=== PATIENT | female | born 2000 | race Caucasian/White ===

== ENCOUNTER 2023-02-16 11:11 | Emergency (ER) | payer MEDICAID, SELFPAY ==
[2023-02-16 11:16] VITALS: BP 134/69; PULSE 98; RESP 16; O2SAT 98
--- OUTSIDE RECORDS SUMMARY | 2023-02-16 11:44 | XMS_ITS | Continuity of Care Document ---
Author Name [facility] Address [address] [place] [address] Organization [facility] Address [address] [place] [address] Care Team Providers Care Senior Attorney Name Role Phone Jyothi Arteaga Primary Care Physician Allergies, Adverse Reactions, Alerts No known allergies. Medications Active Medications Medication Dose Units Route Sig Qty Start Date Status In structions Famotidine 0 Route .COMPLEX 270 October 30, 2020 Active TAKE 1 TABLET BY MOUTH THREE TIMES DAILY NEEDED FOR ACID REFLUX Fluoxetine 20 MG ORAL DAILY November 20, 2020 Active Levonorgestrel- Ethinyl Estrad 1 TAB ORAL DAILY 84 November 20, 2020 Active Magnesium 200 - 600 MG ORAL DAILY 90 December 20, 2020 Active Riboflavin (Vitamin B2) 400 MG ORAL DAILY 90 December 20, 2020 Active Discontinued Medications Medication Dose Units Route Sig Qty Start Date Discontinued Date Status Instructions Levonorgestre l-Ethinyl Estrad 1 TAB ORAL DAILY 84 August 17, 2018 November 08, 2019 Disconti nued Levonorgestre l-Ethinyl Estrad 1 TAB ORAL DAILY 84 2019November 20, 2020 Disconti nued Fluoxetine 10 MG ORAL DAILY June 17, 2020 July 12, 2020 Disconti nued Magnesium 200 - 600 MG ORAL DAILY 90 November 04, 2020 December 20, 2020 Disconti nued Riboflavin (Vitamin B2) 400 MG ORAL DAILY 90 November 04, 2020 December 20, 2020 Disconti nued flu vac [id number] 36mos up(PF) 60 MCG INTRAMUS CULAR ONCE 0.5 July 27, 2018 July 27, 2018 Disconti nued Ondansetron Hcl [Zofran] 4 MG ORAL Q8H PRN For nausea and vomiti ng 7 September 12, 2020 October 16, 2020 Disconti nued tuberculin PPD 0.1 ML INTRADER MAL ONCE 0.1 Septembe 2020November 19, 2020 Disconti nued tuberculin PPD 0.1 ML INTRADER MAL ONCE 0.1 July 06, 2018 July 06, 2018 Disconti nued Menactra (PF) (mening vac A,C,Y,W135 dip (PF)) 4 mcg/0.5 mL intramuscular solution 0.5 ML INTRAMUS CULAR ONCE 0.5 August 30, 2020 August 30, 2020 Disconti nued Famotidine 20 MG ORAL THREE TIMES A DAY PRN For acid reflux 90 August 30, 2020 October 30, 2020 Disconti nued Fluoxetine 20 MG ORAL DAILY 30 August 30, 2020 November 20, 2020 Disconti nued Fluoxetine 20 MG ORAL DAILY 30 July 12, 2020 August 19, 2020 Disconti nued Fluoxetine 20 MG ORAL DAILY 30 August 19, 2020 August 30, 2020 Disconti nued Silver Sulfadiazine [Silvadene] 1 APPLIC TOPICALL Y TWICE A DAY 50 October 16, 2020 November 04, 2020 Disconti nued apply a 1.5 mm thickness Levonorgestre l-Ethinyl Estrad [Vienva] September 26, 2017 August 17, 2018 Disconti nued Amoxicillin-P ot Clavulanate [Augmentin] 1 TAB ORAL TWICE A DAY 14 September 26, 2017 July 27, 2018 Disconti nued Ondansetron 4 MG ORAL Q8H PRN For nausea and vomiti ng 14 September 30, 2020 November 04, 2020 Disconti nued flu vacc [id number] 6mos up(PF) 0.5 ML INTRAMUS CULAR ONCE 0.5 May 01, 2020 May 01, 2020 Disconti nued Problem List Active Problems Medical Problem Onset Date Status Effusion of knee December 06, 2017 Benign mole Active Vomiting and diarrhea Active Abrasion, right foot, initial encounter Active Otalgia June 11, 2016 Anxiety Trauma and stressor-related disorder Headache Active Anxiety and depression Encounter for well child check without abnormal findings Active Hepatic hemangioma Active Acute pharyngitis Active Knee pain November 09, 2017 Abdominal pain Active Chest pain Active Foreign body of left eyelid Acti ve Inactive/Resolved Problems Medical Problem Onset Date Status Abdominal pain, RUQ Inactive Chronic chest wall pain Inactive Acute foot pain Inactive Acute pain of right foot Inactiv e Acute right ankle pain Inactive Acute viral pharyngitis Inactive Abdominal pain Inactive Vomiting Inactive Contusion of hand, right Inactiv e Laceration of foot, left Inactiv e Sprain of hand, right Inactive Procedures Procedure Date Status Chest 1 vw December 21, 2020 completed Ankle 3 vw Min RT October 11, 2020 completed Foot 3 vw Min RT October 11, 2020 completed EKG October 08, 2020 completed US Abdomen (Limited) 2020 completed ED US Abdominal Limited September 30, 2020 complete d Urine Culture September 12, 2020 completed Hand 3 vw Min RT July 27, 2020 completed Foot 3 vw Min LT July 04, 2020 completed Group A Streptococcus Screen (YVES) May 20 completed Reason for Referral Reason for Referral Date Referral was Provided Provider Office Contact Location October 07, 2020 Jyothi Arteaga [phone] [facility] [place] [address] Relevant Diagnostic Tests and/or Laboratory Data Laboratory Results Test Date/Time Result Interp. Ref. Range Result Comment POC Urinalysis Method November 19, 2020 11:18am Chemstrip Manual Urine Color (Manual) November 19, 2020 11:18am Yellow Urine Clarity (Manual) November 19, 2020 11:18am Clear POC Urine Glucose November 19, 2020 11:18am Negative POC Urine Bilirubin Confirmation November 19, 2020 11:18am Negative Urine Ketones (Manual) November 19, 2020 11:18am Negative Urine Specific [place] (Manual) November 19, 2020 11:18am 1.020 POC Urine RBC November 19, 2020 11:18am Negative Urine pH (Manual) November 19, 2020 11:18am 7.0 POC Urine Protein Confirmation November 19, 2020 11:18am Negative Urine Urobilinogen (Manual) November 19, 2020 11:18am Negative Urine Nitrite (Manual) November 19, 2020 11:18am Negative Urine Leukocyte Esterase (Manual) November 19, 2020 11:18am Negative White Blood Count December 21, 2020 10:15am 7.96 1000/mm3 4.8-10.8 Red Blood Count December 21, 2020 10:15am 5.35 M/mm3 4.20-5.40 Hemoglobin December 21, 2020 10:15am 15.5 g/dL 12.0-16.0 Hematocrit December 21, 2020 10:15am 45.5 % 37-47 Mean Corpuscular Volume December 21, 2020 10:15am 85.0 fL 81.0-99.0 Mean Corpuscular Hemoglobin December 21, 2020 10:15am 29.0 pg 27-31 Mean Corpuscular Hemoglobin Concent December 21, 2020 10:15am 34.1 g/dL 33-37 Red Cell Distribution Width December 21, 2020 10:15am 11.9 % 11.5-14.5 Platelet Count December 21, 2020 10:15am 244 1000/mm3 140-440 Mean Platelet Volume December 21, 2020 10:15am 9.4 fL 7.4-10.4 Neutrophils (%) (Auto) December 21, 2020 10:15am 63.9 % 40.0-72.0 Lymphocytes (%) (Auto) December 21, 2020 10:15am 27.0 % 17-45 Monocytes (%) (Auto) December 21, 2020 10:15am 5.3 % 3-11 Eosinophils (%) (Auto) December 21, 2020 10:15am 2.5 % 0-3 Basophils (%) (Auto) December 21, 2020 10:15am 1.0 % 0-1 Immature Granulocyte % (Auto) December 21, 2020 10:15am 0.3 % 0-1 Neutrophils # (Auto) December 21, 2020 10:15am 5.09 1000/mm3 1.4-6.5 Lymphocytes # (Auto) December 21, 2020 10:15am 2.15 1000/mm3 1.2-3.4 Monocytes # (Auto) December 21, 2020 10:15am 0.42 1000/mm3 0.0-0.8 Eosinophils # (Auto) December 21, 2020 10:15am 0.20 1000/mm3 0.0-0.7 Basophils # (Auto) December 21, 2020 10:15am 0.08 1000/mm3 0.0-0.1 Absolute Immature Granulocyte (auto December 21, 2020 10:15am 0.0 0-1 Differential Method December 21, 2020 10:15am Automated Urine Color September 12, 2020 4:01pm Yellow Urine Clarity September 12, 2020 4:01pm Clear Urine pH September 12, 2020 4:01pm 6.5 Urine Specific [place] September 12, 2020 4:01pm 1.015 Urine Protein September 12, 2020 4:01pm 30 (1+) mg/dL High Urine Glucose (UA) September 12, 2020 4:01pm Normal mg/dL Urine Ketones September 12, 2020 4:01pm Moderate (2+) High Urine Nitrite September 12, 2020 4:01pm Negative Urine Bilirubin September 12, 2020 4:01pm Negative mg/dL Urine Urobilinogen September 12, 2020 4:01pm 4 mg/dL High Urine Leukocyte Esterase September 12, 2020 4:01pm Negative WBC/uL Urine Blood September 12, 2020 4:01pm Negative ROSALBA/uL Urine RBC September 12, 2020 4:01pm None seen /hpf Urine WBC September 12, 2020 4:01pm None seen /hpf Urine Squamous Epithelial Cells September 12, 2020 4:01pm 2+ /hpf Urine Bacteria September 12, 2020 4:01pm 2+ /hpf High Sodium Level December 21, 2020 10:15am 139 mmol/L 137-145 Potassium Level December 21, 2020 10:15am 4.2 mmol/L 3.6-5.0 Chloride Level December 21, 2020 10:15am 102 mmol/L 98-107 Carbon Dioxide Level December 21, 2020 10:15am 27 mmol/L 22-30 Anion Gap December 21, 2020 10:15am 10 7-16 Blood Urea Nitrogen December 21, 2020 10:15am 11 mg/dL 7-17 Creatinine December 21, 2020 10:15am 0.58 mg/dL 0.52-1.04 Glomerular Filtration Rate Calc December 21, 2020 10:15am > 60 mL/min 60.0- Glucose Level December 21, 2020 10:15am 89 mg/dL 70-100 Calcium Level December 21, 2020 10:15am 9.5 mg/dL 8.4-10.2 Calcium Adjusted for Albumin December 21, 2020 10:15am 9.4 mg/dL 8.4-10.2 Total Bilirubin December 21, 2020 10:15am 0.6 mg/dL 0.2-1.3 Aspartate Amino Transf (AST/SGOT) December 21, 2020 10:15am 39 U/L High 14-36 Alanine Aminotransferase (ALT/SGPT) December 21, 2020 10:15am 24 U/L As of 07/07/19, th e Reference Range for ALT/SGPT for adult patients has been updated. The Reference Range for ALT/SGPT has not been established for patients <18 years of age. Total Protein December 21, 2020 10:15am 7.4 g/dL 6.3-8.2 Albumin December 21, 2020 10:15am 4.4 g/dL 3.5-5.0 Cholesterol Level August 30, 2020 3:29pm 109 mg/dL 59-199 HDL Cholesterol August 30, 2020 3:29pm 50 mg/dL 40-60 The National Cholesterol Education Program (NCEP) has set the following guidelines (reference values) for cholesterol, HDL: Low HDL: <40 mg/dL Normal: 40-60 mg/dL Desirable: >60 mg/dL LDL Cholesterol August 30, 2020 3:29pm 38.2 mg/dL 0-129 VLDL Cholesterol August 30, 2020 3:29pm 20.8 mg/dL 0-32 Cholesterol/HDL Ratio August 30, 2020 3:29pm 2.18 0-3.9 Triglycerides Level August 30, 2020 3:29pm 104 mg/dL 0-149 Alkaline Phosphatase December 21, 2020 10:15am 81 U/L 38-126 Lipase September 30, 2020 7:13pm 53 U/L 23-300 Free Thyroxine August 30, 2020 3:29pm 1.00 ng/dL 0.78-2.19 Thyroid Stimulating Hormone (TSH) August 30, 2020 3:29pm 0.734 mlU/L 0.47-4.68 The results of t his assay can be falsely decreased in patients who consume Biotin. Hemoglobin A1c Percent August 30, 2020 3:29pm 4.81 % <5.7%: Normal 5.7%-6.4%: Prediabetes >=6.5%: Diagnostic for diabetes Goals for Glycemic Control in Diabetes (ADA 2018) <7.0%: A1c target for non adults with diabetes. More or less stringent glycemic goals may be appropriate for individual patients. <7.5%: A1c target for children and adolescents with type I diabetes. A lower goal is reasonable if it can be achieved without excessive hypoglycemia. Estimated Average Glucose mg/dL August 30, 2020 3:29pm 91 mg/dL SARS-CoV-2 RNA (RT-PCR) June 27, 2020 3:00pm Negative This test is onl y for use under the Food and Drug Administration's (FDA) Emergency Use Authorization (EUA). This test has not been FDA cleared or approved. Not for screening. Nasal swabs are considered an acceptable sample type, however performance with this type has not been established. Negative results do not preclude infection and should not be used as the sole basis of treatment or other patient management decisions. Negative results must be combined with clinical observations, patient history, and/or epidemiological information. Fact sheets for providers can be found at: [place].gov/media/40894 5/download Fact sheets for patients can be found at: [place].gov/[employer]/01056 7/download TB Test (QFT) Antigen Minus Nil 1 May 01, 2020 10:30am 0.01 IU/mL TB Test (QFT) Gold Plus May 01, 2020 10:30am Negative No interferon-ga mma response to M. tuberculosis antigens was detected. Infection with M. tuberculosis is unlikely. A single negative result does not exclude infection with M. tuberculosis. In patients at high risk for M.tuberculosis infection, a second test should be considered in accordance with the 2017 ATS/IDSA/CDC Clinical Practice Guidelines for Diagnosis of Tuberculosis in Adults and Children [Renzoinsedyn JOYCE et. al. Clin. Infect. Dis. 2017;64(2):111-115] . The reference range for the 'TB1 Ag minus Nil Result' and 'TB2 Ag minus Nil Result' is an Interferon-gamma level <0.35 IU/mL. TB Test (QFT) Antigen Minus Nil 2 May 01, 2020 10:30am 0.00 IU/mL TB Test (QFT) Mitogen Minus Nil May 01, 2020 10:30am 7.75 IU/mL TB Test (QFT) Nil May 01, 2020 10:30am 0.01 IU/mL Test Performed b y: [facility] [address] [place] [address] Sleeping Car Porter: Boone Escudero M.D. Ph.D.; [facility]# [id number] Microbiology Results Procedure Source Result Collection Date/Time Result Date/Time Group A Streptococcus Screen (YVES) Throat No results entered May 20, 2020 1:55pm Urine Culture Ur,Clean Catch No results entered September 12, 2020 4:01pm Chief Complaint and Reason for Visit Encounter Admit Date Chief Complaint Reason for V isit Departed Emergency December 21, 2020 8:46am FLANK PAIN Hospital Discharge Instructions Additional Discharge Instructions Your b est solution for the pain on the right mid back is going to be constant thorough and regular stretching. You have clear muscle spasm in that area causing it to be tender to touch and sore to move and breathe. Instruction/Education Provided Karen blair ([facility]UNIER) Hospital Discharge Medications Medication Dose Units Route Sig Qty Days Order Date Status Instructions Levonorgestrel -Ethinyl Estrad 1 TAB ORAL DAILY 84 August 17, 2018 Discontinu ed Levonorgestrel -Ethinyl Estrad 1 TAB ORAL DAILY November 08, 2019 Discontinu ed Fluoxetine 10 MG ORAL DAILY June 17, 2020 Discontinu ed Famotidine 0 Route .COMPLEX [address] 2020 Active TAKE 1 TABLET BY MOUTH THREE TIMES DAILY NEEDED FOR ACID REFLUX Fluoxetine 20 MG ORAL DAILY 2020 Active Levonorgestrel -Ethinyl Estrad 1 TAB ORAL DAILY November 20, 2020 Active Magnesium 200 - 600 MG ORAL DAILY 90 November 04, 2020 Discontinu ed Riboflavin (Vitamin B2) 400 MG ORAL DAILY November 04, 2020 Discontinu ed flu vac [id number] 36mos up(PF) 60 MCG INTRAMUSCU LAR ONCE 0.5 July 27, 2018 Discontinu ed Ondansetron Hcl 4 MG ORAL Q8H PRN For nausea and vomiting 7 September 12, 2020 Discontinu ed tuberculin PPD 0.1 ML INTRADERMA L ONCE 0.1 November 19, 2020 Discontinu ed Magnesium 200 - 600 MG ORAL DAILY December 20, 2020 Active Riboflavin (Vitamin B2) 400 MG ORAL DAILY 90 December 20, 2020 Active tuberculin PPD 0.1 ML INTRADERMA L ONCE 0.1 July 06, 2018 Discontinu ed Menactra (PF) (mening vac A,C,Y,W135 dip (PF)) 4 mcg/0.5 mL intramuscular 0.5 ML INTRAMUSCU LAR ONCE 0.5 August 30, 2020 Discontinu ed Famotidine 20 MG ORAL THREE TIMES A DAY PRN For acid reflux 90 August 30, 2020 Discontinu ed Fluoxetine 20 MG ORAL DAILY 30 August 30, 2020 Discontinu ed Fluoxetine 20 MG ORAL DAILY July Discontinu ed Fluoxetine 20 MG ORAL DAILY August 19, 2020 Discontinu ed Silver Sulfadiazine 1 APPLIC TOPICALLY TWICE A DAY 50 October 16, 2020 Discontinu ed apply a 1.5 mm thickness Levonorgestrel -Ethinyl Estrad September 26, 2017 Discontinu ed Amoxicillin-Po t Clavulanate 1 TAB ORAL TWICE A DAY 14 September 26, 2017 Discontinu ed Ondansetron 4 MG ORAL Q8H PRN For nausea and vomiting September 30, 2020 Discontinu ed flu vacc [id number] 6mos up(PF) 0.5 ML INTRAMUSCU LAR ONCE 0.5 May 01, 2020 Discontinu ed Encounters Encounter Facility Location Admit/Visit Date Discharge/Departure Date Attending Provider Departed Emergency [facility] Emergency Department December 21, 2020 8:46am December 21, 2020 12:00pm Departed Physician/Pr ovider Office Visit [facility] December 20, 2020 4:18pm December 20, 2020 4:47pm Maite Garcia Departed Physician/Pr ovider Office Visit [facility] November 19, 2020 10:32am November 19, 2020 11:29am Felicia Rodrigez Departed Physician/Pr ovider Office Visit [facility] November 15, 2020 2:11pm November 15, 2020 2:55pm Antwon Jackson Departed Physician/Pr ovider Office Visit [facility] November 04, 2020 10:01am November 04, 2020 10:26am Jyothi Arteaga Departed Physician/Pr ovider Office Visit [facility] October 16, 2020 1:25pm October 16, 2020 1:55pm Antwon Jackson Departed Emergency [facility] Urgent [facility] October 11, 2020 7:11pm October 11, 2020 9:23pm Departed Clinical [facility] Cardiology October 08, 2020 1:55pm October 08, 2020 1:56pm Jyothi Arteaga Departed Physician/Pr ovider Office Visit [facility] Cardiology October 08, 2020 1:50pm October 08, 2020 11:59pm Diann Oakes Departed Physician/Pr ovider Office Visit [facility] October 07, 2020 12:53pm October 07, 2020 2:16pm Jyothi Arteaga Departed Emergency [facility] Emergency Department 2020 8:52am 2020 10:22am Departed Emergency [facility] Emergency Department September 30, 2020 4:35pm September 30, 2020 8:56pm Departed Emergency [facility] Urgent [facility] September 30, 2020 2:40pm September 30, 2020 4:44pm Departed Referred [facility] Lab [facility] [place] September 12, 2020 4:01pm September 12, 2020 4:02pm Ian Garcia Departed Physician/Pr ovider Office Visit [facility] September 12, 2020 3:24pm September 12, 2020 4:17pm Ian Garcia Departed Clinical [facility] Laboratory August 30, 2020 2:39pm August 30, 2020 2:40pm Jyothi Arteaga Departed Physician/Pr ovider Office Visit [facility] August 30, 2020 1:59pm August 30, 2020 4:00pm Jyothi Arteaga Departed Physician/Pr ovider Office Visit [facility] August 19, 2020 8:59am August 19, 2020 11:18am Jyothi Arteaga Departed Physician/Pr ovider Office Visit [facility] August 06, 2020 8:07am August 06, 2020 3:16pm Joi Herman Departed Emergency [facility] Emergency Department July 27, 2020 3:43pm July 27, 2020 5:11pm Departed Physician/Pr ovider Office Visit [facility] July 24, 2020 7:51am July 24, 2020 1:52pm Joi Herman Departed Physician/Pr ovider Office Visit [facility] Occupational Health [facility] July 18, 2020 2:47pm July 18, 2020 2:47pm Windy Contreras Departed Physician/Pr ovider Office Visit [facility] July 12, 2020 7:56am July 12, 2020 11:59pm Jyothi Arteaga Departed Physician/Pr ovider Office Visit [facility] July 09, 2020 10:31am July 09, 2020 9:21pm Joi Herman Departed Emergency [facility] Emergency Department July 04, 2020 10:57am July 04, 2020 11:59am Departed Clinical [facility] June 27, 2020 8:16am June 27, 2020 8:17am Windy Contreras Departed Physician/Pr ovider Office Visit [facility] June 21, 2020 7:52am June 21, 2020 3:38pm Joi Herman Departed Physician/Pr ovider Office Visit [facility] June 21, 2020 7:50am June 21, 2020 11:59pm Jyothi Arteaga Departed Physician/Pr ovider Office Visit [facility] June 14, 2020 3:05pm June 14, 2020 11:59pm Jyothi Arteaga Departed [facility] May 20, 2020 1:55pm May 20, 2020 1:56pm Nadege Parker Departed Physician/Pr ovider Office Visit [facility] May 20, 2020 1:16pm May 20, 2020 2:13pm Nadege Parker Departed Clinical [facility] May 20, 2020 8:31am May 20, 2020 8:32am Twyla Navarrete Departed Physician/Pr ovider Office Visit [facility] May 19, 2020 10:40am May 19, 2020 11:59pm Twyla Navarrete Departed Clinical [facility] May 01, 2020 11:04am May 01, 2020 11:05am Windy Contreras Departed Physician/Pr ovider Office Visit [facility] May 01, 2020 10:09am May 01, 2020 12:58pm Referral, Self Departed Physician/Pr ovider Office Visit [facility] February 14, 2020 7:43am February 14, 2020 11:49am Joi Herman Departed Physician/Pr ovider Office Visit [facility] January 12, 2020 2:30pm January 12, 2020 3:38pm Jyothi Arteaga Functional Status Query Response Date Recorded Comment Comprehension Ability Understands Concepts July 27 4:22pm Mood/Behavior Appropriate July 27, 2020 4:22pm Speech Appropriate Clear July 27, 2020 4:22pm Query Response Date Recorded Comment Living Situation Home December 21, 2020 12:00pm Immunizations Immunization Name Date Given Type DTP vaccine (H) 2002 Historical DTP vaccine (H) March 13, 2003 Historical DTP vaccine (H) July 13, 2003 Historical DTP vaccine (H) February 05, 2004 Historical DTP vaccine (H) October 03, 2007 Historical Hepatitis A Pediatric/Adolescent April 26 Historical Hepatitis A Pediatric/Adolescent May 22, 2015 Historical Hepatitis B UNSP (H) 2002 Historical Hepatitis B UNSP (H) March 13, 2003 Historical Hepatitis B UNSP (H) July 13, 2003 Historical HIB, Unspecified (H) 2002 Historical HIB, Unspecified (H) March 13, 2003 Historical HIB, Unspecified (H) July 13, 2003 Historical HIB, Unspecified (H) June 02, 2004 Historical HPV 4 (H) April 26, 2014 Historical HPV 4 (H) May 22, 2015 Historical Influenza IIV4 PF July 27, 2018 Administered Influenza IIV4 PF May 01, 2020 Administered Influenza IIV3 April 10, 2011 Historical Influenza Virus Vaccine (H) February 04, 2006 Hi storical Influenza Virus Vaccine (H) February 10, 2006 His torical Influenza Virus Vaccine (H) December 29, 2006 His torical Influenza Virus Vaccine (H) January 27, 2008 Hi storical Influenza Virus Vaccine (H) April 26, 2009 Hi storical Meningococcal Conjugate MCV4 (Menactra) April 26, 2014 Historical Meningococcal Conjugate MCV4 (Menactra) August 30, 2020 Administered Measles,Mumps,Rubella Vaccine June 02, 2004 Hi storical Measles,Mumps,Rubella Vaccine October 03, 2007 Hi storical Pneumococcal Unspecified (H) 2002 His torical Pneumococcal Unspecified (H) March 13, 2003 His torical Pneumococcal Unspecified (H) November 23, 2003 Historical Pneumococcal Unspecified (H) February 05, 2004 H istorical Polio unspecified (H) 2002 Historical Polio unspecified (H) March 13, 2003 Historical Polio unspecified (H) July 13, 2003 Historical Polio unspecified (H) November 09, 2006 Historic al Tdap April 26, 2014 Historical Varicella Virus Vaccine (Varivax) November 23, 2003 Historical Varicella Virus Vaccine (Varivax) October 03, 2007 Historical Plan of Care Instructions Costochondritis (DC) Social History Query Response Date Recorded Comment Alcohol Use No December 21, 2020 9:21am Smoking Status Current every day smoker December 21, 2020 9:21am Substance/Street Drug Use Yes December 21, 2020 9:21am QHS marijuana as of 09/30/20 alcohol intake frequency holidays/special occasions only December 21, 2020 9:21am substance use type marijuana December 21 9:21am Query Response Start Date Stop Date Smoking Status Current every day smoker Vital Signs Vital Reading Result Reference Range Collection Date/Time Height 5 ft 5 in November 15 2:21pm Weight 102.512 kg December 21 8:57am Temperature 97.5 F 97.6 F-99.6 F December 21 8:57am Pulse 58 BPM 56-106 December 21 8:57am Respiration 18 RPM 16-24 December 21 8:57am Pulse Oximetry 96 % 95-100 December 21 8:57am Blood Pressure Systolic 116 102-133 Octo [facility] 2020 8:57am Blood Pressure Diastolic 65 61-85 Oct mono 2020 8:57am Body Mass Index 37.0 November 2:21pm
--- OUTSIDE RECORDS SUMMARY | 2023-02-16 11:44 | XMS_ITS | Continuity of Care Document ---
Author Name [facility] Address [address] [place] [address] [facility] Address [address] [place] [address] Care Team Providers Care Mobile Service Rv Technician Name Role Phone Jyothi Arteaga Primary Care Physician [phone] Allergies, Adverse Reactions, Alerts No known allergies. [...] December 20, 2020 Disconti nued flu vac [id number] 36mos up(PF) 60 MCG INTRAMUS CULAR ONCE [...] November 04, 2020 Disconti nued flu vacc [id number] 6mos up(PF) 0.5 ML INTRAMUS CULAR ONCE 0.5 May 01, 2020 May 01, 2020 Disconti nued Problem List Active Problems Medical Problem Onset Date Status Abdominal pain, right lower quadrant Active Effusion of knee December 06, 2017 Benign mole Active Viral URI with cough Active Vomiting and diarrhea Active Abrasion, right [...] hand, right Inactive Procedures Procedure Date Status CT Abd Pel w/ Contrast February 22, 2021 active Chest 1 vw February 22, 2021 active EKG February 22, 2021 active Chest 1 vw December 21, 2020 completed [...] Contact Location October 07, 2020 Jyothi Arteaga [phone] [facility] [place] [address] Relevant Diagnostic Tests and/or Laboratory Data Laboratory [...] November 19, 2020 11:18am Negative Urine Specific [place] (Manual) November 19, 2020 11:18am 1.020 POC Urine RBC November 19, 2020 11:18am Negative Urine pH (Manual) November 19, 2020 11:18am 7.0 POC Urine Protein Confirmation November 19, 2020 11:18am Negative Urine Urobilinogen (Manual) November 19, 2020 11:18am Negative Urine Nitrite (Manual) November 19, 2020 11:18am Negative Urine Leukocyte Esterase (Manual) November 19, 2020 11:18am Negative White Blood Count February 22, 2021 2:25pm 10.28 1000/mm3 4.8-10.8 Red Blood Count February 22, 2021 2:25pm 5.28 M/mm3 4.20-5.40 Hemoglobin February 22, 2021 2:25pm 15.3 g/dL 12.0-16.0 Hematocrit February 22, 2021 2:25pm 45.3 % 37-47 Mean Corpuscular Volume February 22, 2021 2:25pm 85.8 fL 81.0-99.0 Mean Corpuscular Hemoglobin February 22, 2021 2:25pm 29.0 pg 27-31 Mean Corpuscular Hemoglobin Concent February 22, 2021 2:25pm 33.8 g/dL 33-37 Red Cell Distribution Width February 22, 2021 2:25pm 11.8 % 11.5-14.5 Platelet Count February 22, 2021 2:25pm 222 1000/mm3 140-440 Mean Platelet Volume February 22, 2021 2:25pm 9.9 fL 7.4-10.4 Neutrophils (%) (Auto) February 22, 2021 2:25pm 72.5 % High 40.0-72.0 Lymphocytes (%) (Auto) February 22, 2021 2:25pm 16.9 % Low 17-45 Monocytes (%) (Auto) February 22, 2021 2:25pm 7.6 % 3-11 Eosinophils (%) (Auto) February 22, 2021 2:25pm 1.8 % 0-3 Basophils (%) (Auto) February 22, 2021 2:25pm 0.9 % 0-1 Immature Granulocyte % (Auto) February 22, 2021 2:25pm 0.3 % 0-1 Neutrophils # (Auto) February 22, 2021 2:25pm 7.45 1000/mm3 High 1.4-6.5 Lymphocytes # (Auto) February 22, 2021 2:25pm 1.74 1000/mm3 1.2-3.4 Monocytes # (Auto) February 22, 2021 2:25pm 0.78 1000/mm3 0.0-0.8 Eosinophils # (Auto) February 22, 2021 2:25pm 0.19 1000/mm3 0.0-0.7 Basophils # (Auto) February 22, 2021 2:25pm 0.09 1000/mm3 0.0-0.1 Absolute Immature Granulocyte (auto February 22, 2021 2:25pm 0.0 0-1 Differential Method February 22, 2021 2:25pm Automated Urine Color September 12, 2020 4:01pm Yellow Urine Clarity September 12, 2020 4:01pm Clear Urine pH September 12, 2020 4:01pm 6.5 Urine Specific [place] September 12, 2020 4:01pm 1.015 Urine Protein [...] 2020 4:01pm 2+ /hpf High Sodium Level February 22, 2021 2:25pm 139 mmol/L 137-145 Potassium Level February 22, 2021 2:25pm 3.9 mmol/L 3.6-5.0 Chloride Level February 22, 2021 2:25pm 104 mmol/L 98-107 Carbon Dioxide Level February 22, 2021 2:25pm 25 mmol/L 22-30 Anion Gap February 22, 2021 2:25pm 10 7-16 Blood Urea Nitrogen February 22, 2021 2:25pm 10 mg/dL 7-17 Creatinine February 22, 2021 2:25pm 0.55 mg/dL 0.52-1.04 Glomerular Filtration Rate Calc February 22, 2021 2:25pm > 60 mL/min 60.0- Glucose Level February 22, 2021 2:25pm 84 mg/dL 70-100 Calcium Level February 22, 2021 2:25pm 9.6 mg/dL 8.4-10.2 Calcium Adjusted for Albumin February 22, 2021 2:25pm 9.4 mg/dL 8.4-10.2 Total Bilirubin February 22, 2021 2:25pm 0.6 mg/dL 0.2-1.3 Aspartate Amino Transf (AST/SGOT) February 22, 2021 2:25pm 33 U/L 14-36 Alanine Aminotransferase (ALT/SGPT) February 22, 2021 2:25pm 23 U/L As of 07/07/19, th e Reference Range for ALT/SGPT for adult patients has been updated. The Reference Range for ALT/SGPT has not been established for patients <18 years of age. Total Protein February 22, 2021 2:25pm 7.4 g/dL 6.3-8.2 Albumin February 22, 2021 2:25pm 4.5 g/dL 3.5-5.0 Cholesterol Level August 30, 2020 [...] 2020 3:29pm 104 mg/dL 0-149 Alkaline Phosphatase February 22, 2021 2:25pm 74 U/L 38-126 Lipase February 22, 2021 2:25pm 52 U/L 23-300 Free Thyroxine August 30, 2020 [...] sheets for providers can be found at: [employer] PTY.gov/media/89126 5/download Fact sheets for patients can be found at: [employer] PTY.gov/MePlease/99697 7/download TB Test (QFT) Antigen Minus Nil [...] 10:30am 0.01 IU/mL Test Performed b y: [facility] [address] [place] [address] Coverer: Boone Escudero M.D. Ph.D.; IA# [id number] Microbiology Results Procedure Source Result Collection Date/Time Result Date/Time Group A Streptococcus Screen (YVES) Throat No results entered May 20, 2020 1:55pm Urine Culture Ur,Clean Catch No results entered September 12, 2020 4:01pm Chief Complaint and Reason for Visit Encounter Admit Date Chief Complaint Reason for V isit Registered Emergency February 22, 2021 1:48pm SOB,CP & ABD PAIN Hospital Discharge Instructions No known hospital discharge instructions. Hospital Discharge Medications Medication Dose Units Route [...] Magnesium 200 - 600 MG ORAL DAILY November 04, 2020 Discontinu ed Riboflavin (Vitamin B2) 400 MG ORAL DAILY November 04, 2020 Discontinu ed flu vac [id number] 36mos up(PF) 60 MCG INTRAMUSCU LAR ONCE 0.5 July 27, 2018 Discontinu ed Ondansetron Hcl 4 MG ORAL Q8H PRN For nausea and vomiting September 12, 2020 Discontinu ed tuberculin PPD 0.1 ML INTRADERMA L ONCE 0.1 November 19, 2020 Discontinu ed Magnesium 200 - 600 MG ORAL DAILY December 20, 2020 Active Riboflavin (Vitamin B2) 400 MG ORAL DAILY December 20, 2020 Active tuberculin PPD 0.1 [...] MG ORAL DAILY 30 August 19, 2020 Discontinu ed Silver Sulfadiazine [...] September 30, 2020 Discontinu ed flu vacc [id number] 6mos up(PF) 0.5 ML INTRAMUSCU LAR ONCE 0.5 May 01, 2020 Discontinu ed Encounters Encounter Facility Location Admit/Visit Date Discharge/Departure Date Attending Provider Registered Emergency [facility] Emergency Department February 22, 2021 1:48pm Departed Emergency [facility] Urgent [facility] February 22, 2021 12:49pm February 22, 2021 1:47pm Departed Emergency [facility] Emergency Department December 21, 2020 8:46am December 21, 2020 12:00pm Departed Physician/Pr ovider Office Visit [facility] December 20, 2020 4:18pm December 20, 2020 4:47pm Maite Garcia Departed Physician/Pr ovider Office Visit [facility] Pediatric[facility] November 19, 2020 10:32am November 19, 2020 11:29am Felicia Rodrigez Departed Physician/Pr ovider Office Visit [facility] Orthopedic&Cesar [facility] November 15, 2020 2:11pm November 15, 2020 2:55pm Antwon Jackson Departed Physician/Pr ovider Office Visit [facility] November 04, 2020 10:01am November 04, 2020 10:26am Jyothi Arteaga Departed Physician/Pr ovider Office Visit [facility] October 16, 2020 1:25pm October 16, 2020 1:55pm Antwon Jackson Departed Emergency [facility] Urgent [facility] October 11, 2020 7:11pm October 11, 2020 9:23pm Departed Clinical [facility] Cardiology October 08, 2020 1:55pm October 08, 2020 1:56pm Jyothi Arteaga Departed Physician/Pr ovider Office Visit [facility] Cardiology October 08, 2020 1:50pm October 08, 2020 11:59pm Diann Oakes Departed Physician/Pr ovider Office Visit [facility] Pediatric[facility] October 07, 2020 12:53pm October 07, 2020 2:16pm Jyothi Arteaga Departed Emergency [facility] Emergency Department 2020 8:52am 2020 10:22am Departed Emergency [facility] Emergency Department September 30, 2020 4:35pm September 30, 2020 8:56pm Departed Emergency [facility] September 30, 2020 2:40pm September 30, 2020 4:44pm Departed Referred [facility] [place] September 12, 2020 4:01pm September 12, 2020 4:02pm Ian Garcia Departed Physician/Pr ovider Office Visit [facility] September 12, 2020 3:24pm September 12, 2020 4:17pm Ian Garcia Departed Clinical [facility] Laboratory August 30, 2020 2:39pm August 30, 2020 2:40pm Jyothi Arteaga Departed Physician/Pr ovider Office Visit [facility] August 30, 2020 1:59pm August 30, 2020 4:00pm Jyothi Arteaga Departed Physician/Pr ovider Office Visit [facility] August 19, 2020 8:59am August 19, 2020 11:18am Jyothi Arteaga Departed Physician/Pr ovider Office Visit [facility] August 06, 2020 8:07am August 06, 2020 3:16pm Joi Herman Departed Emergency [facility] Emergency Department July 27, 2020 3:43pm July 27, 2020 5:11pm Departed Physician/Pr ovider Office Visit [facility] July 24, 2020 7:51am July 24, 2020 1:52pm Joi Herman Departed Physician/Pr ovider Office Visit [facility] July 18, 2020 2:47pm July 18, 2020 2:47pm Windy Contreras Departed Physician/Pr ovider Office Visit [facility] July 12, 2020 7:56am July 12, 2020 11:59pm Jyothi Arteaga Departed Physician/Pr ovider Office Visit [facility] July 09, 2020 10:31am July 09, 2020 9:21pm Joi Herman Departed Emergency [facility] Emergency Department July 04, 2020 10:57am July 04, 2020 11:59am Departed Clinical [facility] June 27, 2020 8:16am June 27, 2020 8:17am Windy Contreras Departed Physician/Pr ovider Office Visit [facility] June 21, 2020 7:52am June 21, 2020 3:38pm Joi Herman Departed Physician/Pr ovider Office Visit [facility] June 21, 2020 7:50am June 21, 2020 11:59pm Jyothi Arteaga Departed Physician/Pr ovider Office Visit [facility] June 14, 2020 3:05pm June 14, 2020 11:59pm Jyothi Arteaga Departed Referred [facility] LAB [facility] May 20, 2020 1:55pm May 20, 2020 1:56pm Nadege Parker Departed Physician/Pr ovider Office Visit [facility] May 20, 2020 1:16pm May 20, 2020 2:13pm Nadege Parker Departed Clinical [facility] May 20, 2020 8:31am May 20, 2020 8:32am Twyla Navarrete Departed Physician/Pr ovider Office Visit [facility] May 19, 2020 10:40am May 19, 2020 11:59pm Twyla Navarrete Departed Clinical [facility] May 01, 2020 11:04am May 01, 2020 11:05am Windy Contreras Departed Physician/Pr ovider Office Visit [facility] May 01, 2020 10:09am May 01, 2020 12:58pm Referral, Self Functional Status Query Response Date Recorded Comment Comprehension Ability Understands Concepts July 27 4:22pm Mood/Behavior Appropriate July 27, 2020 4:22pm Speech Appropriate Clear July 27, 2020 4:22pm Query Response Date Recorded Comment Living Situation Home With Significant Other February 22, 2021 3:58pm Immunizations Immunization Name Date Given Type DTP [...] October 03, 2007 Historical Plan of Care No Known Plan of Care Information Social History Query Response Date Recorded Comment Alcohol Use No February 22 3:58pm Smoking Status Current every day smoker February 22, 2021 3:58pm Substance/Street Drug Use Yes February 22, 2021 3:58pm QHS marijuana as of 09/30/20 alcohol intake frequency February 22, 2021 1:02pm substance use type marijuana February 22, 2021 3:58pm Query Response Start Date Stop Date Smoking Status Current every day smoker Vital Signs Vital Reading Result Reference Range Collection Date/Time Height 5 ft 6 in February 22 1:02pm Weight 106.095 kg February 22 2:31pm Temperature 99.7 F 97.6 F-99.6 F February 22 021 2:31pm Pulse 65 BPM 56-106 February 22 2:31pm Respiration 17 RPM 16-24 February 22 2:31pm Pulse Oximetry 98 % 95-100 February 22, 2021 2:31pm Blood Pressure Systolic 100 102-133 Dece mb2020 2:31pm Blood Pressure Diastolic 52 61-85 Dec emb2020 2:31pm Body Mass Index 37.0 November 2:21pm
--- OUTSIDE RECORDS SUMMARY | 2023-02-16 11:44 | XMS_ITS | Continuity of Care Document ---
Author Name [facility] Address [address] [place] [id number] Organization [facility] Address [address] [place] [id number] Support Name Relationship Address Phone Jyothi Arteaga Primary Care Provider [facility] Leandro torres [facility] [address] [place] [address] Soni Santa Attending Provider Unknown Unavailab le Allergies, Adverse Reactions, Alerts No known allergies. [...] Disconti nued Fluoxetine 10 MG ORAL DAILY 30 June 17, 2020 July 12, 2020 Disconti nued Magnesium 200 - 600 MG ORAL DAILY 90 November 04, 2020 December 20, 2020 Disconti nued Riboflavin (Vitamin B2) 400 MG ORAL DAILY 90 November 04, 2020 December 20, 2020 Disconti nued flu vac [id number] 36mos up(PF) 60 MCG INTRAMUS CULAR ONCE [...] Disconti nued Fluoxetine 20 MG ORAL DAILY July 12, 2020 August 19, 2020 Disconti [...] November 04, 2020 Disconti nued flu vacc [id number] 6mos up(PF) 0.5 ML INTRAMUS CULAR ONCE [...] Date Status Abdominal pain, right lower quadrant Inactive Abdominal pain, RUQ Inactive Chronic chest wall pain Inactive Acute foot pain Inactive Viral URI with cough Inactive URI (upper respiratory infection) Inactive Acute pain of right foot Inactiv e Acute right ankle pain Inactive Acute viral pharyngitis Inactive Abdominal pain Inactive Abdominal pain Inactive Vomiting Inactive Contusion of hand, right Inactiv e Laceration of foot, left Inactiv e Sprain of hand, right Inactive Procedures Procedure Date Status CT Abd Pel w/ Contrast February 22, 2021 complet ed Chest 1 vw February 22, 2021 completed EKG February 22, 2021 completed Chest 1 vw December 21, 2020 completed [...] Contact Location October 07, 2020 Jyothi Arteaga [phone] [facility] [place] [address] Relevant Diagnostic Tests and/or Laboratory Data Laboratory Results Test Date/Time Result Interp. Ref. Range Result Co mment POC Urinalysis Method November 19, 2020 11:18am Chemstrip Manual Urine Color (Manual) November 19, 2020 11:18am Yellow Urine Clarity (Manual) November 19, 2020 11:18am Clear POC Urine Glucose November 19, 2020 11:18am Negative POC Urine Bilirubin Confirmation November 19, 2020 11:18am Negative Urine Ketones (Manual) November 19, 2020 11:18am Negative Urine Specific [place] (Manual) November 19, 2020 11:18am 1.020 POC [...] September 12, 2020 4:01pm 6.5 Urine Specific [place] September 12, 2020 4:01pm 1.015 Urine Protein [...] 3:29pm 0.734 mlU/L 0.47-4.68 The results of this assay can be falsely decreased in patients [...] 2020 3:29pm 91 mg/dL SARS-CoV-2 RNA (RT-PCR) February 22, 2021 1:16pm Negative Note: This RT-PC R assay is intended for the in vitro qualitative detection of nucleic acid from SARS-CoV-2. This test has not been FDA cleared or approved. This test has been authorized by the FDA under an Emergency Use Authorization (EUA) for use by authorized laboratories. Fact sheets for providers can be found at: [employer]/1362 85/download Fact sheets for patients can be found at: [employer]/1362 87/download TB Test (QFT) Antigen Minus Nil 1 May 01, 2020 10:30am 0.01 IU/mL TB Test (QFT) Gold Plus May 01, 2020 10:30am Negative No interferon-gamma response to M. tuberculosis antigens was detected. Infection with M. tuberculosis is unlikely. A single negative result does not exclude infection with M. tuberculosis. In patients at high risk for M.tuberculosis infection, a second test should be considered in accordance with the 2017 ATS/IDSA/CDC Clinical Practice Guidelines for Diagnosis of Tuberculosis in Adults and Children [Ashleyn JOYCE et. al. Clin. Infect. Dis. 2017;64(2):111-115 ]. The reference range for the 'TB1 Ag minus Nil Result' and 'TB2 Ag minus Nil Result' is an Interferon-gamma level <0.35 IU/mL. TB Test (QFT) Antigen Minus Nil 2 May 01, 2020 10:30am 0.00 IU/mL TB Test (QFT) Mitogen Minus Nil May 01, 2020 10:30am 7.75 IU/mL TB Test (QFT) Nil May 01, 2020 10:30am 0.01 IU/mL Test Performed b y: [facility] [address] [place] [address] Accounts Receivable Specialist: Boone Escudero M.D. Ph.D.; CLIA# [id number] Microbiology Results Procedure Source Result Collection Date/Time Result Date/Time Group A Streptococcus Screen (YVES) Throat No results entered May 20, 2020 1:55pm Urine Culture Ur,Clean Catch No results entered September 12, 2020 4:01pm Chief Complaint and Reason for Visit Encounter Admit Date Chief Complaint Reason for V isit Registered Inpatient March 06, 2021 3:15pm Amb Docu mentation Hospital Discharge Instructions No known hospital discharge instructions. Hospital Discharge Medications Medication Dose Units Route Sig Qty Days Order Date Status Instructions Levonorgestrel -Ethinyl Estrad 1 TAB ORAL DAILY 84 August 17, 2018 Discontinu ed Levonorgestrel -Ethinyl Estrad 1 TAB ORAL DAILY November 08, 2019 Discontinu ed Fluoxetine 10 MG ORAL DAILY 30 June 17, 2020 Discontinu ed Famotidine 0 [...] November 04, 2020 Discontinu ed flu vac [id number] 36mos up(PF) 60 MCG INTRAMUSCU LAR ONCE [...] TIMES A DAY PRN For acid reflux August 30, 2020 Discontinu ed Fluoxetine 20 [...] September 30, 2020 Discontinu ed flu vacc [id number] 6mos up(PF) 0.5 ML INTRAMUSCU LAR ONCE 0.5 May 01, 2020 Discontinu ed Encounters Encounter Facility Location Admit/Visit Date Discharge/Departure Date Attending Provider Registered Inpatient [facility] March 06, 2021 3:15pm Soni Santa Departed Emergency [facility] Emergency Department February 22, 2021 1:48pm February 22, 2021 5:28pm Departed Emergency [facility] February 22, 2021 12:49pm February 22, 2021 1:47pm Departed Emergency [facility] Emergency Department December 21, 2020 8:46am December 21, 2020 12:00pm Departed Physician/Pr ovider Office Visit [facility] Pediatrics [facility] December 20, 2020 4:18pm December 20, 2020 4:47pm Maite Garcia Departed Physician/Pr ovider Office Visit [facility] November 19, 2020 10:32am November 19, 2020 11:29am Felicia Rodrigez Departed Physician/Pr ovider Office Visit [facility] November 15, 2020 2:11pm November 15, 2020 2:55pm Antwon Jackson Departed Physician/Pr ovider Office Visit [facility] November 04, 2020 10:01am November 04, 2020 10:26am Jyothi Arteaga Departed Physician/Pr ovider Office Visit [facility] October 16, 2020 1:25pm October 16, 2020 1:55pm An[facility] Jackson [facility] October 11, 2020 7:11pm October 11, 2020 9:23pm Departed Clinical [facility] Cardiology October 08, 2020 1:55pm October 08, 2020 1:56pm Jyothi Arteaga Departed Physician/Pr ovider Office Visit [facility] Cardiology October 08, 2020 1:50pm October 08, 2020 11:59pm Diann Oakes Departed Physician/Pr ovider Office Visit [facility] October 07, 2020 12:53pm October 07, 2020 2:16pm Jyothi Arteaga Departed Emergency [facility] Emergency Department 2020 8:52am 2020 10:22am Departed Emergency [facility] Emergency Department September 30, 2020 4:35pm September 30, 2020 8:56pm Departed Emergency [facility] September 30, 2020 2:40pm September 30, 2020 4:44pm Departed Referred [facility] Lab [facility] Peds [facility] September 12, 2020 4:01pm September 12, 2020 4:02pm Ian Garcia Departed Physician/Pr ovider Office Visit [facility] September 12, 2020 3:24pm September 12, 2020 4:17pm Ian Garcia Departed Clinical [facility] Laboratory August 30, 2020 2:39pm August 30, 2020 2:40pm Jyothi Arteaga Departed Physician/Pr ovider Office Visit [facility] August 30, 2020 1:59pm August 30, 2020 4:00pm Jyothi Arteaga Departed Physician/Pr ovider Office Visit [facility] August 19, 2020 8:59am August 19, 2020 11:18am Jyothi Arteaga Departed Physician/Pr ovider Office Visit [facility] August 06, 2020 8:07am August 06, 2020 3:16pm Joi Herman Departed Emergency [facility] Emergency Department July 27, 2020 3:43pm July 27, 2020 5:11pm Departed Physician/Pr ovider Office Visit [facility] July 24, 2020 7:51am July 24, 2020 1:52pm Joi Herman Departed Physician/Pr ovider Office Visit [facility] Occupational Health [facility] July 18, 2020 2:47pm July 18, 2020 2:47pm Windy Contreras Departed Physician/Pr ovider Office Visit [facility] July 12, 2020 7:56am July 12, 2020 11:59pm Jyothi Arteaga Departed Physician/Pr ovider Office Visit [facility] July 09, 2020 10:31am July 09, 2020 9:21pm Joi Herman Departed Emergency [facility] Emergency Department July 04, 2020 10:57am July 04, 2020 11:59am Departed Clinical [facility] June 27, 2020 8:16am June 27, 2020 8:17am Windy Contreras Departed Physician/Pr ovider Office Visit [facility] June 21, 2020 7:52am June 21, 2020 3:38pm Joi Herman Departed Physician/Pr ovider Office Visit [facility] June 21, 2020 7:50am June 21, 2020 11:59pm Jyothi Arteaga Departed Physician/Pr ovider Office Visit [facility] June 14, 2020 3:05pm June 14, 2020 11:59pm Jyothi Arteaga Departed Referred [facility] LAB [facility] May 20, 2020 1:55pm May 20, 2020 1:56pm Nadege Parker Departed Physician/Pr ovider Office Visit [facility] May 20, 2020 1:16pm May 20, 2020 2:13pm Nadege Parker Departed Clinical [facility] May 20, 2020 8:31am May 20, 2020 8:32am Twyla Navarrete Departed Physician/Pr ovider Office Visit [facility] May 19, 2020 10:40am May 19, 2020 11:59pm Twyla Navarrete Departed Clinical [facility] May 01, 2020 11:04am May 01, 2020 11:05am Windy Contreras Departed Physician/Pr ovider Office Visit [facility] Occupational Health [facility] May 01, 2020 10:09am May 01, 2020 12:58pm Referral, Self Functional Status Query Response Date Recorded Comment Comprehension Ability Understands Concepts July 27 4:22pm Mood/Behavior Appropriate July 27, 2020 4:22pm Speech Appropriate Clear July 27, 2020 4:22pm Query Response Date Recorded Comment Living Situation Home February 22, 2021 5:28pm Immunizations Immunization Name Date Given Type DTP [...] F-99.6 F February 22 021 2:31pm Pulse 89 BPM 56-106 February 22 5:25pm Respiration 17 RPM 16-24 February 22 5:25pm Pulse Oximetry 98 % 95-100 February 22, 2021 5:25pm Blood Pressure Systolic 102 102-133 Dece 2020 5:25pm Blood Pressure Diastolic 69 61-85 Dec ember 2020 5:25pm Body Mass Index 37.0 November 2:21pm
--- OUTSIDE RECORDS SUMMARY | 2023-02-16 11:44 | XMS_ITS | Continuity of Care Document ---
Author Name [facility] Address [address] [place] [id number] Organization [facility] Address [address] [place] [address] Care Team Providers Care Vegetable Loader Name Role Phone Juan Carlos Santana JR Primary Care Physician [phone] Juan Carlos Santana JR Attending Physician Allergies, Adverse Reactions, Alerts No known [...] 600 MG ORAL DAILY November 04, 2020 December 20, 2020 Disconti nued Riboflavin (Vitamin B2) 400 MG ORAL DAILY 90 November 04, 2020 December 20, 2020 Disconti nued flu vac [id number] 36mos up(PF) 60 MCG INTRAMUS CULAR ONCE [...] November 04, 2020 Disconti nued flu vacc [id number] 6mos up(PF) 0.5 ML INTRAMUS CULAR ONCE [...] hand, right Inactive Procedures Procedure Date Status US Abdomen (Limited) April 01, [address] Abd Pel w/ Contrast February 22, [...] A Streptococcus Screen (YVES) May 20 completed Relevant Diagnostic Tests and/or Laboratory Data Laboratory [...] November 19, 2020 11:18am Negative Urine Specific Hershey (Manual) November 19, 2020 11:18am 1.020 POC Urine RBC November 19, 2020 11:18am Negative Urine pH (Manual) November 19, 2020 11:18am 7.0 POC Urine Protein Confirmation November 19, 2020 11:18am Negative Urine Urobilinogen (Manual) November 19, 2020 11:18am Negative Urine Nitrite (Manual) November 19, 2020 11:18am Negative Urine Leukocyte Esterase (Manual) November 19, 2020 11:18am Negative White Blood Count March 27, 2021 3:04pm 9.94 1000/mm3 4.8-10.8 Red Blood Count March 27, 2021 3:04pm 5.20 M/mm3 4.20-5.40 Hemoglobin March 27, 2021 3:04pm 14.7 g/dL 12.0-16.0 Hematocrit March 27, 2021 3:04pm 43.5 % 37-47 Mean Corpuscular Volume March 27, 2021 3:04pm 83.7 fL 81.0-99.0 Mean Corpuscular Hemoglobin March 27, 2021 3:04pm 28.3 pg 27-31 Mean Corpuscular Hemoglobin Concent March 27, 2021 3:04pm 33.8 g/dL 33-37 Red Cell Distribution Width March 27, 2021 3:04pm 11.9 % 11.5-14.5 Platelet Count March 27, 2021 3:04pm 229 1000/mm3 140-440 Mean Platelet Volume March 27, 2021 3:04pm 9.9 fL 7.4-10.4 Neutrophils (%) (Auto) March 27, 2021 3:04pm 56.4 % 40.0-72.0 Lymphocytes (%) (Auto) March 27, 2021 3:04pm 31.7 % 17-45 Monocytes (%) (Auto) March 27, 2021 3:04pm 6.7 % 3-11 Eosinophils (%) (Auto) March 27, 2021 3:04pm 3.8 % High 0-3 Basophils (%) (Auto) March 27, 2021 3:04pm 1.1 % High 0-1 Immature Granulocyte % (Auto) March 27, 2021 3:04pm 0.3 % 0-1 Neutrophils # (Auto) March 27, 2021 3:04pm 5.60 1000/mm3 1.4-6.5 Lymphocytes # (Auto) March 27, 2021 3:04pm 3.15 1000/mm3 1.2-3.4 Monocytes # (Auto) March 27, 2021 3:04pm 0.67 1000/mm3 0.0-0.8 Eosinophils # (Auto) March 27, 2021 3:04pm 0.38 1000/mm3 0.0-0.7 Basophils # (Auto) March 27, 2021 3:04pm 0.11 1000/mm3 High 0.0-0.1 Absolute Immature Granulocyte (auto March 27, 2021 3:04pm 0.0 0-1 Differential Method March 27, 2021 3:04pm Automated Urine Color September 12, 2020 4:01pm Yellow Urine Clarity September 12, 2020 4:01pm Clear Urine pH September 12, 2020 4:01pm 6.5 Urine Specific [place] September 12, 2020 4:01pm 1.015 Urine Protein [...] 2020 4:01pm 2+ /hpf High Sodium Level March 27, 2021 3:04pm 140 mmol/L 137-145 Potassium Level March 27, 2021 3:04pm 4.0 mmol/L 3.6-5.0 Chloride Level March 27, 2021 3:04pm 105 mmol/L 98-107 Carbon Dioxide Level March 27, 2021 3:04pm 27 mmol/L 22-30 Anion Gap March 27, 2021 3:04pm 8 7-16 Blood Urea Nitrogen March 27, 2021 3:04pm 11 mg/dL 7-17 Creatinine March 27, 2021 3:04pm 0.57 mg/dL 0.52-1.04 Glomerular Filtration Rate Calc March 27, 2021 3:04pm > 60 mL/min 60.0- Glucose Level March 27, 2021 3:04pm 99 mg/dL 70-100 Calcium Level March 27, 2021 3:04pm 9.6 mg/dL 8.4-10.2 Calcium Adjusted for Albumin March 27, 2021 3:04pm 9.5 mg/dL 8.4-10.2 Magnesium Level March 27, 2021 3:04pm 2.0 mg/dL 1.6-2.3 Total Bilirubin March 27, 2021 3:04pm 0.3 mg/dL 0.2-1.3 Aspartate Amino Transf (AST/SGOT) March 27, 2021 3:04pm 25 U/L 14-36 Alanine Aminotransferase (ALT/SGPT) March 27, 2021 3:04pm 18 U/L As of 07/07/19, th e Reference Range for ALT/SGPT for adult patients has been updated. The Reference Range for ALT/SGPT has not been established for patients <18 years of age. Total Protein March 27, 2021 3:04pm 6.8 g/dL 6.3-8.2 Albumin March 27, 2021 3:04pm 4.4 g/dL 3.5-5.0 Cholesterol Level March 27, 2021 3:04pm 123 mg/dL 59-199 HDL Cholesterol March 27, 2021 3:04pm 66 mg/dL High 40-60 The National Cholesterol Education Program (NCEP) has set the following guidelines (reference values) for cholesterol, HDL: Low HDL: <40 mg/dL Normal: 40-60 mg/dL Desirable: >60 mg/dL LDL Cholesterol March 27, 2021 3:04pm 50.6 mg/dL 0-129 VLDL Cholesterol March 27, 2021 3:04pm 6.4 mg/dL 0-32 Cholesterol/HDL Ratio March 27, 2021 3:04pm 1.86 0-3.9 Triglycerides Level March 27, 2021 3:04pm 32 mg/dL 0-149 Alkaline Phosphatase March 27, 2021 3:04pm 55 U/L 38-126 Lipase February 22, 2021 2:25pm 52 U/L 23-300 Free Thyroxine August 30, 2020 3:29pm 1.00 ng/dL 0.78-2.19 Thyroid Stimulating Hormone (TSH) March 27, 2021 3:04pm 1.50 mlU/L 0.47-4.68 The results of this assay [...] mg/dL August 30, 2020 3:29pm 91 mg/dL Vitamin B12 Level March 27, 2021 3:04pm 355 pg/mL 239-931 The results of this assay can be falsely increased in patients who consume Biotin. SARS-CoV-2 RNA (RT-PCR) February 22, 2021 1:16pm Negative Note: This RT-PC R assay is intended for the in vitro qualitative detection of nucleic acid from SARS-CoV-2. This test has not been FDA cleared or approved. This test has been authorized by the FDA under an Emergency Use Authorization (EUA) for use by authorized laboratories. Fact sheets for providers can be found at: [employer]gov/media/1362 85/download Fact sheets for patients can be found at: [employer]gov/Versa/1362 87/download TB Test (QFT) Antigen Minus Nil [...] Diagnosis of Tuberculosis in Adults and Children [Rosanna COOK et. al. Clin. Infect. Dis. 2017;64(2):111-115 ]. [...] 10:30am 0.01 IU/mL Test Performed b y: [facility] [address] [place] [address] Auto Painter: Boone Escudero M.D. Ph.D.; IA# [id number] Microbiology Results Procedure Source Result Collection Date/Time Result Date/Time Group A Streptococcus Screen (YVES) Throat No results entered May 20, 2020 1:55pm Urine Culture Ur,Clean Catch No results entered September 12, 2020 4:01pm Chief Complaint and Reason for Visit Encounter Admit Date Chief Complaint Reason for V isit Registered Clinical April 01, 2021 9:05am Epigastric Pain Hospital Discharge Instructions No known hospital discharge instructions. Hospital Discharge Medications Medication Dose Units Route Sig Qty Days Order Date Status Instructions Levonorgestrel -Ethinyl Estrad 1 TAB ORAL DAILY 84 August 17, 2018 Discontinu ed Levonorgestrel -Ethinyl Estrad 1 TAB ORAL DAILY 84 November 08, 2019 Discontinu ed Fluoxetine 10 MG ORAL DAILY 30 June 17, 2020 Discontinu ed Famotidine 0 Route .COMPLEX [address] 2020 Active TAKE 1 TABLET BY MOUTH THREE TIMES DAILY NEEDED FOR ACID REFLUX Fluoxetine 20 MG ORAL DAILY 30 2020 Active Levonorgestrel -Ethinyl Estrad 1 TAB ORAL DAILY November 20, 2020 Active Magnesium 200 - 600 MG ORAL DAILY November 04, 2020 Discontinu ed Riboflavin (Vitamin B2) 400 MG ORAL DAILY November 04, 2020 Discontinu ed flu vac [id number] 36mos up(PF) 60 MCG INTRAMUSCU LAR ONCE [...] ORAL Q8H PRN For nausea and vomiting 14 September 30, 2020 Discontinu ed flu vacc [id number] 6mos up(PF) 0.5 ML INTRAMUSCU LAR ONCE 0.5 May 01, 2020 Discontinu ed Encounters Encounter Facility Location Admit/Visit Date Discharge/Departure Date Attending Provider Registered Clinical [facility] DI [facility] April 01, 2021 9:05am Juan Carlos Santana JR Departed Referred [facility] March 27, 2021 6:39pm March 27, 2021 6:40pm Juan Carlos Santana JR Registered Inpatient [facility] Pediatrics [facility] March 06, 2021 3:15pm Soni Santa Departed Emergency [facility] Emergency Department February 22, 2021 1:48pm February 22, 2021 5:28pm Departed Emergency [facility] February 22, 2021 12:49pm February 22, 2021 1:47pm Departed Emergency [facility] Emergency Department December 21, 2020 8:46am December 21, 2020 12:00pm Departed Physician/Pr ovider Office Visit [facility] Pediatric[facility] December 20, 2020 4:18pm December 20, 2020 4:47pm Maite Garcia Departed Physician/Pr ovider Office Visit [facility] Pediatric[facility] November 19, 2020 10:32am November 19, 2020 11:29am Felicia Rodrigez Departed Physician/Pr ovider Office Visit [facility] Orthopedic&Cesar ab November 15, 2020 2:11pm November 15, 2020 2:55pm Antwon Jackson Departed Physician/Pr ovider Office Visit [facility] November 04, 2020 10:01am November 04, 2020 10:26am Jyothi Arteaga Departed Physician/Pr ovider Office Visit [facility] Orthopedic&Cesar ab October 16, 2020 1:25pm October 16, 2020 1:55pm Antwon Jackson Departed Emergency [facility] Urgent [facility] October 11, 2020 7:11pm October 11, 2020 9:23pm Departed Clinical [facility] Cardiology October 08, 2020 1:55pm October 08, 2020 1:56pm Jyothi Arteaga Departed Physician/Pr ovider Office Visit [facility] Cardiology October 08, 2020 1:50pm October 08, 2020 11:59pm Diann Oakes Departed Physician/Pr ovider Office Visit [facility] October 07, 2020 12:53pm October 07, 2020 2:16pm Jyothi Arteaga Departed Emergency [facility] Emergency Department 2020 8:52am 2020 10:22am Departed Emergency [facility] Emergency Department September 30, 2020 4:35pm September 30, 2020 8:56pm Departed Emergency [facility] Urgent [facility] September 30, 2020 2:40pm September 30, 2020 4:44pm Departed Referred [facility] Lab [facility] [place] September 12, 2020 4:01pm September 12, 2020 4:02pm Ian Garcia Departed Physician/Pr ovider Office Visit [facility] September 12, 2020 3:24pm September 12, 2020 4:17pm Ian Garcia Departed Clinical [facility] Laboratory August 30, 2020 2:39pm August 30, 2020 2:40pm Jyothi Arteaga Departed Physician/Pr ovider Office Visit [facility] August 30, 2020 1:59pm August 30, 2020 4:00pm Jyothi Arteaga Departed Physician/Pr ovider Office Visit [facility] August 19, 2020 8:59am August 19, 2020 11:18am Jyothi Arteaga Departed Physician/Pr ovider Office Visit [facility] August 06, 2020 8:07am August 06, 2020 3:16pm Joi Herman Departed Emergency [facility] Emergency Department July 27, 2020 3:43pm July 27, 2020 5:11pm Departed Physician/Pr ovider Office Visit [facility] July 24, 2020 7:51am July 24, 2020 1:52pm Joi Herman Departed Physician/Pr ovider Office Visit [facility] Occupational Health [facility] July 18, 2020 2:47pm July 18, 2020 2:47pm Windy Contreras Departed Physician/Pr ovider Office Visit [facility] July 12, 2020 7:56am July 12, 2020 11:59pm Jyothi Arteaga Departed Physician/Pr ovider Office Visit [facility] July 09, 2020 10:31am July 09, 2020 9:21pm Joi Hemran Departed Emergency [facility] Emergency Department July 04, 2020 10:57am July 04, 2020 11:59am Departed Clinical [facility] June 27, 2020 8:16am June 27, 2020 8:17am Windy Contreras Departed Physician/Pr ovider Office Visit [facility] June 21, 2020 7:52am June 21, 2020 3:38pm Joi Herman Departed Physician/Pr ovider Office Visit [facility] June 21, 2020 7:50am June 21, 2020 11:59pm Jyothi Arteaga Departed Physician/Pr ovider Office Visit [facility] June 14, 2020 3:05pm June 14, 2020 11:59pm Jyothi Arteaga Departed Referred [facility] LAB [facility] Peds [place] May 20, 2020 1:55pm May 20, 2020 1:56pm Nadege Parker Departed Physician/Pr ovider Office Visit [facility] Pediatrics May 20, 2020 1:16pm May 20, 2020 2:13pm Nadege Parker Departed Clinical [facility] May 20, 2020 8:31am May 20, 2020 8:32am Twyla Navarrete Departed Physician/Pr ovider Office Visit [facility] Occupational Health [facility] May 19, 2020 10:40am May 19, 2020 11:59pm Twyla Navarrete Departed Clinical [facility] Lab [facility] May 01, 2020 11:04am May 01, 2020 11:05am Windy Contreras Departed Physician/Pr ovider Office Visit [facility] May 01, 2020 10:09am May 01, 2020 [...] 5:25pm Blood Pressure Diastolic 69 61-85 Dec emb2020 5:25pm Body Mass Index 37.0 November 2:21pm
--- OUTSIDE RECORDS SUMMARY | 2023-02-16 11:45 | XMS_ITS | Continuity of Care Document ---
Author Name [facility] Address [address] [place] [address] Organization [facility] Address [address] [place] [address] Care Team Providers Care Bankruptcy Manager Name Role Phone Juan Carlos Santana JR Primary Care Physician Allergies, Adverse Reactions, Alerts No known allergies. Medications Active Medications Medication Dose Units Route Sig Qty Start Date Status In structions Famotidine 0 Route .COMPLEX 270 October 30, 2020 Active TAKE 1 TABLET BY MOUTH THREE TIMES DAILY NEEDED FOR ACID REFLUX Fluoxetine 20 MG ORAL DAILY 30 November 20, 2020 Active Levonorgestrel-Eth inyl Estrad 1 TAB ORAL DAILY 84 November 20, 2020 Active Amitriptyline MG May 12, 2021 Act leander Discontinued Medications Medication Dose Units Route Sig [...] December 20, 2020 Disconti nued flu vac [id number] 36mos up(PF) 60 MCG INTRAMUS CULAR ONCE 0.5 July 27, 2018 July 27, 2018 Disconti nued Ondansetron Hcl [Zofran] 4 MG ORAL Q8H PRN For nausea and vomiti ng 7 September 12, 2020 October 16, 2020 Disconti nued tuberculin PPD 0.1 ML INTRADER MAL ONCE 0.1 Septembe 2020November 19, 2020 Disconti nued Magnesium 200 - 600 MG ORAL DAILY 90 December 20, 2020 May 12, 2021 Disconti nued Riboflavin (Vitamin B2) 400 MG ORAL DAILY 90 December 20, 2020 May 12, 2021 Disconti nued tuberculin PPD 0.1 ML INTRADER [...] November 04, 2020 Disconti nued flu vacc [id number] 6mos up(PF) 0.5 ML INTRAMUS CULAR ONCE [...] pain Inactive Viral URI with cough Inactive Acute viral syndrome Inactive URI (upper respiratory infection) Inactive Acute pain of right foot Inactiv e Acute right ankle pain Inactive Viral URI Inactive Acute viral pharyngitis Inactive Abdominal pain Inactive Abdominal pain Inactive Vomiting Inactive Contusion of hand, right Inactiv e Laceration of foot, left Inactiv e Sprain of hand, right Inactive Procedures Procedure Date Status NM HIDA w Pharm April 24, 2021 completed US Abdomen (Limited) April 01, 2021 completed [...] vw Min LT July 04, 2020 completed Relevant Diagnostic Tests and/or Laboratory Data Laboratory Results Test Date/Time Result Interp. Ref. Range Result Co mment Urine Test (Clinic) May 01, 2021 2:49pm Negative Urine Color (Manual) November 19, 2020 11:18am Yellow Urine Clarity (Manual) November 19, 2020 11:18am Clear POC Urine Glucose November 19, 2020 11:18am Negative POC Urine Bilirubin Confirmation November 19, 2020 11:18am Negative Urine Ketones (Manual) November 19, 2020 11:18am Negative Urine Specific [place] (Manual) November 19, 2020 11:18am 1.020 POC [...] September 12, 2020 4:01pm 6.5 Urine Specific [place] September 12, 2020 4:01pm 1.015 Urine Protein [...] falsely increased in patients who consume Biotin. Influenza Type A (RT-PCR) June 28, 2021 9:09pm Positive Influenza Type B (RT-PCR) June 28, 2021 9:09pm Negative Respiratory Syncytial Virus (RT-PCR June 28, 2021 9:09pm Negative SARS-CoV-2 RNA (RT-PCR) June 28, 2021 9:09pm Negative Note: This RT-PC R assay is intended for the in vitro qualitative detection of nucleic acid from SARS-CoV-2. This test has not been FDA cleared or approved. This test has been authorized by the FDA under an Emergency Use Authorization (EUA) for use by authorized laboratories. Fact sheets for providers can be found at: fda.gov/media/1363 13/download Fact sheets for patients can be found at: fda.gov/media/1363 12/download New reagent in use as of 01/23/2021. Microbiology Results Procedure Source Result Collection Date/Time Resu lt Date/Time Urine Culture Ur,Clean Catch No results entered September 12 4:01pm Chief Complaint and Reason for Visit Encounter Admit Date Chief Complaint Reason for V isit Departed Emergency June 28, 2021 8:12pm FEVER, COUGH Hospital Discharge Instructions No known hospital discharge [...] November 04, 2020 Discontinu ed flu vac [id number] 36mos up(PF) 60 MCG INTRAMUSCU LAR ONCE 0.5 July 27, 2018 Discontinu ed Ondansetron Hcl 4 MG ORAL Q8H PRN For nausea and vomiting September 12, 2020 Discontinu ed tuberculin PPD 0.1 ML INTRADERMA L ONCE 0.1 November 19, 2020 Discontinu ed Magnesium 200 - 600 MG ORAL DAILY December 20, 2020 Discontinu ed Riboflavin (Vitamin B2) 400 MG ORAL DAILY December 20, 2020 Discontinu ed tuberculin PPD 0.1 ML INTRADERMA L ONCE 0.1 July 06, 2018 Discontinu ed Menactra (PF) (mening vac A,C,Y,[id number] dip (PF)) 4 mcg/0.5 mL intramuscular 0.5 ML INTRAMUSCU LAR ONCE 0.5 August 30, 2020 Discontinu ed Famotidine 20 MG ORAL THREE TIMES A DAY PRN For acid reflux August 30, 2020 Discontinu ed Fluoxetine 20 MG ORAL DAILY August 30, 2020 Discontinu ed Fluoxetine 20 MG ORAL DAILY July Discontinu ed Fluoxetine 20 MG ORAL DAILY August 19, 2020 Discontinu ed Silver Sulfadiazine 1 APPLIC TOPICALLY TWICE A DAY 50 October 16, 2020 Discontinu ed apply a 1.5 mm thickness Levonorgestrel -Ethinyl Estrad September 26, 2017 Discontinu ed Amoxicillin-Po t Clavulanate 1 TAB ORAL TWICE A DAY September 26, 2017 Discontinu ed Ondansetron 4 MG ORAL Q8H PRN For nausea and vomiting September 30, 2020 Discontinu ed Amitriptyline MG [facility] 2021 Active flu vacc [id number] 6mos up(PF) 0.5 ML INTRAMUSCU LAR ONCE 0.5 May 01, 2020 Discontinu ed Encounters Encounter Facility Location Admit/Visit Date Discharge/Departure Date Attending Provider Departed Emergency [facility] Emergency Department June 28, 2021 8:12pm June 28, 2021 9:35pm Departed Emergency [facility] May 12, 2021 11:36am May 12, 2021 12:40pm Departed Physician/Pr ovider Office Visit [facility] DIRECTOR BROADCAST May 01, 2021 2:45pm May 01, 2021 3:00pm Fortunato Quezada Departed Clinical [facility] April 24, 2021 9:03am April 24, 2021 9:04am Juan Carlos Santana JR Departed Clinical [facility] April 01, 2021 9:05am April 01, 2021 9:06am Juan Carlos Santana JR Departed Referred [facility] March 27, 2021 6:39pm March 27, 2021 6:40pm Juan Carlos Santana JR Registered Inpatient [facility] March 06, 2021 3:15pm Soni Santa Departed Emergency [facility] Emergency Department February 22, 2021 1:48pm February 22, 2021 5:28pm Departed Emergency [facility] February 22, 2021 12:49pm February 22, 2021 1:47pm Departed Emergency [facility] Emergency Department December 21, 2020 8:46am December 21, 2020 12:00pm Departed Physician/Pr ovider Office Visit [facility] Pediatric[facility] December 20, 2020 4:18pm December 20, 2020 4:47pm Maite Garcia Departed Physician/Pr ovider Office Visit [facility] November 19, 2020 10:32am November 19, 2020 11:29am Felicia Rodrigez Departed Physician/Pr ovider Office Visit [facility] Orthopedic&Cesar ab November 15, 2020 2:11pm November 15, 2020 2:55pm Antwon Jackson Departed Physician/Pr ovider Office Visit [facility] November 04, 2020 10:01am November 04, 2020 10:26am Jyothi Arteaga Departed Physician/Pr ovider Office Visit [facility] Orthopedic[facility]Cesar ab October 16, 2020 1:25pm October 16, 2020 1:55pm Antwon Jackson Departed Emergency [facility] October 11, 2020 7:11pm October 11, 2020 9:23pm Departed Clinical [facility] Cardiology October 08, 2020 1:55pm October 08, 2020 1:56pm Jyothi Arteaga Departed Physician/Pr ovider Office Visit [facility] Cardiology October 08, 2020 1:50pm October 08, 2020 11:59pm Diann Oakes Departed Physician/Pr ovider Office Visit [facility] October 07, 2020 12:53pm October 07, 2020 2:16pm Jyothi Arteaga Departed Emergency [facility] Emergency Department 2020 8:52am 2020 10:22am Departed Emergency [facility] Emergency Department September 30, 2020 4:35pm September 30, 2020 8:56pm Departed Emergency [facility] September 30, 2020 2:40pm September 30, 2020 4:44pm Departed Referred [facility] Lab [facility] P[facility] September 12, 2020 4:01pm September 12, 2020 4:02pm Ian Garcia Departed Physician/Pr ovider Office Visit [facility] September 12, 2020 3:24pm September 12, 2020 4:17pm Ian Garcia Departed Clinical [facility] Laboratory August 30, 2020 2:39pm August 30, 2020 2:40pm Jyothi Arteaga Departed Physician/Pr ovider Office Visit [facility] August 30, 2020 1:59pm August 30, 2020 4:00pm Jyothi Arteaga Departed Physician/Pr ovider Office Visit [facility] August 19, 2020 8:59am August 19, 2020 11:18am Jyothi Arteaga Departed Physician/Pr ovider Office Visit [facility] August 06, 2020 8:07am August 06, 2020 3:16pm Joi Herman Departed Emergency [facility] Emergency Department July 27, 2020 3:43pm July 27, 2020 5:11pm Departed Physician/Pr ovider Office Visit [facility] July 24, 2020 7:51am July 24, 2020 1:52pm Joi Herman Departed Physician/Pr ovider Office Visit [facility] Occupational Health [facility] July 18, 2020 2:47pm July 18, 2020 2:47pm Windy Contreras Departed Physician/Pr ovider Office Visit [facility] July 12, 2020 7:56am July 12, 2020 11:59pm ChandlerJyothi Departed Physician/Pr ovider Office Visit [facility] July 09, 2020 10:31am July 09, 2020 9:21pm Joi Herman Departed Emergency [facility] Emergency Department July 04, 2020 10:57am July 04, 2020 11:59am Functional Status Query Response Date Recorded Comment Comprehension Ability Understands Concepts July 27 4:22pm Mood/Behavior Appropriate July 27, 2020 4:22pm Speech Appropriate Clear July 27, 2020 4:22pm Query Response Date Recorded Comment Living Situation Home With Significant Other June 28, 2021 8:51pm Immunizations Immunization Name Date Given Type DTP vaccine (H) 2002 Historical DTP vaccine (H) March 13, 2003 Historical DTP vaccine (H) July 13, 2003 Historical DTP vaccine (H) February 05, 2004 Historical DTP vaccine (H) October 03, 2007 Historical Hepatitis A Pediatric/Adolescent April 26 15 Historical Hepatitis A Pediatric/Adolescent May 22, 2015 [...] Response Date Recorded Comment Alcohol Use No June 28, 2021 9:08pm Smoking Status Current every day smoker June 28, 2021 9:08pm Substance/Street Drug Use Yes June 28, 2021 9:08pm [facility] marijuana as of 09/30/20 alcohol intake frequency February 22, 2021 1:02pm substance use type marijuana June 28 9:08pm Query Response Start Date Stop Date Smoking Status Current every day smoker Vital Signs Vital Reading Result Reference Range Collection Date/Time Height 5 ft 5 in May 12, 2021 1 1:45am Weight 112.945 kg June 28, 2021 8:40pm Temperature 100.4 F 97.6 F-99.6 F June 28, 2021 8:40pm Pulse 113 BPM 56-106 June 28, 2021 8:40pm Respiration 20 RPM 16-June 28, 2021 8:40pm Pulse Oximetry 99 % 95-100 June 28 8:40pm Blood Pressure Systolic 131 102-133 Apri l 2021 8:40pm Blood Pressure Diastolic 76 61-85 Apr il 2021 8:40pm Body Mass Index 37.0 November 2:21pm
--- OUTSIDE RECORDS SUMMARY | 2023-02-16 11:45 | XMS_ITS | Continuity of Care Document ---
Author Name [facility] Address [address] [place] [id number] Organization [facility] Address [address] [place] [address] Care Team Providers Care Weatherization And Housing Inspector Name Role Phone Jyothi Arteaga Primary Care Physician [phone] Allergies, Adverse Reactions, Alerts No known allergies. Medications Active Medications Medication Dose Units Route Sig Qty Start Date St [facility] Levonorgestrel-Ethinyl Estrad 1 TAB ORAL DAILY 84 November 08, 2019 Active Fluoxetine 10 MG ORAL DAILY 30 June 17 Active Discontinued Medications Medication Dose Units Route Sig Qty Start Date Di scontinued Date Status Levonorgestre l-Ethinyl Estrad 1 TAB ORAL DAILY 84 August 17, 2018 November 08, 2019 Discontinued flu vac [id number] 36mos up(PF) 60 MCG INTRAMUSCULAR ONCE 0.5 July 27, 2018 July 27, 2018 Discontinued tuberculin PPD 0.1 ML INTRADERMAL ONCE 0.1 July 06, 2018 July 06, 2018 Discontinued Levonorgestre l-Ethinyl Estrad [Vienva] September 26, 2017 August 17, 2018 Discontinued Amoxicillin-P ot Clavulanate [Augmentin] 1 TAB ORAL TWICE A DAY 14 September 26, 2017 July 27, 2018 Discontinued flu vacc [id number] 6mos up(PF) 0.5 ML INTRAMUSCULAR ONCE 0.5 May 01, 2020 May 01, 2020 Discontinued Problem List Active Problems Medical Problem Onset Date Status Effusion of knee December 06, 2017 Benign mole Active Acute foot pain Active Otalgia June 11, 2016 Anxiety Trauma and stressor-related disorder Anxiety and depression Acute pharyngitis Active Knee pain November 09, 2017 Inactive/Resolved Problems Medical Problem Onset Date Status Acute viral pharyngitis Inactive Contusion of hand, right Inactiv e Laceration of foot, left Inactiv e Procedures Procedure Date Status Foot 3 vw Min LT July 04, 2020 completed Group A Streptococcus Screen (YVES) May 20 1 completed Group A Streptococcus Screen (YVES) November 26, 2019 completed Hand 3 vw Min RT 2019 completed Relevant Diagnostic Tests and/or Laboratory Data Laboratory Results Test Date/Time Result Interp. Ref. Range Result Co mment POC Group A Strep Rapid Screen May 20, 2020 2:24pm NEGATIVE SARS-CoV-2 RNA (RT-PCR) June 27, 2020 3:00pm [...] sheets for providers can be found at: [employer]gov/media/182409/do wnload Fact sheets for patients can be found at: [employer]gov/Codekko/529682/do wnload TB Test (QFT) Antigen Minus Nil 1 [...] Diagnosis of Tuberculosis in Adults and Children [Lewinsohn DM et. al. Clin. Infect. Dis. 2017;64(2):111-115]. The reference range for the 'TB1 Ag minus Nil Result' and 'TB2 Ag minus Nil Result' is an Interferon-gamma level <0.35 IU/mL. TB Test (QFT) Antigen Minus Nil 2 May 01, 2020 10:30am 0.00 IU/mL TB Test (QFT) Mitogen Minus Nil May 01, 2020 10:30am 7.75 IU/mL TB Test (QFT) Nil May 01, 2020 10:30am 0.01 IU/mL Test Performed b y: [facility] [address] [id number] Hostler Helper: Boone Escudero M.D. Ph.D.; [facility]# [id number] Microbiology Results Procedure Source Result Collection Date/Time Resu lt Date/Time Group A Streptococcus Screen (YVES) Throat No results entered November 26, 2019 2:11pm Group A Streptococcus Screen (YVES) Throat No results entered May 20, 2020 1:55pm Chief Complaint and Reason for Visit Encounter Admit Date Chief Complaint Reason for V isit Departed Emergency July 04, 2020 10:57am [facility] Discharge Instructions Additional Discharge Instructions Return to the ED immediately for any concerning symptoms. Instruction/Education Provided Acute Bear n, Adult COVID 19 General Instructions- decrease the spread of coronavirus ([facility] [place] [place]) Hospital Discharge Medications Medication Dose Units Route Sig Qty Days Order Date Status Ins tructions Levonorgestr el-Ethinyl Estrad 1 TAB ORAL DAILY 84 August 17, 2018 Discontinued Levonorgestr el-Ethinyl Estrad 1 TAB ORAL DAILY 84 November 08, 2019 Active Fluoxetine 10 MG ORAL DAILY 30 June 17, 2020 Active flu vac [id number] 36mos up(PF) 60 MCG INTRAMUSCULA R ONCE 0.5 July 27, 2018 Discontinued tuberculin PPD 0.1 ML INTRADERMAL ONCE 0.1 July 06, 2018 Discontinued Levonorgestr el-Ethinyl Estrad September 26, 2017 Discontinued Amoxicillin- Pot Clavulanate 1 TAB ORAL TWICE A DAY 14 September 26, 2017 Discontinued flu vacc [id number] 6mos up(PF) 0.5 ML INTRAMUSCULA R ONCE 0.5 May 01, 2020 Discontinued Encounters Encounter Facility Location Admit/Visit Date Discharge/Departure Date Attending Provider Departed Emergency [facility] Emergency Department July 04, 2020 10:57am July 04, 2020 11:59am Departed Clinical [facility] Curbside June 27, 2020 8:16am June 27, 2020 8:17am Windy Contreras Departed Physician/Pr ovider Office Visit [facility] June 21, 2020 7:52am June 21, 2020 3:38pm Joi Herman Departed Physician/Pr ovider Office Visit [facility] June 21, 2020 7:50am June 21, 2020 11:59pm Jyothi Arteaga Departed Physician/Pr ovider Office Visit [facility] June 14, 2020 3:05pm June 14, 2020 11:59pm Jyothi Arteaga Departed Referred [facility] LAB [facility] Peds [place] May 20, 2020 1:55pm May 20, 2020 1:56pm Nadege Parker Departed Physician/Pr ovider Office Visit [facility] Pediatrics May 20, 2020 1:16pm May 20, 2020 2:13pm Nadege Parker Departed Clinical [facility] Curbside May 20, 2020 8:31am May 20, 2020 8:32am Twyla Navarrete Departed Physician/Pr ovider Office Visit [facility] [place] Occupational Critical access hospital May 19, 2020 10:40am May 19, 2020 11:59pm Twyla Navarrete Departed Clinical [facility] May 01, 2020 11:04am May 01, 2020 11:05am Windy Contreras Departed Physician/Pr ovider Office Visit [facility] May 01, 2020 10:09am May 01, 2020 12:58pm Referral, Self Departed Physician/Pr ovider Office [place] [facility] February 14, 2020 7:43am February 14, 2020 11:49am Joi Herman Departed Physician/Pr ovider Office Visit [facility] January 12, 2020 2:30pm January 12, 2020 3:38pm Jyothi Arteaga Departed Emergency [facility] November 26, 2019 1:42pm November 26, 2019 2:22pm Departed Physician/Pr ovider Office Visit [facility] November 08, 2019 8:50am November 08, 2019 11:13am Joi Herman Departed Physician/Pr ovider Office Visit [facility] October 23, 2019 3:55pm October 23, 2019 9:38pm Joi Herman Departed Physician/Pr ovider Office Visit [facility] October 04, 2019 8:50am October 04, 2019 11:08pm Joi Herman Departed Emergency [facility] Emergency Department 2019 10:08pm 2019 10:51pm Departed Physician/Pr ovider Office Visit [facility] September 11, 2019 8:43am September 11, 2019 2:42pm Joi Herman Departed Referred [facility] Lab [facility] [place] [place] SOCIAL WORK COORDINATOR August 31, 2019 10:03am August 31, 2019 10:04am Diana Chaidez Departed Physician/Pr ovider Office Visit [facility] 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 August 31, 2019 9:48am August 31, 2019 10:13am Diana Chaidez Departed Physician/Pr ovider Office Visit [facility] August 29, 2019 9:48am August 29, 2019 1:49pm Joi Herman Departed Physician/Pr ovider Office Visit [facility] August 17, 2019 7:59am August 17, 2019 1:58pm Joi Herman Departed Physician/Pr ovider Office Visit [facility] Orthopedic&Cesar ab August 16, 2019 10:18am August 16, 2019 1:51pm Chris Bearden Functional Status Query Response Date Recorded Comment Comprehension Ability Understands Concepts July 04 11:10am Query Response Date Recorded Comment Living Situation Home July 04, 2020 11:58am Immunizations Immunization Name Date Given Type DTP [...] Conjugate MCV4 (Menactra) April 26, 2014 Historical Measles,Mumps,Rubella Vaccine June 02, 2004 Hi storical [...] 03, 2007 Historical Plan of Care Instructions Acute Pain, Adult COVID 19 General Instructions- decrease the spread of coronavirus ([facility]) Social History Query Response Date Recorded Comment Alcohol Use No July 04, 2020 11:29am Smoking Status Former smoker July 04, 2020 11:29am alcohol intake frequency holidays/specia l occasions only July 04, 2020 11:29am substance use type marijuana July 04, 2020 11:29am Query Response Start Date Stop Date Smoking Status Former smoker Vital Signs Vital Reading Result Reference Range Collection Date/Time Height 5 ft 5 in August 31, 2019 9 :58am Weight 120.202 kg July 04, 2020 10:59am Temperature 97.8 F 97.6 F-99.6 F July 04, 2020 10:59am Pulse 81 BPM 56-106 July 04, 2020 11:27am Respiration 20 RPM 16-24 July 04, 2020 10:59am Pulse Oximetry 97 % 95-100 July 04 11:27am Blood Pressure Systolic 128 102-133 Apri l 2020 11:27am Blood Pressure Diastolic 85 61-85 Apr il 2020 11:27am
--- OUTSIDE RECORDS SUMMARY | 2023-02-16 11:45 | XMS_ITS | Continuity of Care Document ---
Author Name [facility] Address [address] [place] [id number] Organization [facility] Address [address] [place] [id number] Support Name Relationship Address Phone Jyothi Arteaga Primary Care Provider [facility] Leandro torres [address] [address] Jyothi Arteaga Attending Provider [facility] Pediatrmaeve alfaro [address] [address] Referral, Self Referring Provider Unknown Unavail able Allergies, Adverse Reactions, Alerts No known allergies. Medications Active Medications Medication Dose Units Route Sig Qty Start Date Status In structions Levonorgestrel- Ethinyl Estrad 1 TAB ORAL DAILY 84 November 08, 2019 Active Famotidine 0 Route .COMPLEX 270 October 30, 2020 Active TAKE 1 TABLET BY MOUTH THREE TIMES DAILY NEEDED FOR ACID REFLUX Magnesium 200 - 600 MG ORAL DAILY 90 November 04, 2020 Active Riboflavin (Vitamin B2) 400 MG ORAL DAILY 90 November 04, 2020 Active Fluoxetine 20 MG ORAL DAILY August 30, 2020 Active Discontinued Medications Medication Dose Units Route Sig Qty Start Date Discontinued Date Status Instructions Levonorgestre l-Ethinyl Estrad 1 TAB ORAL DAILY 84 August 17, 2018 November 08, 2019 Disconti nued Fluoxetine 10 MG ORAL DAILY June 17, 2020 July 12, 2020 Disconti nued flu vac [id number] 36mos up(PF) 60 MCG INTRAMUS CULAR ONCE [...] November 04, 2020 Disconti nued flu vacc [id number] 6mos up(PF) 0.5 ML INTRAMUS CULAR ONCE 0.5 May 01, 2020 May 01, 2020 Disconti nued Problem List Active Problems Medical Problem Onset Date Status Effusion of knee December 06, 2017 Benign mole Active Abrasion, right foot, initial encounter Active [...] Onset Date Status Abdominal pain, RUQ Inactive Acute foot pain Inactive Acute pain of right foot Inactiv e Acute right ankle pain Inactive Acute viral pharyngitis Inactive Abdominal pain Inactive Vomiting Inactive Contusion of hand, right Inactiv e Laceration of foot, left Inactiv e Sprain of hand, right Inactive Procedures Procedure Date Status Ankle 3 vw Min RT October 11, [...] A Streptococcus Screen (YVES) May 20 completed Group A Streptococcus Screen (YVES) November 26, 2019 completed Reason for Referral Reason for Referral Date Referral was Provided Provider Office Contact Location October 07, 2020 Jyothi Gigi Arteaga [phone] [facility] [place] [address] Relevant Diagnostic Tests and/or Laboratory Data Laboratory Results Test Date/Time Result Interp. Ref. Range Result Comment Urine Test (Clinic) November 04, 2020 10:17am Negative Urine Color (Manual) September 12, 2020 4:12pm [place] Urine Clarity (Manual) September 12, 2020 4:12pm Clear POC Urine Glucose September 12, 2020 4:12pm Negative POC Urine Bilirubin Confirmation September 12, 2020 4:12pm Negative Urine Ketones (Manual) September 12, 2020 4:12pm Large (+++) Urine Specific [place] (Manual) September 12, 2020 4:12pm 1.015 POC Urine RBC September 12, 2020 4:12pm Negative Urine pH (Manual) September 12, 2020 4:12pm 6.0 POC Urine Protein Confirmation September 12, 2020 4:12pm Trace Urine Urobilinogen (Manual) September 12, 2020 4:12pm 4 Urine Nitrite (Manual) September 12, 2020 4:12pm Negative Urine Leukocyte Esterase (Manual) September 12, 2020 4:12pm Negative White Blood Count September 30, 2020 7:13pm 7.71 1000/mm3 4.8-10.8 Red Blood Count September 30, 2020 7:13pm 5.47 M/mm3 High 4.20-5.40 Hemoglobin September 30, 2020 7:13pm 16.0 g/dL 12.0-16.0 Hematocrit September 30, 2020 7:13pm 45.7 % 37-47 Mean Corpuscular Volume September 30, 2020 7:13pm 83.5 fL 81.0-99.0 Mean Corpuscular Hemoglobin September 30, 2020 7:13pm 29.3 pg 27-31 Mean Corpuscular Hemoglobin Concent September 30, 2020 7:13pm 35.0 g/dL 33-37 Red Cell Distribution Width September 30, 2020 7:13pm 12.6 % 11.5-14.5 Platelet Count September 30, 2020 7:13pm 191 1000/mm3 140-440 Mean Platelet Volume September 30, 2020 7:13pm 10.6 fL High 7.4-10.4 Neutrophils (%) (Auto) September 30, 2020 7:13pm 62.0 % 40.0-72.0 Lymphocytes (%) (Auto) September 30, 2020 7:13pm 22.8 % 17-45 Monocytes (%) (Auto) September 30, 2020 7:13pm 10.4 % 3-11 Eosinophils (%) (Auto) September 30, 2020 7:13pm 3.4 % High 0-3 Basophils (%) (Auto) September 30, 2020 7:13pm 1.0 % 0-1 Immature Granulocyte % (Auto) September 30, 2020 7:13pm 0.4 % 0-1 Neutrophils # (Auto) September 30, 2020 7:13pm 4.78 1000/mm3 1.4-6.5 Lymphocytes # (Auto) September 30, 2020 7:13pm 1.76 1000/mm3 1.2-3.4 Monocytes # (Auto) September 30, 2020 7:13pm 0.80 1000/mm3 0.0-0.8 Eosinophils # (Auto) September 30, 2020 7:13pm 0.26 1000/mm3 0.0-0.7 Basophils # (Auto) September 30, 2020 7:13pm 0.08 1000/mm3 0.0-0.1 Absolute Immature Granulocyte (auto September 30, 2020 7:13pm 0.0 0-1 Differential Method September 30, 2020 7:13pm Automated Urine Color September 12, 2020 4:01pm Yellow Urine Clarity September 12, 2020 4:01pm Clear Urine pH September 12, 2020 4:01pm 6.5 Urine Specific [place] September 12, 2020 4:01pm 1.015 Urine Protein [...] 2020 4:01pm 2+ /hpf High Sodium Level September 30, 2020 7:13pm 140 mmol/L 137-145 Potassium Level September 30, 2020 7:13pm 3.8 mmol/L 3.6-5.0 Chloride Level September 30, 2020 7:13pm 107 mmol/L 98-107 Carbon Dioxide Level September 30, 2020 7:13pm 21 mmol/L Low 22-30 Anion Gap September 30, 2020 7:13pm 12 7-16 Blood Urea Nitrogen September 30, 2020 7:13pm 5 mg/dL Low 7-17 Creatinine September 30, 2020 7:13pm 0.60 mg/dL 0.52-1.04 Glomerular Filtration Rate Calc September 30, 2020 7:13pm TNP Test not perform ed GFR cannot be calculated due to patient age. GFRs are only calculated on patients >18 years of age. Glucose Level September 30, 2020 7:13pm 80 mg/dL 70-100 Calcium Level September 30, 2020 7:13pm 9.5 mg/dL 8.4-10.2 Calcium Adjusted for Albumin September 30, 2020 7:13pm 9.3 mg/dL 8.4-10.2 Total Bilirubin September 30, 2020 7:13pm 0.6 mg/dL 0.2-1.3 Aspartate Amino Transf (AST/SGOT) September 30, 2020 7:13pm 39 U/L High 14-36 Alanine Aminotransferase (ALT/SGPT) September 30, 2020 7:13pm 33 U/L As of 07/07/19, th e Reference Range for ALT/SGPT for adult patients has been updated. The Reference Range for ALT/SGPT has not been established for patients <18 years of age. Total Protein September 30, 2020 7:13pm 7.2 g/dL 6.3-8.2 Albumin September 30, 2020 7:13pm 4.5 g/dL 3.5-5.0 Cholesterol Level August 30, [...] 2020 3:29pm 104 mg/dL 0-149 Alkaline Phosphatase September 30, 2020 7:13pm 79 U/L 38-126 Lipase September 30, 2020 7:13pm [...] sheets for providers can be found at: Antengo.gov/media/67019 5/download Fact sheets for patients can be found at: Antengo.gov/HouseTab/66883 7/download TB Test (QFT) Antigen Minus Nil [...] [Lewinsohn DM et. al. Clin. Infect. Dis. 2017;64(2):111-115] . [...] 10:30am 0.01 IU/mL Test Performed b y: [facility] [address] [place] [address] Immigration Services Officer: Boone Escudero M.D. Ph.D.; CLIA# [id number] Microbiology Results Procedure Source Result Collection Date/Time Result Date/Time Group A Streptococcus Screen (YVES) Throat No results entered November 26, 2019 2:11pm Group A Streptococcus Screen (YVSE) Throat No results entered May 20, 2020 1:55pm Urine Culture Ur,Clean Catch No results entered September 12, 2020 4:01pm Chief Complaint and Reason for Visit Encounter Admit Date Chief Complaint Reason for V isit Departed Physician/Provider Office Visit November 04, 2020 10:01am Follow Up Abdominal pain Headache Anxiety and depression Hospital Discharge Instructions No known hospital discharge instructions. Hospital Discharge Medications Medication Dose Units Route Sig Qty Days Order Date Status Instructions Levonorgestrel -Ethinyl Estrad 1 TAB ORAL DAILY 84 August 17, 2018 Discontinu ed Levonorgestrel -Ethinyl Estrad 1 TAB ORAL DAILY 84 November 08, 2019 Active Fluoxetine 10 MG ORAL DAILY June 17, 2020 Discontinu ed Famotidine 0 Route .COMPLEX [address] 2020 Active TAKE 1 TABLET BY MOUTH THREE TIMES DAILY NEEDED FOR ACID REFLUX Magnesium 200 - 600 MG ORAL DAILY 90 November 04, 2020 Active Riboflavin (Vitamin B2) 400 MG ORAL DAILY 90 November 04, 2020 Active flu vac [id number] 36mos up(PF) 60 MCG INTRAMUSCU LAR ONCE [...] MG ORAL DAILY 30 August 30, 2020 Active Fluoxetine 20 MG ORAL DAILY July Discontinu [...] September 30, 2020 Discontinu ed flu vacc [id number] 6mos up(PF) 0.5 ML INTRAMUSCU LAR ONCE 0.5 May 01, 2020 Discontinu ed Encounters Encounter Facility Location Admit/Visit Date Discharge/Departure Date Attending Provider Departed Physician/Pr ovider Office Visit [facility] Pediatrics [facility] November 04, 2020 10:01am November 04, 2020 10:26am Jyothi Arteaga Departed Physician/Pr ovider Office Visit [facility] Orthopedic&Cesar ab October 16, 2020 1:25pm October 16, 2020 1:55pm Antwon Jackson Departed Emergency [facility] Urgent [facility] October 11, 2020 7:11pm October 11, 2020 9:23pm Departed Clinical [facility] Cardiology October 08, 2020 1:55pm October 08, 2020 1:56pm Jyothi Arteaga Departed Physician/Pr ovider Office Visit [facility] Cardiology October 08, 2020 1:50pm October 08, 2020 11:59pm Diann Oakes Departed Physician/Pr ovider Office Visit [facility] October 07, 2020 12:53pm October 07, 2020 2:16pm Jyothi Arteaga Departed Emergency [facility] Emergency Department 2020 8:52am 2020 10:22am Departed Emergency [facility] Emergency Department September 30, 2020 4:35pm September 30, 2020 8:56pm Departed Emergency [facility] September 30, 2020 2:40pm September 30, 2020 4:44pm Departed Referred [facility] Lab [facility] P[facility] [place] September 12, 2020 4:01pm September 12, 2020 4:02pm Ian Garcia Departed Physician/Pr ovider Office Visit [facility] September 12, 2020 3:24pm September 12, 2020 4:17pm Ian Garcia Departed Clinical [facility] Laboratory August 30, 2020 2:39pm August 30, 2020 2:40pm Jyothi Arteaga Departed Physician/Pr ovider Office Visit [facility] August 30, 2020 1:59pm August 30, 2020 4:00pm Jyothi Arteaga Departed Physician/Pr ovider Office Visit [facility] August 19, 2020 8:59am August 19, 2020 11:18am Jyothi Arteaga Departed Physician/Pr ovider Office Visit [facility] August 06, 2020 8:07am August 06, 2020 3:16pm Joi Herman Departed Emergency [facility] Emergency Department July 27, 2020 3:43pm July 27, 2020 5:11pm Departed Physician/Pr ovider Office Visit [facility] July 24, 2020 7:51am July 24, 2020 1:52pm Joi Herman Departed Physician/Pr ovider Office Visit [facility] Occupational Health [facility] July 18, 2020 2:47pm July 18, 2020 2:47pm Windy Contreras Departed Physician/Pr ovider Office Visit [facility] July 12, 2020 7:56am July 12, 2020 11:59pm Jyothi Arteaga Departed Physician/Pr ovider Office Visit [facility] July 09, 2020 10:31am July 09, 2020 9:21pm Joi Herman Departed Emergency [facility] Emergency Department July 04, 2020 10:57am July 04, 2020 11:59am Departed Clinical [facility] June 27, 2020 8:16am June 27, 2020 8:17am Windy Contreras Departed Physician/Pr ovider Office Visit [facility] June 21, 2020 7:52am June 21, 2020 3:38pm Joi Herman Departed Physician/Pr ovider Office Visit [facility] June 21, 2020 7:50am June 21, 2020 11:59pm Jyothi Arteaga Departed Physician/Pr ovider Office Visit [facility] June 14, 2020 3:05pm June 14, 2020 11:59pm Jyothi Arteaga Departed Referred [facility] [place] May 20, 2020 1:55pm May 20, 2020 1:56pm Nadege Parker Departed Physician/Pr ovider Office Visit [facility] Pediatrics May 20, 2020 1:16pm May 20, 2020 2:13pm Nadege Parker Departed Clinical [facility] May 20, 2020 8:31am May 20, 2020 8:32am Twyla Navarrete Departed Physician/Pr ovider Office Visit [facility] May 19, 2020 10:40am May 19, 2020 11:59pm Twyla Navarrete Departed Clinical [facility] May 01, 2020 11:04am May 01, 2020 11:05am SurpriseDarrinWindy Departed Physician/Pr ovider Office Visit [facility] May 01, 2020 10:09am May 01, 2020 12:58pm Referral, Self Departed Physician/Pr ovider Office Visit [facility] Pediatrics [facility] February 14, 2020 7:43am February 14, 2020 11:49am Joi Herman Departed Physician/Pr ovider Office Visit [facility] January 12, 2020 2:30pm January 12, 2020 3:38pm Jyothi Arteaga Departed Emergency [facility] November 26, 2019 1:42pm November 26, 2019 2:22pm Departed Physician/Pr ovider Office Visit [facility] November 08, 2019 8:50am November 08, 2019 11:13am Joi Herman Encounter Diagnosis Onset Date Abdominal pain Headache Anxiety and depression Functional Status Query Response Date Recorded Comment Comprehension Ability Understands Concepts July 27 4:22pm Mood/Behavior Appropriate July 27, 2020 4:22pm Speech Appropriate Clear July 27, 2020 4:22pm Query Response Date Recorded Comment Living Situation Home With Family October 11, 2020 8:30pm Immunizations Immunization Name Date Given Type DTP [...] Response Date Recorded Comment Alcohol Use No October 11, 2020 8:30pm Smoking Status Current every day smoker November 04, 2020 10:11am Substance/Street Drug Use Yes October 11, 2020 8:30pm QHS marijuana as of 09/30/20 alcohol intake frequency holidays/special occasions only October 11, 2020 8:30pm substance use type marijuana October 11 8:30pm Query Response Start Date Stop Date Smoking Status Current every day smoker Vital Signs Vital Reading Result Reference Range Collection Date/Time Height 5 ft 5 in October 16, 2020 1:32pm Weight 103.022 kg November 04, 2020 10:09am Temperature 98.8 F 97.6 F-99.6 F October 11, 2020 7:49pm Pulse 97 BPM 56-106 October 16, 2020 1:32pm Respiration 20 RPM 16-24 October 11, 2020 7:49pm Pulse Oximetry 98 % 95-100 October 16 1:32pm Blood Pressure Systolic 110 102-133 [facility] 2020 1:32pm Blood Pressure Diastolic 80 61-85 Oct [facility] 2020 1:32pm Body Mass Index 37.3 October 16 1:32pm
--- OUTSIDE RECORDS SUMMARY | 2023-02-16 11:45 | XMS_ITS | Continuity of Care Document ---
Author Name [facility] Address [address] [place] [address] Organization [facility] Address [address] [place] [id number] Support Name Relationship Address Phone Jyothi Arteaga Primary Care Provider [facility] Leandro torres [address] [address] Jyothi Arteaga Attending Provider [facility] Pediatrmaeve alfaro [address] [address] Referral, Self Referring Provider Unknown [...] July 12, 2020 Disconti nued flu vac [id number] 36mos up(PF) 60 MCG INTRAMUS CULAR ONCE [...] November 04, 2020 Disconti nued flu vacc [id number] 6mos up(PF) 0.5 ML INTRAMUS CULAR ONCE [...] Location October 07, 2020 Jyothi Gigi Arteaga [phone] [facility] [place] [address] Relevant Diagnostic Tests and/or Laboratory Data Laboratory Results Test Date/Time Result Interp. Ref. Range Result Comment Urine Test (Clinic) November 04, 2020 10:17am Negative Urine Color (Manual) September 12, 2020 4:12pm [place] Urine Clarity (Manual) September 12, 2020 4:12pm Clear POC Urine Glucose September 12, 2020 4:12pm Negative POC Urine Bilirubin Confirmation September 12, 2020 4:12pm Negative Urine Ketones (Manual) September 12, 2020 4:12pm Large (+++) Urine Specific [place] (Manual) September 12, 2020 4:12pm 1.015 POC [...] September 12, 2020 4:01pm 6.5 Urine Specific [place] September 12, 2020 4:01pm 1.015 Urine Protein [...] sheets for providers can be found at: Availink.gov/media/23196 5/download Fact sheets for patients can be found at: Availink.gov/Open Air Publishing/58433 7/download TB Test (QFT) Antigen Minus Nil [...] 10:30am 0.01 IU/mL Test Performed b y: [facility] [address] [place] [address] Manager Distribution Center: Boone Escudero M.D. Ph.D.; CLIA# [id number] Microbiology Results Procedure Source Result Collection Date/Time [...] 90 November 04, 2020 Active flu vac [id number] 36mos up(PF) 60 MCG INTRAMUSCU LAR ONCE [...] September 30, 2020 Discontinu ed flu vacc [id number] 6mos up(PF) 0.5 ML INTRAMUSCU LAR ONCE 0.5 May 01, 2020 Discontinu ed Encounters Encounter Facility Location Admit/Visit Date Discharge/Departure Date Attending Provider Departed Physician/Pr ovider Office Visit [facility] Pediatrics [facility] November 04, 2020 10:01am November 04, 2020 10:26am Jyothi Arteaga Departed Physician/Pr ovider Office Visit [facility] Orthopedic&Cesar ab October 16, 2020 1:25pm October 16, 2020 1:55pm Antwon Jackson Departed Emergency [facility] Urgent [facility] October 11, 2020 7:11pm October 11, 2020 9:23pm Departed Clinical [facility] Cardiology October 08, 2020 1:55pm October 08, 2020 1:56pm Jyothi Arteaga Departed Physician/Pr ovider Office Visit [facility] Cardiology October 08, 2020 1:50pm October 08, 2020 11:59pm Diann Oakes Departed Physician/Pr ovider Office Visit [facility] October 07, 2020 12:53pm October 07, 2020 2:16pm Jyothi Arteaga Departed Emergency [facility] Emergency Department 2020 8:52am 2020 10:22am Departed Emergency [facility] Emergency Department September 30, 2020 4:35pm September 30, 2020 8:56pm Departed Emergency [facility] September 30, 2020 2:40pm September 30, 2020 4:44pm Departed Referred [facility] Lab [facility] [place] [place] September 12, 2020 4:01pm September 12, 2020 4:02pm Ian Garcia Departed Physician/Pr ovider Office Visit [facility] September 12, 2020 3:24pm September 12, 2020 4:17pm Ian Garcia Departed Clinical [facility] Laboratory August 30, 2020 2:39pm August 30, 2020 2:40pm Jyothi Arteaga Departed Physician/Pr ovider Office Visit [facility] August 30, 2020 1:59pm August 30, 2020 4:00pm Jyothi Arteaga Departed Physician/Pr ovider Office Visit [facility] August 19, 2020 8:59am August 19, 2020 11:18am Jyothi Arteaga Departed Physician/Pr ovider Office Visit [facility] August 06, 2020 8:07am August 06, 2020 3:16pm Joi Herman Departed Emergency [facility] Emergency Department July 27, 2020 3:43pm July 27, 2020 5:11pm Departed Physician/Pr ovider Office Visit [facility] July 24, 2020 7:51am July 24, 2020 1:52pm Joi Herman Departed Physician/Pr ovider Office Visit [facility] Occup[facility] July 18, 2020 2:47pm July 18, 2020 2:47pm Windy Contreras Departed Physician/Pr ovider Office Visit [facility] July 12, 2020 7:56am July 12, 2020 11:59pm Jyothi Arteaga Departed Physician/Pr ovider Office Visit [facility] July 09, 2020 10:31am July 09, 2020 9:21pm Joi Herman Departed Emergency [facility] Emergency Department July 04, 2020 10:57am July 04, 2020 11:59am Departed Clinical [facility] June 27, 2020 8:16am June 27, 2020 8:17am Windy Contreras Departed Physician/Pr ovider Office Visit [facility] June 21, 2020 7:52am June 21, 2020 3:38pm Joi Herman Departed Physician/Pr ovider Office Visit [facility] June 21, 2020 7:50am June 21, 2020 11:59pm Jyothi Arteaga Departed Physician/Pr ovider Office Visit [facility] June 14, 2020 3:05pm June 14, 2020 11:59pm Jyothi Arteaga Departed Referred [facility] [place] May 20, 2020 1:55pm May 20, 2020 1:56pm Nadege Parker Departed Physician/Pr ovider Office Visit [facility] Pediatrics May 20, 2020 1:16pm May 20, 2020 2:13pm Nadege Parker Departed Clinical [facility] May 20, 2020 8:31am May 20, 2020 8:32am Twyla Navarrete Departed Physician/Pr ovider Office Visit [facility] May 19, 2020 10:40am May 19, 2020 11:59pm Twyla Navarrete Departed Clinical [facility] May 01, 2020 11:04am May 01, 2020 11:05am [place] Departed Physician/Pr ovider Office Visit [facility] May 01, 2020 10:09am May 01, 2020 12:58pm Referral, Self Departed Physician/Pr ovider Office Visit [facility] Pediatrics [facility] February 14, 2020 7:43am February 14, 2020 11:49am Joi Herman Departed Physician/Pr ovider Office Visit [facility] January 12, 2020 2:30pm January 12, 2020 3:38pm Jyothi Arteaga Departed Emergency [facility] November 26, 2019 1:42pm November 26, 2019 2:22pm Departed Physician/Pr ovider Office Visit [facility] November 08, 2019 8:50am November 08, 2019 [...] 16 1:32pm Blood Pressure Systolic 110 102-133 [facility] 2020 1:32pm Blood Pressure Diastolic 80 61-85 Oct [facility] 2020 1:32pm Body Mass Index 37.3 October 16 1:32pm
--- OUTSIDE RECORDS SUMMARY | 2023-02-16 11:45 | XMS_ITS | Continuity of Care Document ---
Author Name [facility] Address [address] [place] [id number] Organization [facility] Address [address] [place] [address] Care Team Providers Care Is Consultant Name Role Phone Jyothi Arteaga Primary Care Physician [phone] Allergies, Adverse Reactions, Alerts No known allergies. [...] December 20, 2020 Disconti nued flu vac [id number] 36mos up(PF) 60 MCG INTRAMUS CULAR ONCE [...] November 04, 2020 Disconti nued flu vacc [id number] 6mos up(PF) 0.5 ML INTRAMUS CULAR ONCE [...] 22, 2021 completed EKG February 22, 2021 active Chest 1 [...] Contact Location October 07, 2020 Jyothi Arteaga [phone] [facility] [place] [address] Relevant Diagnostic Tests and/or Laboratory Data Laboratory [...] November 19, 2020 11:18am Negative Urine Specific [place] (Manual) November 19, 2020 11:18am 1.020 POC [...] September 12, 2020 4:01pm 6.5 Urine Specific [place] September 12, 2020 4:01pm 1.015 Urine Protein [...] sheets for providers can be found at: [employer].gov/media/98687 5/download Fact sheets for patients can be found at: [employer].gov/Fashism/68983 7/download TB Test (QFT) Antigen Minus Nil [...] [Rosanna COOK et. al. Clin. Infect. Dis. 2017;64(2):111-115] . [...] 10:30am 0.01 IU/mL Test Performed b y: [facility] [address] [id number] Funeral Prearrangement Counselor: Boone Escudero M.D. Ph.D.; CLIA# [id number] Microbiology Results Procedure Source Result Collection Date/Time [...] November 04, 2020 Discontinu ed flu vac [id number] 36mos up(PF) 60 MCG INTRAMUSCU LAR ONCE [...] September 30, 2020 Discontinu ed flu vacc [id number] 6mos up(PF) 0.5 ML INTRAMUSCU LAR ONCE 0.5 May 01, 2020 Discontinu ed Encounters Encounter Facility Location Admit/Visit Date Discharge/Departure Date Attending Provider Registered Emergency [facility] Emergency Department February 22, 2021 1:48pm Departed Emergency [facility] February 22, 2021 12:49pm February 22, 2021 1:47pm Departed Emergency [facility] Emergency Department December 21, 2020 8:46am December 21, 2020 12:00pm Departed Physician/Pr ovider Office Visit [facility] Pediatrics [facility] December 20, 2020 4:18pm December 20, 2020 4:47pm Maite Garcia Departed Physician/Pr ovider Office Visit [facility] Pediatrics [facility] November 19, 2020 10:32am November 19, 2020 11:29am Felicia Rodrigez Departed Physician/Pr ovider Office Visit [facility] November 15, 2020 2:11pm November 15, 2020 2:55pm Antwon Jackson Departed Physician/Pr ovider Office Visit [facility] Pediatrics [facility] November 04, 2020 10:01am November 04, 2020 10:26am Jyothi Arteaga Departed Physician/Pr ovider Office Visit [facility] October 16, 2020 1:25pm October 16, 2020 1:55pm Antwon Jackson Departed Emergency [facility] Urgent [facility] October 11, 2020 7:11pm October 11, 2020 9:23pm Departed Clinical [facility] Cardiology October 08, 2020 1:55pm October 08, 2020 1:56pm Jyothi Arteaga Departed Physician/Pr ovider Office Visit [facility] Cardiology October 08, 2020 1:50pm October 08, 2020 11:59pm Diann Oakes Departed Physician/Pr ovider Office Visit [facility] Pediatrics [facility] October 07, 2020 12:53pm October 07, 2020 2:16pm Jyothi Arteaga Departed Emergency [facility] Emergency Department 2020 8:52am 2020 10:22am Departed Emergency [facility] Emergency Department September 30, 2020 4:35pm September 30, 2020 8:56pm Departed Emergency [facility] September 30, 2020 2:40pm September 30, 2020 4:44pm Departed Referred [facility] Lab [facility] [place] September 12, 2020 4:01pm September 12, 2020 4:02pm Ian Garcia Departed Physician/Pr ovider Office Visit [facility] September 12, 2020 3:24pm September 12, 2020 4:17pm Ian Garcia Departed Clinical [facility] Laboratory August 30, 2020 2:39pm August 30, 2020 2:40pm Jyothi Arteaga Departed Physician/Pr ovider Office Visit [facility] August 30, 2020 1:59pm August 30, 2020 4:00pm Jyothi Arteaga Departed Physician/Pr ovider Office Visit [facility] August 19, 2020 8:59am August 19, 2020 11:18am Jyothi Arteaga Departed Physician/Pr ovider Office Visit [facility] August 06, 2020 8:07am August 06, 2020 3:16pm Joi Herman Departed Emergency [facility] Emergency Department July 27, 2020 3:43pm July 27, 2020 5:11pm Departed Physician/Pr ovider Office Visit [facility] July 24, 2020 7:51am July 24, 2020 1:52pm Joi Herman Departed Physician/Pr ovider Office Visit [facility] Occupational Health [facility] July 18, 2020 2:47pm July 18, 2020 2:47pm Windy Contreras Departed Physician/Pr ovider Office Visit [facility] July 12, 2020 7:56am July 12, 2020 11:59pm Jyothi Arteaga Departed Physician/Pr ovider Office Visit [facility] July 09, 2020 10:31am July 09, 2020 9:21pm Joi Herman Departed Emergency [facility] Emergency Department July 04, 2020 10:57am July 04, 2020 11:59am Departed Clinical [facility] June 27, 2020 8:16am June 27, 2020 8:17am Windy Contreras Departed Physician/Pr ovider Office Visit [facility] June 21, 2020 7:52am June 21, 2020 3:38pm Joi Herman Departed Physician/Pr ovider Office Visit [facility] June 21, 2020 7:50am June 21, 2020 11:59pm Jyothi Arteaga Departed Physician/Pr ovider Office Visit [facility] June 14, 2020 3:05pm June 14, 2020 11:59pm Jyothi Arteaga Departed Referred [facility] LAB [facility] May 20, 2020 1:55pm May 20, 2020 1:56pm Nadege Parker Departed Physician/Pr ovider Office Visit [facility] Pediatrics May 20, 2020 1:16pm May 20, 2020 2:13pm Nadege Parker Departed Clinical [facility] May 20, 2020 8:31am May 20, 2020 8:32am Twyla Navarrete Departed Physician/Pr ovider Office Visit [facility] May 19, 2020 10:40am May 19, 2020 11:59pm Twyla Navarrete Departed Clinical [facility] May 01, 2020 11:04am May 01, 2020 11:05am Windy Contreras Departelvis Physician/Pr ovider Office Visit [facility] Occupational Health [facility] May 01, 2020 10:09am [...]
--- OUTSIDE RECORDS SUMMARY | 2023-02-16 11:45 | XMS_ITS | Continuity of Care Document ---
Author Name [facility] Address [address] [place] [address] Organization [facility] Address [address] [place] [address] Care Team Providers Care Expanding Machine Operator Name Role Phone Jyothi Arteaga Primary Care [...] December 20, 2020 Disconti nued flu vac [id number] 36mos up(PF) 60 MCG INTRAMUS CULAR ONCE [...] November 04, 2020 Disconti nued flu vacc [id number] 6mos up(PF) 0.5 ML INTRAMUS CULAR ONCE 0.5 May 01, 2020 May 01, 2020 Disconti nued Problem List Active Problems Medical Problem Onset Date Status Effusion of knee December 06, 2017 Chronic chest wall pain Active Benign mole Active Vomiting and diarrhea Active [...] Status Chest 1 vw December 21, 2020 active Ankle 3 vw Min RT October 11, [...] Contact Location October 07, 2020 Jyothi Arteaga [phone] [facility] [place] [address] Relevant Diagnostic Tests and/or Laboratory Data Laboratory [...] November 19, 2020 11:18am Negative Urine Specific [place] (Manual) November 19, 2020 11:18am 1.020 POC [...] September 12, 2020 4:01pm 6.5 Urine Specific [place] September 12, 2020 4:01pm 1.015 Urine Protein [...] sheets for providers can be found at: [employer].gov/media/12621 5/download Fact sheets for patients can be found at: [employer].gov/CooCoo/45870 7/download TB Test (QFT) Antigen Minus Nil [...] Diagnosis of Tuberculosis in Adults and Children [Renzoinsohn JOYCE et. al. Clin. Infect. Dis. 2017;64(2):111-115] [...] 10:30am 0.01 IU/mL Test Performed b y: [facility] [address] [place] [address] Assistant Laboratory Director: Boone Escudero M.D. Ph.D.; [facility]# [id number] Microbiology Results Procedure Source Result Collection Date/Time Result Date/Time Group A Streptococcus Screen (YVES) Throat No results entered May 20, 2020 1:55pm Urine Culture Ur,Clean Catch No results entered September 12, 2020 4:01pm Chief Complaint and Reason for Visit Encounter Admit Date Chief Complaint Reason for V isit Registered Emergency December 21, 2020 8:46am [facility] Discharge Instructions Additional Discharge Instructions Your [...] November 04, 2020 Discontinu ed flu vac [id number] 36mos up(PF) 60 MCG INTRAMUSCU LAR ONCE [...] September 30, 2020 Discontinu ed flu vacc [id number] 6mos up(PF) 0.5 ML INTRAMUSCU LAR ONCE 0.5 May 01, 2020 Discontinu ed Encounters Encounter Facility Location Admit/Visit Date Discharge/Departure Date Attending Provider Registered Emergency [facility] Emergency Department December 21, 2020 8:46am Departed Physician/Pr ovider Office Visit [facility] Pediatrics [facility] December 20, 2020 4:18pm December 20, 2020 4:47pm Maite Garcia Departed Physician/Pr ovider Office Visit [facility] Pediatrics [facility] November 19, 2020 10:32am November 19, 2020 11:29am Felicia Rdorigez Departed Physician/Pr ovider Office Visit [facility] November 15, 2020 2:11pm November 15, 2020 2:55pm Antwon Jackson Departed Physician/Pr ovider Office Visit [facility] Pediatrics [facility] November 04, 2020 10:01am November 04, 2020 10:26am Jyothi Arteaga Departed Physician/Pr ovider Office Visit [facility] October 16, 2020 1:25pm October 16, 2020 1:55pm Antwon Jackson Departed Emergency [facility] Urgent [facility] October 11, 2020 7:11pm October 11, 2020 9:23pm Departed Clinical [facility] Cardiology October 08, 2020 1:55pm October 08, 2020 1:56pm Jyothi Arteaga Departed Physician/Pr ovider Office Visit [facility] Cardiology October 08, 2020 1:50pm October 08, 2020 11:59pm Diann Oakes Departed Physician/Pr ovider Office Visit [facility] October 07, 2020 12:53pm October 07, 2020 2:16pm Jyothi Arteaga Departed Emergency [facility] Emergency Department 2020 8:52am 2020 10:22am Departed Emergency [facility] Emergency Department September 30, 2020 4:35pm September 30, 2020 8:56pm Departed Emergency [facility] Urgent [facility] September 30, 2020 2:40pm September 30, 2020 4:44pm Departed Referred [facility] Lab [facility] P[facility] [place] September 12, 2020 4:01pm September 12, 2020 4:02pm Ian Garcia Departed Physician/Pr ovider Office Visit [facility] September 12, 2020 3:24pm September 12, 2020 4:17pm Ian Garcia Departed Clinical [facility] Laboratory August 30, 2020 2:39pm August 30, 2020 2:40pm Jyothi Arteaga Departed Physician/Pr ovider Office Visit [facility] August 30, 2020 1:59pm August 30, 2020 4:00pm Jyothi Arteaga Departed Physician/Pr ovider Office Visit [facility] August 19, 2020 8:59am August 19, 2020 11:18am Jyothi Arteaga Departed Physician/Pr ovider Office Visit [facility] August 06, 2020 8:07am August 06, 2020 3:16pm Joi Herman Departed Emergency [facility] Emergency Department July 27, 2020 3:43pm July 27, 2020 5:11pm Departed Physician/Pr ovider Office Visit [facility] July 24, 2020 7:51am July 24, 2020 1:52pm Joi Herman Departed Physician/Pr ovider Office Visit [facility] Occupational Health [facility] July 18, 2020 2:47pm July 18, 2020 2:47pm Windy Contreras Departed Physician/Pr ovider Office Visit [facility] July 12, 2020 7:56am July 12, 2020 11:59pm Jyothi Arteaga Departed Physician/Pr ovider Office Visit [facility] July 09, 2020 10:31am July 09, 2020 9:21pm Joi Herman Departed Emergency [facility] Emergency Department July 04, 2020 10:57am July 04, 2020 11:59am Departed Clinical [facility] June 27, 2020 8:16am June 27, 2020 8:17am Windy Contreras Departed Physician/Pr ovider Office Visit [facility] June 21, 2020 7:52am June 21, 2020 3:38pm Joi Herman Departed Physician/Pr ovider Office Visit [facility] June 21, 2020 7:50am June 21, 2020 11:59pm Jyothi Arteaga Departed Physician/Pr ovider Office Visit [facility] June 14, 2020 3:05pm June 14, 2020 11:59pm Jyothi Arteaga Departed Referred [facility] LAB [facility] May 20, 2020 1:55pm May 20, 2020 1:56pm Nadege Parker Departed Physician/Pr ovider Office Visit [facility] May 20, 2020 1:16pm May 20, 2020 2:13pm Nadege Parker Departed Clinical [facility] May 20, 2020 8:31am May 20, 2020 8:32am Twyla Navarrete Departed Physician/Pr ovider Office Visit [facility] May 19, 2020 10:40am May 19, 2020 11:59pm Twyla Navarrete Departed Clinical [facility] May 01, 2020 11:04am May 01, 2020 11:05am Windy Contreras Departed Physician/Pr ovider Office Visit [facility] May 01, 2020 10:09am May 01, 2020 12:58pm Referral, Self Departed Physician/Pr ovider Office Visit [facility] Pediatrics [facility] February 14, 2020 7:43am February 14, 2020 11:49am Joi Herman Departed Physician/Pr ovider Office Visit [facility] Pediatrics [facility] January 12, 2020 2:30pm January 12, 2020 3:38pm Jyothi Arteaga Functional Status Query Response Date Recorded Comment Comprehension Ability Understands Concepts July 27 4:22pm Mood/Behavior Appropriate July 27, 2020 4:22pm Speech Appropriate Clear July 27, 2020 4:22pm Query Response Date Recorded Comment Living Situation Home With Family December 21, 2020 9:04am Immunizations Immunization Name Date Given Type DTP [...] 8:57am Blood Pressure Systolic 116 102-133 Octo bakari 2020 8:57am Blood Pressure Diastolic 65 61-85 Oct mono 2020 8:57am Body Mass Index 37.0 November 2:21pm
--- OUTSIDE RECORDS SUMMARY | 2023-02-16 11:45 | XMS_ITS | Continuity of Care Document ---
Author Name [facility] Address [address] [place] [id number] Organization [facility] Address [address] [place] [address] Support Name Relationship Address Phone Jyothi Arteaga Primary Care Provider [facility] Leandro torres [facility] [address] [place] [address] Maite Garcia Attending Provider [facility] Pediatric [address] [address] Referral, Self Referring Provider Unknown Unavail able [...] December 20, 2020 Disconti nued flu vac [id number] 36mos up(PF) 60 MCG INTRAMUS CULAR ONCE [...] November 04, 2020 Disconti nued flu vacc [id number] 6mos up(PF) 0.5 ML INTRAMUS CULAR ONCE [...] Contact Location October 07, 2020 Jyothi Arteaga [phone] [facility] [place] [address] Relevant Diagnostic Tests and/or Laboratory Data Laboratory [...] November 19, 2020 11:18am Negative Urine Specific [place] (Manual) November 19, 2020 11:18am 1.020 POC [...] September 12, 2020 4:01pm 6.5 Urine Specific [place] September 12, 2020 4:01pm 1.015 Urine Protein [...] sheets for providers can be found at: [employer].gov/media/26496 5/download Fact sheets for patients can be found at: [employer].gov/[employer]/40412 7/download TB Test (QFT) Antigen Minus Nil [...] 10:30am 0.01 IU/mL Test Performed b y: [facility] [address] [place] [address] Digital Campaign Specialist: Boone Escudero M.D. Ph.D.; [facility]# [id number] Microbiology Results Procedure Source Result Collection Date/Time Result Date/Time Group A Streptococcus Screen (YVES) Throat No results entered May 20, 2020 1:55pm Urine Culture Ur,Clean Catch No results entered September 12, 2020 4:01pm Chief Complaint and Reason for Visit Encounter Admit Date Chief Complaint Reason for V isit Departed Physician/Provider Office Visit December 20, 2020 4:18pm Congestion Abdominal pain Chest pain Hospital Discharge Instructions No known hospital discharge [...] November 04, 2020 Discontinu ed flu vac [id number] 36mos up(PF) 60 MCG INTRAMUSCU LAR ONCE [...] September 30, 2020 Discontinu ed flu vacc [id number] 6mos up(PF) 0.5 ML INTRAMUSCU LAR ONCE 0.5 May 01, 2020 Discontinu ed Encounters Encounter Facility Location Admit/Visit Date Discharge/Departure Date Attending Provider Departed Emergency [facility] Emergency Department December 21, 2020 8:46am December 21, 2020 12:00pm Departed Physician/Pr ovider Office Visit [facility] Pediatrics [facility] December 20, 2020 4:18pm December 20, 2020 4:47pm Maite Garcia Departed Physician/Pr ovider Office Visit [facility] Pediatrics [facility] November 19, 2020 10:32am November 19, 2020 11:29am Felicia Rodrigez Departed Physician/Pr ovider Office Visit [facility] Orthopedic[facility]Cesar ab November 15, 2020 2:11pm November 15, 2020 2:55pm Antwon Jackson Departed Physician/Pr ovider Office Visit [facility] Pediatrics [facility] November 04, 2020 10:01am November 04, 2020 10:26am Jyothi Arteaga Departed Physician/Pr ovider Office Visit [facility] Orthopedic[facility]Cesar ab October 16, 2020 1:25pm October 16, 2020 1:55pm Antwon Jackson Departed Emergency [facility] October 11, 2020 7:11pm October 11, 2020 9:23pm Departed Clinical [facility] Cardiology October 08, 2020 1:55pm October 08, 2020 1:56pm Jyothi Arteaga Departed Physician/Pr ovider Office Visit [facility] Cardiology October 08, 2020 1:50pm October 08, 2020 11:59pm Diann Oakes Departed Physician/Pr ovider Office Visit [facility] October 07, 2020 12:53pm October 07, 2020 2:16pm Jyothi Arteaga Departed Emergency [facility] Emergency Department 2020 8:52am 2020 10:22am Departed Emergency [facility] Emergency Department September 30, 2020 4:35pm September 30, 2020 8:56pm Departed Emergency [facility] Urgent [facility] September 30, 2020 2:40pm September 30, 2020 4:44pm Departed Referred [facility] Lab [facility] [place] September 12, 2020 4:01pm September 12, 2020 4:02pm Ian Garcia Departed Physician/Pr ovider Office Visit [facility] September 12, 2020 3:24pm September 12, 2020 4:17pm Ian Garcia Departed Clinical [facility] Laboratory August 30, 2020 2:39pm August 30, 2020 2:40pm Jyothi Arteaga Departed Physician/Pr ovider Office Visit [facility] August 30, 2020 1:59pm August 30, 2020 4:00pm Jyothi Arteaga Departed Physician/Pr ovider Office Visit [facility] August 19, 2020 8:59am August 19, 2020 11:18am Jyothi Arteaga Departed Physician/Pr ovider Office Visit [facility] August 06, 2020 8:07am August 06, 2020 3:16pm Joi Herman Departed Emergency [facility] Emergency Department July 27, 2020 3:43pm July 27, 2020 5:11pm Departed Physician/Pr ovider Office Visit [facility] July 24, 2020 7:51am July 24, 2020 1:52pm Joi Herman Departed Physician/Pr ovider Office Visit [facility] Occupational Health [facility] July 18, 2020 2:47pm July 18, 2020 2:47pm Windy Contreras Departed Physician/Pr ovider Office Visit [facility] July 12, 2020 7:56am July 12, 2020 11:59pm Jyothi Arteaga Departed Physician/Pr ovider Office Visit [facility] July 09, 2020 10:31am July 09, 2020 9:21pm Joi Herman Departed Emergency [facility] Emergency Department July 04, 2020 10:57am July 04, 2020 11:59am Departed Clinical [facility] June 27, 2020 8:16am June 27, 2020 8:17am Windy Contreras Departed Physician/Pr ovider Office Visit [facility] June 21, 2020 7:52am June 21, 2020 3:38pm Joi Herman Departed Physician/Pr ovider Office Visit [facility] June 21, 2020 7:50am June 21, 2020 11:59pm Jyothi Arteaga Departed Physician/Pr ovider Office Visit [facility] June 14, 2020 3:05pm June 14, 2020 11:59pm Jyothi Arteaga Departed Referred [facility] LAB [facility] May 20, 2020 1:55pm May 20, 2020 1:56pm Nadege Parker Departed Physician/Pr ovider Office Visit [facility] May 20, 2020 1:16pm May 20, 2020 2:13pm Nadege Parker Departed Clinical [facility] May 20, 2020 8:31am May 20, 2020 8:32am Twyla Navarrete Departed Physician/Pr ovider Office Visit [facility] May 19, 2020 10:40am May 19, 2020 11:59pm Twyla Navarrete Departed Clinical [facility] May 01, 2020 11:04am May 01, 2020 11:05am Windy Contreras Departed Physician/Pr ovider Office Visit [facility] May 01, 2020 10:09am May 01, 2020 12:58pm Referral, Self Departed Physician/Pr ovider Office Visit [facility] February 14, 2020 7:43am February 14, 2020 11:49am Joi Herman Departelvis Physician/Pr ovider Office Visit [facility] Pediatrics [facility] January 12, 2020 2:30pm January 12, 2020 3:38pm Jyothi Arteaga Encounter Diagnosis Onset Date Abdominal pain Chest pain Functional Status Query Response Date Recorded Comment [...] 56-106 December 21 8:57am Respiration 18 RPM -December 21 8:57am Pulse Oximetry 96 % 95-100 December 21 8:57am Blood Pressure Systolic 116 102-133 Octo bakari 2020 8:57am Blood Pressure Diastolic 65 61-85 Oct mono 2020 8:57am Body Mass Index 37.0 November 2:21pm
--- OUTSIDE RECORDS SUMMARY | 2023-02-16 11:45 | XMS_ITS | Continuity of Care Document ---
Author Name [facility] Address [address] [place] [address] Organization [facility] Address [address] [place] [address] Care Team Providers Care Eligibility Technician Name Role Phone Jyothi Arteaga Primary Care Physician Jyothi Arteaga Attending Physician [phone] Allergies, Adverse Reactions, Alerts No allergy information available. Medications No medication information available. Problem List No problem information available. Procedures No known history of procedures. Relevant Diagnostic Tests and/or Laboratory Data Laboratory Results Test Date/Time Result Interp. Ref. Range Result Co mment White Blood Count May 23, 2016 10:08am 8.09 1000/mm3 4.8-10.8 Red Blood Count May 23, 2016 10:08am 5.51 M/mm3 High 4.20-5.40 Hemoglobin May 23, 2016 10:08am 15.2 g/dL 12.0-16.0 Hematocrit May 23, 2016 10:08am 43.7 % 37-47 Mean Corpuscular Volume May 23, 2016 10:08am 79.3 fL Low 81.0-99.0 Mean Corpuscular Hemoglobin May 23, 2016 10:08am 27.6 pg 27-31 Mean Corpuscular Hemoglobin Concent May 23, 2016 10:08am 34.8 g/dL 33-37 Red Cell Distribution Width May 23, 2016 10:08am 12.5 % 11.5-14.5 Platelet Count May 23, 2016 10:08am 233 1000/mm3 140-440 Mean Platelet Volume May 23, 2016 10:08am 10.0 fL 7.4-10.4 Neutrophils (%) (Auto) May 23, 2016 10:08am 58.9 % High 30.0-50.0 Lymphocytes (%) (Auto) May 23, 2016 10:08am 31.5 % 20-55 Monocytes (%) (Auto) May 23, 2016 10:08am 6.3 % 3-10 Eosinophils (%) (Auto) May 23, 2016 10:08am 2.7 % 0-4 Basophils (%) (Auto) May 23, 2016 10:08am 0.6 % 0-2 Neutrophils # (Auto) May 23, 2016 10:08am 4.76 1000/mm3 1.4-6.5 Lymphocytes # (Auto) May 23, 2016 10:08am 2.55 1000/mm3 1.2-3.4 Monocytes # (Auto) May 23, 2016 10:08am 0.51 1000/mm3 0.0-0.8 Eosinophils # (Auto) May 23, 2016 10:08am 0.22 1000/mm3 0.0-0.7 Basophils # (Auto) May 23, 2016 10:08am 0.05 1000/mm3 0.0-0.1 Differential Method May 23, 2016 10:08am Automated Sodium Level May 23, 2016 10:08am 141 mmol/L 137-145 Potassium Level May 23, 2016 10:08am 4.5 mmol/L 3.6-5.0 Chloride Level May 23, 2016 10:08am 101 mmol/L 98-107 Carbon Dioxide Level May 23, 2016 10:08am 28 mmol/L 22-30 Anion Gap May 23, 2016 10:08am 12 7-16 Blood Urea Nitrogen May 23, 2016 10:08am 10 mg/dL 7-17 Creatinine May 23, 2016 10:08am 0.7 mg/dL 0.52-1.04 Glomerular Filtration Rate Calc May 23, 2016 10:08am TNP Test not performed GFR cannot be calculated due to patient age. GFRs are only calculated on patients >18 years of age. Glucose Level May 23, 2016 10:08am 88 mg/dL 70-100 Calcium Level May 23, 2016 10:08am 9.7 mg/dL 8.4-10.2 Calcium Adjusted for Albumin May 23, 2016 10:08am 9.7 mg/dL 8.4-10.2 Total Bilirubin May 23, 2016 10:08am 0.8 mg/dL 0.2-1.3 Aspartate Amino Transf (AST/SGOT) May 23, 2016 10:08am 26 U/L 14-36 Alanine Aminotransferase (ALT/SGPT) May 23, 2016 10:08am 49 U/L 9-52 Total Protein May 23, 2016 10:08am 7.1 g/dL 6.3-8.2 Albumin May 23, 2016 10:08am 4.3 g/dL 3.5-5.0 Cholesterol Level May 23, 2016 10:08am 110 mg/dL 59-199 HDL Cholesterol May 23, 2016 10:08am 48 mg/dL 40-60 The National Cholesterol Education Program (NCEP) has set the following guidelines (reference values) for cholesterol, HDL: Low HDL: <40 mg/dL Normal: 40-60 mg/dL Desirable: >60 mg/dL LDL Cholesterol May 23, 2016 10:08am 51.4 mg/dL 0-129 VLDL Cholesterol May 23, 2016 10:08am 10.6 mg/dL 0-32 Cholesterol/HDL Ratio May 23, 2016 10:08am 2.29 0-3.9 Triglycerides Level May 23, 2016 10:08am 53 mg/dL 0-149 Alkaline Phosphatase May 23, 2016 10:08am 124 U/L 38-126 Thyroid Stimulating Hormone (TSH) May 23, 2016 10:08am 2.50 mlU/L 0.47-4.68 TSH cascade is not recommended for patients in which pituitary or hypothalmic disorders are suspected. Hemoglobin A1c Percent May 23, 2016 10:08am 5.19 % 4.2-6.5 < 7% Recommended goal by ADA guidelines 7-8% Suboptimal by ADA guidelines >8% Further action suggested by ADA guidelines Estimated Average Glucose mg/dL May 23, 2016 10:08am 102 mg/dL Advance Directives Advance Directive Response Recorded Date/ Time Do we [place] [facility] No May 23, 2016 9:44am Does patient have an Advanced Directive? No December 09, 2012 11:08am Pt has a Living Will? No December 09, 2012 11:08am Pt has a Power of Coal Inspector? No Deco 2012 11:08am Chief Complaint and Reason for Visit Encounter Admit Date Chief Complaint Reason for V isit Departed Clinical May 23, 2016 9:42am Lab Hospital Discharge Instructions No known hospital discharge instructions. Encounters Encounter Facility Location Admit/Visit Date Discharge/Departure Date Attending Provider Departed Clinical [facility] Laboratory May 23, 2016 9:42am May 23, 2016 9:43am Jyothi Arteaga Functional Status No known functional status. Immunizations No known immunizations. Payers Payer Name Policy Type Covered Libertarian Covered Libertarian Id Relationship Subscriber Subscriber Id SELF PAY Personal [place] MEDICAID Medicaid TERA PEARCE [id number] Self/Same as Patient TERA RAMSES [id number] Plan of Care No Known Plan of Care Information Social History No known social history. Vital Signs No known vital signs results.
--- OUTSIDE RECORDS SUMMARY | 2023-02-16 11:45 | XMS_ITS | Continuity of Care Document ---
Author Name [facility] Address [address] [place] [id number] Organization [facility] Address [address] [place] [address] Care Team Providers Care Assistant Bookkeeper Name Role Phone Jyothi Arteaga Primary Care [...] Levonorgestrel- Ethinyl Estrad 1 TAB ORAL DAILY November 20, 2020 Active Magnesium 200 - 600 MG ORAL DAILY December 20, 2020 Active Riboflavin (Vitamin B2) 400 MG ORAL DAILY December 20, 2020 Active Discontinued Medications Medication [...] December 20, 2020 Disconti nued flu vac [id number] 36mos up(PF) 60 MCG INTRAMUS CULAR ONCE [...] November 04, 2020 Disconti nued flu vacc [id number] 6mos up(PF) 0.5 ML INTRAMUS CULAR ONCE [...] Contact Location October 07, 2020 Jyothi Arteaga [phone] [facility] [place] [address] Relevant Diagnostic Tests and/or Laboratory Data Laboratory [...] November 19, 2020 11:18am Negative Urine Specific [place] (Manual) November 19, 2020 11:18am 1.020 POC [...] September 12, 2020 4:01pm 6.5 Urine Specific [place] September 12, 2020 4:01pm 1.015 Urine Protein [...] Anion Gap December 21, 2020 10:15am 10 -16 Blood Urea Nitrogen December 21, 2020 10:15am 11 mg/dL -17 Creatinine December 21, 2020 10:15am 0.58 mg/dL [...] sheets for providers can be found at: Global Weather.gov/media/78452 5/download Fact sheets for patients can be found at: Global Weather.gov/Intercasting/82273 7/download TB Test (QFT) Antigen Minus Nil [...] Diagnosis of Tuberculosis in Adults and Children [Lewinsedyn JOYCE et. al. Clin. Infect. Dis. 2017;64(2):111-115] [...] 10:30am 0.01 IU/mL Test Performed b y: [facility] [address] [place] [address] Brake Repair Supervisor: Boone Escudero M.D. Ph.D.; CLIA# [id number] Microbiology Results Procedure Source Result Collection Date/Time Result Date/Time Group A Streptococcus Screen (YVES) Throat No results entered May 20, 2020 1:55pm Urine Culture Ur,Clean Catch No results entered September 12, 2020 4:01pm Hospital Discharge Instructions No known hospital discharge [...] November 04, 2020 Discontinu ed flu vac [id number] 36mos up(PF) 60 MCG INTRAMUSCU LAR ONCE [...] September 30, 2020 Discontinu ed flu vacc [id number] 6mos up(PF) 0.5 ML INTRAMUSCU LAR ONCE 0.5 May 01, 2020 Discontinu ed Encounters Encounter Facility Location Admit/Visit Date Discharge/Departure Date Attending Provider Registered Emergency [facility] February 22, 2021 12:49pm Departed Emergency [facility] Emergency Department December 21, 2020 8:46am December 21, 2020 12:00pm Departed Physician/Pr ovider Office Visit [facility] Pediatrics [facility] December 20, 2020 4:18pm December 20, 2020 4:47pm Maite Garcia Departed Physician/Pr ovider Office Visit [facility] Pediatrics [facility] November 19, 2020 10:32am November 19, 2020 11:29am Felicia Rodrigez Departed Physician/Pr ovider Office Visit [facility] November 15, 2020 2:11pm November 15, 2020 2:55pm Antwon Jackson Departed Physician/Pr ovider Office Visit [facility] November 04, 2020 10:01am November 04, 2020 10:26am Jyothi Arteaga Departed Physician/Pr ovider Office Visit [facility] October 16, 2020 1:25pm October 16, 2020 1:55pm Antwon Jackson Departed Emergency [facility] October 11, 2020 7:11pm October 11, 2020 9:23pm Departed Clinical [facility] Cardiology October 08, 2020 1:55pm October 08, 2020 1:56pm Jyothi Arteaga Departed Physician/Pr ovider Office Visit [facility] Cardiology October 08, 2020 1:50pm October 08, 2020 11:59pm Diann Oakes Departed Physician/Pr ovider Office Visit [facility] October 07, 2020 12:53pm October 07, 2020 2:16pm Jyothi Arteaga Departed Emergency [facility] Emergency Department 2020 8:52am 2020 10:22am Departed Emergency [facility] Emergency Department September 30, 2020 4:35pm September 30, 2020 8:56pm Departed Emergency [facility] Urgent [facility] September 30, 2020 2:40pm September 30, 2020 4:44pm Departed Referred [facility] Lab [facility] Peds Kenneth September 12, 2020 4:01pm September 12, 2020 4:02pm Ian Garcia Departed Physician/Pr ovider Office Visit [facility] September 12, 2020 3:24pm September 12, 2020 4:17pm Ian Garcia Departed Clinical [facility] Laboratory August 30, 2020 2:39pm August 30, 2020 2:40pm Jyothi Arteaga Departed Physician/Pr ovider Office Visit [facility] August 30, 2020 1:59pm August 30, 2020 4:00pm Jyothi Arteaga Departed Physician/Pr ovider Office Visit [facility] August 19, 2020 8:59am August 19, 2020 11:18am Jyothi Arteaga Departed Physician/Pr ovider Office Visit [facility] August 06, 2020 8:07am August 06, 2020 3:16pm Joi Herman Departed Emergency [facility] Emergency Department July 27, 2020 3:43pm July 27, 2020 5:11pm Departed Physician/Pr ovider Office Visit [facility] July 24, 2020 7:51am July 24, 2020 1:52pm Joi Herman Departed Physician/Pr ovider Office Visit [facility] Occupational Health [facility] Employee Health July 18, 2020 2:47pm July 18, 2020 2:47pm Windy Contreras Departed Physician/Pr ovider Office Visit [facility] July 12, 2020 7:56am July 12, 2020 11:59pm Jyothi Arteaga Departed Physician/Pr ovider Office Visit [facility] July 09, 2020 10:31am July 09, 2020 9:21pm Joi Herman Departed Emergency [facility] Emergency Department July 04, 2020 10:57am July 04, 2020 11:59am Departed Clinical [facility] June 27, 2020 8:16am June 27, 2020 8:17am Windy Contreras Departed Physician/Pr ovider Office Visit [facility] June 21, 2020 7:52am June 21, 2020 3:38pm Joi Herman Departed Physician/Pr ovider Office Visit [facility] June 21, 2020 7:50am June 21, 2020 11:59pm Jyothi Arteaga Departed Physician/Pr ovider Office Visit [facility] June 14, 2020 3:05pm June 14, 2020 11:59pm Jyothi Arteaga Departed Referred [facility] LAB [facility] May 20, 2020 1:55pm May 20, 2020 1:56pm Nadege Parker Departed Physician/Pr ovider Office Visit [facility] Pediatrics May 20, 2020 1:16pm May 20, 2020 2:13pm Nadege Parker Departed Clinical [facility] May 20, 2020 8:31am May 20, 2020 8:32am Twyla Navarrete Departed Physician/Pr ovider Office Visit [facility] Occupational [facility] May 19, 2020 10:40am May 19, 2020 11:59pm Twyla Navarrete Departed Clinical [facility] May 01, 2020 11:04am May 01, 2020 11:05am Windy Contreras Departed Physician/Pr ovider Office Visit [facility] May 01, 2020 10:09am May 01, [...] 56-106 December 21 8:57am Respiration 18 RPM -24 December 21 8:57am Pulse Oximetry 96 % 95-100 December 21 8:57am Blood Pressure Systolic 116 102-133 Octo [facility] 2020 8:57am Blood Pressure Diastolic 65 61-85 Oct mono 2020 8:57am Body Mass Index 37.0 November 2:21pm
--- OUTSIDE RECORDS SUMMARY | 2023-02-16 11:45 | XMS_ITS | Continuity of Care Document ---
Author Name [facility] Address [address] [place] [address] Organization [facility] Address [address] [place] [address] Care Team Providers Care Compensation/Benefits Specialist Name Role Phone Jyothi Arteaga Primary Care Physician Windy Contreras Attending Physician [phone] Allergies, Adverse Reactions, Alerts No known allergies. Medications Active Medications Medication Dose Units Route Sig Qty Start Date St atus Levonorgestrel-Ethinyl Estrad 1 TAB ORAL DAILY 84 November 08, 2019 Active Discontinued Medications Medication Dose Units Route Sig Qty Start Date Di scontinued Date Status Levonorgestre l-Ethinyl Estrad 1 TAB ORAL DAILY 84 August 17, 2018 November 08, 2019 Discontinued flu vac [id number] 36mos up(PF) 60 MCG INTRAMUSCULAR ONCE 0.5 July 27, 2018 July 27, 2018 Discontinued tuberculin PPD 0.1 ML INTRADERMAL ONCE 0.1 July 06, 2018 July 06, 2018 Discontinued Levonorgestre l-Ethinyl Estrad [Vienva] September 26, 2017 August 17, 2018 Discontinued Amoxicillin-P ot Clavulanate [Augmentin] 1 TAB ORAL TWICE A DAY 14 September 26, 2017 July 27, 2018 Discontinued flu vacc [id number] 6mos up(PF) 0.5 ML INTRAMUSCULAR ONCE 0.5 May 01, 2020 May 01, 2020 Discontinued Problem List Active Problems Medical Problem Onset Date Status Effusion of knee December 06, 2017 Benign mole Active Otalgia June 11, 2016 Anxiety Knee pain November 09, 2017 Inactive/Resolved Problems Medical Problem Onset Date Status Acute viral pharyngitis Inactive Contusion of hand, right Inactiv e Laceration of foot, left Inactiv e Procedures Procedure Date Status Group A Streptococcus Screen (YVES) November 26, 2019 completed Hand 3 vw Min RT 2019 completed Reason for Referral Reason for Referral Date Referral was Provided Provider Office Contact Location D22.9 - Melanocytic nevi, unspecified January 12, 2020 Jyothi Arteaga [phone] [facility] [address] [address] Relevant Diagnostic Tests and/or Laboratory Data Microbiology Results Procedure Source Result Collection Date/Time Resu lt Date/Time Group A Streptococcus Screen (YVES) Throat No results entered November 26, 2019 2:11pm Hospital Discharge Instructions No known hospital discharge instructions. Hospital Discharge Medications Medication Dose Units Route Sig Qty Days Order Date Status Ins tructions Levonorgestr el-Ethinyl Estrad 1 TAB ORAL DAILY 84 August 17, 2018 Discontinued Levonorgestr el-Ethinyl Estrad 1 TAB ORAL DAILY 84 November 08, 2019 Active flu vac [id number] 36mos up(PF) 60 MCG INTRAMUSCULA R ONCE 0.5 July 27, 2018 Discontinued tuberculin PPD 0.1 ML INTRADERMAL ONCE 0.1 July 06, 2018 Discontinued Levonorgestr el-Ethinyl Estrad September 26, 2017 Discontinued Amoxicillin- Pot Clavulanate 1 TAB ORAL TWICE A DAY 14 September 26, 2017 Discontinued flu vacc [id number] 6mos up(PF) 0.5 ML INTRAMUSCULA R ONCE 0.5 May 01, 2020 Discontinued Encounters Encounter Facility Location Admit/Visit Date Discharge/Departure Date Attending Provider Departed Clinical [facility] May 01, 2020 11:04am May 01, 2020 11:05am Windy Contreras Departed Physician/Pr ovider Office Visit [facility] May 01, 2020 10:09am May 01, 2020 12:58pm Referral, Self Departed Physician/Pr ovider Office Visit [facility] February 14, 2020 7:43am February 14, 2020 11:49am Joi Herman Departed Physician/Pr ovider Office Visit [facility] January 12, 2020 2:30pm January 12, 2020 3:38pm Jyothi Arteaga Departed Emergency [facility] November 26, 2019 1:42pm November 26, 2019 2:22pm Departed Physician/Pr ovider Office Visit [facility] November 08, 2019 8:50am November 08, 2019 11:13am Joi Herman Departed Physician/Pr ovider Office Visit [facility] October 23, 2019 3:55pm October 23, 2019 9:38pm Joi Herman Departed Physician/Pr ovider Office Visit [facility] October 04, 2019 8:50am October 04, 2019 11:08pm Joi Herman Departed Emergency [facility] Emergency Department 2019 10:08pm 2019 10:51pm Departed Physician/Pr ovider Office Visit [facility] September 11, 2019 8:43am September 11, 2019 2:42pm Joi Herman Departed Referred [facility] Lab [facility] DEPARTMENT CLERK August 31, 2019 10:03am August 31, 2019 10:04am Diana Chaidez Departed Physician/Pr ovider Office Visit [facility] WEIGHT TRAINING INSTRUCTOR August 31, 2019 9:48am August 31, 2019 10:13am Diana Chaidez Departed Physician/Pr ovider Office Visit [facility] August 29, 2019 9:48am August 29, 2019 1:49pm Joi Herman Departed Physician/Pr ovider Office Visit [facility] August 17, 2019 7:59am August 17, 2019 1:58pm Joi Herman Departed Physician/Pr ovider Office Visit [facility] Orthopedic&Cesar ab August 16, 2019 10:18am August 16, 2019 1:51pm Chris Bearden Departed Physician/Pr ovider Office Visit [facility] May 24, 2019 2:01pm May 24, 2019 2:13pm Joi Herman Departed Physician/Pr ovider Office Visit [facility] May 10, 2019 1:54pm May 10, 2019 2:51pm Joi Herman Functional Status Query Response Date Recorded Comment Living Situation With Family With Significant Other November 26, 2019 1:57pm Immunizations Immunization Name Date Given Type DTP [...] Response Date Recorded Comment Alcohol Use No November 26, 2019 1:57pm Smoking Status Current every day smoker May 01 021 10:33am alcohol intake frequency holidays/specia l occasions only November 26, 2019 1:57pm substance use type marijuana November 27, 2019 3:4 0pm Query Response Start Date Stop Date Smoking Status Current every day smoker Vital Signs Vital Reading Result Reference Range Collection Date/Time Height 5 ft 5 in August 31, 2019 9 :58am Weight 112.491 kg November 25 020 1:48pm Temperature 98.6 F 97.6 F-99.6 F November 26, 2019 1:48pm Pulse 82 BPM 56-106 November 25 020 1:48pm Respiration 18 RPM 16-24 2019 1 0:11pm Pulse Oximetry 99 % 95-100 November 26, 2019 1:48pm Blood Pressure Systolic 110 102-133 Nov 1:48pm Blood Pressure Diastolic 70 61-85 Sep 2019 1:48pm
--- OUTSIDE RECORDS SUMMARY | 2023-02-16 11:45 | XMS_ITS | Continuity of Care Document ---
Author Name [facility] Address [address] [place] [id number] Organization [facility] Address [address] [place] [id number] Care Team Providers Care Skin Grader Name Role Phone Jyothi Arteaga Primary Care Physician [phone] Jyothi Arteaga Attending Physician Allergies, Adverse Reactions, Alerts No known allergies. Medications Active Medications Medication Dose Units Route Sig Qty Start Date St atus Levonorgestrel-Ethiny l Estrad 1 TAB ORAL DAILY 84 November 08, 2019 Ac tive Ondansetron Hcl [Zofran] 4 MG ORAL Q8H PRN For naus ea and vomiting September 12, 2020 Active Famotidine 20 MG ORAL THREE TIMES A DAY PRN For acid reflux 90 August 30, 2020 Active Fluoxetine 20 MG ORAL DAILY August 30, 2020 Active Ondansetron 4 MG ORAL Q8H PRN For n ausea and vomiting September 30, 2020 Active Discontinued Medications Medication Dose Units Route Sig Qty Start Date Discontinued Date Status Levonorgestrel- Ethinyl Estrad 1 TAB ORAL DAILY 84 August 17, 2018 November 08, 2019 Discontinued Fluoxetine 10 MG ORAL DAILY June 17, 2020 July 12, 2020 Discontinued flu vac [id number] 36mos up(PF) 60 MCG INTRAMUSCULAR ONCE 0.5 July 27, 2018 July 27, 2018 Discontinued tuberculin PPD 0.1 ML INTRADERMAL ONCE 0.1 JulyJuly 06, 2018 Discontinued Menactra (PF) (mening vac A,C,Y,W135 dip (PF)) 4 mcg/0.5 mL intramuscular solution 0.5 ML INTRAMUSCULAR ONCE 0.5 August 30, 2020 August 30, 2020 Discontinued Fluoxetine 20 MG ORAL DAILY July 12, 2020 August 19, 2020 Discontinued Fluoxetine 20 MG ORAL DAILY 30 August 19, 2020 August 30, 2020 Discontinued Levonorgestrel- Ethinyl Estrad [Vienva] September 26, 2017 August 17, 2018 Discontinued Amoxicillin-Pot Clavulanate [Augmentin] 1 TAB ORAL TWICE A DAY 14 September 26, 2017 July 27, 2018 Discontinued flu vacc [id number] 6mos up(PF) 0.5 ML INTRAMUSCULAR ONCE 0.5 May 01, 2020 May 01, 2020 Discontinued Problem List Active Problems Medical Problem Onset Date Status Effusion of knee December 06, 2017 Benign mole Active Otalgia June 11, 2016 Anxiety Trauma and stressor-related disorder Anxiety and depression Encounter for well child check without abnormal findings Active Hepatic hemangioma Active Acute pharyngitis Active Knee pain November 09, 2017 Abdominal pain Active Chest pain Active Foreign body of left eyelid Acti ve Inactive/Resolved Problems Medical Problem Onset Date Status Abdominal pain, RUQ Inactive Acute foot pain Inactive Acute viral pharyngitis Inactive Abdominal pain Inactive Vomiting Inactive Contusion of hand, right Inactiv e Laceration of foot, left Inactiv e Sprain of hand, right Inactive Procedures Procedure Date Status EKG October 08, 2020 completed US Abdomen [...] Contact Location October 07, 2020 Jyothi Arteaga [phone] [facility] [place] [address] Relevant Diagnostic Tests and/or Laboratory Data Laboratory Results Test Date/Time Result Interp. Ref. Range Result Comment Urine Test (Clinic) September 12, 2020 4:12pm negative Urine Color (Manual) September 12, 2020 4:12pm [place] Urine Clarity (Manual) September 12, 2020 4:12pm Clear POC Urine Glucose September 12, 2020 4:12pm Negative POC Urine Bilirubin Confirmation September 12, 2020 4:12pm Negative Urine Ketones (Manual) September 12, 2020 4:12pm Large (+++) Urine Specific [place] (Manual) September 12, 2020 4:12pm 1.015 POC [...] September 12, 2020 4:01pm 6.5 Urine Specific [place] September 12, 2020 4:01pm 1.015 Urine Protein [...] sheets for providers can be found at: [employer]/media/84414 5/download Fact sheets for patients can be found at: [employer]gov/media/20172 7/download TB Test (QFT) Antigen Minus Nil [...] 10:30am 0.01 IU/mL Test Performed b y: [facility] [address] [place] [address] Sewage Treatment Plant Operator: Boone Escudero M.D. Ph.D.; [place]# [id number] Microbiology Results Procedure Source Result Collection Date/Time Result Date/Time Group A Streptococcus Screen (YVES) Throat No results entered November 26, 2019 2:11pm Group A Streptococcus Screen (YVES) Throat No results entered May 20, 2020 1:55pm Urine Culture Ur,Clean Catch No results entered September 12, 2020 4:01pm Chief Complaint and Reason for Visit Encounter Admit Date Chief Complaint Reason for V isit Departed Clinical October 08, 2020 1:55pm EKG Hospital Discharge Instructions No known hospital discharge instructions. Hospital Discharge Medications Medication Dose Units Route Sig Qty Days Order Date Status Ins tructions Levonorgestrel -Ethinyl Estrad 1 TAB ORAL DAILY 84 August 17, 2018 Discontinu ed Levonorgestrel -Ethinyl Estrad 1 TAB ORAL DAILY 84 November 08, 2019 Active Fluoxetine 10 MG ORAL DAILY June 17, 2020 Discontinu ed flu vac [id number] 36mos up(PF) 60 MCG INTRAMUSCU LAR ONCE 0.5 July 27, 2018 Discontinu ed Ondansetron Hcl 4 MG ORAL Q8H PRN For nausea and vomiting 7 September 12, 2020 Active tuberculin PPD 0.1 ML INTRADERMA L ONCE 0.1 July 06, 2018 Discontinu ed Menactra (PF) (mening vac A,C,Y,W135 dip (PF)) 4 mcg/0.5 mL intramuscular 0.5 ML INTRAMUSCU LAR ONCE 0.5 August 30, 2020 Discontinu ed Famotidine 20 MG ORAL THREE TIMES A DAY PRN For acid reflux 90 August 30, 2020 Active Fluoxetine 20 MG ORAL DAILY 30 August 30, 2020 Active Fluoxetine 20 MG ORAL DAILY July Discontinu ed Fluoxetine 20 MG ORAL DAILY August 19, 2020 Discontinu ed Levonorgestrel -Ethinyl Estrad September 26, 2017 Discontinu ed Amoxicillin-Po t Clavulanate 1 TAB ORAL TWICE A DAY September 26, 2017 Discontinu ed Ondansetron 4 MG ORAL Q8H PRN For nausea and vomiting September 30, 2020 Active flu vacc [id number] 6mos up(PF) 0.5 ML INTRAMUSCU LAR ONCE 0.5 May 01, 2020 Discontinu ed Encounters Encounter Facility Location Admit/Visit Date Discharge/Departure Date Attending Provider [facility] 4:35pm September 30, 2020 8:56pm Departed Emergency [facility] Urgent [facility] September 30, 2020 2:40pm September 30, 2020 4:44pm Departed Referred [facility] Lab [facility] [place] September 12, 2020 4:01pm September 12, 2020 4:02pm Ian Garcia Departed Physician/Pr ovider Office Visit [facility] September 12, 2020 3:24pm September 12, 2020 4:17pm Ian Garcia Departed Clinical [facility] Laboratory August 30, 2020 2:39pm August 30, 2020 2:40pm Jyothi Arteaga Departed Physician/Pr ovider Office Visit [facility] August 30, 2020 1:59pm August 30, 2020 4:00pm Jyothi Arteaga Departed Physician/Pr ovider Office Visit [facility] August 19, 2020 8:59am August 19, 2020 11:18am Jyothi Arteaga Departed Physician/Pr ovider Office Visit [facility] August 06, 2020 8:07am August 06, 2020 3:16pm Joi Herman Departed Emergency [facility] Emergency Department July 27, 2020 3:43pm July 27, 2020 5:11pm Departed Physician/Pr ovider Office Visit [facility] July 24, 2020 7:51am July 24, 2020 1:52pm Joi Herman Departed Physician/Pr ovider Office Visit [facility] Occupational Health [facility] Employee [facility] July 18, 2020 2:47pm July 18, 2020 2:47pm Windy Contreras Departed Physician/Pr ovider Office Visit [facility] July 12, 2020 7:56am July 12, 2020 11:59pm Jyothi Arteaga Departed Physician/Pr ovider Office Visit [facility] July 09, 2020 10:31am July 09, 2020 9:21pm Joi Herman Departed Emergency [facility] Emergency Department July 04, 2020 10:57am July 04, 2020 11:59am Departed Clinical [facility] Curbside June 27, 2020 8:16am June 27, 2020 8:17am Windy Contreras Departed Physician/Pr ovider Office Visit [facility] June 21, 2020 7:52am June 21, 2020 3:38pm Joi Herman Departed Physician/Pr ovider Office Visit [facility] June 21, 2020 7:50am June 21, 2020 11:59pm Jyothi Arteaga Departed Physician/Pr ovider Office Visit [facility] June 14, 2020 3:05pm June 14, 2020 11:59pm Jyothi Arteaga Departed Referred [facility] LAB [facility] [place] May 20, 2020 1:55pm May 20, 2020 1:56pm Nadege Parker Departed Physician/Pr ovider Office Visit [facility] May 20, 2020 1:16pm May 20, 2020 2:13pm Carly Parkercarter Departed Clinical [facility] [place] May 20, 2020 8:31am May 20, 2020 8:32am Twyla Navarrete Departed Physician/Pr ovider Office Visit [facility] May 19, 2020 10:40am May 19, 2020 11:59pm Twyla Navarrete Departed Clinical [facility] May 01, 2020 11:04am May 01, 2020 11:05am Darrin Contreraseen Departed Physician/Pr ovider Office Visit [facility] May 01, 2020 10:09am May 01, 2020 12:58pm Referral, Self Departed Physician/Pr ovider Office Visit [facility] Pediatrics [facility] February 14, 2020 7:43am February 14, 2020 11:49am Joi Herman Departed Physician/Pr ovider Office Visit [facility] Pediatric[facility] January 12, 2020 2:30pm January 12, 2020 3:38pm Jyothi Arteaga Departed Emergency [facility] November 26, 2019 1:42pm November 26, 2019 2:22pm Departed Physician/Pr ovider Office Visit [facility] Pediatrics [facility] November 08, 2019 8:50am November 08, 2019 11:13am Joi Herman Departed Physician/Pr ovider Office Visit [facility] October 23, 2019 3:55pm October 23, 2019 9:38pm Joi Herman Functional Status Query Response Date Recorded Comment Comprehension Ability Understands Concepts July 27 4:22pm Mood/Behavior Appropriate July 27, 2020 4:22pm Speech Appropriate Clear July 27, 2020 4:22pm Query Response Date Recorded Comment Living Situation Home With Family September 30, 2020 8:56pm Immunizations Immunization Name Date Given Type DTP [...] Response Date Recorded Comment Alcohol Use No September 30, 2020 7:16pm Smoking Status Current every day smoker October 08, 2020 2:50pm Substance/Street Drug Use Yes September 30, 2020 7:16pm QHS marijuana as of 09/30/20 alcohol intake frequency holidays/special occasions only September 30, 2020 7:16pm substance use type marijuana September 30, 2020 7:16pm Query Response Start Date Stop Date Smoking Status Current every day smoker Vital Signs Vital Reading Result Reference Range Collection Date/Time Height 5 ft 5 in September 30, 2020 4 :46pm Weight 102.058 kg October 07, 2020 12:59pm Temperature 97.4 F 97.6 F-99.6 F September 30, 2020 4:46pm Pulse 70 BPM 56-106 September 30, 2020 8 :55pm Respiration 18 RPM 16-September 30, 2020 8 :55pm Pulse Oximetry 97 % 95-100 September 30, 2020 8:55pm Blood Pressure Systolic 119 102-133 September 30, 2020 8:55pm Blood Pressure Diastolic 70 61-85 Sep 8:55pm Body Mass Index 41.3 August 30 2:02pm
--- OUTSIDE RECORDS SUMMARY | 2023-02-16 11:45 | XMS_ITS | Continuity of Care Document ---
Author Name [facility] Address [address] [place] [address] Organization [facility] Address [address] [place] [address] Care Team Providers Care Crossing Gateman Name Role Phone Jyothi Arteaga Primary Care Physician [phone] Allergies, Adverse Reactions, Alerts No known allergies. [...] December 20, 2020 Disconti nued flu vac [id number] 36mos up(PF) 60 MCG INTRAMUS CULAR ONCE [...] November 04, 2020 Disconti nued flu vacc [id number] 6mos up(PF) 0.5 ML INTRAMUS CULAR ONCE [...] Contact Location October 07, 2020 Jyothi Arteaga [phone] [facility] [place] [address] Relevant Diagnostic Tests and/or Laboratory Data Laboratory [...] November 19, 2020 11:18am Negative Urine Specific [place] (Manual) November 19, 2020 11:18am 1.020 POC [...] September 12, 2020 4:01pm 6.5 Urine Specific [place] September 12, 2020 4:01pm 1.015 Urine Protein [...] sheets for providers can be found at: [employer].gov/media/18370 5/download Fact sheets for patients can be found at: [employer].gov/[employer]/10136 7/download TB Test (QFT) Antigen Minus Nil [...] 10:30am 0.01 IU/mL Test Performed b y: [facility] [address] [place] [address] Drying Machine Back Tender: Boone Escudero M.D. Ph.D.; [facility]# [id number] Microbiology Results Procedure Source Result Collection Date/Time [...] November 04, 2020 Discontinu ed flu vac [id number] 36mos up(PF) 60 MCG INTRAMUSCU LAR ONCE [...] September 30, 2020 Discontinu ed flu vacc [id number] 6mos up(PF) 0.5 ML INTRAMUSCU LAR ONCE 0.5 May 01, 2020 Discontinu ed Encounters Encounter Facility Location Admit/Visit Date Discharge/Departure Date Attending Provider Departed Emergency [facility] Emergency Department December 21, 2020 8:46am December 21, 2020 12:00pm Departed Physician/Pr ovider Office Visit [facility] Pediatrics [facility] December 20, 2020 4:18pm December 20, 2020 4:47pm Maite Garcia Departed Physician/Pr ovider Office Visit [facility] Pediatrics [facility] November 19, 2020 10:32am November 19, 2020 11:29am Felicia Rodrigez Departed Physician/Pr ovider Office Visit [facility]opedic[facility] November 15, 2020 2:11pm November 15, 2020 2:55pm Antwon Jackson Departed Physician/Pr ovider Office Visit [facility] Pediatrics [facility] November 04, 2020 10:01am November 04, 2020 10:26am Jyothi Arteaga Departed Physician/Pr ovider Office Visit [facility] October 16, 2020 1:25pm October 16, 2020 1:55pm Antwon Jackson Departed Emergency [facility] Urgent [facility] October 11, 2020 7:11pm October 11, 2020 9:23pm Departed Clinical [facility] Cardiology October 08, 2020 1:55pm October 08, 2020 1:56pm Jyothi Arteaga Departed Physician/Pr ovider Office Visit [facility] Cardiology October 08, 2020 1:50pm October 08, 2020 11:59pm Diann Oakes Departed Physician/Pr ovider Office Visit [facility] Pediatrics [facility] October 07, 2020 12:53pm October 07, 2020 2:16pm Jyothi Arteaga Departed Emergency [facility] Emergency Department 2020 8:52am 2020 10:22am Departed Emergency [facility] Emergency Department September 30, 2020 4:35pm September 30, 2020 8:56pm Departed Emergency [facility] Urgent [facility] September 30, 2020 2:40pm September 30, 2020 4:44pm Departed Referred [facility] Lab [facility] [place] September 12, 2020 4:01pm September 12, 2020 4:02pm Ian Garcia Departed Physician/Pr ovider Office Visit [facility] September 12, 2020 3:24pm September 12, 2020 4:17pm Ian Garcia Departed Clinical [facility] Laboratory August 30, 2020 2:39pm August 30, 2020 2:40pm Jyothi Arteaga Departed Physician/Pr ovider Office Visit [facility] August 30, 2020 1:59pm August 30, 2020 4:00pm Jyothi Arteaga Departed Physician/Pr ovider Office Visit [facility] August 19, 2020 8:59am August 19, 2020 11:18am Jyothi Arteaga Departed Physician/Pr ovider Office Visit [facility] August 06, 2020 8:07am August 06, 2020 3:16pm Joi Herman Departed Emergency [facility] Emergency Department July 27, 2020 3:43pm July 27, 2020 5:11pm Departed Physician/Pr ovider Office Visit [facility] July 24, 2020 7:51am July 24, 2020 1:52pm Joi Herman Departed Physician/Pr ovider Office Visit [facility] Occupational Health [facility] Employee Health July 18, 2020 2:47pm July 18, 2020 2:47pm Windy Contreras Departed Physician/Pr ovider Office Visit [facility] July 12, 2020 7:56am July 12, 2020 11:59pm Jyothi Arteaga Departed Physician/Pr ovider Office Visit [facility] July 09, 2020 10:31am July 09, 2020 9:21pm Joi Herman Departed Emergency [facility] Emergency Department July 04, 2020 10:57am July 04, 2020 11:59am Departed Clinical [facility] June 27, 2020 8:16am June 27, 2020 8:17am Windy Contreras Departed Physician/Pr ovider Office Visit [facility] June 21, 2020 7:52am June 21, 2020 3:38pm Joi Herman Departed Physician/Pr ovider Office Visit [facility] June 21, 2020 7:50am June 21, 2020 11:59pm Jyothi Arteaga Departed Physician/Pr ovider Office Visit [facility] June 14, 2020 3:05pm June 14, 2020 11:59pm Jyothi Arteaga Departed [facility] May 20, 2020 1:55pm May 20, 2020 1:56pm Nadege Parker Departed Physician/Pr ovider Office Visit [facility] May 20, 2020 1:16pm May 20, 2020 2:13pm Nadege Praker Departed Clinical [facility] May 20, 2020 8:31am May 20, 2020 8:32am Twyla Navarrete Departed Physician/Pr ovider Office Visit [facility] May 19, 2020 10:40am May 19, 2020 11:59pm Twyla Navarrete Departed Clinical [facility] May 01, 2020 11:04am May 01, 2020 11:05am Windy Contreras Departed Physician/Pr ovider Office Visit [facility] May 01, 2020 10:09am May 01, 2020 12:58pm Referral, Self Departed Physician/Pr ovider Office Visit [facility] Pediatrics [facility] February 14, 2020 7:43am February 14, 2020 11:49am Joi Herman Departed Physician/Pr ovider Office Visit [facility] Pediatrics [facility] January 12, 2020 2:30pm January 12, [...] 8:57am Blood Pressure Systolic 116 102-133 [facility] 2020 8:57am Blood Pressure Diastolic 65 61-85 Oct mono 2020 8:57am Body Mass Index 37.0 November 2:21pm
--- OUTSIDE RECORDS SUMMARY | 2023-02-16 11:46 | XMS_ITS | Continuity of Care Document ---
Author Name [facility] Address [address] [place] [id number] Organization [facility] Address [address] [place] [address] Care Team Providers Care Academic Coach Name Role Phone Juan Carlos Santana JR Primary Care Physician Juan Carlos Santana JR Attending Physician Allergies, [...] December 20, 2020 Disconti nued flu vac [id number] 36mos up(PF) 60 MCG INTRAMUS CULAR ONCE [...] November 04, 2020 Disconti nued flu vacc [id number] 6mos up(PF) 0.5 ML INTRAMUS CULAR ONCE [...] November 19, 2020 11:18am Negative Urine Specific [place] (Manual) November 19, 2020 11:18am 1.020 POC [...] September 12, 2020 4:01pm 6.5 Urine Specific [place] September 12, 2020 4:01pm 1.015 Urine Protein [...] sheets for providers can be found at: Jumio.gov/media/1362 85/download Fact sheets for patients can be found at: Jumio.gov/OrthoScan/1362 87/download TB Test (QFT) Antigen Minus Nil [...] 10:30am 0.01 IU/mL Test Performed b y: [facility] [address] [place] [address] Welding Equipment Repairer: Boone Escudero M.D. Ph.D.; [facility]# [id number] Microbiology Results Procedure Source Result Collection Date/Time Result Date/Time Group A Streptococcus Screen (YVES) Throat No results entered May 20, 2020 1:55pm Urine Culture Ur,Clean Catch No results entered September 12, 2020 4:01pm Chief Complaint and Reason for Visit Encounter Admit Date Chief Complaint Reason for V isit Departed Clinical April 01, 2021 9:05am [facility] Discharge Instructions No known hospital discharge [...] November 04, 2020 Discontinu ed flu vac [id number] 36mos up(PF) 60 MCG INTRAMUSCU LAR ONCE [...] September 30, 2020 Discontinu ed flu vacc [id number] 6mos up(PF) 0.5 ML INTRAMUSCU LAR ONCE 0.5 May 01, 2020 Discontinu ed Encounters Encounter Facility Location Admit/Visit Date Discharge/Departure Date Attending Provider Departed Clinical [facility] DI [facility] April 01, 2021 9:05am April 01, 2021 9:06am Juan Carlos Santana JR Departed Referred [facility] March 27, 2021 6:39pm March 27, 2021 6:40pm Juan Carlos aSntana JR Registered Inpatient [facility] Pediatrics [facility] March 06, 2021 3:15pm Soni Santa Departed Emergency [facility] Emergency Department February 22, 2021 1:48pm February 22, 2021 5:28pm Departed Emergency [facility] Urgent [facility] February 22, 2021 12:49pm February 22, 2021 1:47pm Departed Emergency [facility] Emergency Department December 21, 2020 8:46am December 21, 2020 12:00pm Departed Physician/Pr ovider Office Visit [facility] Pediatrics [facility] December 20, 2020 4:18pm December 20, 2020 4:47pm Maite Garcia Departed Physician/Pr ovider Office Visit [facility] Pediatrics [facility] November 19, 2020 10:32am November 19, 2020 11:29am Felicia Rodrigez Departed Physician/Pr ovider Office Visit [facility] Orthopedic[facility]esar [facility] November 15, 2020 2:11pm November 15, 2020 2:55pm Antwon Jackson Departed Physician/Pr ovider Office Visit [facility] Pediatrics [facility] November 04, 2020 10:01am November 04, 2020 10:26am Jyothi Arteaga Departed Physician/Pr ovider Office Visit [facility] October 16, 2020 1:25pm October 16, 2020 1:55pm Antwon Jackson Departed Emergency [facility] Urgent [facility] October 11, 2020 7:11pm October 11, 2020 9:23pm Departed Clinical [facility] Cardiology October 08, 2020 1:55pm October 08, 2020 1:56pm Jyothi Arteaga Departed Physician/Pr ovider Office Visit [facility] Cardiology October 08, 2020 1:50pm October 08, 2020 11:59pm Diann Oakes Departed Physician/Pr ovider Office Visit [facility] October 07, 2020 12:53pm October 07, 2020 2:16pm Jyothi Arteaga Departed Emergency [facility] Emergency Department 2020 8:52am 2020 10:22am Departed Emergency [facility] Emergency Department September 30, 2020 4:35pm September 30, 2020 8:56pm Departed Emergency [facility] Urgent [facility] September 30, 2020 2:40pm September 30, 2020 4:44pm Departed Referred [facility] Lab [facility] [place] September 12, 2020 4:01pm September 12, 2020 4:02pm Ian Garcia Departed Physician/Pr ovider Office Visit [facility] September 12, 2020 3:24pm September 12, 2020 4:17pm Ian Garcia Departed Clinical [facility] Laboratory August 30, 2020 2:39pm August 30, 2020 2:40pm Jyothi Arteaga Departed Physician/Pr ovider Office Visit [facility] August 30, 2020 1:59pm August 30, 2020 4:00pm Jyothi Arteaga Departed Physician/Pr ovider Office Visit [facility] August 19, 2020 8:59am August 19, 2020 11:18am Jyothi Arteaga Departed Physician/Pr ovider Office Visit [facility] August 06, 2020 8:07am August 06, 2020 3:16pm Joi Herman Departed Emergency [facility] Emergency Department July 27, 2020 3:43pm July 27, 2020 5:11pm Departed Physician/Pr ovider Office Visit [facility] July 24, 2020 7:51am July 24, 2020 1:52pm Joi Herman Departed Physician/Pr ovider Office Visit [facility] Occupational Health [facility] July 18, 2020 2:47pm July 18, 2020 2:47pm Windy Contreras Departed Physician/Pr ovider Office Visit [facility] July 12, 2020 7:56am July 12, 2020 11:59pm Jyothi Arteaga Departed Physician/Pr ovider Office Visit [facility] July 09, 2020 10:31am July 09, 2020 9:21pm Joi Herman Departed Emergency [facility] Emergency Department July 04, 2020 10:57am July 04, 2020 11:59am Departed Clinical [facility] June 27, 2020 8:16am June 27, 2020 8:17am Windy Contreras Departed Physician/Pr ovider Office Visit [facility] June 21, 2020 7:52am June 21, 2020 3:38pm Joi Herman Departed Physician/Pr ovider Office Visit [facility] June 21, 2020 7:50am June 21, 2020 11:59pm Jyothi Arteaga Departed Physician/Pr ovider Office Visit [facility] June 14, 2020 3:05pm June 14, 2020 11:59pm Jyothi Arteaga Departed Referred [facility] [place] May 20, 2020 1:55pm May 20, 2020 1:56pm Nadege Parker Departed Physician/Pr ovider Office Visit [facility] Pediatrics May 20, 2020 1:16pm May 20, 2020 2:13pm Nadege Parker Departed Clinical [facility] May 20, 2020 8:31am May 20, 2020 8:32am Twyla Navarrete Departed Physician/Pr ovider Office Visit [facility] May 19, 2020 10:40am May 19, 2020 11:59pm Twyla Navarrete Departed Clinical [facility] Lab [facility] May 01, 2020 11:04am May 01, 2020 11:05am Windy Contreras Departed Physician/Pr ovider Office Visit [facility] May 01, 2020 10:09am May [...]
--- OUTSIDE RECORDS SUMMARY | 2023-02-16 11:46 | XMS_ITS | Continuity of Care Document ---
Author Name [facility] Address [address] [place] [address] Organization [facility] Address [address] [place] [address] Care Team Providers Care Origination Specialist Name Role Phone Juan Carlos Santana JR [...] December 20, 2020 Disconti nued flu vac [id number] 36mos up(PF) 60 MCG INTRAMUS CULAR ONCE [...] November 04, 2020 Disconti nued flu vacc [id number] 6mos up(PF) 0.5 ML INTRAMUS CULAR ONCE [...] November 19, 2020 11:18am Negative Urine Specific [place] (Manual) November 19, 2020 11:18am 1.020 POC [...] September 12, 2020 4:01pm 6.5 Urine Specific [place] September 12, 2020 4:01pm 1.015 Urine Protein [...] November 04, 2020 Discontinu ed flu vac [id number] 36mos up(PF) 60 MCG INTRAMUSCU LAR ONCE [...] September 30, 2020 Discontinu ed Amitriptyline MG [facility] 2021 Active flu vacc [id number] 6mos up(PF) 0.5 ML INTRAMUSCU LAR ONCE 0.5 May 01, 2020 Discontinu ed Encounters Encounter Facility Location Admit/Visit Date Discharge/Departure Date Attending Provider Departed Emergency [facility] Emergency Department June 28, 2021 8:12pm June 28, 2021 9:35pm Departed Emergency [facility] Urgent [facility] May 12, 2021 11:36am May 12, 2021 12:40pm Departed Physician/Pr ovider Office Visit [facility] SHEEP RANCHER May 01, 2021 2:45pm May 01, 2021 3:00pm Fortunato Quezada Departed Clinical [facility] April 24, 2021 9:03am April 24, 2021 9:04am Juan Carlos Santana JR Departed Clinical [facility] April 01, 2021 9:05am April 01, 2021 9:06am Juan Carlos Santana JR Departed Referred [facility] March 27, 2021 6:39pm March 27, 2021 6:40pm Juan Carlos Santana JR Registered Inpatient [facility] Pediatrics [facility] March 06, 2021 3:15pm Soni Santa Departed Emergency [facility] Emergency Department February 22, 2021 1:48pm February 22, 2021 5:28pm Departed Emergency [facility] February 22, 2021 12:49pm February 22, 2021 1:47pm Departed Emergency [facility] Emergency Department December 21, 2020 8:46am December 21, 2020 12:00pm Departed Physician/Pr ovider Office Visit [facility] Pediatrics [facility] December 20, 2020 4:18pm December 20, 2020 4:47pm Maite Garcia Departed Physician/Pr ovider Office Visit [facility] November 19, 2020 10:32am November 19, 2020 11:29am Felicia Rodrigez Departed Physician/Pr ovider Office Visit [facility] November 15, 2020 2:11pm November 15, 2020 2:55pm Antwon Jackson Departed Physician/Pr ovider Office Visit [facility] Pediatrics [facility] November 04, 2020 10:01am November 04, 2020 10:26am Jyothi Arteaga Departed Physician/Pr ovider Office Visit [facility] October 16, 2020 1:25pm October 16, 2020 1:55pm Antwon Jackson Departed Emergency [facility] Urgent [facility] October 11, 2020 7:11pm October 11, 2020 9:23pm Departed Clinical [facility] Cardiology October 08, 2020 1:55pm October 08, 2020 1:56pm Jyothi Arteaga Departed Physician/Pr ovider Office Visit [facility] Cardiology October 08, 2020 1:50pm October 08, 2020 11:59pm Diann Oakes Departed Physician/Pr ovider Office Visit [facility] Pediatrics [facility] October 07, 2020 12:53pm October 07, 2020 2:16pm Jyothi Arteaga Departed Emergency [facility] Emergency Department 2020 8:52am 2020 10:22am Departed Emergency [facility] Emergency Department September 30, 2020 4:35pm September 30, 2020 8:56pm Departed Emergency [facility] Urgent [facility] September 30, 2020 2:40pm September 30, 2020 4:44pm Departed Referred [facility] Lab [facility] [place] September 12, 2020 4:01pm September 12, 2020 4:02pm Ian Garcia Departed Physician/Pr ovider Office Visit [facility] [place] September 12, 2020 3:24pm September 12, 2020 4:17pm Ian Garcia Departed Clinical [facility] Laboratory August 30, 2020 2:39pm August 30, 2020 2:40pm Jyothi Arteaga Departed Physician/Pr ovider Office Visit [facility] Pediatrics [facility] August 30, 2020 1:59pm August 30, 2020 4:00pm Jyothi Arteaga Departed Physician/Pr ovider Office Visit [facility] August 19, 2020 8:59am August 19, 2020 11:18am Jyothi Arteaga Departed Physician/Pr ovider Office Visit [facility] August 06, 2020 8:07am August 06, 2020 3:16pm Joi Herman Departed Emergency [facility] Emergency Department July 27, 2020 3:43pm July 27, 2020 5:11pm Departed Physician/Pr ovider Office Visit [facility] Pediatric[facility] July 24, 2020 7:51am July 24, 2020 1:52pm Joi Herman Departed Physician/Pr ovider Office Visit [facility] Occupational Health [facility] Health July 18, 2020 2:47pm July 18, 2020 2:47pm Windy Contreras Departed Physician/Pr ovider Office Visit [facility] Pediatrics [facility] July 12, 2020 7:56am July 12, 2020 11:59pm ChandlerJyothi Departed Physician/Pr ovider Office Visit [facility] July 09, 2020 10:31am July 09, 2020 9:21pm Joi Herman Departed Emergency [facility] Emergency Department July 04, 2020 [...] Drug Use Yes June 28, 2021 9:08pm [facility] marijuana as of 09/30/20 alcohol intake [...]
--- OUTSIDE RECORDS SUMMARY | 2023-02-16 11:46 | XMS_ITS | Continuity of Care Document ---
Author Name [facility] Address [address] [place] [address] Organization [facility] Address [address] [place] [address] Care Team Providers Care Supervisor Soldering Name Role Phone Jyothi Arteaga Primary Care Physician [phone] Allergies, Adverse Reactions, Alerts No known allergies. [...] December 20, 2020 Disconti nued flu vac [id number] 36mos up(PF) 60 MCG INTRAMUS CULAR ONCE [...] November 04, 2020 Disconti nued flu vacc [id number] 6mos up(PF) 0.5 ML INTRAMUS CULAR ONCE [...] Contact Location October 07, 2020 Jyothi Arteaga [phone] [facility] [place] [address] Relevant Diagnostic Tests and/or Laboratory Data Laboratory [...] November 19, 2020 11:18am Negative Urine Specific [place] (Manual) November 19, 2020 11:18am 1.020 POC [...] September 12, 2020 4:01pm 6.5 Urine Specific [place] September 12, 2020 4:01pm 1.015 Urine Protein [...] sheets for providers can be found at: C-nario.gov/media/07394 5/download Fact sheets for patients can be found at: C-nario.gov/Vigilent/84506 7/download TB Test (QFT) Antigen Minus Nil [...] 10:30am 0.01 IU/mL Test Performed b y: [facility] [address] [place] [address] Teacher Of The Emotionally Disturbed: Boone Escudero M.D. Ph.D.; [place]# [id number] Microbiology Results Procedure Source Result Collection Date/Time [...] November 04, 2020 Discontinu ed flu vac [id number] 36mos up(PF) 60 MCG INTRAMUSCU LAR ONCE [...] September 30, 2020 Discontinu ed flu vacc [id number] 6mos up(PF) 0.5 ML INTRAMUSCU LAR ONCE 0.5 May 01, 2020 Discontinu ed Encounters Encounter Facility Location Admit/Visit Date Discharge/Departure Date Attending Provider Registered Emergency [facility] Emergency Department February 22, 2021 1:48pm Departed Emergency [facility] Urgent [facility] February 22, 2021 12:49pm February 22, 2021 1:47pm Departed Emergency [facility] Emergency Department December 21, 2020 8:46am December 21, 2020 12:00pm Departed Physician/Pr ovider Office Visit [facility] Pediatrics [facility] December 20, 2020 4:18pm December 20, 2020 4:47pm Maite Garcia Departed Physician/Pr ovider Office Visit [facility] Pediatrics [facility] November 19, 2020 10:32am November 19, 2020 11:29am Felicia Rodrigez Departed Physician/Pr ovider Office Visit [facility] November 15, 2020 2:11pm November 15, 2020 2:55pm Antwon Jackson Departed Physician/Pr ovider Office Visit [facility] Pediatrics [facility] November 04, 2020 10:01am November 04, 2020 10:26am Jyothi Arteaga Departed Physician/Pr ovider Office Visit [facility] Orthopedic[facility]Cesar [facility] October 16, 2020 1:25pm October 16, 2020 1:55pm Antwon Jackson Departed Emergency [facility] Urgent [facility] October 11, 2020 7:11pm October 11, 2020 9:23pm Departed Clinical [facility] Cardiology October 08, 2020 1:55pm October 08, 2020 1:56pm Jyothi Arteaga Departed Physician/Pr ovider Office Visit [facility] Cardiology October 08, 2020 1:50pm October 08, 2020 11:59pm Diann Oakes Departed Physician/Pr ovider Office Visit [facility] Pediatric[facility] October 07, 2020 12:53pm October 07, 2020 2:16pm Jyothi Arteaga Departed Emergency [facility] Emergency Department 2020 8:52am 2020 10:22am Departed Emergency [facility] Emergency Department September 30, 2020 4:35pm September 30, 2020 8:56pm Departed Emergency [facility] September 30, 2020 2:40pm September 30, 2020 4:44pm Departed Referred [facility] Lab [facility] [place] September 12, 2020 4:01pm September 12, 2020 4:02pm Ian Garcia Departed Physician/Pr ovider Office Visit [facility] September 12, 2020 3:24pm September 12, 2020 4:17pm Ian Garcia Departed Clinical [facility] Laboratory August 30, 2020 2:39pm August 30, 2020 2:40pm Jyothi Arteaga Departed Physician/Pr ovider Office Visit [facility] August 30, 2020 1:59pm August 30, 2020 4:00pm Jyothi Arteaga Departed Physician/Pr ovider Office Visit [facility] August 19, 2020 8:59am August 19, 2020 11:18am Jyothi Arteaga Departed Physician/Pr ovider Office Visit [facility] August 06, 2020 8:07am August 06, 2020 3:16pm Joi Herman Departed Emergency [facility] Emergency Department July 27, 2020 3:43pm July 27, 2020 5:11pm Departed Physician/Pr ovider Office Visit [facility] July 24, 2020 7:51am July 24, 2020 1:52pm Joi Herman Departed Physician/Pr ovider Office Visit [facility] Occupational Health [facility] July 18, 2020 2:47pm July 18, 2020 2:47pm Windy Contreras Departed Physician/Pr ovider Office Visit [facility] July 12, 2020 7:56am July 12, 2020 11:59pm Jyothi Arteaga Departed Physician/Pr ovider Office Visit [facility] July 09, 2020 10:31am July 09, 2020 9:21pm Joi Herman Departed Emergency [facility] Emergency Department July 04, 2020 10:57am July 04, 2020 11:59am Departed Clinical [facility] June 27, 2020 8:16am June 27, 2020 8:17am Windy Contreras Departed Physician/Pr ovider Office Visit [facility] June 21, 2020 7:52am June 21, 2020 3:38pm Joi Herman Departed Physician/Pr ovider Office Visit [facility] June 21, 2020 7:50am June 21, 2020 11:59pm Jyothi Arteaga Departed Physician/Pr ovider Office Visit [facility] June 14, 2020 3:05pm June 14, 2020 11:59pm Jyothi Arteaga Departed Referred [facility] LAB [facility] May 20, 2020 1:55pm May 20, 2020 1:56pm Nadege Parker Departed Physician/Pr ovider Office Visit [facility] Pediatrics May 20, 2020 1:16pm May 20, 2020 2:13pm Nadege Parker Departed Clinical [facility] May 20, 2020 8:31am May 20, 2020 8:32am Twyla Navarrete Departed Physician/Pr ovider Office Visit [facility] May 19, 2020 10:40am May 19, 2020 11:59pm Twyla Navarrete Departed Clinical [facility] May 01, 2020 11:04am May 01, 2020 11:05am Windy Contreras Departed Physician/Pr ovider Office Visit [facility] Occupational Health [facility] May 01, 2020 10:09am May [...]
--- OUTSIDE RECORDS SUMMARY | 2023-02-16 11:46 | XMS_ITS | Continuity of Care Document ---
Author Name [facility] Address [address] [place] [id number] Organization [facility] Address [address] [place] [id number] Support Name Relationship Address Phone Jyothi Arteaga Primary Care Provider [facility] Leandro torres [facility] [address] [place] [address] Windy Contreras Attending Provider [facility] Employee Health [address] [place] [address] Referral, Self Referring Provider Unknown Unavail able Allergies, Adverse Reactions, Alerts No known allergies. Medications Active Medications Medication Dose Units Route Sig Qty Start Date St atus Levonorgestrel-Ethinyl Estrad 1 TAB ORAL DAILY 84 November 08, 2019 Active Fluoxetine 20 MG ORAL DAILY 30 July 12, 2020 A ctive Discontinued Medications Medication Dose Units Route Sig Qty Start Date Di scontinued Date Status Levonorgestre l-Ethinyl Estrad 1 TAB ORAL DAILY 84 August 17, 2018 November 08, 2019 Discontinued Fluoxetine 10 MG ORAL DAILY 30 June 17, 2020 July 12, 2020 Discontinued flu vac [id number] 36mos up(PF) 60 MCG INTRAMUSCULAR ONCE 0.5 July 27, 2018 July 27, 2018 Discontinued tuberculin PPD 0.1 ML INTRADERMAL ONCE 0.1 July 06, 2018 July 06, 2018 Discontinued Levonorgestre l-Ethinyl Estrad [Vienva] September 26, 2017 August 17, 2018 Discontinued Amoxicillin-P ot Clavulanate [Augmentin] 1 TAB ORAL TWICE A DAY 14 September 26, 2017 July 27, 2018 Discontinued flu vacc [id number] 6mos up(PF) 0.5 ML INTRAMUSCULAR ONCE 0.5 May 01, 2020 May 01, 2020 Discontinued Problem List Active Problems Medical Problem Onset Date Status Effusion of knee December 06, 2017 Benign mole Active Otalgia June 11, 2016 Anxiety Trauma and stressor-related disorder Anxiety and depression Acute pharyngitis Active Knee pain November 09, 2017 Foreign body of left eyelid Acti ve Inactive/Resolved Problems Medical Problem Onset Date Status Acute foot pain Inactive Acute viral pharyngitis Inactive Contusion of hand, [...] sheets for providers can be found at: fda.gov/media/408990/do wnload Fact sheets for patients can be found at: AttorneyFee.gov/media/575879/do wnload TB Test (QFT) Antigen Minus Nil [...] [Renzoinsedyn JOYCE et. al. Clin. Infect. Dis. 2017;64(2):111-115]. The [...] 10:30am 0.01 IU/mL Test Performed b y: [facility] [address] [place] [address] Tomato Pulper Operator: Boone Escudero M.D. Ph.D.; [facility]# [id number] Microbiology Results Procedure Source Result Collection Date/Time Resu lt Date/Time Group A Streptococcus Screen (YVES) Throat No results entered November 26, 2019 2:11pm Group A Streptococcus Screen (YVES) Throat No results entered May 20, 2020 1:55pm Chief Complaint and Reason for Visit Encounter Admit Date Chief Complaint Reason for V isit Departed Physician/Provider Office Visit July 18, 2020 2:47pm Injury Foreign body of left eyelid Hospital Discharge Instructions No known hospital discharge instructions. Hospital Discharge Medications Medication Dose Units Route Sig Qty Days Order Date Status Ins tructions Levonorgestr el-Ethinyl Estrad 1 TAB ORAL DAILY 84 August 17, 2018 Discontinued Levonorgestr el-Ethinyl Estrad 1 TAB ORAL DAILY 84 November 08, 2019 Active Fluoxetine 10 MG ORAL DAILY June 17, 2020 Discontinued flu vac [id number] 36mos up(PF) 60 MCG INTRAMUSCULA R ONCE 0.5 July 27, 2018 Discontinued tuberculin PPD 0.1 ML INTRADERMAL ONCE 0.1 July 06, 2018 Discontinued Fluoxetine 20 MG ORAL DAILY July Active Levonorgestr el-Ethinyl Estrad September 26, 2017 Discontinued Amoxicillin- Pot Clavulanate 1 TAB ORAL TWICE A DAY 14 September 26, 2017 Discontinued flu vacc [id number] 6mos up(PF) 0.5 ML INTRAMUSCULA R ONCE 0.5 May 01, 2020 Discontinued Encounters Encounter Facility Location Admit/Visit Date Discharge/Departure Date Attending Provider Departed Physician/Pr ovider Office [place] [facility] [place] [facility] July 18, 2020 2:47pm July 18, 2020 2:47pm Windy Contreras Departed Physician/Pr ovider Office [place] [facility] [place] 12, 2020 7:56am July 12, 2020 11:59pm Jyothi Arteaga Departed Physician/Pr ovider Office [place] [facility] July 09, 2020 10:31am July 09, 2020 9:21pm Joi Herman Departed Emergency [facility] Emergency Department July 04, 2020 10:57am July 04, 2020 11:59am Departed Clinical [facility] June 27, 2020 8:16am June 27, 2020 8:17am Windy Contreras Departed Physician/Pr ovider Office [place] [facility] June 21, 2020 7:52am June 21, 2020 3:38pm Joi Herman Departed Physician/Pr ovider Office [place] [facility] June 21, 2020 7:50am June 21, 2020 11:59pm Jyothi Arteaga Departed Physician/Pr ovider Office [place] [facility] June 14, 2020 3:05pm June 14, 2020 11:59pm Jyothi Arteaga Departed Referred [facility] LAB [facility] May 20, 2020 1:55pm May 20, 2020 1:56pm Nadege Parker Departed Physician/Pr ovider Office Visit [facility] May 20, 2020 1:16pm May 20, 2020 2:13pm Nadege Parker Departed Clinical [facility] May 20, 2020 8:31am May 20, 2020 8:32am Twyla Navarrete Departed Physician/Pr ovider Office Visit [facility] May 19, 2020 10:40am May 19, 2020 11:59pm Twyla Navarrete Departed Clinical [facility] May 01, 2020 11:04am May 01, 2020 11:05am Windy Contreras Departed Physician/Pr ovider Office Visit [facility] May 01, 2020 10:09am May 01, 2020 12:58pm Referral, Self Departed Physician/Pr ovider Office [place] [facility] February 14, 2020 7:43am February 14, 2020 11:49am Joi Herman Departed Physician/Pr ovider Office Visit [facility] Pediatrics [facility] January 12, 2020 2:30pm January 12, 2020 3:38pm Jyothi Arteaga Departed Emergency [facility] November 26, 2019 1:42pm November 26, 2019 2:22pm Departed Physician/Pr ovider Office Visit [facility] Pediatrics [facility] November 08, 2019 8:50am November 08, 2019 11:13am Joi Herman Departed Physician/Pr ovider Office Visit [facility] Pediatrics [facility] October 23, 2019 3:55pm October 23, 2019 9:38pm Joi Herman Departed Physician/Pr ovider Office Visit [facility] Pediatrics [facility] October 04, 2019 8:50am October 04, 2019 11:08pm Joi Herman Departed Emergency [facility] Emergency Department 2019 10:08pm 2019 10:51pm Departed Physician/Pr ovider Office [place] [facility] September 11, 2019 8:43am September 11, 2019 2:42pm Joi Herman Departed Referred [facility] Lab [facility] 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 August 31, 2019 10:03am August 31, 2019 10:04am Diana Chaidez Departed Physician/Pr ovider Office Visit [facility] LOG HANDLER August 31, 2019 9:48am August 31, 2019 10:13am Diana Chaidez Departed Physician/Pr ovider Office Visit [facility] August 29, 2019 9:48am August 29, 2019 1:49pm Joi Herman Departed Physician/Pr ovider Office Visit [facility] August 17, 2019 7:59am August 17, 2019 1:58pm Joi Herman Departed Physician/Pr ovider Office Visit [facility] Orthopedic&Cesar ab August 16, 2019 10:18am August 16, 2019 1:51pm Chris Bearden Encounter Diagnosis Onset Date Foreign body of left eyelid Functional Status Query Response Date Recorded Comment [...] 2020 11:29am Smoking Status Former smoker July 18, 2020 4:04pm alcohol intake frequency holidays/specia l occasions only July 04, 2020 11:29am substance use type marijuana July 04, 2020 11:29am Query Response Start Date Stop Date Smoking Status Former smoker Vital Signs Vital Reading Result Reference Range Collection Date/Time Height 5 ft 5 in August 31, 2019 9 :58am Weight n/a Temperature 98.5 F 97.6 F-99.6 F July 18, 2020 4 :04pm Pulse 68 BPM 56-106 July 18, 2020 4: 04pm Respiration 14 RPM 16-24 July 18, 2020 4: 04pm Pulse Oximetry 97 % 95-100 July 04 11:27am Blood Pressure Systolic 112 102-133 July 18, 2020 4:04pm Blood Pressure Diastolic 72 61-85 July 18, 2020 4:04pm
--- OUTSIDE RECORDS SUMMARY | 2023-02-16 11:46 | XMS_ITS | Continuity of Care Document ---
Author Name [facility] Address [address] [place] [address] Organization [facility] Address [address] [place] [address] Care Team Providers Care Cyber Defense Analyst Name Role Phone Jyothi Arteaga Primary Care Physician Allergies, Adverse Reactions, Alerts No known allergies. Medications Active Medications Medication Dose Units Route Sig Qty Start Date St atus Levonorgestrel-Ethinyl Estrad 1 TAB ORAL DAILY 84 August 17, 2018 Active Discontinued Medications Medication Dose Units Route Sig Qty Start Date Discontinued Date Status flu vaccine [id number] (36 mos up)(PF)60 mcg (15 mcg x4)/0.5 mL IM susp 60 MCG INTRAMUSCULAR ONCE 0.5 July 27, 2018 July 27, 2018 Discontinued tuberculin PPD 0.1 ML INTRADERMAL ONCE 0.1 July 06, 2018 July 06, 2018 Discontinued Levonorgestrel -Ethinyl Estrad [Vienva] September 26, 2017 August 17, 2018 Discontinued Amoxicillin-Po t Clavulanate [Augmentin] 1 TAB ORAL TWICE A DAY 14 September 26, 2017 July 27, 2018 Discontinued Problem List Active Problems Medical Problem Onset Date Status Effusion of knee December 06, 2017 Otalgia June 11, 2016 Anxiety Knee pain November 09, 2017 Contusion of hand, right Active Inactive/Resolved Problems Medical Problem Onset Date Status Laceration of foot, left Inactiv e Procedures Procedure Date Status Hand 3 vw Min RT 2019 active Knee 3 vw RT May 01, 2019 completed Relevant Diagnostic Tests and/or Laboratory Data No known relevant diagnostic tests, laboratory data, and/or discharge summary. Chief Complaint and Reason for Visit Encounter Admit Date Chief Complaint Reason for V isit Departed Emergency 2019 10:08pm HAND INJURY Hospital Discharge Instructions Additional Discharge Instructions I am n ot seeing any evidence of bone fractures on your x-ray. Rice therapy for sprains, contusions and strains. REST-with increased weight bearing and activity as tolerated. ICE packs several times a day 15-20 minutes for 2-3 days. COMPRESSION- Alcides wrap for compression and comfort will help keep swelling down. ELEVATION- when feasible for pain and swelling. Over the counter pain medications as directed may be helpful. If not significantly better within 1 week, call your primary care doctor for further evaluation. Instruction/Education Provided COVID 19 General Instructions- decrease the spread of coronavirus ([facility] Hospital Discharge Medications Medication Dose Units Route Sig Qty Days Order Date Status Instructions Levonorgestre l-Ethinyl Estrad 1 TAB ORAL DAILY 84 August 17, 2018 Active flu vaccine [id number] (36 mos up)(PF)60 mcg (15 mcg x4)/0.5 mL IM susp 60 MCG INTRAMUSCULAR ONCE 0.5 July 27, 2018 Discontinued tuberculin PPD 0.1 ML INTRADERMAL ONCE 0.1 July 06, 2018 Discontinued Levonorgestre l-Ethinyl Estrad September 26, 2017 Discontinued Amoxicillin-P ot Clavulanate 1 TAB ORAL TWICE A DAY 14 September 26, 2017 Discontinued Encounters Encounter Facility Location Admit/Visit Date Discharge/Departure Date Attending Provider Departed Emergency [facility] Emergency Department 2019 10:08pm 2019 10:51pm Departed Physician/Pr ovider Office Visit [facility] Pediatrics [facility] September 11, 2019 8:43am September 11, 2019 2:42pm Joi Herman Departed Referred [facility] Lab [facility] 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 August 31, 2019 10:03am August 31, 2019 10:04am Diana Chaidez Departed Physician/Pr ovider Office Visit [facility] MANAGER CONTENT August 31, 2019 9:48am August 31, 2019 10:13am Diana Chaidez Departed Physician/Pr ovider Office Visit [facility] Pediatric[facility] August 29, 2019 9:48am August 29, 2019 1:49pm Joi Herman Departed Physician/Pr ovider Office Visit [facility] Pediatric[facility] August 17, 2019 7:59am August 17, 2019 1:58pm Joi Herman Departed Physician/Pr ovider Office Visit [facility] Orthopedic&Cesar ab August 16, 2019 10:18am August 16, 2019 1:51pm Chris Bearden Departed Physician/Pr ovider Office Visit [facility] Pediatric[facility] May 24, 2019 2:01pm May 24, 2019 2:13pm Joi Herman Departed Physician/Pr ovider Office Visit [facility] Pediatric[facility] May 10, 2019 1:54pm May 10, 2019 2:51pm Joi Herman Departed Clinical [facility] DI [facility] May 01, 2019 3:53pm May 01, 2019 3:54pm Ed Velásquez Departed Physician/Pr ovider Office Visit [facility] Pediatric[facility] May 01, 2019 2:11pm May 01, 2019 2:42pm Ed Velásquez Functional Status Query Response Date Recorded Comment Living Situation Home 2019 10:51pm Immunizations Immunization Name Date Given Type DTP [...] IIV4 PF July 27, 2018 Administered Influenza IIV3 April 10, 2011 Historical [...] Virus Vaccine (Varivax) October 03, 2007 Historical Payers Payer Name Policy Type Covered Green Party Covered Green Party Id Relationship Subscriber Subscriber Id [place] Medicaid FAITH RAMSES [id number] Self/Same as Patient TERA RAMSES [id number] SELF PAY Personal [place] MEDICAID (DO NOT USE) Medicaid FAITH RAMSES [id number] Self/Same as Patient TERA RAMSES [id number] Plan of Care Instructions COVID 19 General Instruction s- decrease the spread of coronavirus ([place]) Social History Query Response Date Recorded Comment Alcohol Use No 2019 10:13pm Smoking Status Never smoker 2019 10:13pm alcohol intake frequency holidays/specia l occasions only 2019 10:13pm substance use type marijuana 2019 10:13pm Query Response Start Date Stop Date Smoking Status Never smoker Vital Signs Vital Reading Result Reference Range Collection Date/Time Height 5 ft 5 in August 31, 2019 9 :58am Weight 114.759 kg 2019 1 0:11pm Temperature 97.8 F 97.6 F-99.6 F 2019 10:11pm Pulse 92 BPM 56-106 2019 1 0:11pm Respiration 18 RPM 16-24 2019 1 0:11pm Pulse Oximetry 98 % 95-100 2019 10:11pm Blood Pressure Systolic 114 102-133 2019 10:11pm Blood Pressure Diastolic 81 61-85 Sep 10:11pm
--- OUTSIDE RECORDS SUMMARY | 2023-02-16 11:46 | XMS_ITS | Continuity of Care Document ---
Author Name [facility] Address [address] [place] [address] Organization [facility] Address [address] [place] [address] Support Name Relationship Address Phone Juan Carlos Santana JR Primary Care Provider [facility] [address] [place] [address] Referral, Self Referring Provider Unknown Unavail able Fortunato Quezada Attending Provider [facility] OB/G YN [address] [place] [address] Allergies, Adverse Reactions, Alerts No known allergies. [...] December 20, 2020 Disconti nued flu vac [id number] 36mos up(PF) 60 MCG INTRAMUS CULAR ONCE [...] November 04, 2020 Disconti nued flu vacc [id number] 6mos up(PF) 0.5 ML INTRAMUS CULAR ONCE [...] November 19, 2020 11:18am Negative Urine Specific [place] (Manual) November 19, 2020 11:18am 1.020 POC [...] September 12, 2020 4:01pm 6.5 Urine Specific [place] September 12, 2020 4:01pm 1.015 Urine Protein [...] Level March 27, 2021 3:04pm 355 pg/mL [id number] The results of this assay can be [...] sheets for providers can be found at: fda.gov/media/1362 85/download Fact sheets for patients can be found at: fda.gov/[employer]/1362 87/download Microbiology Results Procedure Source Result Collection Date/Time Result Date/Time Group A Streptococcus Screen (YVES) Throat No results entered May 20, 2020 1:55pm Urine Culture Ur,Clean Catch No results entered September 12, 2020 4:01pm Chief Complaint and Reason for Visit Encounter Admit Date Chief Complaint Reason for V isit Departed Physician/Provider Office Visit May 01, 2021 2:45pm Test Hospital Discharge Instructions No known hospital discharge [...] REFLUX Fluoxetine 20 MG ORAL DAILY 30 Septe mber 1 Active Levonorgestrel -Ethinyl Estrad 1 TAB ORAL DAILY 84 November 20, 2020 Active Magnesium 200 - 600 MG ORAL DAILY 90 November 04, 2020 Discontinu ed Riboflavin (Vitamin B2) 400 MG ORAL DAILY 90 November 04, 2020 Discontinu ed flu vac [id number] 36mos up(PF) 60 MCG INTRAMUSCU LAR ONCE [...] September 30, 2020 Discontinu ed flu vacc [id number] 6mos up(PF) 0.5 ML INTRAMUSCU LAR ONCE 0.5 May 01, 2020 Discontinu ed Encounters Encounter Facility Location Admit/Visit Date Discharge/Departure Date Attending Provider Departed Physician/Pr ovider Office Visit [facility] 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 March 06, 2021 3:15pm Soni Santa Departed Emergency [facility] Emergency Department February 22, 2021 1:48pm February 22, 2021 5:28pm Departed Emergency [facility] Urgent [facility] February 22, 2021 12:49pm February 22, 2021 1:47pm Departed Emergency [facility] Emergency Department December 21, 2020 8:46am December 21, 2020 12:00pm Departed Physician/Pr ovider Office Visit [facility] Pediatrics [facility] December 20, 2020 4:18pm December 20, 2020 4:47pm Maite Garcia Departed Physician/Pr ovider Office Visit [facility] Pediatrics [facility] November 19, 2020 10:32am November 19, 2020 11:29am Felicia Rodrigez Departed Physician/Pr ovider Office Visit [facility] Orthopedic&Cesar ab November 15, 2020 2:11pm November 15, 2020 2:55pm Antwon Jackson Departed Physician/Pr ovider Office Visit [facility] Pediatrics [facility] November 04, 2020 10:01am November 04, 2020 10:26am Jyothi Arteaga Departed Physician/Pr ovider Office Visit [facility] Orthopedic&Cesar ab October 16, 2020 1:25pm October 16, 2020 1:55pm Antwon Jackson Departed Emergency [facility] October 11, 2020 7:11pm October 11, 2020 9:23pm Departed Clinical [facility] Cardiology October 08, 2020 1:55pm October 08, 2020 1:56pm Jyothi Arteaga Departed Physician/Pr ovider Office Visit [facility] Cardiology October 08, 2020 1:50pm October 08, 2020 11:59pm Diann Oakes Departed Physician/Pr ovider Office Visit [facility] October 07, 2020 12:53pm October 07, 2020 2:16pm Jyothi Arteaga Departed Emergency [facility] Emergency Department 2020 8:52am 2020 10:22am Departed Emergency [facility] Emergency Department September 30, 2020 4:35pm September 30, 2020 8:56pm Departed Emergency [facility] Urgent [facility] September 30, 2020 2:40pm September 30, 2020 4:44pm Departed Referred [facility] Lab [facility] Peds [place] September 12, 2020 4:01pm September 12, 2020 4:02pm Ian Garcia Departed Physician/Pr ovider Office Visit [facility] September 12, 2020 3:24pm September 12, 2020 4:17pm Ian Garcia Departed Clinical [facility] Laboratory August 30, 2020 2:39pm August 30, 2020 2:40pm Jyothi Arteaga Departed Physician/Pr ovider Office Visit [facility] August 30, 2020 1:59pm August 30, 2020 4:00pm Jyothi Arteaga Departed Physician/Pr ovider Office Visit [facility] August 19, 2020 8:59am August 19, 2020 11:18am Jyothi Arteaga Departed Physician/Pr ovider Office Visit [facility] August 06, 2020 8:07am August 06, 2020 3:16pm Joi Herman Departed Emergency [facility] Emergency Department July 27, 2020 3:43pm July 27, 2020 5:11pm Departed Physician/Pr ovider Office Visit [facility] July 24, 2020 7:51am July 24, 2020 1:52pm Joi Herman Departed Physician/Pr ovider Office Visit [facility] Occupational Health [facility] Employee Health July 18, 2020 2:47pm July 18, 2020 2:47pm Windy Contreras Departed Physician/Pr ovider Office Visit [facility] July 12, 2020 7:56am July 12, 2020 11:59pm Jyothi Arteaga Departed Physician/Pr ovider Office Visit [facility] Pediatrics [facility] July 09, 2020 10:31am July 09, 2020 9:21pm Joi Herman Departed Emergency [facility] Emergency Department July 04, 2020 10:57am July 04, 2020 11:59am Departed Clinical [facility] June 27, 2020 8:16am June 27, 2020 8:17am Windy Contreras Departed Physician/Pr ovider Office Visit [facility] Pediatrics [facility] June 21, 2020 7:52am June 21, 2020 3:38pm Joi Herman Departed Physician/Pr ovider Office Visit [facility] Pediatrics [facility] June 21, 2020 7:50am June 21, 2020 11:59pm Jyothi Arteaga Departed Physician/Pr ovider Office Visit [facility] June 14, 2020 3:05pm June 14, 2020 11:59pm Jyothi Arteaga Departed Referred [facility] LAB [facility] Peds [place] May 20, 2020 1:55pm May 20, 2020 1:56pm Nadege Parker Departed Physician/Pr ovider Office Visit [facility] Pediatrics May 20, 2020 1:16pm May 20, 2020 2:13pm Nadege Parker Departed Clinical [facility] May 20, 2020 8:31am May 20, 2020 8:32am Twyla Navarrete Departed Physician/Pr ovider Office Visit [facility] Occupational Health [facility] May 19, 2020 10:40am May 19, 2020 11:59pm Twyla Navarrete Functional Status Query Response Date Recorded Comment [...] 5:25pm Blood Pressure Diastolic 69 61-85 Dec 2020 5:25pm Body Mass Index 37.0 November 2:21pm
--- OUTSIDE RECORDS SUMMARY | 2023-02-16 11:46 | XMS_ITS | Continuity of Care Document ---
Author Name [facility] Address [address] [place] [address] Organization [facility] Address [address] [place] [address] Support Name Relationship Address Phone Juan Carlos Santana JR Primary Care Provider [facility] [address] [place] [address] Referral, Self Referring Provider Unknown Unavail able Fortunato Quezada Attending Provider [facility] OB/G YN [address] [place] [address] Allergies, Adverse Reactions, Alerts No [...] December 20, 2020 Disconti nued flu vac [id number] 36mos up(PF) 60 MCG INTRAMUS CULAR ONCE [...] November 04, 2020 Disconti nued flu vacc [id number] 6mos up(PF) 0.5 ML INTRAMUS CULAR ONCE [...] November 19, 2020 11:18am Negative Urine Specific [place] (Manual) November 19, 2020 11:18am 1.020 POC [...] September 12, 2020 4:01pm 6.5 Urine Specific [place] September 12, 2020 4:01pm 1.015 Urine Protein [...] sheets for patients can be found at: fda.gov/[employer]/1362 87/download Microbiology Results Procedure Source Result Collection [...] November 04, 2020 Discontinu ed flu vac [id number] 36mos up(PF) 60 MCG INTRAMUSCU LAR ONCE [...] September 30, 2020 Discontinu ed flu vacc [id number] 6mos up(PF) 0.5 ML INTRAMUSCU LAR ONCE 0.5 May 01, 2020 Discontinu ed Encounters Encounter Facility Location Admit/Visit Date Discharge/Departure Date Attending Provider Departed Physician/Pr ovider Office Visit [facility] INSIDE SALES CONSULTANT May 01, 2021 2:45pm May 01, 2021 3:00pm Fortunato Quezada Departed Clinical [facility] DI [facility] April 24, 2021 9:03am April 24, 2021 9:04am Juan Carlos Santana JR Departed Clinical [facility] DI [facility] April 01, 2021 9:05am April 01, 2021 9:06am Juan Carlos Santana JR Departed Referred [facility] March 27, 2021 6:39pm March 27, 2021 6:40pm Juan Carlos Santana JR Registered Inpatient [facility] Pediatrics [facility] March 06, 2021 3:15pm Soni Santa Departed Emergency [facility] Emergency Department February 22, 2021 1:48pm February 22, 2021 5:28pm Departed Emergency [facility] Urgent [facility] February 22, 2021 12:49pm February 22, 2021 1:47pm Departed Emergency [facility] Emergency Department December 21, 2020 8:46am December 21, 2020 12:00pm Departed Physician/Pr ovider Office Visit [facility] Pediatrics [facility] December 20, 2020 4:18pm December 20, 2020 4:47pm Maite Garcia Departed Physician/Pr ovider Office Visit [facility] Pediatrics [facility] November 19, 2020 10:32am November 19, 2020 11:29am Felicia Rodrigez Departed Physician/Pr ovider Office Visit [facility] Orthopedic[facility]Cesar ab November 15, 2020 2:11pm November 15, 2020 2:55pm Antwon Jackson Departed Physician/Pr ovider Office Visit [facility] Pediatrics [facility] November 04, 2020 10:01am November 04, 2020 10:26am Jyothi Arteaga Departed Physician/Pr ovider Office Visit [facility] Orthopedic[facility]Cesar [facility] October 16, 2020 1:25pm October 16, 2020 1:55pm Antwon Jackson Departed Emergency [facility] October 11, 2020 7:11pm October 11, 2020 9:23pm Departed Clinical [facility] Cardiology October 08, 2020 1:55pm October 08, 2020 1:56pm Jyothi Arteaga Departed Physician/Pr ovider Office Visit [facility] Cardiology October 08, 2020 1:50pm October 08, 2020 11:59pm Diann Oakes Departed Physician/Pr ovider Office Visit [facility] October 07, 2020 12:53pm October 07, 2020 2:16pm Jyothi Arteaga Departed Emergency [facility] Emergency Department 2020 8:52am 2020 10:22am Departed Emergency [facility] Emergency Department September 30, 2020 4:35pm September 30, 2020 8:56pm Departed Emergency [facility] Urgent [facility] September 30, 2020 2:40pm September 30, 2020 4:44pm Departed Referred [facility] Lab [facility] Peds [place] September 12, 2020 4:01pm September 12, 2020 4:02pm Ian Garcia Departed Physician/Pr ovider Office Visit [facility] September 12, 2020 3:24pm September 12, 2020 4:17pm Ian Garcia Departed Clinical [facility] Laboratory August 30, 2020 2:39pm August 30, 2020 2:40pm Jyothi Arteaga Departed Physician/Pr ovider Office Visit [facility] August 30, 2020 1:59pm August 30, 2020 4:00pm Jyothi Arteaga Departed Physician/Pr ovider Office Visit [facility] August 19, 2020 8:59am August 19, 2020 11:18am Jyothi Arteaga Departed Physician/Pr ovider Office Visit [facility] August 06, 2020 8:07am August 06, 2020 3:16pm Joi Herman Departed Emergency [facility] Emergency Department July 27, 2020 3:43pm July 27, 2020 5:11pm Departed Physician/Pr ovider Office Visit [facility] July 24, 2020 7:51am July 24, 2020 1:52pm Joi Herman Departed Physician/Pr ovider Office Visit [facility] Occupational Health [facility] Health July 18, 2020 2:47pm July 18, 2020 2:47pm Windy Contreras Departed Physician/Pr ovider Office Visit [facility] July 12, 2020 7:56am July 12, 2020 11:59pm Jyothi Arteaga Departed Physician/Pr ovider Office Visit [facility] Pediatrics [facility] July 09, 2020 10:31am July 09, 2020 9:21pm Joi Herman Departed Emergency [facility] Emergency Department July 04, 2020 10:57am July 04, 2020 11:59am Departed Clinical [facility] June 27, 2020 8:16am June 27, 2020 8:17am Windy Contreras Departed Physician/Pr ovider Office Visit [facility] Pediatrics [facility] June 21, 2020 7:52am June 21, 2020 3:38pm Joi Herman Departed Physician/Pr ovider Office Visit [facility] Pediatrics [facility] June 21, 2020 7:50am June 21, 2020 11:59pm Jyothi Arteaga Departed Physician/Pr ovider Office Visit [facility] June 14, 2020 3:05pm June 14, 2020 11:59pm Jyothi Arteaga Departed Referred [facility] LAB [facility] Peds [place] May 20, 2020 1:55pm May 20, 2020 1:56pm Nadege Parker Departed Physician/Pr ovider Office Visit [facility] Pediatrics May 20, 2020 1:16pm May 20, 2020 2:13pm Nadege Parker Departed Clinical [facility] May 20, 2020 8:31am May 20, 2020 8:32am Twyla Navarrete Departed Physician/Pr ovider Office Visit [facility] Occupational Health [facility] May 19, 2020 10:40am May 19, [...]
--- OUTSIDE RECORDS SUMMARY | 2023-02-16 11:46 | XMS_ITS | Continuity of Care Document ---
Author Name [facility] Address [address] [place] [address] Organization [facility] Address [address] [place] [address] Care Team Providers Care Glove Turner And Former Automatic Name Role Phone Juan Carlos Santana JR Primary Care Physician [phone] Allergies, Adverse Reactions, Alerts No known allergies. Medications Active Medications Medication Dose Units Route Sig Qty Start Date Status In structions Famotidine 0 Route .COMPLEX 270 October 30, 2020 Active TAKE 1 TABLET BY MOUTH THREE TIMES DAILY NEEDED FOR ACID REFLUX Fluoxetine 20 MG ORAL DAILY November 20, 2020 Active Levonorgestrel-Eth inyl Estrad [...] December 20, 2020 Disconti nued flu vac [id number] 36mos up(PF) 60 MCG INTRAMUS CULAR ONCE 0.5 July 27, 2018 July 27, 2018 Disconti nued Ondansetron Hcl [Zofran] 4 MG ORAL Q8H PRN For nausea and vomiti ng 7 September 12, 2020 October 16, 2020 Disconti nued tuberculin PPD 0.1 ML INTRADER MAL ONCE 0.1 Septembe r 2020November 19, 2020 Disconti nued Magnesium 200 [...] November 04, 2020 Disconti nued flu vacc [id number] 6mos up(PF) 0.5 ML INTRAMUS CULAR ONCE [...] November 19, 2020 11:18am Negative Urine Specific [place] (Manual) November 19, 2020 11:18am 1.020 POC [...] 12, 2020 4:01pm 6.5 Urine Specific [place] September 12, 2020 4:01pm 1.015 Urine Protein [...] patients who consume Biotin. SARS-CoV-2 RNA (RT-PCR) May 12, 2021 11:57am Negative Note: This RT-PC R assay is [...] sheets for patients can be found at: fda.gov/media/1362 87/download Microbiology Results Procedure Source Result Collection Date/Time Result Date/Time Group A Streptococcus Screen (YVES) Throat No results entered May 20, 2020 1:55pm Urine Culture Ur,Clean Catch No results entered September 12, 2020 4:01pm Hospital Discharge Instructions Additional Discharge Instructions You martin ve been tested for covid today. Please act as if it is positive until you have your results, which will be available in the next 24 hours and will be visible to you on the patient portal. Isolate away from others and wear a mask if you will be in an enclosed space with others. We will call if results are positive to review quarantine guidance and testing of other contacts. Instruction/Education Provided Viral Upp er Respiratory Infection, Adult (DC) Hospital Discharge Medications Medication Dose Units Route [...] Fluoxetine 20 MG ORAL DAILY 30 Septe er 2020 Active Levonorgestrel -Ethinyl Estrad 1 TAB ORAL DAILY November 20, 2020 Active Magnesium 200 - 600 MG ORAL DAILY 90 November 04, 2020 Discontinu ed Riboflavin (Vitamin B2) 400 MG ORAL DAILY 90 November 04, 2020 Discontinu ed flu vac [id number] 36mos up(PF) 60 MCG INTRAMUSCU LAR ONCE [...] MG ORAL DAILY 90 December 20, 2020 Discontinu ed tuberculin PPD [...] September 30, 2020 Discontinu ed Amitriptyline MG [facility] 2021 Active flu vacc [id number] 6mos up(PF) 0.5 ML INTRAMUSCU LAR ONCE 0.5 May 01, 2020 Discontinu ed Encounters Encounter Facility Location Admit/Visit Date Discharge/Departure Date Attending Provider Departed Emergency [facility] May 12, 2021 11:36am May 12, 2021 12:40pm Departed Physician/Pr ovider Office Visit [facility] May 01, 2021 2:45pm May 01, 2021 3:00pm Fortunato Quezada Departed Clinical [facility] April 24, 2021 9:03am April 24, 2021 9:04am Juan Carlos Santana JR Departed Clinical [facility] April 01, 2021 9:05am April 01, 2021 9:06am Juan Carlos Santana JR Departed Referred [facility] March 27, 2021 6:39pm March 27, 2021 6:40pm Juan Carlos Santana JR Registered Inpatient [facility] Pediatrics [facility] March 06, 2021 3:15pm Soni Santa Departed Emergency [facility] Emergency Department February 22, 2021 1:48pm February 22, 2021 5:28pm Departed Emergency [facility] February 22, 2021 12:49pm February 22, 2021 1:47pm Departed Emergency [facility] Emergency Department December 21, 2020 8:46am December 21, 2020 12:00pm Departed Physician/Pr ovider Office Visit [facility] Pediatrics [facility] December 20, 2020 4:18pm December 20, 2020 4:47pm Maite Garcia Departed Physician/Pr ovider Office Visit [facility] Pediatrics [facility] November 19, 2020 10:32am November 19, 2020 11:29am Felicia Rodrigez Departed Physician/Pr ovider Office Visit [facility] Orthopedic&Cesar ab November 15, 2020 2:11pm November 15, 2020 2:55pm Antwon Jackson Departed Physician/Pr ovider Office Visit [facility] Pediatrics [facility] November 04, 2020 10:01am November 04, 2020 10:26am Jyothi Artegaa Departed Physician/Pr ovider Office Visit [facility] Orthopedic&Cesar ab October 16, 2020 1:25pm October 16, 2020 1:55pm Antwon Jackson Departed Emergency [facility] Urgent [facility] October 11, 2020 7:11pm October 11, 2020 9:23pm Departed Clinical [facility] Cardiology October 08, 2020 1:55pm October 08, 2020 1:56pm Jyothi Arteaga Departed Physician/Pr ovider Office Visit [facility] Cardiology October 08, 2020 1:50pm October 08, 2020 11:59pm Diann Oakes Departed Physician/Pr ovider Office Visit [facility] Pediatrics [facility] October 07, 2020 12:53pm October 07, 2020 2:16pm Jyothi Arteaga Departed Emergency [facility] Emergency Department 2020 8:52am 2020 10:22am Departed Emergency [facility] Emergency Department September 30, 2020 4:35pm September 30, 2020 8:56pm Departed Emergency [facility] Urgent [facility] September 30, 2020 2:40pm September 30, 2020 4:44pm Departed Referred [facility] Lab [facility] P[facility] [place] September 12, 2020 4:01pm September 12, 2020 4:02pm Ian Garcia Departed Physician/Pr ovider Office Visit [facility] September 12, 2020 3:24pm September 12, 2020 4:17pm Ian Garcai Departed Clinical [facility] Laboratory August 30, 2020 2:39pm August 30, 2020 2:40pm Jyothi Arteaga Departed Physician/Pr ovider Office Visit [facility] Pediatrics [facility] August 30, 2020 1:59pm August 30, 2020 4:00pm Jyothi Arteaga Departed Physician/Pr ovider Office Visit [facility] Pediatrics [facility] August 19, 2020 8:59am August 19, 2020 11:18am Jyothi Arteaga Departed Physician/Pr ovider Office Visit [facility] Pediatrics [facility] August 06, 2020 8:07am August 06, 2020 3:16pm Joi Herman Departed Emergency [facility] Emergency Department July 27, 2020 3:43pm July 27, 2020 5:11pm Departed Physician/Pr ovider Office Visit [facility] July 24, 2020 7:51am July 24, 2020 1:52pm Joi Herman Departed Physician/Pr ovider Office Visit [facility] Occupational Health [facility] July 18, 2020 2:47pm July 18, 2020 2:47pm Windy Contreras Departed Physician/Pr ovider Office Visit [facility] July 12, 2020 7:56am July 12, 2020 11:59pm Jyothi Arteaga Departed Physician/Pr ovider Office Visit [facility] July 09, 2020 10:31am July 09, 2020 9:21pm Joi Herman Departed Emergency [facility] Emergency Department July 04, 2020 10:57am July 04, 2020 11:59am Departed Clinical [facility] June 27, 2020 8:16am June 27, 2020 8:17am Windy Contreras Departed Physician/Pr ovider Office Visit [facility] June 21, 2020 7:52am June 21, 2020 3:38pm Joi Herman Departed Physician/Pr ovider Office Visit [facility] June 21, 2020 7:50am June 21, 2020 11:59pm Jyothi Arteaga Departed Physician/Pr ovider Office Visit [facility] June 14, 2020 3:05pm June 14, 2020 11:59pm Jyothi Arteaga Departed Referred [facility] LAB [facility] May 20, 2020 1:55pm May 20, 2020 1:56pm Nadege Parker Departed Physician/Pr ovider Office Visit [facility] Pediatrics May 20, 2020 1:16pm May 20, 2020 2:13pm Nadege Parker Departed Clinical [facility] May 20, 2020 8:31am May 20, 2020 8:32am Twyla Navarrete Departed Physician/Pr ovider Office Visit [facility] May 19, 2020 10:40am May 19, 2020 11:59pm Twyla Navarrete Functional Status Query Response Date Recorded Comment Comprehension Ability Understands Concepts July 27 4:22pm Mood/Behavior Appropriate July 27, 2020 4:22pm Speech Appropriate Clear July 27, 2020 4:22pm Query Response Date Recorded Comment Living Situation Home With Significant Other May 12, 2021 11:45am Immunizations Immunization Name Date Given Type DTP [...] 03, 2007 Historical Plan of Care Instructions Viral Upper Respiratory Infe ction, Adult (DC) Social History Query Response Date Recorded Comment Alcohol Use No May 12, 2021 12:23pm Smoking Status Current every day smoker May 12, 2021 12:23pm Substance/Street Drug Use Yes May 12, 2021 12:23pm QHS marijuana as o f 09/30/20 alcohol intake frequency February 22, 2021 1:02pm substance use type does not use May 12, 2021 12:23pm Query Response Start Date Stop Date Smoking Status Current every day smoker Vital Signs Vital Reading Result Reference Range Collection Date/Time Height 5 ft 5 in May 12, 2021 1 1:45am Weight 109.769 kg May 12, 2021 1 1:45am Temperature 98.6 F 97.6 F-99.6 F May 12, 2021 11:45am Pulse 96 BPM 56-106 May 12, 2021 1 1:45am Respiration 18 RPM 16-24 May 12, 2021 1 1:45am Pulse Oximetry 99 % 95-100 May 12, 2021 11:45am Blood Pressure Systolic 124 102-133 [facility] 2021 11:45am Blood Pressure Diastolic 62 61-85 [facility] 2021 11:45am Body Mass Index 37.0 November 2:21pm
--- OUTSIDE RECORDS SUMMARY | 2023-02-16 11:46 | XMS_ITS | Continuity of Care Document ---
Author Name [facility] Address [address] [place] [address] Organization [facility] Address [address] [place] [address] Care Team Providers Care Private T[employer] Teachers Name Role Phone Jyothi Arteaga Primary Care Physician Allergies, Adverse Reactions, Alerts No known allergies. Medications Active Medications Medication Dose Units Route Sig Qty Start Date [facility] Levonorgestrel-Ethinyl Estrad 1 TAB ORAL DAILY 84 November 08, 2019 Active Discontinued Medications Medication Dose Units Route Sig Qty Start Date Discontinued Date Status Levonorgestrel -Ethinyl Estrad 1 TAB ORAL DAILY 84 August 17, 2018 November 08, 2019 Discontinued flu vaccine [id number] (36 mos up)(PF)60 mcg (15 mcg x4)/0.5 [...] 2016 Anxiety Knee pain November 09, 2017 Acute viral pharyngitis Active Inactive/Resolved Problems Medical Problem Onset Date Status Contusion of hand, right Inactiv e Laceration of foot, left Inactiv e Procedures Procedure Date Status Group A Streptococcus Screen (YVES) November 26, 2019 active Hand 3 vw Min RT 2019 completed Knee 3 vw RT May 01, 2019 completed Relevant Diagnostic Tests and/or Laboratory Data No known relevant diagnostic tests, laboratory data, and/or discharge summary. Hospital Discharge Instructions Additional Discharge Instructions -Rapid strep was negative in clinic today. We will send a culture and call you only if positive/need to treat with antibiotics. -Tea with honey/lemon and soft/cool food/fluids for sore throat. -Can also use throat lozenges (cepacol provides numbing relief). -Ibuprofen/tylenol as needed for pain/fever. -If you develop any new symptoms including fever, headache/bodyaches, cough-you can always call back to have order for curbside covid testing sent. -For any significantly worsening symptoms such as high fever not controlled by medication, severe rash, vomiting, difficulty breathing or shaking chills, go to emergency room for further evaluation. Instruction/Education Provided Sore Thro at, Child (DC) COVID 19 General Instructions- decrease the spread of coronavirus ([facility] Hospital Discharge Medications Medication Dose Units Route Sig Qty Days Order Date Status Ins tructions Levonorgestr el-Ethinyl Estrad 1 TAB ORAL DAILY 84 August 17, 2018 Discontinued Levonorgestr el-Ethinyl Estrad 1 TAB ORAL DAILY 84 November 08, 2019 Active flu vaccine [id number] (36 mos up)(PF)60 mcg (15 mcg x4)/0.5 mL IM susp 60 MCG INTRAMUSCULA R ONCE 0.5 July 27, 2018 Discontinued tuberculin PPD 0.1 ML INTRADERMAL ONCE 0.1 July 06, 2018 Discontinued Levonorgestr el-Ethinyl Estrad September 26, 2017 Discontinued Amoxicillin- Pot Clavulanate 1 TAB ORAL TWICE A DAY 14 September 26, 2017 Discontinued Encounters Encounter Facility Location Admit/Visit Date Discharge/Departure Date Attending Provider Departed Emergency [facility] November 26, 2019 1:42pm November 26, 2019 2:22pm Departed Physician/Pr ovider Office Visit [facility] Pediatrics [facility] November 08, 2019 8:50am November 08, 2019 11:13am Joi Herman Departed Physician/Pr ovider Office Visit [facility] Pediatrics [facility] October 23, 2019 3:55pm October 23, 2019 9:38pm Joi Herman Departed Physician/Pr ovider Office Visit [facility] Pediatrics [facility] October 04, 2019 8:50am October 04, 2019 11:08pm Joi Herman Departed Emergency [facility] Emergency Department 2019 10:08pm 2019 10:51pm Departed Physician/Pr ovider Office Visit [facility] Pediatrics [facility] September 11, 2019 8:43am September 11, 2019 2:42pm Joi Herman Departed Referred [facility] Lab [facility] SSDS MK 2 ADVANCED OPERATOR August 31, 2019 10:03am August 31, 2019 10:04am Diana Chaidez Departed Physician/Pr ovider Office Visit [facility]IN [facility]ER August 31, 2019 9:48am August 31, 2019 10:13am Diana Chaidez Departed Physician/Pr ovider Office Visit [facility] Pediatrics [facility] August 29, 2019 9:48am August 29, 2019 1:49pm Joi Herman Departed Physician/Pr ovider Office [facility] August 17, 2019 7:59am August 17, 2019 1:58pm Joi Herman Departed Physician/Pr ovider Office Visit [facility] Orthopedic&Cesar ab August 16, 2019 10:18am August 16, 2019 1:51pm Chris Bearden Departed Physician/Pr ovider Office [facility] May 24, 2019 2:01pm May 24, 2019 2:13pm Joi Herman Departed Physician/Pr ovider Office Visit [facility] May 10, 2019 1:54pm May 10, 2019 2:51pm Joi Herman Departed Clinical [facility] DI [facility] May 01, 2019 3:53pm May 01, 2019 3:54pm Ed Velásquez Departed Physician/Pr ovider Office Visit [facility] Pediatrics [facility] May 01, 2019 2:11pm May 01, 2019 [...] Historical Payers Payer Name Policy Type Covered Democrat Covered Democrat Id Relationship Subscriber Subscriber Id [place] Medicaid TERA PEARCE [id number] Self/Same as Patient TERA PEARCE [id number] SELF PAY Personal [place] MEDICAID (DO NOT USE) Medicaid TERA PEARCE [id number] Self/Same as Patient TERA PEARCE [id number] Plan of Care Instructions Sore Throat, Child (DC) COVID 19 General Instructions- decrease the spread of coronavirus ([facility]) Social History Query Response Date Recorded Comment Alcohol Use No November 26, 2019 1:57pm Smoking Status Current every day smoker November 26, 2019 1:57pm alcohol intake frequency holidays/specia l occasions only November 26, 2019 1:57pm substance use type marijuana November 26, 2019 1:5 7pm Query Response Start Date Stop Date Smoking [...] 2019 1:48pm Blood Pressure Systolic 110 102-133 Sept 2019 1:48pm Blood Pressure Diastolic 70 61-85 Sep 2019 1:48pm
--- OUTSIDE RECORDS SUMMARY | 2023-02-16 11:46 | XMS_ITS | Continuity of Care Document ---
Author Name [facility] Address [address] [place] [id number] Organization [facility] Address [address] [place] [address] Care Team Providers Care Stack Yield Engineer Name Role Phone Jyothi Arteaga Primary Care Physician Jyothi Arteaga Attending Physician Allergies, Adverse Reactions, Alerts No known allergies. Medications Active Medications Medication Dose Units Route Sig Qty Start Date St atus Levonorgestrel-Ethinyl Estra d [Vienva] September 26, 2017 Active Amoxicillin-Pot Clavulanate [Augmentin] 1 TAB ORAL TWICE A DAY 14 September 26, 2017 Ac tive Problem List Inactive/Resolved Problems Medical Problem Onset Date Status Laceration of foot, left Inactiv e Procedures Procedure Date Status Group A Streptococcus Screen (YVES) March 21 019 active MRI LT Lower Ext Jt w/o Contr December 21, 2017 c ompleted Knee 1 or 2 vw LT November 09, 2017 completed Relevant Diagnostic Tests and/or Laboratory Data No known relevant diagnostic tests, laboratory data, and/or discharge summary. Advance Directives Advance Directive Response Recorded Date/ Time Do we have a copy on file here at [facility]? No May 23, 2016 9:44am Does patient have an Advanced Directive? No December 09, 2012 11:08am Pt has a Living Will? No December 09, 2012 11:08am Pt has a Power of Neurosurgical Nurse Practitioner? No Deco 2012 11:08am Hospital Discharge Instructions No known hospital discharge instructions. Hospital Discharge Medications Medication Dose Units Route Sig Qty Days Order Date Status Ins tructions Levonorgestrel-Et hinyl Estrad September Active Amoxicillin-Pot Clavulanate 1 TAB ORAL TWICE A DAY 14 September 062017 Active Encounters Encounter Facility Location Admit/Visit Date Discharge/Departure Date Attending Provider Departed Referred [facility] [place] March 21, 2018 7:00pm March 21, 2018 7:01pm Jyothi Arteaga Departed Clinical [facility] December 21, 2017 4:52pm December 21, 2017 4:53pm Arik Rosas Departed Clinical [facility] November 09, 2017 2:36pm November 09, 2017 2:37pm Felicia Rodrigez Departed Emergency [facility] Urgent [facility] September 26, 2017 2:24pm September 26, 2017 2:59pm Functional Status No known functional status. Immunizations No known immunizations. Payers Payer Name Policy Type Covered Green Party Covered Green Party Id Relationship Subscriber Subscriber Id [place] Medicaid FAITH RAMSES [id number] Self/Same as Patient TERA RAMSES [id number] SELF PAY Personal [place] MEDICAID (DO NOT USE) Medicaid TERA RAMSES [id number] Self/Same as Patient TERA PEARCE [id number] Plan of Care No Known Plan of Care Information Social History Query Response Start Date Stop Date Smoking Status Never smoker Vital Signs Vital Reading Result Reference Range Collection Date/Time Height n/a Weight 105.687 kg September 26, 2017 2 :36pm Temperature 98.7 F 97.6 F-99.6 F September 26, 2017 2:36pm Pulse 66 BPM 56-106 September 26, 2017 2 :36pm Respiration 17 RPM 16-24 September 26, 2017 2 :36pm Pulse Oximetry 98 % 95-100 September 26, 2017 2:36pm Blood Pressure Systolic 120 102-133 September 26, 2017 2:36pm Blood Pressure Diastolic 76 61-85 Sep 2:36pm Body Mass Index n/a
--- OUTSIDE RECORDS SUMMARY | 2023-02-16 11:46 | XMS_ITS | Continuity of Care Document ---
Author Name [facility] Address [address] [place] [address] Organization [facility] Address [address] [place] [address] Care Team Providers Care Director Of Global Sales Name Role Phone Jyothi Arteaga Primary Care Physician [phone] Allergies, Adverse Reactions, Alerts No known allergies. Medications Active Medications Medication Dose Units Route Sig Qty Start Date St atus Levonorgestrel-Ethiny l Estrad 1 TAB ORAL DAILY 84 November 08, 2019 Ac tive Ondansetron Hcl [Zofran] 4 MG ORAL Q8H PRN For naus ea and vomiting 7 September 12, 2020 Active Famotidine 20 MG ORAL THREE TIMES A DAY PRN For acid reflux 90 August 30, 2020 Active Fluoxetine 20 MG ORAL DAILY 30 August 30, 2020 Active Ondansetron 4 MG ORAL Q8H PRN For n ausea and vomiting 14 September 30, 2020 Active Discontinued Medications Medication Dose Units Route Sig Qty Start Date Discontinued Date Status Levonorgestrel- Ethinyl Estrad 1 TAB ORAL DAILY 84 August 17, 2018 November 08, 2019 Discontinued Fluoxetine 10 MG ORAL DAILY 30 June 17, 2020 July 12, 2020 Discontinued flu vac [id number] 36mos up(PF) 60 MCG INTRAMUSCULAR ONCE 0.5 July 27, 2018 July 27, 2018 Discontinued tuberculin PPD 0.1 ML INTRADERMAL ONCE 0.1 JulyJuly 06, 2018 Discontinued Menactra (PF) (mening vac [id number] dip (PF)) 4 mcg/0.5 mL intramuscular solution 0.5 ML INTRAMUSCULAR ONCE 0.5 August 30, 2020 August 30, 2020 Discontinued Fluoxetine 20 MG ORAL DAILY 30 July 12, 2020 August 19, 2020 Discontinued Fluoxetine 20 MG ORAL DAILY 30 August 19, 2020 August 30, 2020 Discontinued Levonorgestrel- Ethinyl Estrad [Vienva] September 26, 2017 August 17, 2018 Discontinued Amoxicillin-Pot Clavulanate [Augmentin] 1 TAB ORAL TWICE A DAY 14 September 26, 2017 July 27, 2018 Discontinued flu vacc [id number] 6mos up(PF) 0.5 ML INTRAMUSCULAR ONCE 0.5 May 01, 2020 May 01, 2020 Discontinued Problem List Active Problems Medical Problem Onset Date Status Effusion of knee December 06, 2017 Benign mole Active Otalgia June 11, 2016 Anxiety Trauma and stressor-related disorder Acute pain of right foot Active Acute right ankle pain Active Anxiety and depression Encounter for well [...] Office Contact Location October 07, 2020 Jyothi Artegaa [phone] [facility] [place] [address] Relevant Diagnostic Tests and/or Laboratory Data Laboratory Results Test Date/Time Result Interp. Ref. Range Result Comment Urine Test (Clinic) September 12, 2020 4:12pm negative Urine Color (Manual) September 12, 2020 4:12pm [place] Urine Clarity (Manual) September 12, 2020 4:12pm Clear POC Urine Glucose September 12, 2020 4:12pm Negative POC Urine Bilirubin Confirmation September 12, 2020 4:12pm Negative Urine Ketones (Manual) September 12, 2020 4:12pm Large (+++) Urine Specific [place] (Manual) September 12, 2020 4:12pm 1.015 POC [...] September 12, 2020 4:01pm 6.5 Urine Specific [place] September 12, 2020 4:01pm 1.015 Urine Protein [...] sheets for providers can be found at: fda.gov/media/80833 5/download Fact sheets for patients can be found at: fda.gov/media/43075 7/download TB Test (QFT) Antigen Minus Nil [...] of Tuberculosis in Adults and Children [Renzoinsohn DM et. al. Clin. Infect. Dis. 2017;64(2):111-115] [...] 0.01 IU/mL Test Performed b y: [facility] [address] [place] [address] Director Of Recruitment: Boone Escudero M.D. Ph.D.; [facility]# [id number] Microbiology Results Procedure Source Result Collection Date/Time Result Date/Time Group A Streptococcus Screen (YVES) Throat No results entered November 26, 2019 2:11pm Group A Streptococcus Screen (YVES) Throat No results entered May 20, 2020 1:55pm Urine Culture Ur,Clean Catch No results entered September 12, 2020 4:01pm Hospital Discharge Instructions Additional Discharge Instructions We are still waiting on the final read of your x-rays. I question whether there is a fracture at the base of your fifth metatarsal (outside of your foot); alternatively this may represent a small extra bone that can be normal in some people. However, you do have some tenderness to this area. Therefore, I recommend in the meantime you remain nonweightbearing unless you are wearing her walking boot. You would benefit from ice, elevation and compression. For your open wound, I recommend washing with soap and water. Keep covered in any environment where it could become dirty. Monitor for signs of infection including redness, pus drainage, increased pain/swelling, fevers and return to urgent care if you develop the symptoms. Call your PCP on Wednesday morning to schedule a follow-up appointment. If the radiologist feels you have an acute fracture, you may be referred to orthopedics. If a fracture is felt to be present, we will call you tomorrow with the radiologist report. No Instructions/Education Pr ovided Hospital Discharge Medications Medication Dose Units Route Sig Qty Days Order Date Status Ins tructions Levonorgestrel -Ethinyl Estrad 1 TAB ORAL DAILY 84 August 17, 2018 Discontinu ed Levonorgestrel -Ethinyl Estrad 1 TAB ORAL DAILY 84 November 08, 2019 Active Fluoxetine 10 MG ORAL DAILY 30 June 17, 2020 Discontinu ed flu vac [id number] 36mos up(PF) 60 MCG INTRAMUSCU LAR ONCE [...] Fluoxetine 20 MG ORAL DAILY 30 July Discontinu ed Fluoxetine 20 MG ORAL DAILY 30 August 19, 2020 Discontinu ed Levonorgestrel -Ethinyl Estrad September 26, 2017 Discontinu ed Amoxicillin-Po t Clavulanate 1 TAB ORAL TWICE A DAY 14 September 26, 2017 Discontinu ed Ondansetron 4 MG ORAL Q8H PRN For nausea and vomiting 14 September 30, 2020 Active flu vacc [id number] 6mos up(PF) 0.5 ML INTRAMUSCU LAR ONCE 0.5 May 01, 2020 Discontinu ed Encounters Encounter Facility Location Admit/Visit Date Discharge/Departure Date Attending Provider Departed Emergency [facility] Urgent [facility] October 11, 2020 7:11pm October 11, 2020 9:23pm Departed Clinical [facility] Cardiology October 08, 2020 1:55pm October 08, 2020 1:56pm Jyothi Arteaga Departed Physician/Pr ovider Office Visit [facility] Cardiology October 08, 2020 1:50pm October 08, 2020 11:59pm Diann Oakes Departed Physician/Pr ovider Office Visit [facility] October 07, 2020 12:53pm October 07, 2020 2:16pm Jyothi Arteaga Departed Emergency [facility] Emergency Department 2020 8:52am 2020 10:22am Departed Emergency [facility] Emergency Department September 30, 2020 4:35pm September 30, 2020 8:56pm Departed Emergency [facility] Urgent [facility] September 30, 2020 2:40pm September 30, 2020 4:44pm Departed Referred [facility] Lab [facility] [place] September 12, 2020 4:01pm September 12, 2020 4:02pm Ian Garcia Departed Physician/Pr ovider Office Visit [facility] September 12, 2020 3:24pm September 12, 2020 4:17pm Ian Garcia Departed Clinical [facility] Laboratory August 30, 2020 2:39pm August 30, 2020 2:40pm Jyothi Arteaga Departed Physician/Pr ovider Office Visit [facility] August 30, 2020 1:59pm August 30, 2020 4:00pm Jyothi Arteaga Departed Physician/Pr ovider Office Visit [facility] August 19, 2020 8:59am August 19, 2020 11:18am Jyothi Arteaga Departed Physician/Pr ovider Office Visit [facility] August 06, 2020 8:07am August 06, 2020 3:16pm Joi Herman Departed Emergency [facility] Emergency Department July 27, 2020 3:43pm July 27, 2020 5:11pm Departed Physician/Pr ovider Office Visit [facility] July 24, 2020 7:51am July 24, 2020 1:52pm Joi Herman Departed Physician/Pr ovider Office Visit [facility] Occupational Health [facility] July 18, 2020 2:47pm July 18, 2020 2:47pm Windy Contreras Departed Physician/Pr ovider Office Visit [facility] July 12, 2020 7:56am July 12, 2020 11:59pm Jyothi Arteaga Departed Physician/Pr ovider Office Visit [facility] July 09, 2020 10:31am July 09, 2020 9:21pm Joi Herman Departed Emergency [facility] Emergency Department July 04, 2020 10:57am July 04, 2020 11:59am Departed Clinical [facility] June 27, 2020 8:16am June 27, 2020 8:17am Windy Contreras Departed Physician/Pr ovider Office Visit [facility] June 21, 2020 7:52am June 21, 2020 3:38pm Joi Herman Departed Physician/Pr ovider Office Visit [facility] June 21, 2020 7:50am June 21, 2020 11:59pm Jyothi Arteaga Departed Physician/Pr ovider Office Visit [facility] June 14, 2020 3:05pm June 14, 2020 11:59pm Jyothi Arteaga Departed Referred [facility] LAB [facility] May 20, 2020 1:55pm May 20, 2020 1:56pm Nadege Parker Departed Physician/Pr ovider Office Visit [facility] May 20, 2020 1:16pm May 20, 2020 2:13pm Nadege Parker Departed Clinical [facility] May 20, 2020 8:31am May 20, 2020 8:32am Twyla Navarrete Departed Physician/Pr ovider Office Visit [facility] Occupational [facility] May 19, 2020 10:40am May 19, 2020 11:59pm Twyla Navarrete Departed Clinical [facility] May 01, 2020 11:04am May 01, 2020 11:05am Windy Contreras Departed Physician/Pr ovider Office Visit [facility] Occupational [facility] May 01, 2020 10:09am May 01, 2020 12:58pm Referral, Self Departed Physician/Pr ovider Office Visit [facility] February 14, 2020 7:43am February 14, 2020 11:49am Joi Herman Departed Physician/Pr ovider Office Visit [facility] January 12, 2020 2:30pm January 12, 2020 3:38pm Jyothi Arteaga Departed Emergency [facility] November 26, 2019 1:42pm November 26, 2019 2:22pm Departed Physician/Pr ovider Office Visit [facility] November 08, 2019 8:50am November 08, 2019 11:13am Joi Herman Departed Physician/Pr ovider Office Visit [facility] October 23, 2019 3:55pm October [...] 8:30pm Smoking Status Current every day smoker October 11, 2020 8:30pm Substance/Street Drug Use Yes October 11, 2020 8:30pm QHS marijuana as of 09/30/20 alcohol intake frequency holidays/special occasions only October 11, 2020 8:30pm substance use type marijuana October 11 8:30pm Query Response Start Date Stop Date Smoking Status Current every day smoker Vital Signs Vital Reading Result Reference Range Collection Date/Time Height 5 ft 5 in October 11, 2020 7:49pm Weight 100.698 kg October 11, 2020 7:49pm Temperature 98.8 F 97.6 F-99.6 F October 11, 2020 7:49pm Pulse 88 BPM 56-106 October 11, 2020 7:49pm Respiration 20 RPM 16-24 October 11, 2020 7:49pm Pulse Oximetry 97 % 95-100 October 11 7:49pm Blood Pressure Systolic 124 102-[address] 2020 7:49pm Blood Pressure Diastolic 67 61-85 Aug ust 2020 7:49pm Body Mass Index 41.3 August 30 2:02pm
--- OUTSIDE RECORDS SUMMARY | 2023-02-16 11:46 | XMS_ITS | Continuity of Care Document ---
Author Name [facility] Address [address] [place] [id number] Organization [facility] Address [address] [place] [address] Care Team Providers Care Laborer Pullet Farm Name Role Phone Jyothi Arteaga Primary Care Physician [phone] Allergies, Adverse Reactions, Alerts No known allergies. [...] December 20, 2020 Disconti nued flu vac [id number] 36mos up(PF) 60 MCG INTRAMUS CULAR ONCE [...] November 04, 2020 Disconti nued flu vacc [id number] 6mos up(PF) 0.5 ML INTRAMUS CULAR ONCE [...] ed Chest 1 vw February 22, 2021 active [...] Contact Location October 07, 2020 Jyothi Arteaga [phone] [facility] [place] [address] Relevant Diagnostic Tests and/or Laboratory Data Laboratory [...] November 19, 2020 11:18am Negative Urine Specific [place] (Manual) November 19, 2020 11:18am 1.020 POC [...] September 12, 2020 4:01pm 6.5 Urine Specific [place] September 12, 2020 4:01pm 1.015 Urine Protein [...] sheets for providers can be found at: PrestoBox.gov/media/42047 5/download Fact sheets for patients can be found at: Presto[employer].gov/Personal Life Media/87148 7/download TB Test (QFT) Antigen Minus Nil [...] 10:30am 0.01 IU/mL Test Performed b y: [facility] [address] [id number] Regrader: Boone Escudero M.D. Ph.D.; CLIA# [id number] Microbiology Results Procedure Source Result Collection Date/Time [...] November 04, 2020 Discontinu ed flu vac [id number] 36mos up(PF) 60 MCG INTRAMUSCU LAR ONCE [...] September 30, 2020 Discontinu ed flu vacc [id number] 6mos up(PF) 0.5 ML INTRAMUSCU LAR ONCE 0.5 May 01, 2020 Discontinu ed Encounters Encounter Facility Location Admit/Visit Date Discharge/Departure Date Attending Provider Registered Emergency [facility] Emergency Department February 22, 2021 1:48pm Departed Emergency [facility] February 22, 2021 12:49pm February 22, 2021 1:47pm Departed Emergency [facility] Emergency Department December 21, 2020 8:46am December 21, 2020 12:00pm Departed Physician/Pr ovider Office Visit [facility] December 20, 2020 4:18pm December 20, 2020 4:47pm Maite Garcia Departed Physician/Pr ovider Office Visit [facility] Pediatric[facility] November 19, 2020 10:32am November 19, 2020 11:29am Felicia Rodrigez Departed Physician/Pr ovider Office Visit [facility] November 15, 2020 2:11pm November 15, 2020 2:55pm Antwon Jackson Departed Physician/Pr ovider Office Visit [facility] Pediatric[facility] November 04, 2020 10:01am November 04, 2020 10:26am Jyothi Arteaga Departed Physician/Pr ovider Office Visit [facility] October 16, 2020 1:25pm October 16, 2020 1:55pm Antwon Jackson Departed Emergency [facility] Urgent [facility] October 11, 2020 7:11pm October 11, 2020 9:23pm Departed Clinical [facility] Cardiology October 08, 2020 1:55pm October 08, 2020 1:56pm Jyothi Arteaga Departed Physician/Pr ovider Office Visit [facility] Cardiology October 08, 2020 1:50pm October 08, 2020 11:59pm Diann Oakes Departed Physician/Pr ovider Office Visit [facility] Pediatric[facility] October 07, 2020 12:53pm October 07, 2020 2:16pm Jyothi Arteaga Departed Emergency [facility] Emergency Department 2020 8:52am 2020 10:22am Departed Emergency [facility] Emergency Department September 30, 2020 4:35pm September 30, 2020 8:56pm Departed Emergency [facility] September 30, 2020 2:40pm September 30, 2020 4:44pm Departed Referred [facility] Lab [facility] [place] September 12, 2020 4:01pm September 12, 2020 4:02pm Ian Garcia Departed Physician/Pr ovider Office Visit [facility] September 12, 2020 3:24pm September 12, 2020 4:17pm Ian Garcia Departed Clinical [facility] Laboratory August 30, 2020 2:39pm August 30, 2020 2:40pm Jyothi Arteaga Departed Physician/Pr ovider Office Visit [facility] August 30, 2020 1:59pm August 30, 2020 4:00pm Jyothi Arteaga Departed Physician/Pr ovider Office Visit [facility] August 19, 2020 8:59am August 19, 2020 11:18am Jyothi Arteaga Departed Physician/Pr ovider Office Visit [facility] August 06, 2020 8:07am August 06, 2020 3:16pm Joi Herman Departed Emergency [facility] Emergency Department July 27, 2020 3:43pm July 27, 2020 5:11pm Departed Physician/Pr ovider Office Visit [facility] July 24, 2020 7:51am July 24, 2020 1:52pm Joi Herman Departed Physician/Pr ovider Office Visit [facility] Occupational Health [facility] July 18, 2020 2:47pm July 18, 2020 2:47pm Windy Contreras Departed Physician/Pr ovider Office Visit [facility] July 12, 2020 7:56am July 12, 2020 11:59pm Jyothi Arteaga Departed Physician/Pr ovider Office Visit [facility] July 09, 2020 10:31am July 09, 2020 9:21pm Joi Herman Departed Emergency [facility] Emergency Department July 04, 2020 10:57am July 04, 2020 11:59am Departed Clinical [facility] June 27, 2020 8:16am June 27, 2020 8:17am Windy Contreras Departed Physician/Pr ovider Office Visit [facility] June 21, 2020 7:52am June 21, 2020 3:38pm Joi Herman Departed Physician/Pr ovider Office Visit [facility] June 21, 2020 7:50am June 21, 2020 11:59pm Jyothi Arteaga Departed Physician/Pr ovider Office Visit [facility] June 14, 2020 3:05pm June 14, 2020 11:59pm Jyothi Arteaga Departed Referred [facility] LAB [facility] May 20, 2020 1:55pm May 20, 2020 1:56pm Nadege Parker Departed Physician/Pr ovider Office Visit [facility] May 20, 2020 1:16pm May 20, 2020 2:13pm Nadege Parker Departed Clinical [facility] May 20, 2020 8:31am May 20, 2020 8:32am Twyla Navarrete Departed Physician/Pr ovider Office Visit [facility] May 19, 2020 10:40am May 19, 2020 11:59pm Twyla Navarrete Departed Clinical [facility] May 01, 2020 11:04am May 01, 2020 11:05am Windy Contreras Departelvis Physician/Pr ovider Office Visit [facility] Occupational Health [facility] May 01, 2020 10:09am May [...]
--- OUTSIDE RECORDS SUMMARY | 2023-02-16 11:46 | XMS_ITS | Continuity of Care Document ---
Author Name [facility] Address [address] [place] [address] Organization [facility] Address [address] [place] [address] Care Team Providers Care Photography Editor Name Role Phone Juan Carlos Santana JR [...] December 20, 2020 Disconti nued flu vac [id number] 36mos up(PF) 60 MCG INTRAMUS CULAR ONCE [...] November 04, 2020 Disconti nued flu vacc [id number] 6mos up(PF) 0.5 ML INTRAMUS CULAR ONCE [...] November 19, 2020 11:18am Negative Urine Specific [place] (Manual) November 19, 2020 11:18am 1.020 POC [...] September 12, 2020 4:01pm 6.5 Urine Specific [place] September 12, 2020 4:01pm 1.015 Urine Protein [...] November 04, 2020 Discontinu ed flu vac [id number] 36mos up(PF) 60 MCG INTRAMUSCU LAR ONCE [...] vomiting 14 September 30, 2020 Discontinu ed Amitriptyline MG [facility] 2021 Active flu vacc [id number] 6mos up(PF) 0.5 ML INTRAMUSCU LAR ONCE 0.5 May 01, 2020 Discontinu ed Encounters Encounter Facility Location Admit/Visit Date Discharge/Departure Date Attending Provider Departed Emergency [facility] Emergency Department June 28, 2021 8:12pm June 28, 2021 9:35pm Departed Emergency [facility]gent [facility] May 12, 2021 11:36am May 12, 2021 12:40pm Departed Physician/Pr ovider Office Visit [facility] BUSINESS ASST May 01, 2021 2:45pm May 01, 2021 3:00pm Fortunato Quezada Departed Clinical [facility] April 24, 2021 9:03am April 24, 2021 9:04am Juan Carlos Santana JR Departed Clinical [facility] April 01, 2021 9:05am April 01, 2021 9:06am Juan Carlos Santana JR Departed Referred [facility] March 27, 2021 6:39pm March 27, 2021 6:40pm Juan Carlos Santana JR Registered Inpatient [facility] March 06, 2021 3:15pm Soni Santa Departed Emergency [facility] Emergency Department February 22, 2021 1:48pm February 22, 2021 5:28pm Departed Emergency [facility] Urgent [facility] February 22, 2021 12:49pm February 22, 2021 1:47pm Departed Emergency [facility] Emergency Department December 21, 2020 8:46am December 21, 2020 12:00pm Departed Physician/Pr ovider Office Visit [facility] Pediatric[facility] December 20, 2020 4:18pm December 20, 2020 4:47pm Maite Garcia Departed Physician/Pr ovider Office Visit [facility] November 19, 2020 10:32am November 19, 2020 11:29am Felicia Rodrigez Departed Physician/Pr ovider Office Visit [facility] Orthopedic&Cesar ab November 15, 2020 2:11pm November 15, 2020 2:55pm Antwon Jackson Departed Physician/Pr ovider Office Visit [facility] November 04, 2020 10:01am November 04, 2020 10:26am Jyothi Arteaga Departed Physician/Pr ovider Office Visit [facility]opedic[facility]Cesar [facility] October 16, 2020 1:25pm October 16, 2020 1:55pm Antwon Jackson Departed Emergency [facility] Urgent [facility] October 11, 2020 7:11pm October 11, 2020 9:23pm Departed Clinical [facility] Cardiology October 08, 2020 1:55pm October 08, 2020 1:56pm Jyothi Arteaga Departed Physician/Pr ovider Office Visit [facility] Cardiology October 08, 2020 1:50pm October 08, 2020 11:59pm Diann Oakes Departed Physician/Pr ovider Office Visit [facility] October 07, 2020 12:53pm October 07, 2020 2:16pm Jyothi Arteaga Departed Emergency [facility] Emergency Department 2020 8:52am 2020 10:22am Departed Emergency [facility] Emergency Department September 30, 2020 4:35pm September 30, 2020 8:56pm Departed Emergency [facility]gent [facility] September 30, 2020 2:40pm September 30, 2020 4:44pm Departed Referred [facility] Lab [facility] [place] September 12, 2020 4:01pm September 12, 2020 4:02pm Ian Garcia Departed Physician/Pr ovider Office [place] [facility] September 12, 2020 3:24pm September 12, 2020 4:17pm Ian Garcia Departed Clinical [facility] Laboratory August 30, 2020 2:39pm August 30, 2020 2:40pm Jyothi Arteaga Departed Physician/Pr ovider Office Visit [facility] August 30, 2020 1:59pm August 30, 2020 4:00pm Jyothi Arteaga Departed Physician/Pr ovider Office Visit [facility] August 19, 2020 8:59am August 19, 2020 11:18am Jyothi Arteaga Departed Physician/Pr ovider Office Visit [facility] August 06, 2020 8:07am August 06, 2020 3:16pm Joi Herman Departed Emergency [facility] Emergency Department July 27, 2020 3:43pm July 27, 2020 5:11pm Departed Physician/Pr ovider Office Visit [facility] July 24, 2020 7:51am July 24, 2020 1:52pm Joi Herman Departed Physician/Pr ovider Office Visit [facility] July 18, 2020 2:47pm July 18, 2020 2:47pm Windy Contreras Departed Physician/Pr ovider Office Visit [facility] July 12, 2020 7:56am July 12, 2020 11:59pm Jyothi Arteaga Departed Physician/Pr ovider Office Visit [facility] July 09, 2020 10:31am July 09, [...] Drug Use Yes June 28, 2021 9:08pm [facility] marijuana as of 09/30/20 alcohol intake [...] June 28, 2021 8:40pm Respiration 20 RPM 16-24 June 28, 2021 8:40pm Pulse Oximetry 99 % 95-100 June 28 8:40pm Blood Pressure Systolic 131 102-133 Apri l 2021 8:40pm Blood Pressure Diastolic 76 61-85 Apr il 2021 8:40pm Body Mass Index 37.0 November 2:21pm
--- OUTSIDE RECORDS SUMMARY | 2023-02-16 11:47 | XMS_ITS | Continuity of Care Document ---
Author Name [facility] Address [address] [place] [id number] Organization [facility] Address [address] [place] [id number] Care Team Providers Care Stock Manager Name Role Phone Jyothi Arteaga Primary Care [...] 2020 July 12, 2020 Discontinued flu vac [id number] 36mos up(PF) 60 MCG INTRAMUSCULAR ONCE 0.5 [...] 2017 July 27, 2018 Discontinued flu vacc [id number] 6mos up(PF) 0.5 ML INTRAMUSCULAR ONCE 0.5 May 01, 2020 May 01, 2020 Discontinued Problem List Active Problems Medical Problem Onset Date Status Effusion of knee December 06, 2017 Benign mole Active Otalgia June 11, 2016 Anxiety Trauma and stressor-related disorder Anxiety and depression Encounter for well child check without abnormal findings Active Acute pharyngitis Active Knee pain November 09, 2017 Abdominal pain Active Foreign body of left eyelid Acti ve Inactive/Resolved Problems Medical Problem Onset Date Status Abdominal pain, RUQ Inactive Acute foot pain Inactive Acute viral pharyngitis Inactive Abdominal pain Inactive Vomiting Inactive Contusion of hand, right Inactiv e Laceration of foot, left Inactiv e Sprain of hand, right Inactive Procedures Procedure Date Status US Abdomen (Limited) 2020 completed ED US Abdominal Limited September 30, 2020 complete d Urine Culture September 12, 2020 completed Hand 3 vw Min RT July 27, 2020 completed Foot 3 vw Min LT July 04, 2020 completed Group A Streptococcus Screen (YVES) May 20 completed Group A Streptococcus Screen (YVES) November 26, 2019 completed Relevant Diagnostic Tests and/or Laboratory Data Laboratory Results Test Date/Time Result Interp. Ref. Range Result Comment Urine Test (Clinic) September 12, 2020 4:12pm negative Urine Color (Manual) September 12, 2020 4:12pm [place] Urine Clarity (Manual) September 12, 2020 4:12pm Clear POC Urine Glucose September 12, 2020 4:12pm Negative POC Urine Bilirubin Confirmation September 12, 2020 4:12pm Negative Urine Ketones (Manual) September 12, 2020 4:12pm Large (+++) Urine Specific [place] (Manual) September 12, 2020 4:12pm 1.015 POC [...] September 12, 2020 4:01pm 6.5 Urine Specific [place] September 12, 2020 4:01pm 1.015 Urine Protein [...] sheets for providers can be found at: [employer]/media/05148 5/download Fact sheets for patients can be found at: [employer]/media/42316 7/download TB Test (QFT) Antigen Minus Nil [...] 10:30am 0.01 IU/mL Test Performed b y: [facility] [address] [place] [address] Mitten Stitcher: Boone Escudero M.D. Ph.D.; [facility]# [id number] Microbiology Results Procedure Source Result Collection Date/Time Result Date/Time Group A Streptococcus Screen (YVES) Throat No results entered November 26, 2019 2:11pm Group A Streptococcus Screen (YVES) Throat No results entered May 20, 2020 1:55pm Urine Culture Ur,Clean Catch No results entered September 12, 2020 4:01pm Chief Complaint and Reason for Visit Encounter Admit Date Chief Complaint Reason for V isit Departed Emergency 2020 8:52am F/U [facility] Hospital Discharge Instructions No known hospital discharge instructions. Hospital Discharge Medications Medication Dose Units Route Sig Qty Days Order Date Status Ins tructions Levonorgestrel -Ethinyl Estrad 1 TAB ORAL DAILY 84 August 17, 2018 Discontinu ed Levonorgestrel -Ethinyl Estrad 1 TAB ORAL DAILY 84 November 08, 2019 Active Fluoxetine 10 MG ORAL DAILY June 17, 2020 Discontinu ed flu vac [id number] 36mos up(PF) 60 MCG INTRAMUSCU LAR ONCE [...] vomiting September 30, 2020 Active flu vacc [id number] 6mos up(PF) 0.5 ML INTRAMUSCU LAR ONCE 0.5 May 01, 2020 Discontinu ed Encounters Encounter Facility Location Admit/Visit Date Discharge/Departure Date Attending Provider Departed Emergency [facility] Emergency Department 2020 8:52am 2020 10:22am Departed Emergency [facility] Emergency Department September 30, 2020 4:35pm September 30, 2020 8:56pm Departed Emergency [facility] Urgent [facility] September 30, 2020 2:40pm September 30, 2020 4:44pm Departed Referred [facility] [place] September 12, 2020 4:01pm September 12, 2020 4:02pm Ian Garcia Departed Physician/Pr ovider Office Visit [facility] September 12, 2020 3:24pm September 12, 2020 4:17pm Ian Garcia Departed Clinical [facility] Laboratory August 30, 2020 2:39pm August 30, 2020 2:40pm Jyothi Arteaga Departed Physician/Pr ovider Office Visit [facility] August 30, 2020 1:59pm August 30, 2020 4:00pm Jyothi Arteaga Departed Physician/Pr ovider Office Visit [facility] August 19, 2020 8:59am August 19, 2020 11:18am Jyothi Arteaga Departed Physician/Pr ovider Office Visit [facility] August 06, 2020 8:07am August 06, 2020 3:16pm Joi Herman Departed Emergency [facility] Emergency Department July 27, 2020 3:43pm July 27, 2020 5:11pm Departed Physician/Pr ovider Office Visit [facility] July 24, 2020 7:51am July 24, 2020 1:52pm Joi Herman Departed Physician/Pr ovider Office Visit [facility] Occupational Health [facility] Employee Health July 18, 2020 2:47pm July 18, 2020 2:47pm Windy Contreras Departed Physician/Pr ovider Office Visit [facility] July 12, 2020 7:56am July 12, 2020 11:59pm Jyothi Arteaga Departed Physician/Pr ovider Office Visit [facility] July 09, 2020 10:31am July 09, 2020 9:21pm Joi Herman Departed Emergency [facility] Emergency Department July 04, 2020 10:57am July 04, 2020 11:59am Departed Clinical [facility] June 27, 2020 8:16am June 27, 2020 8:17am Windy Contreras Departed Physician/Pr ovider Office Visit [facility] June 21, 2020 7:52am June 21, 2020 3:38pm Joi Herman Departed Physician/Pr ovider Office Visit [facility] June 21, 2020 7:50am June 21, 2020 11:59pm Jyothi Arteaga Departed Physician/Pr ovider Office Visit [facility] June 14, 2020 3:05pm June 14, 2020 11:59pm Jyothi Arteaga Departed [facility] May 20, 2020 1:55pm May 20, 2020 1:56pm Nadege Parker Departed Physician/Pr ovider Office Visit [facility] May 20, 2020 1:16pm May 20, 2020 2:13pm Nadege Parker Departed Clinical [facility] May 20, 2020 8:31am May 20, 2020 8:32am Twyla Navarrete Departed Physician/Pr ovider Office Visit [facility] May 19, 2020 10:40am May 19, 2020 11:59pm Twyla Navarrete Departed Clinical [facility] May 01, 2020 11:04am May 01, 2020 11:05am Windy Contreras Departed Physician/Pr ovider Office Visit [facility] May 01, 2020 10:09am May 01, 2020 12:58pm Referral, Self Departed Physician/Pr ovider Office Visit [facility] Pediatrics [facility] February 14, 2020 7:43am February 14, 2020 11:49am Joi Herman Departed Physician/Pr ovider Office Visit [facility] January 12, 2020 2:30pm January 12, 2020 3:38pm Jyothi Arteaga Departed Emergency [facility] Urgent [facility] November 26, 2019 1:42pm November 26, 2019 2:22pm Departed Physician/Pr ovider Office Visit [facility] November 08, 2019 8:50am November 08, 2019 11:13am Joi Herman Departed Physician/Pr ovider Office Visit [facility] October 23, 2019 3:55pm October 23, 2019 9:38pm Joi Herman Departed Physician/Pr ovider Office Visit [facility] October 04, 2019 8:50am October 04, 2019 11:08pm Jio Herman Functional Status Query Response Date Recorded [...] 7:16pm Smoking Status Current every day smoker September 30, 2020 7:16pm Substance/Street Drug Use Yes September 30, 2020 7:16pm [facility] marijuana as of 09/30/20 alcohol intake frequency holidays/special occasions only September 30, 2020 7:16pm substance use type marijuana September 30, 2020 7:16pm Query Response Start Date Stop Date Smoking Status Current every day smoker Vital Signs Vital Reading Result Reference Range Collection Date/Time Height 5 ft 5 in September 30, 2020 4 :46pm Weight 103 kg 2020 8 :54am Temperature 97.4 F 97.6 F-99.6 F September 30, 2020 4:46pm Pulse 70 BPM 56-106 September 30, 2020 8 :55pm Respiration 18 RPM 16-24 September 30, 2020 8 :55pm Pulse Oximetry 97 % 95-100 September 30, 2020 8:55pm Blood Pressure Systolic 119 102-133 September 30, 2020 8:55pm Blood Pressure Diastolic 70 61-85 Sep 8:55pm Body Mass Index 41.3 August 30 2:02pm
--- OUTSIDE RECORDS SUMMARY | 2023-02-16 11:47 | XMS_ITS | Continuity of Care Document ---
Author Name [facility] Address [address] [place] [id number] Organization [facility] Address [address] [place] [address] Care Team Providers Care Garment Folder Name Role Phone Juan Carlos Santana JR [...] December 20, 2020 Disconti nued flu vac [id number] 36mos up(PF) 60 MCG INTRAMUS CULAR ONCE [...] November 04, 2020 Disconti nued flu vacc [id number] 6mos up(PF) 0.5 ML INTRAMUS CULAR ONCE [...] November 19, 2020 11:18am Negative Urine Specific [place] (Manual) November 19, 2020 11:18am 1.020 POC [...] September 12, 2020 4:01pm 6.5 Urine Specific [place] September 12, 2020 4:01pm 1.015 Urine Protein [...] sheets for providers can be found at: [employer]gov/media/1362 85/download Fact sheets for patients can be found at: [employer]/Captain Wise/1362 87/download TB Test (QFT) Antigen Minus Nil [...] [Renzoinsedyn JOYCE et. al. Clin. Infect. Dis. 2017;64(2):111-115 [...] 10:30am 0.01 IU/mL Test Performed b y: [facility] [address] [place] [address] Drug Enforcement Administration Agent: Boone Escudero M.D. Ph.D.; [place]# [id number] Microbiology Results Procedure Source Result Collection Date/Time Result Date/Time Group A Streptococcus Screen (YVES) Throat No results entered May 20, 2020 1:55pm Urine Culture Ur,Clean Catch No results entered September 12, 2020 4:01pm Chief Complaint and Reason for Visit Encounter Admit Date Chief Complaint Reason for V isit Registered Clinical April 24, 2021 9:03am [facility] Discharge Instructions No known hospital [...] November 04, 2020 Discontinu ed flu vac [id number] 36mos up(PF) 60 MCG INTRAMUSCU LAR ONCE [...] September 30, 2020 Discontinu ed flu vacc [id number] 6mos up(PF) 0.5 ML INTRAMUSCU LAR ONCE 0.5 May 01, 2020 Discontinu ed Encounters Encounter Facility Location Admit/Visit Date Discharge/Departure Date Attending Provider Registered Clinical [facility] April 24, 2021 9:03am Juan Carlos Santana JR Departed Clinical [facility] April 01, 2021 9:05am April 01, 2021 9:06am Juan Carlos Santana JR Departed Referred [facility] March 27, 2021 6:39pm March 27, 2021 6:40pm Juan Carlos Santana JR Registered Inpatient [facility] Pediatrics [facility] March 06, 2021 3:15pm Soni Santa Departed Emergency [facility] Emergency Department February 22, 2021 1:48pm February 22, 2021 5:28pm Departed Emergency [facility] Urgent [facility] February 22, 2021 12:49pm February 22, 2021 1:47pm Departed Emergency [facility] Emergency Department December 21, 2020 8:46am December 21, 2020 12:00pm Departed Physician/Pr ovider Office Visit [facility] Pediatrics [facility] December 20, 2020 4:18pm December 20, 2020 4:47pm Maite Garcia Departed Physician/Pr ovider Office Visit [facility] Pediatrics [facility] November 19, 2020 10:32am November 19, 2020 11:29am Felicia Rodrigez Departed Physician/Pr ovider Office Visit [facility] Orthopedic&Cesar ab November 15, 2020 2:11pm November 15, 2020 2:55pm Antwon Jackson Departed Physician/Pr ovider Office Visit [facility] Pediatrics [facility] November 04, 2020 10:01am November 04, 2020 10:26am Jyothi Arteaga Departed Physician/Pr ovider Office Visit [facility] Orthopedic&Cesar ab October 16, 2020 1:25pm October 16, 2020 1:55pm Antwon Jackson Departed Emergency [facility] Urgent [facility] October 11, 2020 7:11pm October 11, 2020 9:23pm Departed Clinical [facility] Cardiology October 08, 2020 1:55pm October 08, 2020 1:56pm Jyothi Arteaga Departed Physician/Pr ovider Office Visit [facility] Cardiology October 08, 2020 1:50pm October 08, 2020 11:59pm Diann Oakes Departed Physician/Pr ovider Office Visit [facility] October 07, 2020 12:53pm October 07, 2020 2:16pm Jyothi Arteaga Departed Emergency [facility] Emergency Department 2020 8:52am 2020 10:22am Departed Emergency [facility] Emergency Department September 30, 2020 4:35pm September 30, 2020 8:56pm Departed Emergency [facility] September 30, 2020 2:40pm September 30, 2020 4:44pm Departed Referred [facility] Lab [facility] [place] September 12, 2020 4:01pm September 12, 2020 4:02pm Ian Garcia Departed Physician/Pr ovider Office Visit [facility] September 12, 2020 3:24pm September 12, 2020 4:17pm Ian Garcia Departed Clinical [facility] Laboratory August 30, 2020 2:39pm August 30, 2020 2:40pm Jyothi Arteaga Departed Physician/Pr ovider Office Visit [facility] August 30, 2020 1:59pm August 30, 2020 4:00pm Jyothi Arteaga Departed Physician/Pr ovider Office Visit [facility] August 19, 2020 8:59am August 19, 2020 11:18am Jyothi Arteaga Departed Physician/Pr ovider Office Visit [facility] August 06, 2020 8:07am August 06, 2020 3:16pm Joi Herman Departed Emergency [facility] Emergency Department July 27, 2020 3:43pm July 27, 2020 5:11pm Departed Physician/Pr ovider Office Visit [facility] July 24, 2020 7:51am July 24, 2020 1:52pm Joi Herman Departed Physician/Pr ovider Office Visit [facility] Occupational Health [facility] Employee Health July 18, 2020 2:47pm July 18, 2020 2:47pm Windy Contreras Departed Physician/Pr ovider Office Visit [facility] July 12, 2020 7:56am July 12, 2020 11:59pm Jyothi Arteaga Departed Physician/Pr ovider Office Visit [facility] July 09, 2020 10:31am July 09, 2020 9:21pm Joi Herman Departed Emergency [facility] Emergency Department July 04, 2020 10:57am July 04, 2020 11:59am Departed Clinical [facility] Curbside June 27, 2020 8:16am June 27, 2020 8:17am Windy Contreras Departed Physician/Pr ovider Office Visit [facility] June 21, 2020 7:52am June 21, 2020 3:38pm Joi Herman Departed Physician/Pr ovider Office Visit [facility] June 21, 2020 7:50am June 21, 2020 11:59pm Jyothi Arteaga Departed Physician/Pr ovider Office Visit [facility] June 14, 2020 3:05pm June 14, 2020 11:59pm Jyothi Arteaga Departed Referred [facility] LAB [facility] [place] May 20, 2020 1:55pm May 20, 2020 1:56pm Nadege Parker Departed Physician/Pr ovider Office Visit [facility] Pediatrics May 20, 2020 1:16pm May 20, 2020 2:13pm Nadege Parker Departed Clinical [facility] May 20, 2020 8:31am May 20, 2020 8:32am Twyla Navarrete Departed Physician/Pr ovider Office Visit [facility] May 19, 2020 10:40am May 19, 2020 11:59pm Twyla Navarrete Departed Clinical [facility] May 01, 2020 11:04am May 01, 2020 11:05am Windy Contreras Departed Physician/Pr ovider Office Visit [facility] May 01, 2020 10:09am May 01, [...]
--- OUTSIDE RECORDS SUMMARY | 2023-02-16 11:47 | XMS_ITS | Continuity of Care Document ---
Author Name [facility] Address [address] [place] [id number] Organization [facility] Address [address] [place] [address] Care Team Providers Care Orchid Hand Name Role Phone Juan Carlos Santana JR [...] December 20, 2020 Disconti nued flu vac [id number] 36mos up(PF) 60 MCG INTRAMUS CULAR ONCE [...] November 04, 2020 Disconti nued flu vacc [id number] 6mos up(PF) 0.5 ML INTRAMUS CULAR ONCE [...] November 19, 2020 11:18am Negative Urine Specific [place] (Manual) November 19, 2020 11:18am 1.020 POC [...] September 12, 2020 4:01pm 6.5 Urine Specific [place] September 12, 2020 4:01pm 1.015 Urine Protein [...] sheets for providers can be found at: Chikka.gov/media/1362 85/download Fact sheets for patients can be found at: Chikka.gov/ReelGenie/1362 87/download TB Test (QFT) Antigen Minus Nil [...] 10:30am 0.01 IU/mL Test Performed b y: [facility] [address] [place] [address] Hay Rake Operator: Boone Escudero M.D. Ph.D.; IA# [id number] Microbiology Results Procedure Source Result Collection Date/Time Result Date/Time Group A Streptococcus Screen (YVES) Throat No results entered May 20, 2020 1:55pm Urine Culture Ur,Clean Catch No results entered September 12, 2020 4:01pm Chief Complaint and Reason for Visit Encounter Admit Date Chief Complaint Reason for V isit Departed Clinical April 24, 2021 9:03am Epigastric Pain Hospital Discharge Instructions No known [...] November 04, 2020 Discontinu ed flu vac [id number] 36mos up(PF) 60 MCG INTRAMUSCU LAR ONCE [...] September 30, 2020 Discontinu ed flu vacc [id number] 6mos up(PF) 0.5 ML INTRAMUSCU LAR ONCE 0.5 May 01, 2020 Discontinu ed Encounters Encounter Facility Location Admit/Visit Date Discharge/Departure Date Attending Provider Departed Clinical [facility] April 24, 2021 9:03am April 24, 2021 9:04am Juan Carlos Santana JR Departed Clinical [facility] April 01, 2021 9:05am April 01, 2021 9:06am Juan Carlos Santana JR Departed Referred [facility] March 27, 2021 6:39pm March 27, 2021 6:40pm Juan Carlos Santana JR Registered Inpatient [facility] Pediatric[facility] March 06, 2021 3:15pm Soni Santa Departed Emergency [facility] Emergency Department February 22, 2021 1:48pm February 22, 2021 5:28pm Departed Emergency [facility] Urgent [facility] February 22, 2021 12:49pm February 22, 2021 1:47pm Departed Emergency [facility] Emergency Department December 21, 2020 8:46am December 21, 2020 12:00pm Departed Physician/Pr ovider Office Visit [facility] Pediatrics [facility] December 20, 2020 4:18pm December 20, 2020 4:47pm Maite Garcia Departed Physician/Pr ovider Office Visit [facility] Pediatric[facility] November 19, 2020 10:32am November 19, 2020 11:29am Felicia Rodrigez Departed Physician/Pr ovider Office Visit [facility] Orthopedic[facility]Cesar [facility] November 15, 2020 2:11pm November 15, 2020 2:55pm Antwon Jackson Departed Physician/Pr ovider Office Visit [facility] November 04, 2020 10:01am November 04, 2020 10:26am Jyothi Arteaga Departed Physician/Pr ovider Office Visit [facility]opedic[facility]Cesar [facility] October 16, 2020 1:25pm October 16, 2020 1:55pm Antwon Jackson Departed Emergency [facility] Urgent [facility] October 11, 2020 7:11pm October 11, 2020 9:23pm Departed Clinical [facility] Cardiology October 08, 2020 1:55pm October 08, 2020 1:56pm Jyothi Arteaga Departed Physician/Pr ovider Office Visit [facility] Cardiology October 08, 2020 1:50pm October 08, 2020 11:59pm Diann Oakes Departed Physician/Pr ovider Office Visit [facility] October 07, 2020 12:53pm October 07, 2020 2:16pm Jyothi Arteaga Departed Emergency [facility] Emergency Department 2020 8:52am 2020 10:22am Departed Emergency [facility] Emergency Department September 30, 2020 4:35pm September 30, 2020 8:56pm Departed Emergency [facility] September 30, 2020 2:40pm September 30, 2020 4:44pm Departed Referred [facility] Lab [facility] [place] September 12, 2020 4:01pm September 12, 2020 4:02pm Ian Garcia Departed Physician/Pr ovider Office Visit [facility] September 12, 2020 3:24pm September 12, 2020 4:17pm Ian Garcia Departed Clinical [facility] Laboratory August 30, 2020 2:39pm August 30, 2020 2:40pm Jyothi Arteaga Departed Physician/Pr ovider Office Visit [facility] August 30, 2020 1:59pm August 30, 2020 4:00pm Jyothi Arteaga Departed Physician/Pr ovider Office Visit [facility] August 19, 2020 8:59am August 19, 2020 11:18am Jyothi Arteaga Departed Physician/Pr ovider Office Visit [facility] August 06, 2020 8:07am August 06, 2020 3:16pm Jio Herman Departed Emergency [facility] Emergency Department July 27, 2020 3:43pm July 27, 2020 5:11pm Departed Physician/Pr ovider Office Visit [facility] July 24, 2020 7:51am July 24, 2020 1:52pm Joi Herman Departed Physician/Pr ovider Office Visit [facility] Occupational Health [facility] Employee Health July 18, 2020 2:47pm July 18, 2020 2:47pm Windy Contreras Departed Physician/Pr ovider Office Visit [facility] July 12, 2020 7:56am July 12, 2020 11:59pm Jyothi Arteaga Departed Physician/Pr ovider Office Visit [facility] July 09, 2020 10:31am July 09, 2020 9:21pm Joi Herman Departed Emergency [facility] Emergency Department July 04, 2020 10:57am July 04, 2020 11:59am Departed Clinical [facility] Curbside June 27, 2020 8:16am June 27, 2020 8:17am Windy Contreras Departed Physician/Pr ovider Office Visit [facility] June 21, 2020 7:52am June 21, 2020 3:38pm Joi Herman Departed Physician/Pr ovider Office Visit [facility] June 21, 2020 7:50am June 21, 2020 11:59pm Jyothi Arteaga Departed Physician/Pr ovider Office Visit [facility] June 14, 2020 3:05pm June 14, 2020 11:59pm Jyothi Arteaga Departed Referred [facility] LAB [facility] P[facility] [place] May 20, 2020 1:55pm May 20, 2020 1:56pm Nadege Parker Departed Physician/Pr ovider Office Visit [facility] Pediatrics May 20, 2020 1:16pm May 20, 2020 2:13pm Nadege Parker Departed Clinical [facility] Curbside May 20, 2020 8:31am May 20, 2020 8:32am Twyla Navarrete Departed Physician/Pr ovider Office Visit [facility] May 19, 2020 10:40am May 19, 2020 11:59pm Twyla Navarrete Departed Clinical [facility] May 01, 2020 11:04am May 01, 2020 11:05am Ben Windy Departed Physician/Pr ovider Office Visit [facility] May 01, 2020 10:09am May 01, [...] Drug Use Yes February 22, 2021 3:58pm Q marijuana as of 09/30/20 alcohol intake frequency [...] 5:25pm Blood Pressure Systolic 102 102-133 Dece mb2020 5:25pm Blood Pressure Diastolic 69 61-85 Dec emb2020 5:25pm Body Mass Index 37.0 November 2:21pm
--- OUTSIDE RECORDS SUMMARY | 2023-02-16 11:47 | XMS_ITS | Continuity of Care Document ---
Author Name [facility] Address [address] [place] [address] [facility] Address [address] [place] [address] Care Team Providers Care Windows Mobile Developer Name Role Phone Jyothi Arteaga Primary Care Physician [phone] Allergies, Adverse Reactions, Alerts No known allergies. [...] December 20, 2020 Disconti nued flu vac [id number] 36mos up(PF) 60 MCG INTRAMUS CULAR ONCE [...] November 04, 2020 Disconti nued flu vacc [id number] 6mos up(PF) 0.5 ML INTRAMUS CULAR ONCE [...] Contact Location October 07, 2020 Jyothi Arteaga [phone] [facility] [place] [address] Relevant Diagnostic Tests and/or Laboratory Data Laboratory [...] November 19, 2020 11:18am Negative Urine Specific [place] (Manual) November 19, 2020 11:18am 1.020 POC [...] September 12, 2020 4:01pm 6.5 Urine Specific [place] September 12, 2020 4:01pm 1.015 Urine Protein [...] sheets for providers can be found at: Eggs Overnight.gov/media/1362 85/download Fact sheets for patients can be found at: Eggs Overnight.gov/TextbookTime.com Textbook Time/1362 87/download TB Test (QFT) Antigen Minus Nil [...] y: [facility] [address] [place] [address] Graduate Recruiter: Boone Escudero M.D. Ph.D.; [facility]# [id number] Microbiology Results Procedure Source Result Collection Date/Time Result Date/Time Group A Streptococcus Screen (YVES) Throat No results entered May 20, 2020 1:55pm Urine Culture Ur,Clean Catch No results entered September 12, 2020 4:01pm Chief Complaint and Reason for Visit Encounter Admit Date Chief Complaint Reason for V isit Departed Emergency February 22, 2021 1:48pm SOB,CP & A BD PAIN Hospital Discharge Instructions No known hospital [...] November 04, 2020 Discontinu ed flu vac [id number] 36mos up(PF) 60 MCG INTRAMUSCU LAR ONCE [...] September 30, 2020 Discontinu ed flu vacc [id number] 6mos up(PF) 0.5 ML INTRAMUSCU LAR ONCE 0.5 May 01, 2020 Discontinu ed Encounters Encounter Facility Location Admit/Visit Date Discharge/Departure Date Attending Provider Departed Emergency [facility] Emergency Department February 22, 2021 1:48pm February 22, 2021 5:28pm Departed Emergency [facility] February 22, 2021 12:49pm February 22, 2021 1:47pm Departed Emergency [facility] Emergency Department December 21, 2020 8:46am December 21, 2020 12:00pm Departed Physician/Pr ovider Office Visit [facility] Pediatrics [facility] December 20, 2020 4:18pm December 20, 2020 4:47pm Maite Garcia Departed Physician/Pr ovider Office Visit [facility] November 19, 2020 10:32am November 19, 2020 11:29am Felicia Rodrigez Departed Physician/Pr ovider Office Visit [facility]opedic[facility]esar [facility] November 15, 2020 2:11pm November 15, 2020 2:55pm Antwon Jackson Departed Physician/Pr ovider Office Visit [facility] Pediatrics [facility] November 04, 2020 10:01am November 04, 2020 10:26am Jyothi Arteaga Departed Physician/Pr ovider Office Visit [facility] October 16, 2020 1:25pm October 16, 2020 1:55pm Antwon Jackson Departed Emergency [facility] October 11, 2020 7:11pm October 11, 2020 9:23pm Departed Clinical [facility] Cardiology October 08, 2020 1:55pm October 08, 2020 1:56pm Jyothi Arteaga Departed Physician/Pr ovider Office Visit [facility] Cardiology October 08, 2020 1:50pm October 08, 2020 11:59pm Diann Oakes Departed Physician/Pr ovider Office Visit [facility] Pediatrics [facility] October 07, 2020 12:53pm October 07, 2020 2:16pm Jyothi Arteaga Departed Emergency [facility] Emergency Department 2020 8:52am 2020 10:22am Departed Emergency [facility] Emergency Department September 30, 2020 4:35pm September 30, 2020 8:56pm Departed Emergency [facility] Urgent [facility] September 30, 2020 2:40pm September 30, 2020 4:44pm Departed Referred [facility] Lab [facility] Peds [place] September 12, 2020 4:01pm September 12, 2020 4:02pm Ian Garcia Departed Physician/Pr ovider Office Visit [facility] September 12, 2020 3:24pm September 12, 2020 4:17pm Ian Garcia Departed Clinical [facility] Laboratory August 30, 2020 2:39pm August 30, 2020 2:40pm Jyothi Arteaga Departed Physician/Pr ovider Office Visit [facility] August 30, 2020 1:59pm August 30, 2020 4:00pm Jyothi Arteaga Departed Physician/Pr ovider Office Visit [facility] August 19, 2020 8:59am August 19, 2020 11:18am Jyothi Arteaga Departed Physician/Pr ovider Office Visit [facility] August 06, 2020 8:07am August 06, 2020 3:16pm Joi Herman Departed Emergency [facility] Emergency Department July 27, 2020 3:43pm July 27, 2020 5:11pm Departed Physician/Pr ovider Office Visit [facility] July 24, 2020 7:51am July 24, 2020 1:52pm Joi Herman Departed Physician/Pr ovider Office Visit [facility] Occupational Health [facility] July 18, 2020 2:47pm July 18, 2020 2:47pm Windy Contreras Departed Physician/Pr ovider Office Visit [facility] July 12, 2020 7:56am July 12, 2020 11:59pm Jyothi Arteaga Departed Physician/Pr ovider Office Visit [facility] July 09, 2020 10:31am July 09, 2020 9:21pm Joi Herman Departed Emergency [facility] Emergency Department July 04, 2020 10:57am July 04, 2020 11:59am Departed Clinical [facility] June 27, 2020 8:16am June 27, 2020 8:17am Windy Contreras Departed Physician/Pr ovider Office Visit [facility] June 21, 2020 7:52am June 21, 2020 3:38pm Joi Herman Departed Physician/Pr ovider Office Visit [facility] June 21, 2020 7:50am June 21, 2020 11:59pm Jyothi Arteaga Departed Physician/Pr ovider Office Visit [facility] June 14, 2020 3:05pm June 14, 2020 11:59pm Jyothi Arteaga Departed Referred [facility] LAB [facility] May 20, 2020 1:55pm May 20, 2020 1:56pm Nadege Parker Departed Physician/Pr ovider Office Visit [facility] May 20, 2020 1:16pm May 20, 2020 2:13pm Nadege Parker Departed Clinical [facility] May 20, 2020 8:31am May 20, 2020 8:32am Twyla Navarrete Departed Physician/Pr ovider Office Visit [facility] May 19, 2020 10:40am May 19, 2020 11:59pm Twyla Navarrete Departed Clinical [facility] May 01, 2020 11:04am May 01, 2020 11:05am Windy Contreras Departed Physician/Pr ovider Office Visit [facility] Occupational Health [facility] May 01, [...] 03, 2007 Historical Plan of Care Instructions Severe Abdominal Pain, Adult (DC) Upper Respiratory Infection ED Social History Query Response Date Recorded Comment [...]
--- OUTSIDE RECORDS SUMMARY | 2023-02-16 11:47 | XMS_ITS | Continuity of Care Document ---
Author Name [facility] Address [address] [place] [address] Organization [facility] Address [address] [place] [address] Care Team Providers Care College Service Officer Name Role Phone Jyothi Arteaga Primary Care Physician [phone] Nadege Parker Attending Physician [phone] Allergies, Adverse Reactions, Alerts No known allergies. Medications Active Medications Medication Dose Units Route Sig Qty Start Date St atus Levonorgestrel-Ethinyl Estrad 1 TAB ORAL DAILY 84 November 08, 2019 Active Discontinued Medications Medication Dose Units Route Sig Qty Start Date Di scontinued Date Status Levonorgestre l-Ethinyl Estrad 1 TAB ORAL DAILY 84 August 17, 2018 November 08, 2019 Discontinued flu vac [id number] 36mos up(PF) 60 MCG INTRAMUSCULAR ONCE 0.5 July 27, 2018 July 27, 2018 Discontinued tuberculin PPD 0.1 ML INTRADERMAL ONCE 0.1 July 06, 2018 July 06, 2018 Discontinued Levonorgestre l-Ethinyl Estrad [Vienva] September 26, 2017 August 17, 2018 Discontinued Amoxicillin-P ot Clavulanate [Augmentin] 1 TAB ORAL TWICE A DAY 14 September 26, 2017 July 27, 2018 Discontinued flu vacc [id number] 6mos up(PF) 0.5 ML INTRAMUSCULAR ONCE 0.5 May 01, 2020 May 01, 2020 Discontinued Problem List Active Problems Medical Problem Onset Date Status Effusion of knee December 06, 2017 Benign mole Active Otalgia June 11, 2016 Anxiety Acute pharyngitis Active Knee pain November 09, 2017 Inactive/Resolved Problems Medical Problem Onset Date Status Acute viral pharyngitis Inactive Contusion of hand, right Inactiv e Laceration of foot, left Inactiv e Procedures Procedure Date Status Group A Streptococcus Screen (YVES) May 20 active Group A Streptococcus Screen (YVES) November 26, 2019 completed Hand 3 vw Min RT 2019 completed Reason for Referral Reason for Referral Date Referral was Provided Provider Office Contact Location D22.9 - Melanocytic nevi, unspecified January 12, 2020 Jyothi Arteaga [phone] [facility] Pediatric s [address] [address] Relevant Diagnostic Tests and/or Laboratory Data Laboratory Results Test Date/Time Result Interp. Ref. Range Result Co mment POC Group A Strep Rapid Screen May 20, 2020 2:24pm NEGATIVE SARS-CoV-2 RNA (RT-PCR) May 20, 2020 2:00pm Negative This test is onl y for [...] sheets for providers can be found at: [employer].gov/[place]/055741/do wnload Fact sheets for patients can be found at: [employer]gov/[place]/782791/do wnload TB Test (QFT) Antigen Minus Nil [...] 10:30am 0.01 IU/mL Test Performed b y: [facility] [address] [place] [address] Transportation Maintenance Worker: Boone Escudero M.D. Ph.D.; [place]# [id number] Microbiology Results Procedure Source Result Collection Date/Time [...] 84 November 08, 2019 Active flu vac [id number] 36mos up(PF) 60 MCG INTRAMUSCULA R ONCE 0.5 July 27, 2018 Discontinued tuberculin PPD 0.1 ML INTRADERMAL ONCE 0.1 July 06, 2018 Discontinued Levonorgestr el-Ethinyl Estrad September 26, 2017 Discontinued Amoxicillin- Pot Clavulanate 1 TAB ORAL TWICE A DAY 14 September 26, 2017 Discontinued flu vacc [id number] 6mos up(PF) 0.5 ML INTRAMUSCULA R ONCE 0.5 May 01, 2020 Discontinued Encounters Encounter Facility Location Admit/Visit Date Discharge/Departure Date Attending Provider Departed Referred [facility], 2020 1:55pm May 20, 2020 1:56pm Nadege Parker Departed Physician/Pr ovider Office Visit [facility] May 20, 2020 1:16pm May 20, 2020 2:13pm Nadege Parker Departed Clinical [facility] Curbside May 20, 2020 8:31am May 20, 2020 8:32am Twyla Navarrete Departed Physician/Pr ovider Office Visit [facility] Occupational Health [facility] May 19, 2020 10:40am May 19, 2020 11:59pm Twyla Navarrete Departed Clinical [facility] May 01, 2020 11:04am May 01, 2020 11:05am Windy Contreras Departed Physician/Pr ovider Office Visit [facility] Occupational Health [facility] May 01, 2020 10:09am May 01, 2020 12:58pm Referral, Self Departed Physician/Pr ovider Office Visit [facility] February 14, 2020 7:43am February 14, 2020 11:49am Joi Herman Departed Physician/Pr ovider Office Visit [facility] January 12, 2020 2:30pm January 12, 2020 3:38pm Jyothi Arteaga Departed Emergency [facility] November 26, 2019 1:42pm November 26, 2019 2:22pm Departed Physician/Pr ovider Office Visit [facility] November 08, 2019 8:50am November 08, 2019 11:13am Joi Herman Departed Physician/Pr ovider Office Visit [facility] October 23, 2019 3:55pm October 23, 2019 9:38pm Joi Herman Departed Physician/Pr ovider Office Visit [facility] October 04, 2019 8:50am October 04, 2019 11:08pm Joi Herman Departed Emergency [facility] Emergency Department 2019 10:08pm 2019 10:51pm Departed Physician/Pr ovider Office Visit [facility] September 11, 2019 8:43am September 11, 2019 2:42pm Joi Herman Departed Referred [facility] Lab [facility] WEEDER THINNER August 31, 2019 10:03am August 31, 2019 10:04am Diana Chaidez Departed Physician/Pr ovider Office Visit [facility] AIR POLLUTION AUDITOR August 31, 2019 9:48am August 31, 2019 10:13am Diana Chaidez Departed Physician/Pr ovider Office Visit [facility] August 29, 2019 9:48am August 29, 2019 1:49pm Joi Herman Departed Physician/Pr ovider Office Visit [facility] August 17, 2019 7:59am August 17, 2019 1:58pm Joi Herman Departed Physician/Pr ovider Office Visit [facility] Orthopedic&Cesar ab August 16, 2019 10:18am August 16, 2019 1:51pm Chris Bearden Departelvis Physician/Pr ovider Office Visit [facility] Pediatrics [facility] May 24, 2019 2:01pm May 24, 2019 2:13pm Joi Herman Functional Status Query Response Date [...] Smoking Status Current every day smoker May 20, 2020 1:37pm alcohol intake frequency holidays/specia l occasions only November 26, 2019 1:57pm substance use type marijuana November 27, 2019 3:4 0pm Query Response Start Date Stop Date Smoking Status Current every day smoker Vital Signs Vital Reading Result Reference Range Collection Date/Time Height 5 ft 5 in August 31, 2019 9 :58am Weight 78.471 kg May 20, 2020 1:31pm Temperature 98.6 F 97.6 F-99.6 F May 20, 2020 1:31pm Pulse 86 BPM 56-106 May 20, 2020 1:31pm Respiration 16 RPM 16-24 May 20, 2020 1:31pm Pulse Oximetry 98 % 95-100 May 20 1:31pm Blood Pressure Systolic 94 102-133 [facility] 2020 1:31pm Blood Pressure Diastolic 66 61-85 [facility] 2020 1:31pm
--- OUTSIDE RECORDS SUMMARY | 2023-02-16 11:47 | XMS_ITS | Continuity of Care Document ---
Author Name [facility] Address [address] [place] [address] Organization [facility] Address [address] [place] [address] Care Team Providers Care Md Psychiatry Name Role Phone Jyothi Arteaga Primary Care [...] December 20, 2020 Disconti nued flu vac [id number] 36mos up(PF) 60 MCG INTRAMUS CULAR ONCE [...] November 04, 2020 Disconti nued flu vacc [id number] 6mos up(PF) 0.5 ML INTRAMUS CULAR ONCE [...] right Inactive Procedures Procedure Date Status Chest 2 vw February 22, 2021 active EKG February [...] Contact Location October 07, 2020 Jyothi Arteaga [phone] [facility] [place] [address] Relevant Diagnostic Tests and/or Laboratory Data Laboratory [...] November 19, 2020 11:18am Negative Urine Specific [place] (Manual) November 19, 2020 11:18am 1.020 POC [...] September 12, 2020 4:01pm 6.5 Urine Specific [place] September 12, 2020 4:01pm 1.015 Urine Protein [...] sheets for providers can be found at: Zipscene.gov/media/69607 5/download Fact sheets for patients can be found at: Zipscene.gov/Pronutria/95119 7/download TB Test (QFT) Antigen Minus Nil [...] 10:30am 0.01 IU/mL Test Performed b y: [facility] [address] [place] [address] Political Science Instructor: Boone Escudero M.D. Ph.D.; IA# [id number] Microbiology Results Procedure Source Result Collection Date/Time Result Date/Time Group A Streptococcus Screen (YVES) Throat No results entered May 20, 2020 1:55pm Urine Culture Ur,Clean Catch No results entered September 12, 2020 4:01pm Hospital Discharge Instructions No known hospital discharge instructions. Hospital Discharge Medications Medication Dose Units Route Sig Qty Days Order Date Status Instructions Levonorgestrel -Ethinyl Estrad 1 TAB ORAL DAILY August 17, 2018 Discontinu ed Levonorgestrel -Ethinyl [...] November 04, 2020 Discontinu ed flu vac [id number] 36mos up(PF) 60 MCG INTRAMUSCU LAR ONCE [...] ed Fluoxetine 20 MG ORAL DAILY 30 July [...] September 30, 2020 Discontinu ed flu vacc [id number] 6mos up(PF) 0.5 ML INTRAMUSCU LAR ONCE 0.5 May 01, 2020 Discontinu ed Encounters Encounter Facility Location Admit/Visit Date Discharge/Departure Date Attending Provider Departed Emergency [facility] February 22, 2021 12:49pm February 22, 2021 1:47pm Departed Emergency [facility] Emergency Department December 21, 2020 8:46am December 21, 2020 12:00pm Departed Physician/Pr ovider Office Visit [facility] Pediatrics [facility] December 20, 2020 4:18pm December 20, 2020 4:47pm Maite Garcia Departed Physician/Pr ovider [place] [facility] [place] 19, 2020 10:32am November 19, 2020 11:29am Felicia Rodrigez Departed Physician/Pr ovider Office Visit [facility] November 15, 2020 2:11pm November 15, 2020 2:55pm Antwon Jackson Departed Physician/Pr ovider Office [place] [facility] November 04, 2020 10:01am November 04, 2020 10:26am Jyothi Arteaga Departed Physician/Pr ovider Office Visit [facility] October 16, 2020 1:25pm October 16, 2020 1:55pm Antwon Jackson Departed Emergency [facility] October 11, 2020 7:11pm October 11, 2020 9:23pm Departed Clinical [facility] Cardiology October 08, 2020 1:55pm October 08, 2020 1:56pm Jyothi Arteaga Departed Physician/Pr ovider Office Visit [facility] Cardiology October 08, 2020 1:50pm October 08, 2020 11:59pm Diann Oakes Departed Physician/Pr ovider Office Visit [facility] Pediatric[facility] October 07, 2020 12:53pm October 07, 2020 2:16pm Jyothi Arteaga Departed Emergency [facility] Emergency Department 2020 8:52am 2020 10:22am Departed Emergency [facility] Emergency Department September 30, 2020 4:35pm September 30, 2020 8:56pm Departed Emergency [facility] Urgent [facility] September 30, 2020 2:40pm September 30, 2020 4:44pm Departed Referred [facility] Lab [facility] [place] September 12, 2020 4:01pm September 12, 2020 4:02pm Ian Garcia Departed Physician/Pr ovider Office Visit [facility] September 12, 2020 3:24pm September 12, 2020 4:17pm Ian Garcia Departed Clinical [facility] Laboratory August 30, 2020 2:39pm August 30, 2020 2:40pm Jyothi Arteaag Departed Physician/Pr ovider Office Visit [facility] August 30, 2020 1:59pm August 30, 2020 4:00pm Jyothi Arteaga Departed Physician/Pr ovider Office [place] [facility] August 19, 2020 8:59am August 19, 2020 11:18am Jyothi Arteaga Departed Physician/Pr ovider Office Visit [facility] August 06, 2020 8:07am August 06, 2020 3:16pm Joi Herman Departed Emergency [facility] Emergency Department July 27, 2020 3:43pm July 27, 2020 5:11pm Departed Physician/Pr ovider Office [place] [facility] July 24, 2020 7:51am July 24, 2020 1:52pm Joi Herman Departed Physician/Pr ovider Office Visit [facility] Occupational Health [facility] July 18, 2020 2:47pm July 18, 2020 2:47pm Windy Contreras Departed Physician/Pr ovider Office [place] [facility] July 12, 2020 7:56am July 12, 2020 11:59pm Jyothi Arteaga Departed Physician/Pr ovider Office [place] [facility] July 09, 2020 10:31am July 09, 2020 9:21pm Joi Herman Departed Emergency [facility] Emergency Department July 04, 2020 10:57am July 04, 2020 11:59am Departed Clinical [facility] June 27, 2020 8:16am June 27, 2020 8:17am Windy Contreras Departed Physician/Pr ovider Office Visit [facility] June 21, 2020 7:52am June 21, 2020 3:38pm Joi Herman Departed Physician/Pr ovider Office Visit [facility] June 21, 2020 7:50am June 21, 2020 11:59pm Jyothi Arteaga Departed Physician/Pr ovider Office Visit [facility] June 14, 2020 3:05pm June 14, 2020 11:59pm Jyothi Arteaga Departed Referred [facility] LAB [facility] May 20, 2020 1:55pm May 20, 2020 1:56pm Nadege Parker Departed Physician/Pr ovider Office Visit [facility] May 20, 2020 1:16pm May 20, 2020 2:13pm Nadege Parker Departed Clinical [facility] May 20, 2020 8:31am May 20, 2020 8:32am Twyla Navarrete Departed Physician/Pr ovider Office Visit [facility] May 19, 2020 10:40am May 19, 2020 11:59pm Twyla Navarrete Departed Clinical [facility] May 01, 2020 11:04am May 01, 2020 11:05am Windy Contreras Departed Physician/Pr ovider Office Visit [facility] May 01, 2020 10:09am May 01, 2020 12:58pm Referral, Self Functional Status Query Response Date Recorded Comment Comprehension Ability Understands Concepts July 27 4:22pm Mood/Behavior Appropriate July 27, 2020 4:22pm Speech Appropriate Clear July 27, 2020 4:22pm Query Response Date Recorded Comment Living Situation Home With Significant Other February 22, 2021 1:02pm Immunizations Immunization Name Date Given Type DTP [...] Recorded Comment Alcohol Use No February 22 1:16pm Smoking Status Current every day smoker February 22, 2021 1:16pm Substance/Street Drug Use Yes February 22, 2021 1:16pm QHS marijuana as of 09/30/20 alcohol intake frequency February 22, 2021 1:02pm substance use type marijuana February 22, 2021 1:16pm Query Response Start Date Stop Date Smoking Status Current every day smoker Vital Signs Vital Reading Result Reference Range Collection Date/Time Height 5 ft 6 in February 22 1:02pm Weight 105.233 kg February 22 1:02pm Temperature 98.6 F 97.6 F-99.6 F February 22 1:02pm Pulse 80 BPM 56-106 February 22 1:02pm Respiration 20 RPM 16-24 February 22 1:02pm Pulse Oximetry 95 % 95-100 February 22, 2021 1:02pm Blood Pressure Systolic 115 102-133 Dece 2020 1:02pm Blood Pressure Diastolic 66 61-85 Dec emb2020 1:02pm Body Mass Index 37.0 November 2:21pm
--- OUTSIDE RECORDS SUMMARY | 2023-02-16 11:47 | XMS_ITS | Continuity of Care Document ---
Author Name [facility] Address [address] [place] [address] Organization [facility] Address [address] [place] [address] Care Team Providers Care Architecture Faculty Member Name Role Phone Juan Carlos Santana JR Primary Care Physician [phone] Juan Carlos Santana JR Attending Physician Allergies, [...] December 20, 2020 Disconti nued flu vac [id number] 36mos up(PF) 60 MCG INTRAMUS CULAR ONCE [...] November 04, 2020 Disconti nued flu vacc [id number] 6mos up(PF) 0.5 ML INTRAMUS CULAR ONCE [...] November 19, 2020 11:18am Negative Urine Specific [place] (Manual) November 19, 2020 11:18am 1.020 POC [...] September 12, 2020 4:01pm 6.5 Urine Specific [place] September 12, 2020 4:01pm 1.015 Urine Protein [...] sheets for providers can be found at: Haloband.gov/media/1362 85/download Fact sheets for patients can be found at: Haloband.gov/Novacem/1362 87/download TB Test (QFT) Antigen Minus Nil [...] 10:30am 0.01 IU/mL Test Performed b y: [facility] [address] [place] [address] Senior Validation Engineer: Boone Escudero M.D. Ph.D.; IA# [id number] Microbiology Results Procedure Source Result Collection Date/Time [...] November 04, 2020 Discontinu ed flu vac [id number] 36mos up(PF) 60 MCG INTRAMUSCU LAR ONCE [...] September 30, 2020 Discontinu ed flu vacc [id number] 6mos up(PF) 0.5 ML INTRAMUSCU LAR ONCE 0.5 May 01, 2020 Discontinu ed Encounters Encounter Facility Location Admit/Visit Date Discharge/Departure Date Attending Provider Registered Clinical [facility] DI [facility] April 01, 2021 9:05am Juan Carlos Santana JR Departed Referred [facility] March 27, 2021 6:39pm March 27, 2021 6:40pm Juan Carlos Santana JR Registered Inpatient [facility] Pediatrics [facility] March 06, 2021 3:15pm Soni Santa Departed Emergency [facility] Emergency Department February 22, 2021 1:48pm February 22, 2021 5:28pm Departed Emergency [facility] February 22, 2021 12:49pm February 22, 2021 1:47pm Departed Emergency [facility] Emergency Department December 21, 2020 8:46am December 21, 2020 12:00pm Departed Physician/Pr ovider Office Visit [facility] Pediatrics [facility] December 20, 2020 4:18pm December 20, 2020 4:47pm Maite Garcia Departed Physician/Pr ovider Office Visit [facility] Pediatrics [facility] November 19, 2020 10:32am November 19, 2020 11:29am Felicia Rodrigez Departed Physician/Pr ovider Office Visit [facility]esar [facility] November 15, 2020 2:11pm November 15, 2020 2:55pm Antwon Jackson Departed Physician/Pr ovider Office Visit [facility] Pediatrics [facility] November 04, 2020 10:01am November 04, 2020 10:26am Jyothi Arteaga Departed Physician/Pr ovider Office Visit [facility] October 16, 2020 1:25pm October 16, 2020 1:55pm Antwon Jackson Departed Emergency [facility] Urgent [facility] October 11, 2020 7:11pm October 11, 2020 9:23pm Departed Clinical [facility] Cardiology October 08, 2020 1:55pm October 08, 2020 1:56pm Jyothi Arteaga Departed Physician/Pr ovider Office Visit [facility] Cardiology October 08, 2020 1:50pm October 08, 2020 11:59pm Diann Oakes Departed Physician/Pr ovider [place] [facility] [place] 07, 2020 12:53pm October 07, 2020 2:16pm Jyothi Arteaga Departed Emergency [facility] Emergency Department 2020 8:52am 2020 10:22am Departed Emergency [facility] Emergency Department September 30, 2020 4:35pm September 30, 2020 8:56pm Departed Emergency [facility] Urgent [facility] September 30, 2020 2:40pm September 30, 2020 4:44pm Departed Referred [facility] Lab [facility] [place] September 12, 2020 4:01pm September 12, 2020 4:02pm Ian Garcia Departed Physician/Pr ovider Office [place] [facility] [place] 12, 2020 3:24pm September 12, 2020 4:17pm Ian Garcia Departed Clinical [facility] Laboratory August 30, 2020 2:39pm August 30, 2020 2:40pm Jyothi Arteaga Departed Physician/Pr ovider Office [place] [facility] August 30, 2020 1:59pm August 30, 2020 4:00pm Jyothi Arteaga Departed Physician/Pr ovider Office [place] [facility] August 19, 2020 8:59am August 19, 2020 11:18am Jyothi Arteaga Departed Physician/Pr ovider Office [place] [facility] August 06, 2020 8:07am August 06, 2020 3:16pm Joi Herman Departed Emergency [facility] Emergency Department July 27, 2020 3:43pm July 27, 2020 5:11pm Departed Physician/Pr ovider Office [place] [facility] July 24, 2020 7:51am July 24, 2020 1:52pm Joi Herman Departed Physician/Pr ovider Office Visit [facility] Occupational Health [facility] July 18, 2020 2:47pm July 18, 2020 2:47pm Windy Contreras Departed Physician/Pr ovider Office [place] [facility] July 12, 2020 7:56am July 12, 2020 11:59pm Jyothi Arteaga Departed Physician/Pr ovider Office [place] [facility] July 09, 2020 10:31am July 09, 2020 9:21pm Joi Herman Departed Emergency [facility] Emergency Department July 04, 2020 10:57am July 04, 2020 11:59am Departed Clinical [facility] June 27, 2020 8:16am June 27, 2020 8:17am Windy Contreras Departed Physician/Pr ovider Office [facility] June 21, 2020 7:52am June 21, 2020 3:38pm Joi Herman Departed Physician/Pr ovider Office [facility] June 21, 2020 7:50am June 21, 2020 11:59pm Jyothi Arteaga Departed Physician/Pr ovider Office [facility] June 14, 2020 3:05pm June 14, 2020 11:59pm Jyothi Arteaga Departed Referred [facility] [place] May 20, 2020 1:55pm May 20, 2020 1:56pm Nadege Parker Departed Physician/Pr ovider Office Visit [facility] May 20, 2020 1:16pm May 20, 2020 2:13pm aNdege Parker Departed Clinical [facility] May 20, 2020 8:31am May 20, 2020 8:32am Twyla Navarrete Departed Physician/Pr ovider Office Visit [facility] Occupational Health [facility] May 19, 2020 10:40am May 19, 2020 11:59pm Twyla Navarrete Departed Clinical [facility] Lab [facility] May 01, 2020 11:04am May 01, 2020 11:05am Windy Contreras Departed Physician/Pr ovider Office Visit [facility] May 01, 2020 10:09am May 01, 2020 [...]
--- OUTSIDE RECORDS SUMMARY | 2023-02-16 11:47 | XMS_ITS | Continuity of Care Document ---
Author Name [facility] Address [address] [place] [id number] Organization [facility] Address [address] [place] [id number] Care Team Providers Care Back Tender Name Role Phone Jyothi Arteaga Primary Care Physician Jyothi Arteaga Attending Physician [phone] Allergies, Adverse Reactions, Alerts No known allergies. Medications Active Medications Medication Dose Units Route Sig Qty Start Date St atus Levonorgestrel-Ethinyl Estrad 1 TAB ORAL DAILY 84 November 08, 2019 Ac tive Famotidine 20 MG ORAL THREE TIMES A DAY PRN For acid reflux 90 August 30, 2020 Active Fluoxetine 20 MG ORAL DAILY 30 August 30, 2020 Active Discontinued Medications Medication Dose Units Route Sig Qty Start Date Discontinued Date Status Levonorgestrel- Ethinyl Estrad 1 TAB ORAL DAILY 84 August 17, 2018 November 08, 2019 Discontinued Fluoxetine 10 MG ORAL DAILY 30 June 17, 2020 July 12, 2020 Discontinued flu vac [id number] 36mos up(PF) 60 MCG INTRAMUSCULAR ONCE 0.5 [...] 2017 July 27, 2018 Discontinued flu vacc [id number] 6mos up(PF) 0.5 ML INTRAMUSCULAR ONCE 0.5 [...] hand, right Inactive Procedures Procedure Date Status Hand 3 vw Min RT July 27, 2020 completed Foot 3 vw Min LT July 04, 2020 completed Group A Streptococcus Screen (YVES) May 20 completed Group A Streptococcus Screen (YVES) November 26, 2019 completed Hand 3 vw Min RT 2019 completed Relevant Diagnostic Tests and/or Laboratory Data Laboratory Results Test Date/Time Result Interp. Ref. Range Result Comment POC Hemoglobin (Misc) August 30, 2020 2:09pm 14.7 g/dL High 11.0-14.0 White Blood Count August 30, 2020 3:29pm 10.07 1000/mm3 4.8-10.8 Red Blood Count August 30, 2020 3:29pm 5.28 M/mm3 4.20-5.40 Hemoglobin August 30, 2020 3:29pm 15.3 g/dL 12.0-16.0 Hematocrit August 30, 2020 3:29pm 45.2 % 37-47 Mean Corpuscular Volume August 30, 2020 3:29pm 85.6 fL 81.0-99.0 Mean Corpuscular Hemoglobin August 30, 2020 3:29pm 29.0 pg 27-31 Mean Corpuscular Hemoglobin Concent August 30, 2020 3:29pm 33.8 g/dL 33-37 Red Cell Distribution Width August 30, 2020 3:29pm 11.9 % 11.5-14.5 Platelet Count August 30, 2020 3:29pm 221 1000/mm3 140-440 Mean Platelet Volume August 30, 2020 3:29pm 10.2 fL 7.4-10.4 Neutrophils (%) (Auto) August 30, 2020 3:29pm 64.8 % 40.0-72.0 Lymphocytes (%) (Auto) August 30, 2020 3:29pm 23.7 % 17-45 Monocytes (%) (Auto) August 30, 2020 3:29pm 6.4 % 3-11 Eosinophils (%) (Auto) August 30, 2020 3:29pm 3.6 % High 0-3 Basophils (%) (Auto) August 30, 2020 3:29pm 1.1 % High 0-1 Immature Granulocyte % (Auto) August 30, 2020 3:29pm 0.4 % 0-1 Neutrophils # (Auto) August 30, 2020 3:29pm 6.53 1000/mm3 High 1.4-6.5 Lymphocytes # (Auto) August 30, 2020 3:29pm 2.39 1000/mm3 1.2-3.4 Monocytes # (Auto) August 30, 2020 3:29pm 0.64 1000/mm3 0.0-0.8 Eosinophils # (Auto) August 30, 2020 3:29pm 0.36 1000/mm3 0.0-0.7 Basophils # (Auto) August 30, 2020 3:29pm 0.11 1000/mm3 High 0.0-0.1 Absolute Immature Granulocyte (auto August 30, 2020 3:29pm 0.0 0-1 Differential Method August 30, 2020 3:29pm Automated Sodium Level August 30, 2020 3:29pm 139 mmol/L 137-145 Potassium Level August 30, 2020 3:29pm 3.9 mmol/L 3.6-5.0 Chloride Level August 30, 2020 3:29pm 105 mmol/L 98-107 Carbon Dioxide Level August 30, 2020 3:29pm 24 mmol/L 22-30 Anion Gap August 30, 2020 3:29pm 10 7-16 Blood Urea Nitrogen August 30, 2020 3:29pm 10 mg/dL 7-17 Creatinine August 30, 2020 3:29pm 0.64 mg/dL 0.52-1.04 Glomerular Filtration Rate Calc August 30, 2020 3:29pm TNP Test not perform ed GFR cannot be calculated due to patient age. GFRs are only calculated on patients >18 years of age. Glucose Level August 30, 2020 3:29pm 91 mg/dL 70-100 Calcium Level August 30, 2020 3:29pm 9.2 mg/dL 8.4-10.2 Calcium Adjusted for Albumin August 30, 2020 3:29pm 9.6 mg/dL 8.4-10.2 Total Bilirubin August 30, 2020 3:29pm 0.3 mg/dL 0.2-1.3 Aspartate Amino Transf (AST/SGOT) August 30, 2020 3:29pm 29 U/L 14-36 Alanine Aminotransferase (ALT/SGPT) August 30, 2020 3:29pm 34 U/L As of 07/07/19, th e Reference Range for ALT/SGPT for adult patients has been updated. The Reference Range for ALT/SGPT has not been established for patients <18 years of age. Total Protein August 30, 2020 3:29pm 6.2 g/dL Low 6.3-8.2 Albumin August 30, 2020 3:29pm 3.8 g/dL 3.5-5.0 Cholesterol Level August 30, 2020 [...] 2020 3:29pm 104 mg/dL 0-149 Alkaline Phosphatase August 30, 2020 3:29pm 79 U/L 38-126 Free Thyroxine August 30, 2020 3:29pm 1.00 [...] sheets for providers can be found at: [employer].gov/media/54097 5/download Fact sheets for patients can be found at: [employer].gov/[employer]/06753 7/download TB Test (QFT) Antigen Minus Nil [...] 10:30am 0.01 IU/mL Test Performed b y: [facility] [address] [place] [address] Finished Yarn Examiner: Boone Escudero M.D. Ph.D.; IA# [id number] Microbiology Results Procedure Source Result Collection Date/Time Resu lt Date/Time Group A Streptococcus Screen (YVES) Throat No results entered November 26, 2019 2:11pm Group A Streptococcus Screen (YVES) Throat No results entered May 20, 2020 1:55pm Chief Complaint and Reason for Visit Encounter Admit Date Chief Complaint Reason for V isit Departed Clinical August 30, 2020 2:39pm Lab Hospital Discharge Instructions No known hospital discharge instructions. Hospital Discharge Medications Medication Dose Units Route Sig Qty Days Order Date Status Ins tructions Levonorgestrel -Ethinyl Estrad 1 TAB ORAL DAILY 84 August 17, 2018 Discontinue d Levonorgestrel -Ethinyl Estrad 1 TAB ORAL DAILY 84 November 08, 2019 Active Fluoxetine 10 MG ORAL DAILY 30 June 17, 2020 Discontinue d flu vac [id number] 36mos up(PF) 60 MCG INTRAMUSCU LAR ONCE 0.5 July 27, 2018 Discontinue d tuberculin PPD 0.1 ML INTRADERMA L ONCE 0.1 July 06, 2018 Discontinue d Menactra (PF) (mening vac A,C,Y,W135 dip (PF)) 4 mcg/0.5 mL intramuscular 0.5 ML INTRAMUSCU LAR ONCE 0.5 August 30, 2020 Discontinue d Famotidine 20 MG ORAL THREE TIMES A DAY PRN For acid reflux 90 August 30, 2020 Active Fluoxetine 20 MG ORAL DAILY August 30, 2020 Active Fluoxetine 20 MG ORAL DAILY 30 July Discontinue d Fluoxetine 20 MG ORAL DAILY 30 August 19, 2020 Discontinue d Levonorgestrel -Ethinyl Estrad September 26, 2017 Discontinue d Amoxicillin-Po t Clavulanate 1 TAB ORAL TWICE A DAY 14 September 26, 2017 Discontinue d flu vacc [id number] 6mos up(PF) 0.5 ML INTRAMUSCU LAR ONCE 0.5 May 01, 2020 Discontinue d Encounters Encounter Facility Location Admit/Visit Date Discharge/Departure Date Attending Provider Departed Clinical [facility] Laboratory August 30, 2020 2:39pm August 30, 2020 2:40pm Jyothi Arteaga Departed Physician/Pr ovider Office Visit [facility] August 30, 2020 1:59pm August 30, 2020 4:00pm Jyothi Arteaga Departed Physician/Pr ovider Office Visit [facility] August 19, 2020 8:59am August 19, 2020 11:18am Jyothi Arteaga Departed Physician/Pr ovider Office Visit [facility] August 06, 2020 8:07am August 06, 2020 3:16pm Joi Herman Departed Emergency [facility] Emergency Department July 27, 2020 3:43pm July 27, 2020 5:11pm Departed Physician/Pr ovider Office Visit [facility] July 24, 2020 7:51am July 24, 2020 1:52pm Joi Herman Departed Physician/Pr ovider Office [place] [facility] [place] [facility] July 18, 2020 2:47pm July 18, 2020 2:47pm Windy Contreras Departed Physician/Pr ovider Office Visit [facility] July 12, 2020 7:56am July 12, 2020 11:59pm Jyothi Arteaga Departed Physician/Pr ovider Office Visit [facility] July 09, 2020 10:31am July 09, 2020 9:21pm Joi Herman Departed Emergency [facility] Emergency Department July 04, 2020 10:57am July 04, 2020 11:59am Departed Clinical [facility] June 27, 2020 8:16am June 27, 2020 8:17am Windy Contreras Departed Physician/Pr ovider Office Visit [facility] June 21, 2020 7:52am June 21, 2020 3:38pm Joi Herman Departed Physician/Pr ovider Office Visit [facility] June 21, 2020 7:50am June 21, 2020 11:59pm Jyothi Arteaga Departed Physician/Pr ovider Office Visit [facility] June 14, 2020 3:05pm June 14, 2020 11:59pm Jyothi Arteaga Departed Referred [facility] LAB [facility] Peds [place] May 20, 2020 1:55pm May 20, 2020 1:56pm Nadege Parker Departed Physician/Pr ovider Office Visit [facility] May 20, 2020 1:16pm May 20, 2020 2:13pm Nadege Parker Departed Clinical [facility] May 20, 2020 8:31am May 20, 2020 8:32am Twyla Navarrete Departed Physician/Pr ovider Office Visit [facility] May 19, 2020 10:40am May 19, 2020 11:59pm Twyla Navarrete Departed Clinical [facility] May 01, 2020 11:04am May 01, 2020 11:05am Windy Contreras Departed Physician/Pr ovider Office Visit [facility] May 01, 2020 10:09am May 01, 2020 12:58pm Referral, Self Departed Physician/Pr ovider Office Visit [facility] February 14, 2020 7:43am February 14, 2020 11:49am Joi Herman Departed Physician/Pr ovider Office Visit [facility] January 12, 2020 2:30pm January 12, 2020 3:38pm Jyothi Arteaga Departed Emergency [facility] November 26, 2019 1:42pm November 26, 2019 2:22pm Departed Physician/Pr ovider Office Visit [facility] November 08, 2019 8:50am November 08, 2019 11:13am Joi Herman Departed Physician/Pr ovider Office Visit [facility] October 23, 2019 3:55pm October 23, 2019 9:38pm Joi Herman Departed Physician/Pr ovider Office Visit [facility] October 04, 2019 8:50am October 04, 2019 11:08pm Joi Herman Departed Emergency [facility] Emergency Department 2019 10:08pm 2019 10:51pm Departed Physician/Pr ovider Office Visit [facility] September 11, 2019 8:43am September 11, 2019 2:42pm Joi Herman Functional Status Query Response Date Recorded Comment Comprehension Ability Understands Concepts July 27 4:22pm Mood/Behavior Appropriate July 27, 2020 4:22pm Speech Appropriate Clear July 27, 2020 4:22pm Query Response Date Recorded Comment Living Situation Home July 27, 2020 5:11pm Immunizations Immunization Name Date Given Type DTP [...] Date Recorded Comment Alcohol Use No July 27, 2020 6:37pm Smoking Status Current every day smoker August 30, 2020 2:09pm alcohol intake frequency holidays/special occasions on ly July 27, 2020 6:37pm substance use type marijuana August 20, 2020 4:18am Query Response Start Date Stop Date Smoking Status Current every day smoker Vital Signs Vital Reading Result Reference Range Collection Date/Time Height 5 ft 6 in August 30, 2020 2 :02pm Weight 116.12 kg August 30, 2020 2 :02pm Temperature 97.3 F 97.6 F-99.6 F July 27, 2020 3 :52pm Pulse 66 BPM 56-106 July 27, 2020 5: 10pm Respiration 16 RPM 16-24 July 27, 2020 3: 52pm Pulse Oximetry 99 % 95-100 July 27, 2020 5:10pm Blood Pressure Systolic 119 102-133 August 30, 2020 2:02pm Blood Pressure Diastolic 70 61-85 [place] 2020 2:02pm Body Mass Index 41.3 August 30 2:02pm
--- OUTSIDE RECORDS SUMMARY | 2023-02-16 11:47 | XMS_ITS | Continuity of Care Document ---
Author Name [facility] Address [address] [place] [id number] Organization [facility] Address [address] [place] [address] Care Team Providers Care Call Out Operator Name Role Phone Jyothi Arteaga Primary Care Physician Allergies, Adverse Reactions, Alerts No known allergies. Medications Active Medications Medication Dose Units Route Sig Qty Start Date St atus Levonorgestrel-Ethinyl Estrad 1 TAB ORAL DAILY 84 November 08, 2019 Active Fluoxetine 20 MG ORAL DAILY July 12, 2020 A ctive Discontinued Medications Medication Dose Units Route Sig Qty Start Date Di scontinued Date Status Levonorgestre l-Ethinyl Estrad 1 TAB ORAL DAILY 84 August 17, 2018 November 08, 2019 Discontinued Fluoxetine 10 MG ORAL DAILY 30 June 17, 2020 July 12, 2020 Discontinued flu vac [id number] 36mos up(PF) 60 MCG INTRAMUSCULAR ONCE 0.5 July 27, 2018 July 27, 2018 Discontinued tuberculin PPD 0.1 ML INTRADERMAL ONCE 0.1 July 06, 2018 July 06, 2018 Discontinued Levonorgestre l-Ethinyl Estrad [Vienva] September 26, 2017 August 17, 2018 Discontinued Amoxicillin-P ot Clavulanate [Augmentin] 1 TAB ORAL TWICE A DAY 14 September 26, 2017 July 27, 2018 Discontinued flu vacc [id number] 6mos up(PF) 0.5 ML INTRAMUSCULAR ONCE 0.5 May 01, 2020 May 01, 2020 Discontinued Problem List Active Problems Medical Problem Onset Date Status Effusion of knee December 06, 2017 Benign mole Active Otalgia June 11, 2016 Anxiety Trauma and stressor-related disorder Anxiety and depression Acute pharyngitis Active Knee pain November 09, 2017 Foreign body of left eyelid Acti ve Sprain of hand, right Active Inactive/Resolved Problems Medical Problem Onset Date Status Acute foot pain Inactive Acute viral pharyngitis Inactive Contusion of hand, right Inactiv e Laceration of foot, left Inactiv e Procedures Procedure Date Status Hand 3 vw Min RT July 27, 2020 active Foot 3 vw Min LT July 04, [...] sheets for providers can be found at: fda.gov/media/470053/do wnload Fact sheets for patients can be found at: [employer].gov/media/831517/do wnload TB Test (QFT) Antigen Minus Nil [...] [Renzoinsohn JOYCE et. al. Clin. Infect. Dis. 2017;64(2):111-115]. [...] 10:30am 0.01 IU/mL Test Performed b y: [facility] [address] [place] [address] Pilot Supervisor: Boone Escudero M.D. Ph.D.; IA# [id number] Microbiology Results Procedure Source Result Collection Date/Time Resu lt Date/Time Group A Streptococcus Screen (YVES) Throat No results entered November 26, 2019 2:11pm Group A Streptococcus Screen (YVES) Throat No results entered May 20, 2020 1:55pm Chief Complaint and Reason for Visit Encounter Admit Date Chief Complaint Reason for V isit Departed Emergency July 27, 2020 3:43pm HAND COMPLAINT Hospital Discharge Instructions Additional Discharge Instructions Seen t kin for persistent pain and swelling of the right hand. I am most suspicious that this is a sprain similar to what would happen if you twisted your ankle. There are no bony injuries noted on the x-ray. I have spoken to the orthopedic surgeon on-call about your case today. We think the best course to go at this time is for you to do gentle exercises like we talked about. You can try a squishy ball or at least just frequent flexing and extending but not to the point of exertion. We also suggest that you see your product marketing programs manager in the next few days to consider physical therapy. Instruction/Education Provided Sprain (D C) COVID 19 General Instructions- decrease the spread of coronavirus ([facility]) Hospital Discharge Medications Medication Dose Units Route Sig Qty Days Order Date Status Ins tructions Levonorgestr el-Ethinyl Estrad 1 TAB ORAL DAILY 84 August 17, 2018 Discontinued Levonorgestr el-Ethinyl Estrad 1 TAB ORAL DAILY 84 November 08, 2019 Active Fluoxetine 10 MG ORAL DAILY June 17, 2020 Discontinued flu vac [id number] 36mos up(PF) 60 MCG INTRAMUSCULA R ONCE 0.5 July 27, 2018 Discontinued tuberculin PPD 0.1 ML INTRADERMAL ONCE 0.1 July 06, 2018 Discontinued Fluoxetine 20 MG ORAL DAILY 30 July Active Levonorgestr el-Ethinyl Estrad September 26, 2017 Discontinued Amoxicillin- Pot Clavulanate 1 TAB ORAL TWICE A DAY 14 September 26, 2017 Discontinued flu vacc [id number] 6mos up(PF) 0.5 ML INTRAMUSCULA R ONCE 0.5 May 01, 2020 Discontinued Encounters Encounter Facility Location Admit/Visit Date Discharge/Departure Date Attending Provider Departed Emergency [facility] Emergency Department July 27, 2020 3:43pm July 27, 2020 5:11pm Departed Physician/Pr ovider Office Visit [facility] July 24, 2020 7:51am July 24, 2020 1:52pm Joi Herman Departed Physician/Pr ovider Office Visit [facility] Occupational Health [facility] July 18, 2020 2:47pm July 18, 2020 2:47pm Windy Contreras Departed Physician/Pr ovider Office Visit [facility] July 12, 2020 7:56am July 12, 2020 11:59pm Jyothi Arteaga Departed Physician/Pr ovider Office Visit [facility] July 09, 2020 10:31am July 09, 2020 9:21pm Joi Herman Departed Emergency [facility] Emergency Department July 04, 2020 10:57am July 04, 2020 11:59am Departed Clinical [facility] Curbside June 27, 2020 8:16am June 27, 2020 8:17am Windy Contreras Departed Physician/Pr ovider Office Visit [facility] June 21, 2020 7:52am June 21, 2020 3:38pm Joi Herman Departed Physician/Pr ovider Office Visit [facility] June 21, 2020 7:50am June 21, 2020 11:59pm Jyothi Arteaga Departed Physician/Pr ovider Office Visit [facility] June 14, 2020 3:05pm June 14, 2020 11:59pm Jyothi Arteaga Departed Referred [facility] LAB [facility] Peds [place] May 20, 2020 1:55pm May 20, 2020 1:56pm Nadege Parker Departed Physician/Pr ovider Office Visit [facility] May 20, 2020 1:16pm May 20, 2020 2:13pm Nadege Parker Departed Clinical [facility] Curbside May 20, 2020 8:31am May 20, 2020 8:32am Twyla Navarrete Departed Physician/Pr ovider Office Visit [facility] May 19, 2020 10:40am May 19, 2020 11:59pm Twyla Navarrete Departed Clinical [facility] Lab [facility] May 01, 2020 11:04am May 01, 2020 11:05am Windy Contreras Departed Physician/Pr ovider Office Visit [facility] May 01, 2020 10:09am May 01, 2020 12:58pm Referral, Self Departed Physician/Pr ovider Office Visit [facility] February 14, 2020 7:43am February 14, 2020 11:49am Joi Herman Departed Physician/Pr ovider Office Visit [facility] January 12, 2020 2:30pm January 12, 2020 3:38pm Jyothi Arteaga Departed Emergency [facility] November 26, 2019 1:42pm November 26, 2019 2:22pm Departed Physician/Pr ovider Office Visit [facility] November 08, 2019 8:50am November 08, 2019 11:13am Joi Herman Departed Physician/Pr ovider Office Visit [facility] October 23, 2019 3:55pm October 23, 2019 9:38pm Joi Herman Departed Physician/Pr ovider Office Visit [facility] October 04, 2019 8:50am October 04, 2019 11:08pm Joi Herman Departed Emergency [facility] Emergency Department 2019 10:08pm 2019 10:51pm Departed Physician/Pr ovider Office Visit [facility] September 11, 2019 8:43am September 11, 2019 2:42pm Joi Herman Departed Referred [facility] Lab [facility] ORTHOTIC AND PROSTHETIC TECHNICIAN August 31, 2019 10:03am August 31, 2019 10:04am Diana Chaidez Departed Physician/Pr ovider Office Visit [facility] HAIR DESIGNER August 31, 2019 9:48am August 31, 2019 10:13am Diana Chaidez Departed Physician/Pr ovider Office Visit [facility] August 29, 2019 9:48am August 29, 2019 1:49pm Joi Herman Departed Physician/Pr ovider Office Visit [facility] August 17, 2019 7:59am August 17, 2019 1:58pm Joi Herman Departed Physician/Pr ovider Office Visit [facility] Orthopedic&Cesar ab August 16, 2019 [...] 03, 2007 Historical Plan of Care Instructions Sprain (DC) COVID 19 General Instructions- decrease the spread of coronavirus ([facility]) Social History Query Response Date Recorded Comment Alcohol Use No July 27, 2020 3:55pm Smoking Status Former smoker July 27, 2020 3:55pm alcohol intake frequency holidays/special occasions on ly July 27, 2020 3:55pm substance use type marijuana July 27, 2020 3:55pm Query Response Start Date Stop Date Smoking Status Former smoker Vital Signs Vital Reading Result Reference Range Collection Date/Time Height 5 ft 5 in July 27, 2020 3: 52pm Weight 113.852 kg July 27, 2020 3: 52pm Temperature 97.3 F 97.6 F-99.6 F July 27, 2020 3 :52pm Pulse 66 BPM 56-106 July 27, 2020 5: 10pm Respiration 16 RPM 16-24 July 27, 2020 3: 52pm Pulse Oximetry 99 % 95-100 July 27, 2020 5:10pm Blood Pressure Systolic 108 102-133 July 27, 2020 5:10pm Blood Pressure Diastolic 58 61-85 July 27, 2020 5:10pm
--- OUTSIDE RECORDS SUMMARY | 2023-02-16 11:47 | XMS_ITS | Continuity of Care Document ---
Author Name [facility] Address [address] [place] [id number] Organization [facility] Address [address] [place] [id number] Support Name Relationship Address Phone Jyothi Arteaga Primary Care Provider [facility] Leandro torres [address] [address] Jyothi Arteaga Attending Provider [facility] Pediatrmaeve alfaro [address] [address] Referral, Self Referring Provider Unknown [...] July 12, 2020 Disconti nued flu vac [id number] 36mos up(PF) 60 MCG INTRAMUS CULAR ONCE [...] November 04, 2020 Disconti nued flu vacc [id number] 6mos up(PF) 0.5 ML INTRAMUS CULAR ONCE [...] Location October 07, 2020 Jyothi Gigi Arteaga [phone] [facility] [place] [address] Relevant Diagnostic Tests and/or Laboratory Data Laboratory Results Test Date/Time Result Interp. Ref. Range Result Comment Urine Test (Clinic) November 04, 2020 10:17am Negative Urine Color (Manual) September 12, 2020 4:12pm [place] Urine Clarity (Manual) September 12, 2020 4:12pm Clear POC Urine Glucose September 12, 2020 4:12pm Negative POC Urine Bilirubin Confirmation September 12, 2020 4:12pm Negative Urine Ketones (Manual) September 12, 2020 4:12pm Large (+++) Urine Specific [place] (Manual) September 12, 2020 4:12pm 1.015 POC [...] September 12, 2020 4:01pm 6.5 Urine Specific [place] September 12, 2020 4:01pm 1.015 Urine Protein [...] sheets for providers can be found at: Signature.gov/media/19870 5/download Fact sheets for patients can be found at: Signature.gov/hopTo/86066 7/download TB Test (QFT) Antigen Minus Nil [...] 10:30am 0.01 IU/mL Test Performed b y: [facility] [address] [place] [address] Supply Aide: Boone Escudero M.D. Ph.D.; CLIA# [id number] Microbiology Results Procedure Source Result Collection Date/Time [...] 90 November 04, 2020 Active flu vac [id number] 36mos up(PF) 60 MCG INTRAMUSCU LAR ONCE [...] September 30, 2020 Discontinu ed flu vacc [id number] 6mos up(PF) 0.5 ML INTRAMUSCU LAR ONCE 0.5 May 01, 2020 Discontinu ed Encounters Encounter Facility Location Admit/Visit Date Discharge/Departure Date Attending Provider Departed Physician/Pr ovider Office Visit [facility] Pediatric[facility] November 04, 2020 10:01am November 04, 2020 10:26am Jyothi Arteaga Departed Physician/Pr ovider Office Visit [facility] Orthopedic&Cesar ab October 16, 2020 1:25pm October 16, 2020 1:55pm Antwon Jackson Departed Emergency [facility] Urgent [facility] October 11, 2020 7:11pm October 11, 2020 9:23pm Departed Clinical [facility] Cardiology October 08, 2020 1:55pm October 08, 2020 1:56pm Jyothi Arteaga Departed Physician/Pr ovider Office Visit [facility] Cardiology October 08, 2020 1:50pm October 08, 2020 11:59pm Diann Oakes Departed Physician/Pr ovider Office Visit [facility] October 07, 2020 12:53pm October 07, 2020 2:16pm Jyothi Arteaga Departed Emergency [facility] Emergency Department 2020 8:52am 2020 10:22am Departed Emergency [facility] Emergency Department September 30, 2020 4:35pm September 30, 2020 8:56pm Departed Emergency [facility] September 30, 2020 2:40pm September 30, 2020 4:44pm Departed Referred [facility] Lab [facility] Peds [place] September 12, 2020 4:01pm September 12, 2020 4:02pm Ian Garcia Departed Physician/Pr ovider Office Visit [facility] September 12, 2020 3:24pm September 12, 2020 4:17pm Ian Garcia Departed Clinical [facility] Laboratory August 30, 2020 2:39pm August 30, 2020 2:40pm Jyothi Arteaga Departed Physician/Pr ovider Office Visit [facility] August 30, 2020 1:59pm August 30, 2020 4:00pm Jyothi Arteaga Departed Physician/Pr ovider Office Visit [facility] August 19, 2020 8:59am August 19, 2020 11:18am Jyothi Arteaga Departed Physician/Pr ovider Office Visit [facility] August 06, 2020 8:07am August 06, 2020 3:16pm Joi Herman Departed Emergency [facility] Emergency Department July 27, 2020 3:43pm July 27, 2020 5:11pm Departed Physician/Pr ovider Office Visit [facility] July 24, 2020 7:51am July 24, 2020 1:52pm Joi Herman Departed Physician/Pr ovider Office Visit [facility] Occupational Health [facility] July 18, 2020 2:47pm July 18, 2020 2:47pm Windy Contreras Departed Physician/Pr ovider Office Visit [facility] July 12, 2020 7:56am July 12, 2020 11:59pm Jyothi Arteaga Departed Physician/Pr ovider Office Visit [facility] July 09, 2020 10:31am July 09, 2020 9:21pm Joi Herman Departed Emergency [facility] Emergency Department July 04, 2020 10:57am July 04, 2020 11:59am Departed Clinical [facility] June 27, 2020 8:16am June 27, 2020 8:17am Windy Contreras Departed Physician/Pr ovider Office Visit [facility] June 21, 2020 7:52am June 21, 2020 3:38pm Joi Herman Departed Physician/Pr ovider Office Visit [facility] June 21, 2020 7:50am June 21, 2020 11:59pm Jyothi Arteaga Departed Physician/Pr ovider Office Visit [facility] June 14, 2020 3:05pm June 14, 2020 11:59pm Jyothi Arteaga Departed Referred [facility] P[facility] [place] May 20, 2020 1:55pm May 20, 2020 1:56pm Nadege Parker Departed Physician/Pr ovider Office Visit [facility] May 20, 2020 1:16pm May 20, 2020 2:13pm Nadege Parker Departed Clinical [facility] May 20, 2020 8:31am May 20, 2020 8:32am Twyla Navarrete Departed Physician/Pr ovider Office Visit [facility] May 19, 2020 10:40am May 19, 2020 11:59pm Twyla Navarrete Departed Clinical [facility] May 01, 2020 11:04am May 01, 2020 11:05am SycamoreDarrinWindy Departed Physician/Pr ovider Office Visit [facility] May 01, 2020 10:09am May 01, 2020 12:58pm Referral, Self Departed Physician/Pr ovider Office Visit [facility] February 14, 2020 7:43am February 14, 2020 11:49am Joi Herman Departed Physician/Pr ovider Office Visit [facility] January 12, 2020 2:30pm January 12, 2020 3:38pm Jyothi Arteaga Departed Emergency [facility] November 26, 2019 1:42pm November 26, 2019 2:22pm Departed Physician/Pr ovider Office Visit [facility] November 08, 2019 8:50am November [...] 16 1:32pm Blood Pressure Systolic 110 102-133 [facility] 2020 1:32pm Blood Pressure Diastolic 80 61-85 Oct [facility] 2020 1:32pm Body Mass Index 37.3 October 16 1:32pm
--- OUTSIDE RECORDS SUMMARY | 2023-02-16 11:47 | XMS_ITS | Continuity of Care Document ---
Author Name [facility] Address [address] [place] [address] Organization [facility] Address [address] [place] [address] Care Team Providers Care Courtesy Clerk Name Role Phone Jyothi Arteaga Primary Care Physician [phone] Allergies, Adverse Reactions, Alerts No known allergies. [...] December 20, 2020 Disconti nued flu vac [id number] 36mos up(PF) 60 MCG INTRAMUS CULAR ONCE [...] November 04, 2020 Disconti nued flu vacc [id number] 6mos up(PF) 0.5 ML INTRAMUS CULAR ONCE [...] Contact Location October 07, 2020 Jyothi Arteaga [phone] [facility] [place] [address] Relevant Diagnostic Tests and/or Laboratory Data Laboratory [...] November 19, 2020 11:18am Negative Urine Specific [place] (Manual) November 19, 2020 11:18am 1.020 POC [...] September 12, 2020 4:01pm 6.5 Urine Specific [place] September 12, 2020 4:01pm 1.015 Urine Protein [...] sheets for providers can be found at: Hipbone.gov/media/88570 5/download Fact sheets for patients can be found at: Hipbone.gov/Bazaarvoice/17550 7/download TB Test (QFT) Antigen Minus Nil [...] 10:30am 0.01 IU/mL Test Performed b y: [facility] [address] [place] [address] Director Of Solutions Architecture: Boone Escudero M.D. Ph.D.; [facility]# [id number] Microbiology Results Procedure Source Result Collection Date/Time [...] November 04, 2020 Discontinu ed flu vac [id number] 36mos up(PF) 60 MCG INTRAMUSCU LAR ONCE [...] September 30, 2020 Discontinu ed flu vacc [id number] 6mos up(PF) 0.5 ML INTRAMUSCU LAR ONCE 0.5 May 01, 2020 Discontinu ed Encounters Encounter Facility Location Admit/Visit Date Discharge/Departure Date Attending Provider Departed Emergency [facility] Emergency Department December 21, 2020 8:46am December 21, 2020 12:00pm Departed Physician/Pr ovider Office Visit [facility] Pediatric[facility] December 20, 2020 4:18pm December 20, 2020 4:47pm Maite Garcia Departed Physician/Pr ovider Office Visit [facility] November 19, 2020 10:32am November 19, 2020 11:29am Felicia Rodrigez Departed Physician/Pr ovider Office Visit [facility] Orthopedic[facility]Cesar ab November 15, 2020 2:11pm November 15, 2020 2:55pm Antwon Jackson Departed Physician/Pr ovider Office Visit [facility] November 04, 2020 10:01am November 04, 2020 10:26am Jyothi Arteaga Departed Physician/Pr ovider Office Visit [facility] Orthopedic[facility]Cesar [facility] October 16, 2020 1:25pm October 16, 2020 1:55pm Antwon Jackson Departed Emergency [facility] Urgent [facility] October 11, 2020 7:11pm October 11, 2020 9:23pm Departed Clinical [facility] Cardiology October 08, 2020 1:55pm October 08, 2020 1:56pm Jyothi Arteaga Departed Physician/Pr ovider Office Visit [facility] Cardiology October 08, 2020 1:50pm October 08, 2020 11:59pm Diann Oakes Departed Physician/Pr ovider Office Visit [facility] October 07, 2020 12:53pm October 07, 2020 2:16pm Jyothi Arteaga Departed Emergency [facility] Emergency Department 2020 8:52am 2020 10:22am Departed Emergency [facility] Emergency Department September 30, 2020 4:35pm September 30, 2020 8:56pm Departed Emergency [facility] Urgent [facility] September 30, 2020 2:40pm September 30, 2020 4:44pm Departed Referred [facility] Lab [facility] [place] September 12, 2020 4:01pm September 12, 2020 4:02pm Ian Garcia Departed Physician/Pr ovider Office Visit [facility] September 12, 2020 3:24pm September 12, 2020 4:17pm Ian Garcia Departed Clinical [facility] Laboratory August 30, 2020 2:39pm August 30, 2020 2:40pm Jyothi Arteaga Departed Physician/Pr ovider Office Visit [facility] August 30, 2020 1:59pm August 30, 2020 4:00pm Jyothi Arteaga Departed Physician/Pr ovider Office Visit [facility] August 19, 2020 8:59am August 19, 2020 11:18am Jyothi Arteaga Departed Physician/Pr ovider Office Visit [facility] August 06, 2020 8:07am August 06, 2020 3:16pm Joi Herman Departed Emergency [facility] Emergency Department July 27, 2020 3:43pm July 27, 2020 5:11pm Departed Physician/Pr ovider Office Visit [facility] July 24, 2020 7:51am July 24, 2020 1:52pm Joi Herman Departed Physician/Pr ovider Office Visit [facility] Occupational Health [facility] July 18, 2020 2:47pm July 18, 2020 2:47pm Windy Contreras Departed Physician/Pr ovider Office Visit [facility] July 12, 2020 7:56am July 12, 2020 11:59pm Jyothi Arteaga Departed Physician/Pr ovider Office Visit [facility] July 09, 2020 10:31am July 09, 2020 9:21pm Joi Herman Departed Emergency [facility] Emergency Department July 04, 2020 10:57am July 04, 2020 11:59am Departed Clinical [facility] June 27, 2020 8:16am June 27, 2020 8:17am Windy Contreras Departed Physician/Pr ovider Office Visit [facility] June 21, 2020 7:52am June 21, 2020 3:38pm Joi Herman Departed Physician/Pr ovider Office Visit [facility] June 21, 2020 7:50am June 21, 2020 11:59pm Jyothi Arteaga Departed Physician/Pr ovider Office Visit [facility] June 14, 2020 3:05pm June 14, 2020 11:59pm Jyothi Arteaga Departed [facility] May 20, 2020 1:55pm May 20, 2020 1:56pm Nadege Parker Departed Physician/Pr ovider Office Visit [facility] May 20, 2020 1:16pm May 20, 2020 2:13pm Nadege Parker Departed Clinical [facility] May 20, 2020 8:31am May 20, 2020 8:32am Twyla Navarrete Departed Physician/Pr ovider Office Visit [facility] May 19, 2020 10:40am May 19, 2020 11:59pm Twyla Navarrete Departed Clinical [facility] May 01, 2020 11:04am May 01, 2020 11:05am Windy Contreras Departed Physician/Pr ovider Office Visit [facility] May 01, 2020 10:09am May 01, 2020 12:58pm Referral, Self Departed Physician/Pr ovider Office Visit [facility] February 14, 2020 7:43am February 14, 2020 11:49am Joi Herman Functional Status Query Response Date [...]
--- OUTSIDE RECORDS SUMMARY | 2023-02-16 11:48 | XMS_ITS | Continuity of Care Document ---
Author Name [facility] Address [address] [place] [id number] Organization [facility] Address [address] [place] [address] Care Team Providers Care In School Suspension Coordinator Name Role Phone Jyothi Arteaga Primary Care Physician Arik Rosas JR Attending Physician [phone] Allergies, Adverse Reactions, Alerts No known allergies. Medications Active Medications Medication Dose Units Route Sig Qty Start Date St atus Levonorgestrel-Ethinyl Estra d [Vienva] September 26, 2017 Active Amoxicillin-Pot Clavulanate [Augmentin] 1 TAB ORAL TWICE A DAY 14 September 26, 2017 Ac tive Problem List Inactive/Resolved Problems Medical Problem Onset Date Status Laceration of foot, left Inactiv e Procedures Procedure Date Status MRI LT Lower Ext Jt w/o Contr December 21, 2017 c ompleted Knee 1 or 2 vw LT November 09, 2017 completed Relevant Diagnostic Tests and/or Laboratory Data No known relevant diagnostic tests, laboratory data, and/or discharge summary. Advance Directives Advance Directive Response Recorded Date/ Time Do we have a copy on file here at [facility]? No May 23, 2016 9:44am Does patient have an Advanced Directive? No December 09, 2012 11:08am Pt has a Living Will? No December 09, 2012 11:08am Pt has a Power of Environmental Health And Safety Leader? No Deco 2012 11:08am Chief Complaint and Reason for Visit Encounter Admit Date Chief Complaint Reason for V isit Departed Clinical December 21, 2017 4:52pm LEFT KNEE PA IN M25.562 Hospital Discharge Instructions No known hospital discharge instructions. Hospital Discharge Medications Medication Dose Units Route Sig Qty Days Order Date Status Ins tructions Levonorgestrel-Et hinyl Estrad September Active Amoxicillin-Pot Clavulanate 1 TAB ORAL TWICE A DAY 14 September 062017 Active Encounters Encounter Facility Location Admit/Visit Date Discharge/Departure Date Attending Provider Departed Clinical [facility] December 21, 2017 4:52pm December 21, 2017 4:53pm Arik Rosas Departed Clinical [facility] November 09, 2017 2:36pm November 09, 2017 2:37pm Felicia Rodrigez Departed Emergency [facility] Urgent [facility] September 26, 2017 2:24pm September 26, 2017 2:59pm Functional Status No known functional status. Immunizations No known immunizations. Payers Payer Name Policy Type Covered Constitution Party Covered Constitution Party Id Relationship Subscriber Subscriber Id [place] Medicaid FAITH RAMSES [id number] Self/Same as Patient TERA RAMSES [id number] SELF PAY Personal [place] MEDICAID (DO NOT USE) Medicaid TERA RAMSES [id number] Self/Same as Patient TERA PEARCE [id number] Plan of Care No Known Plan of [...]
--- OUTSIDE RECORDS SUMMARY | 2023-02-16 11:48 | XMS_ITS | Continuity of Care Document ---
Author Name [facility] Address [address] [place] [id number] Organization [facility] Address [address] [place] [address] Care Team Providers Care Hat Body Inspector Name Role Phone Jyothi Arteaga Primary [...] 2020 July 12, 2020 Discontinued flu vac [id number] 36mos up(PF) 60 MCG INTRAMUSCULAR ONCE 0.5 [...] 2017 July 27, 2018 Discontinued flu vacc [id number] 6mos up(PF) 0.5 ML INTRAMUSCULAR ONCE 0.5 May 01, 2020 May 01, 2020 Discontinued Problem List Active Problems Medical Problem Onset Date Status Abdominal pain, RUQ Active Effusion of knee December 06, 2017 Benign mole Active Otalgia June 11, 2016 Anxiety Trauma and stressor-related disorder Anxiety and depression Encounter for well child check without abnormal findings Active Acute pharyngitis Active Knee pain November 09, 2017 Abdominal pain Active Abdominal pain Active Vomiting Active Foreign body of left eyelid Acti ve Inactive/Resolved Problems Medical Problem Onset Date Status Acute foot pain Inactive Acute viral pharyngitis Inactive Contusion of hand, right Inactiv e Laceration of foot, left Inactiv e Sprain of hand, right Inactive Procedures Procedure Date Status US Abdomen (Limited) September 30, 2020 active ED US Abdominal Limited September 30, 2020 active Urine Culture September 12, 2020 completed Hand [...] Urine Color (Manual) September 12, 2020 4:12pm [place] Urine Clarity (Manual) September 12, 2020 4:12pm Clear POC Urine Glucose September 12, 2020 4:12pm Negative POC Urine Bilirubin Confirmation September 12, 2020 4:12pm Negative Urine Ketones (Manual) September 12, 2020 4:12pm Large (+++) Urine Specific [place] (Manual) September 12, 2020 4:12pm 1.015 POC [...] September 12, 2020 4:01pm 6.5 Urine Specific [place] September 12, 2020 4:01pm 1.015 Urine Protein [...] sheets for providers can be found at: fda.gov/media/99231 5/download Fact sheets for patients can be found at: LUMO Bodytech.gov/media/02541 7/download TB Test (QFT) Antigen Minus Nil [...] Diagnosis of Tuberculosis in Adults and Children [Renzoinseusebio COOK et. al. Clin. Infect. Dis. 2017;64(2):111-115] [...] 10:30am 0.01 IU/mL Test Performed b y: [facility] [address] [place] [address] Graphic Design Manager: Boone Escudero M.D. Ph.D.; [facility]# [id number] Microbiology Results Procedure Source Result Collection Date/Time Result Date/Time Group A Streptococcus Screen (YVES) Throat No results entered November 26, 2019 2:11pm Group A Streptococcus Screen (YVES) Throat No results entered May 20, 2020 1:55pm Urine Culture Ur,Clean Catch No results entered September 12, 2020 4:01pm Chief Complaint and Reason for Visit Encounter Admit Date Chief Complaint Reason for V isit Departed Emergency September 30, 2020 4:35pm ABDOMINAL PAIN Hospital Discharge Instructions Additional Discharge Instructions You we re seen in the ED for vomiting and abdominal pain. Your lab work was unremarkable and ultrasound in the ED was equivocal. Please return tomorrow morning for an ultrasound of your gallbladder and biliary system. Regardless of results, you will need to follow up with your PCP within the week as well to go over the testing you had in the ED and to make sure you are getting better. We have prescribed the medication ONDANSETRON to take up to 3 times per day as needed for nausea and vomiting. Otherwise do your best to stay well hydrated and eat bland soft foods that do not upset your stomach. Return to the ED for worsening pain, fever, vomiting and dehydration, or any new or concerning symptoms. Instruction/Education Provided Nausea an d Vomiting, Child (DC) Gallstones ED Hospital Discharge Medications Medication Dose Units Route Sig Qty Days Order Date Status Ins tructions Levonorgestrel -Ethinyl Estrad 1 TAB ORAL DAILY 84 August 17, 2018 Discontinu ed Levonorgestrel -Ethinyl Estrad 1 TAB ORAL DAILY 84 November 08, 2019 Active Fluoxetine 10 MG ORAL DAILY 30 June 17, 2020 Discontinu ed flu vac [id number] 36mos up(PF) 60 MCG INTRAMUSCU LAR ONCE [...] vomiting September 30, 2020 Active flu vacc [id number] 6mos up(PF) 0.5 ML INTRAMUSCU LAR ONCE 0.5 May 01, 2020 Discontinu ed Encounters Encounter Facility Location Admit/Visit Date Discharge/Departure Date Attending Provider Departed Emergency [facility] Emergency Department September 30, 2020 4:35pm September 30, 2020 8:56pm Departed Emergency [facility] September 30, 2020 2:40pm September 30, 2020 4:44pm Departed Referred [facility] [place] September 12, 2020 4:01pm September 12, 2020 4:02pm Ian Garcia Departed Physician/Pr ovider Office Visit [facility] September 12, 2020 3:24pm September 12, 2020 4:17pm Ian Garcia Departed Clinical [facility] Laboratory August 30, 2020 2:39pm August 30, 2020 2:40pm Jyothi Arteaga Departed Physician/Pr ovider Office Visit [facility] August 30, 2020 1:59pm August 30, 2020 4:00pm Jyothi Arteaga Departed Physician/Pr ovider Office Visit [facility] August 19, 2020 8:59am August 19, 2020 11:18am Jyothi Arteaga Departed Physician/Pr ovider Office Visit [facility] August 06, 2020 8:07am August 06, 2020 3:16pm Joi Herman Departed Emergency [facility] Emergency Department July 27, 2020 3:43pm July 27, 2020 5:11pm Departed Physician/Pr ovider Office Visit [facility] July 24, 2020 7:51am July 24, 2020 1:52pm Joi Herman Departed Physician/Pr ovider Office Visit [facility] Occupational Health [facility] July 18, 2020 2:47pm July 18, 2020 2:47pm Windy Contreras Departed Physician/Pr ovider Office Visit [facility] July 12, 2020 7:56am July 12, 2020 11:59pm Jyothi Arteaga Departed Physician/Pr ovider Office Visit [facility] July 09, 2020 10:31am July 09, 2020 9:21pm Joi Herman Departed Emergency [facility] Emergency Department July 04, 2020 10:57am July 04, 2020 11:59am Departed Clinical [facility] Curbside June 27, 2020 8:16am June 27, 2020 8:17am Windy Contreras Departed Physician/Pr ovider Office Visit [facility] June 21, 2020 7:52am June 21, 2020 3:38pm Joi Herman Departed Physician/Pr ovider Office Visit [facility] June 21, 2020 7:50am June 21, 2020 11:59pm Jyothi Arteaga Departed Physician/Pr ovider Office Visit [facility] June 14, 2020 3:05pm June 14, 2020 11:59pm Jyothi Arteaga Departed Referred [facility] [place] May 20, 2020 1:55pm May 20, 2020 1:56pm Nadege Parker Departed Physician/Pr ovider Office Visit [facility] May 20, 2020 1:16pm May 20, 2020 2:13pm Carly Parkercarter Departed Clinical [facility] May 20, 2020 8:31am May 20, 2020 8:32am Twyla Navarrete Departed Physician/Pr ovider Office Visit [facility] May 19, 2020 10:40am May 19, 2020 11:59pm Twyla Navarrete Departed Clinical [facility] May 01, 2020 11:04am May 01, 2020 11:05am Darrin Contreraseen Departed Physician/Pr ovider Office Visit [facility] May 01, 2020 10:09am May 01, 2020 12:58pm Referral, Self Departed Physician/Pr ovider Office Visit [facility] February 14, 2020 7:43am February 14, 2020 11:49am Joi Herman Departed Physician/Pr ovider Office Visit [facility] January 12, 2020 2:30pm January 12, 2020 3:38pm Jyothi Arteaga Departed Emergency [facility] November 26, 2019 1:42pm November 26, 2019 2:22pm Departed Physician/Pr ovider Office Visit [facility] November 08, 2019 8:50am November 08, 2019 11:13am Joi Herman Departed Physician/Pr ovider Office Visit [facility] October 23, 2019 3:55pm October 23, 2019 9:38pm Joi Herman Departed Physician/Pr ovider Office Visit [facility] October 04, 2019 8:50am October 04, 2019 11:08pm Joi Herman Departed Emergency [facility] Emergency Department 2019 10:08pm 2019 10:51pm Functional Status Query Response Date Recorded Comment [...] 03, 2007 Historical Plan of Care Instructions Nausea and Vomiting, Child ( DC) Gallstones ED Social History Query Response Date Recorded Comment Alcohol Use No September 30, 2020 7:16pm Smoking Status Current every day smoker September 30, 2020 7:16pm Substance/Street Drug Use Yes September 30, 2020 7:16pm [facility] marijuana as of 09/30/20 alcohol intake frequency holidays/special occasions only September 30, 2020 7:16pm substance use type marijuana September 30, 2020 7:16pm Query Response Start Date Stop Date Smoking Status Current every day smoker Vital Signs Vital Reading Result Reference Range Collection Date/Time Height 5 ft 5 in September 30, 2020 4 :46pm Weight 103.419 kg September 30, 2020 4 :46pm Temperature 97.4 F 97.6 F-99.6 F September [...]
--- OUTSIDE RECORDS SUMMARY | 2023-02-16 11:48 | XMS_ITS | Continuity of Care Document ---
Author Name [facility] Address [address] [place] [address] Organization [facility] Address [address] [place] [address] Care Team Providers Care Student Ambassador Name Role Phone Juan Carlos Santana JR [...] December 20, 2020 Disconti nued flu vac [id number] 36mos up(PF) 60 MCG INTRAMUS CULAR ONCE [...] November 04, 2020 Disconti nued flu vacc [id number] 6mos up(PF) 0.5 ML INTRAMUS CULAR ONCE 0.5 May 01, 2020 May 01, 2020 Disconti nued Problem List Active Problems Medical Problem Onset Date Status Effusion of knee December 06, 2017 Benign mole Active Vomiting and diarrhea Active Abrasion, right foot, initial encounter Active Otalgia June 11, 2016 Anxiety Trauma and stressor-related disorder Headache Active Anxiety and depression Viral URI Active Encounter for well child check without abnormal [...] November 19, 2020 11:18am Negative Urine Specific [place] (Manual) November 19, 2020 11:18am 1.020 POC [...] September 12, 2020 4:01pm 6.5 Urine Specific [place] September 12, 2020 4:01pm 1.015 Urine Protein [...] Fluoxetine 20 MG ORAL DAILY 30 Septe 2020 Active Levonorgestrel -Ethinyl Estrad 1 TAB ORAL DAILY November 20, 2020 Active Magnesium 200 - 600 MG ORAL DAILY 90 November 04, 2020 Discontinu ed Riboflavin (Vitamin B2) 400 MG ORAL DAILY 90 November 04, 2020 Discontinu ed flu vac [id number] 36mos up(PF) 60 MCG INTRAMUSCU LAR ONCE [...] September 30, 2020 Discontinu ed Amitriptyline MG [facility] 2021 Active flu vacc [id number] 6mos up(PF) 0.5 ML INTRAMUSCU LAR ONCE 0.5 May 01, 2020 Discontinu ed Encounters Encounter Facility Location Admit/Visit Date Discharge/Departure Date Attending Provider Departed Emergency [facility] May 12, 2021 11:36am May 12, 2021 12:40pm Departed Physician/Pr ovider Office Visit [facility] 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 May 01, 2021 2:45pm May 01, 2021 3:00pm Fortunato Quezada Departed Clinical [facility] April 24, 2021 9:03am April 24, 2021 9:04am Juan Carlos Santana JR Departed Clinical [facility] April 01, 2021 9:05am April 01, 2021 9:06am Juan Carlos Santana JR Departed Referred [facility] March 27, 2021 6:39pm March 27, 2021 6:40pm Juan Carlos Santana JR Registered Inpatient [facility] March 06, 2021 3:15pm Soni Santa Departed Emergency [facility] Emergency Department February 22, 2021 1:48pm February 22, 2021 5:28pm Departed Emergency [facility] February 22, 2021 12:49pm February 22, 2021 1:47pm Departed Emergency [facility] Emergency Department December 21, 2020 8:46am December 21, 2020 12:00pm Departed Physician/Pr ovider Office Visit [facility] December 20, 2020 4:18pm December 20, 2020 4:47pm Maite Garcia Departed Physician/Pr ovider Office Visit [facility] November 19, 2020 10:32am November 19, 2020 11:29am Felicia Rodrigez Departed Physician/Pr ovider Office Visit [facility] Orthopedic&Cesar ab November 15, 2020 2:11pm November 15, 2020 2:55pm Antwon Jackson Departed Physician/Pr ovider Office Visit [facility] November 04, 2020 10:01am November 04, 2020 10:26am Jyothi Arteaga Departed Physician/Pr ovider Office Visit [facility] Orthopedic[facility]Cesar ab October 16, 2020 1:25pm October 16, 2020 1:55pm Antwon Jackson Departed Emergency [facility] Urgent [facility] October 11, 2020 7:11pm October 11, 2020 9:23pm Departed Clinical [facility] Cardiology October 08, 2020 1:55pm October 08, 2020 1:56pm Jyothi Arteaga Departed Physician/Pr ovider Office Visit [facility] Cardiology October 08, 2020 1:50pm October 08, 2020 11:59pm Diann Oakes Departed Physician/Pr ovider Office Visit [facility] October 07, 2020 12:53pm October 07, 2020 2:16pm Jyothi Arteaga Departed Emergency [facility] Emergency Department 2020 8:52am 2020 10:22am Departed Emergency [facility] Emergency Department September 30, 2020 4:35pm September 30, 2020 8:56pm Departed Emergency [facility] Urgent [facility] September 30, 2020 2:40pm September 30, 2020 4:44pm Departed Referred [facility] Lab [facility] [place] September 12, 2020 4:01pm September 12, 2020 4:02pm Ian Garcia Departed Physician/Pr ovider Office Visit [facility] September 12, 2020 3:24pm September 12, 2020 4:17pm Ian Garcia Departed Clinical [facility] Laboratory August 30, 2020 2:39pm August 30, 2020 2:40pm Jyothi Arteaga Departed Physician/Pr ovider Office Visit [facility] August 30, 2020 1:59pm August 30, 2020 4:00pm Jyothi Arteaga Departed Physician/Pr ovider Office Visit [facility] August 19, 2020 8:59am August 19, 2020 11:18am Jyothi Arteaga Departed Physician/Pr ovider Office Visit [facility] August 06, 2020 8:07am August 06, 2020 3:16pm Joi Herman Departed Emergency [facility] Emergency Department July 27, 2020 3:43pm July 27, 2020 5:11pm Departed Physician/Pr ovider Office Visit [facility] July 24, 2020 7:51am July 24, 2020 1:52pm Joi Herman Departed Physician/Pr ovider Office Visit [facility] Occupational Health [facility] July 18, 2020 2:47pm July 18, 2020 2:47pm Windy Contreras Departed Physician/Pr ovider Office Visit [facility] July 12, 2020 7:56am July 12, 2020 11:59pm Jyothi Arteaga Departed Physician/Pr ovider Office Visit [facility] July 09, 2020 10:31am July 09, 2020 9:21pm Joi Herman Departed Emergency [facility] Emergency Department July 04, 2020 10:57am July 04, 2020 11:59am Departed Clinical [facility] June 27, 2020 8:16am June 27, 2020 8:17am Windy Contreras Departed Physician/Pr ovider Office Visit [facility] June 21, 2020 7:52am June 21, 2020 3:38pm Joi Herman Departed Physician/Pr ovider Office Visit [facility] June 21, 2020 7:50am June 21, 2020 11:59pm Jyothi Arteaga Departed Physician/Pr ovider Office Visit [facility] June 14, 2020 3:05pm June 14, 2020 11:59pm Jyothi Arteaga Departed Referred [facility] [place] May 20, 2020 1:55pm May 20, 2020 1:56pm Nadege Parker Departed Physician/Pr ovider Office Visit [facility] Pediatric[facility] May 20, 2020 1:16pm May 20, 2020 2:13pm Nadege Parker Departed Clinical [facility] May 20, 2020 8:31am May 20, 2020 8:32am Twyla Navarrete Departed Physician/Pr ovider Office Visit [facility] Occupational Health [facility] May 19, [...] 2021 11:45am Blood Pressure Systolic 124 102-133 [facility] 2021 11:45am Blood Pressure Diastolic 62 61-85 [facility] 2021 11:45am Body Mass Index 37.0 November 2:21pm
--- OUTSIDE RECORDS SUMMARY | 2023-02-16 11:48 | XMS_ITS | Continuity of Care Document ---
Author Name [facility] Address [address] [place] [id number] Organization [facility] Address [address] [place] [id number] Support Name Relationship Address Phone Jyothi Arteaga Primary Care Provider [facility] Leandro torres [facility] [address] [place] [address] Soni Santa Attending Provider Unknown [...] December 20, 2020 Disconti nued flu vac [id number] 36mos up(PF) 60 MCG INTRAMUS CULAR ONCE [...] November 04, 2020 Disconti nued flu vacc [id number] 6mos up(PF) 0.5 ML INTRAMUS CULAR ONCE [...] Contact Location October 07, 2020 Jyothi Arteaga [phone] [facility] [place] [address] Relevant Diagnostic Tests and/or Laboratory Data Laboratory [...] November 19, 2020 11:18am Negative Urine Specific [place] (Manual) November 19, 2020 11:18am 1.020 POC [...] September 12, 2020 4:01pm 6.5 Urine Specific [place] September 12, 2020 4:01pm 1.015 Urine Protein [...] sheets for providers can be found at: [employer]en[employer]/1362 85/download Fact sheets for patients can be found at: [employer]oph[employer]en[employer]/1362 87/download TB Test (QFT) Antigen Minus Nil [...] Test Performed b y: [facility] [address] [place] [address] Operations Coordinator: Boone Escudero M.D. Ph.D.; CLIA# [id number] Microbiology Results Procedure Source Result Collection Date/Time [...] November 04, 2020 Discontinu ed flu vac [id number] 36mos up(PF) 60 MCG INTRAMUSCU LAR ONCE [...] September 30, 2020 Discontinu ed flu vacc [id number] 6mos up(PF) 0.5 ML INTRAMUSCU LAR ONCE 0.5 May 01, 2020 Discontinu ed Encounters Encounter Facility Location Admit/Visit Date Discharge/Departure Date Attending Provider Registered Inpatient [facility] March 06, 2021 3:15pm Soni Santa Departed Emergency [facility] Emergency Department February 22, 2021 1:48pm February 22, 2021 5:28pm Departed Emergency [facility] February 22, 2021 12:49pm February 22, 2021 1:47pm Departed Emergency [facility] Emergency Department December 21, 2020 8:46am December 21, 2020 12:00pm Departed Physician/Pr ovider Office Visit [facility] Pediatrics [facility] December 20, 2020 4:18pm December 20, 2020 4:47pm Maite Garcia Departed Physician/Pr ovider Office Visit [facility] November 19, 2020 10:32am November 19, 2020 11:29am Felicia Rodrigez Departed Physician/Pr ovider Office Visit [facility] Orthopedic&Cesar ab November 15, 2020 2:11pm November 15, 2020 2:55pm Antwon Jackson Departed Physician/Pr ovider Office Visit [facility] November 04, 2020 10:01am November 04, 2020 10:26am Jyothi Arteaga Departed Physician/Pr ovider Office Visit [facility] Orthopedic&Cesar ab October 16, 2020 1:25pm October 16, 2020 1:55pm Antwon Jackson Departed Emergency [facility] October 11, 2020 7:11pm October 11, 2020 9:23pm Departed Clinical [facility] Cardiology October 08, 2020 1:55pm October 08, 2020 1:56pm Jyothi Arteaga Departed Physician/Pr ovider Office Visit [facility] Cardiology October 08, 2020 1:50pm October 08, 2020 11:59pm Diann Oakes Departed Physician/Pr ovider Office Visit [facility] October 07, 2020 12:53pm October 07, 2020 2:16pm Jyothi Arteaga Departed Emergency [facility] Emergency Department 2020 8:52am 2020 10:22am Departed Emergency [facility] Emergency Department September 30, 2020 4:35pm September 30, 2020 8:56pm Departed Emergency [facility] September 30, 2020 2:40pm September 30, 2020 4:44pm Departed Referred [facility] Lab [facility] Peds [place] September 12, 2020 4:01pm September 12, 2020 4:02pm Ian Garcia Departed Physician/Pr ovider Office Visit [facility] September 12, 2020 3:24pm September 12, 2020 4:17pm Ian Garcia Departed Clinical [facility] Laboratory August 30, 2020 2:39pm August 30, 2020 2:40pm Jyothi Arteaga Departed Physician/Pr ovider Office Visit [facility] August 30, 2020 1:59pm August 30, 2020 4:00pm Jyothi Arteaga Departed Physician/Pr ovider Office Visit [facility] August 19, 2020 8:59am August 19, 2020 11:18am Jyothi Arteaga Departed Physician/Pr ovider Office Visit [facility] August 06, 2020 8:07am August 06, 2020 3:16pm Joi Herman Departed Emergency [facility] Emergency Department July 27, 2020 3:43pm July 27, 2020 5:11pm Departed Physician/Pr ovider Office Visit [facility] July 24, 2020 7:51am July 24, 2020 1:52pm Joi Herman Departed Physician/Pr ovider Office Visit [facility] Occupational Health [facility] July 18, 2020 2:47pm July 18, 2020 2:47pm Windy Contreras Departed Physician/Pr ovider Office Visit [facility] July 12, 2020 7:56am July 12, 2020 11:59pm Jyothi Arteaga Departed Physician/Pr ovider Office Visit [facility] July 09, 2020 10:31am July 09, 2020 9:21pm Joi Herman Departed Emergency [facility] Emergency Department July 04, 2020 10:57am July 04, 2020 11:59am Departed Clinical [facility] June 27, 2020 8:16am June 27, 2020 8:17am Windy Contreras Departed Physician/Pr ovider Office Visit [facility] June 21, 2020 7:52am June 21, 2020 3:38pm Joi Herman Departed Physician/Pr ovider Office Visit [facility] June 21, 2020 7:50am June 21, 2020 11:59pm Jyothi Arteaga Departed Physician/Pr ovider Office Visit [facility] June 14, 2020 3:05pm June 14, 2020 11:59pm Jyothi Arteaga Departed Referred [facility] LAB [facility] May 20, 2020 1:55pm May 20, 2020 1:56pm Nadege Parker Departed Physician/Pr ovider Office Visit [facility] May 20, 2020 1:16pm May 20, 2020 2:13pm Nadege Parker Departed Clinical [facility] May 20, 2020 8:31am May 20, 2020 8:32am Twyla Navarrete Departed Physician/Pr ovider Office Visit [facility] May 19, 2020 10:40am May 19, 2020 11:59pm Twyla Navarrete Departed Clinical [facility] May 01, 2020 11:04am May 01, 2020 11:05am Windy Contreras Departed Physician/Pr ovider Office Visit [facility] Occupational Health [facility] May 01, 2020 10:09am May [...]
--- OUTSIDE RECORDS SUMMARY | 2023-02-16 11:48 | XMS_ITS | Continuity of Care Document ---
Author Name [facility] Address [address] [place] [address] Organization [facility] Address [address] [place] [address] Care Team Providers Care Sweeper Operator Highways Name Role Phone Jyothi Arteaga Primary Care Physician [phone] Twyla Navarrete Attending Physician Allergies, Adverse Reactions, Alerts No [...] 2018 November 08, 2019 Discontinued flu vac [id number] 36mos up(PF) 60 MCG INTRAMUSCULAR ONCE 0.5 July 27, 2018 July 27, 2018 Discontinued tuberculin PPD 0.1 ML INTRADERMAL ONCE 0.1 July 06, 2018 July 06, 2018 Discontinued Levonorgestre l-Ethinyl Estrad [Vienva] September 26, 2017 August 17, 2018 Discontinued Amoxicillin-P ot Clavulanate [Augmentin] 1 TAB ORAL TWICE A DAY 14 September 26, 2017 July 27, 2018 Discontinued flu vacc [id number] 6mos up(PF) 0.5 ML INTRAMUSCULAR ONCE 0.5 [...] nevi, unspecified January 12, 2020 Jyothi Arteaga [phone] [facility] [address] [address] Relevant Diagnostic Tests and/or Laboratory Data Laboratory [...] sheets for providers can be found at: Kimeltu.gov/ThingWorx/651388/do wnload Fact sheets for patients can be found at: Kimeltu.gov/ThingWorx/181814/do wnload TB Test (QFT) Antigen Minus Nil [...] 10:30am 0.01 IU/mL Test Performed b y: [facility] [address] [id number] Fishing Line Winding Machine Operator: Boone Escudero M.D. Ph.D.; [place]# [id number] Microbiology Results Procedure Source Result Collection Date/Time Resu lt Date/Time Group A Streptococcus Screen (YVES) Throat No results entered November 26, 2019 2:11pm Chief Complaint and Reason for Visit Encounter Admit Date Chief Complaint Reason for V isit Departed Clinical May 20, 2020 8:31am Contact with and (suspected) exposure to covid-19 Hospital Discharge Instructions No known hospital discharge instructions. Hospital Discharge Medications Medication Dose Units Route Sig Qty Days Order Date Status Ins tructions Levonorgestr el-Ethinyl Estrad 1 TAB ORAL DAILY 84 August 17, 2018 Discontinued Levonorgestr el-Ethinyl Estrad 1 TAB ORAL DAILY 84 November 08, 2019 Active flu vac [id number] 36mos up(PF) 60 MCG INTRAMUSCULA R ONCE 0.5 July 27, 2018 Discontinued tuberculin PPD 0.1 ML INTRADERMAL ONCE 0.1 July 06, 2018 Discontinued Levonorgestr el-Ethinyl Estrad September 26, 2017 Discontinued Amoxicillin- Pot Clavulanate 1 TAB ORAL TWICE A DAY 14 September 26, 2017 Discontinued flu vacc [id number] 6mos up(PF) 0.5 ML INTRAMUSCULA R ONCE 0.5 May 01, 2020 Discontinued Encounters Encounter Facility Location Admit/Visit Date Discharge/Departure Date Attending Provider Departed Referred [facility] [place] May 20, 2020 1:55pm May 20, 2020 1:56pm Nadege Parker Departed Physician/Pr ovider Office Visit [facility] May 20, 2020 1:16pm May 20, 2020 2:13pm Nadege Parker Departed Clinical [facility] Curbside May 20, 2020 8:31am May 20, 2020 8:32am Twyla Navarrete Departed Physician/Pr ovider Office Visit [facility] May 19, 2020 10:40am May 19, 2020 11:59pm Twyla Navarrete Departed Clinical [facility] Lab [facility] May 01, 2020 11:04am May 01, 2020 11:05am Windy Contreras Departed Physician/Pr ovider Office Visit [facility] May 01, 2020 10:09am May 01, 2020 12:58pm Referral, Self Departed Physician/Pr ovider Office Visit [facility] Pediatric[facility] February 14, 2020 7:43am February 14, 2020 11:49am Joi Herman Departed Physician/Pr ovider Office Visit [facility] January 12, 2020 2:30pm January 12, 2020 3:38pm Jyothi Arteaga Departed Emergency [facility] November 26, 2019 1:42pm November 26, 2019 2:22pm Departed Physician/Pr ovider Office Visit [facility] November 08, 2019 8:50am November 08, 2019 11:13am Joi Herman Departed Physician/Pr ovider Office Visit [facility] October 23, 2019 3:55pm October 23, 2019 9:38pm Joi Herman Departed Physician/Pr ovider Office Visit [facility] October 04, 2019 8:50am October 04, 2019 11:08pm Joi Herman Departed Emergency [facility] Emergency Department 2019 10:08pm 2019 10:51pm Departed Physician/Pr ovider Office Visit [facility] September 11, 2019 8:43am September 11, 2019 2:42pm Joi Herman Departed Referred [facility] Lab [facility] REPRODUCTION ARTIST August 31, 2019 10:03am August 31, 2019 10:04am Diana Chaidez Departed Physician/Pr ovider Office Visit [facility] WATER SAFETY TEACHER August 31, 2019 9:48am August 31, 2019 10:13am Diana Chaidez Departed Physician/Pr ovider Office Visit [facility] August 29, 2019 9:48am August 29, 2019 1:49pm oJi Herman Departed Physician/Pr ovider Office Visit [facility] August 17, 2019 7:59am August 17, 2019 1:58pm Joi Herman Departed Physician/Pr ovider Office Visit [facility] Orthopedic&Cesar ab August 16, 2019 10:18am August 16, 2019 1:51pm Chris Bearden Departed Physician/Pr ovider Office Visit [facility] Pediatric[facility] May 24, 2019 2:01pm May 24, [...] 20 1:31pm Blood Pressure Systolic 94 102-133 [facility] 2020 1:31pm Blood Pressure Diastolic 66 61-85 [facility] 2020 1:31pm
--- OUTSIDE RECORDS SUMMARY | 2023-02-16 11:48 | XMS_ITS | Continuity of Care Document ---
Author Name [facility] Address [address] [place] [address] Organization [facility] Address [address] [place] [address] Care Team Providers Care Cinder Block Maker Name Role Phone Juan Carlos Santana JR [...] December 20, 2020 Disconti nued flu vac [id number] 36mos up(PF) 60 MCG INTRAMUS CULAR ONCE [...] November 04, 2020 Disconti nued flu vacc [id number] 6mos up(PF) 0.5 ML INTRAMUS CULAR ONCE [...] November 19, 2020 11:18am Negative Urine Specific [place] (Manual) November 19, 2020 11:18am 1.020 POC [...] September 12, 2020 4:01pm 6.5 Urine Specific [place] September 12, 2020 4:01pm 1.015 Urine Protein [...] November 04, 2020 Discontinu ed flu vac [id number] 36mos up(PF) 60 MCG INTRAMUSCU LAR ONCE [...] September 30, 2020 Discontinu ed Amitriptyline MG [facility] 2021 Active flu vacc [id number] 6mos up(PF) 0.5 ML INTRAMUSCU LAR ONCE 0.5 May 01, 2020 Discontinu ed Encounters Encounter Facility Location Admit/Visit Date Discharge/Departure Date Attending Provider Departed Emergency [facility] May 12, 2021 11:36am May 12, 2021 12:40pm Departed Physician/Pr ovider Office Visit [facility] J2EE PROGRAMMER May 01, 2021 2:45pm May 01, 2021 3:00pm Fortunato Quezada Departed Clinical [facility] April 24, 2021 9:03am April 24, 2021 9:04am Juan Carlos Santana JR Departed Clinical [facility] April 01, 2021 9:05am April 01, 2021 9:06am Juan Carlos Santana JR Departed Referred [facility] March 27, 2021 6:39pm March 27, 2021 6:40pm Juan Carlos Santana JR Registered Inpatient [facility] Pediatrics [facility] March 06, 2021 3:15pm Soni Santa Departed Emergency [facility] Emergency Department February 22, 2021 1:48pm February 22, 2021 5:28pm Departed Emergency [facility] February 22, 2021 12:49pm February 22, 2021 1:47pm Departed Emergency [facility] Emergency Department December 21, 2020 8:46am December 21, 2020 12:00pm Departed Physician/Pr ovider Office Visit [facility] Pediatrics [facility] December 20, 2020 4:18pm December 20, 2020 4:47pm Maite Garcia Departed Physician/Pr ovider Office Visit [facility] Pediatrics [facility] November 19, 2020 10:32am November 19, 2020 11:29am Felicia Rodrigez Departed Physician/Pr ovider Office Visit [facility] Orthopedic&Cesar ab November 15, 2020 2:11pm November 15, 2020 2:55pm Antwon Jackson Departed Physician/Pr ovider Office Visit [facility] Pediatrics [facility] November 04, 2020 10:01am November 04, 2020 10:26am Jyothi Arteaga Departed Physician/Pr ovider Office Visit [facility] Orthopedic&Cesar ab October 16, 2020 1:25pm October 16, 2020 1:55pm Antwon Jackson Departed Emergency [facility]gent [facility] October 11, 2020 7:11pm October 11, 2020 9:23pm Departed Clinical [facility] Cardiology October 08, 2020 1:55pm October 08, 2020 1:56pm Jyothi Arteaga Departed Physician/Pr ovider Office Visit [facility] Cardiology October 08, 2020 1:50pm October 08, 2020 11:59pm Diann Oakes Departed Physician/Pr ovider Office Visit [facility] Pediatrics [facility] October 07, 2020 12:53pm October 07, 2020 2:16pm Jyothi Arteaga Departed Emergency [facility] Emergency Department 2020 8:52am 2020 10:22am Departed Emergency [facility] Emergency Department September 30, 2020 4:35pm September 30, 2020 8:56pm Departed Emergency [facility] Urgent [facility] September 30, 2020 2:40pm September 30, 2020 4:44pm Departed Referred [facility] [place] September 12, 2020 4:01pm September 12, 2020 4:02pm Ian Garcia Departed Physician/Pr ovider Office Visit [facility] Pediatrics [facility] September 12, 2020 3:24pm September 12, 2020 4:17pm Ian Garcia Departed Clinical [facility] Laboratory August 30, 2020 2:39pm August 30, 2020 2:40pm Jyothi Arteaga Departed Physician/Pr ovider Office Visit [facility] Pediatrics [facility] August 30, 2020 1:59pm August 30, 2020 4:00pm Jyothi Arteaga Departed Physician/Pr ovider Office Visit [facility] Pediatrics [facility] August 19, 2020 8:59am August 19, 2020 11:18am Jyothi Arteaga Departed Physician/Pr ovider Office Visit [facility] Pediatric[facility] August 06, 2020 8:07am August 06, 2020 3:16pm Joi Herman Departed Emergency [facility] Emergency Department July 27, 2020 3:43pm July 27, 2020 5:11pm Departed Physician/Pr ovider Office Visit [facility] Pediatrics [facility] July 24, 2020 7:51am July 24, 2020 1:52pm Joi Herman Departed Physician/Pr ovider Office Visit [facility]ational Health [facility] July 18, 2020 2:47pm July 18, 2020 2:47pm Windy Contreras Departed Physician/Pr ovider Office Visit [facility] July 12, 2020 7:56am July 12, 2020 11:59pm Jyothi Arteaga Departed Physician/Pr ovider Office Visit [facility] July 09, 2020 10:31am July 09, 2020 9:21pm Joi Herman Departed Emergency [facility] Emergency Department July 04, 2020 10:57am July 04, 2020 11:59am Departed Clinical [facility] June 27, 2020 8:16am June 27, 2020 8:17am Windy Contreras Departed Physician/Pr ovider Office Visit [facility] June 21, 2020 7:52am June 21, 2020 3:38pm Joi Herman Departed Physician/Pr ovider Office Visit [facility] June 21, 2020 7:50am June 21, 2020 11:59pm Jyothi Arteaga Departed Physician/Pr ovider Office Visit [facility] June 14, 2020 3:05pm June 14, 2020 11:59pm Jyothi Arteaga Departed Referred [facility] [place] May 20, 2020 1:55pm May 20, 2020 1:56pm Nadege Parker Departed Physician/Pr ovider Office Visit [facility] Pediatrics May 20, 2020 1:16pm May 20, 2020 2:13pm Nadege Parker Departed Clinical [facility] May 20, 2020 8:31am May 20, 2020 8:32am Twyla Navarrete Departed Physician/Pr ovider Office Visit [facility]ational Health [facility] May 19, 2020 10:40am May 19, [...] 2021 11:45am Blood Pressure Systolic 124 102-133 [facility] 2021 11:45am Blood Pressure Diastolic 62 61-85 [facility] 2021 11:45am Body Mass Index 37.0 November 2:21pm
--- OUTSIDE RECORDS SUMMARY | 2023-02-16 11:48 | XMS_ITS | Continuity of Care Document ---
Author Name [facility] Address [address] [place] [address] Organization [facility] Address [address] [place] [address] Care Team Providers Care Grain Merchandising Manager Name Role Phone Jyothi Arteaga Primary Care Physician Ed Velásquez Attending Physician Allergies, Adverse Reactions, Alerts No known allergies. Medications Active Medications Medication Dose Units Route Sig Qty Start Date St atus Levonorgestrel-Ethinyl Estrad 1 TAB ORAL DAILY 84 August 17, 2018 Active Discontinued Medications Medication Dose Units Route Sig Qty Start Date Discontinued Date Status flu vaccine [id number] (36 mos up)(PF)60 mcg (15 mcg x4)/0.5 [...] December 06, 2017 Otalgia June 11, 2016 Knee pain November 09, 2017 Inactive/Resolved Problems Medical Problem Onset Date Status Laceration of foot, left Inactiv e Procedures Procedure Date Status Knee 3 vw RT May 01, 2019 completed Relevant Diagnostic Tests and/or Laboratory Data No known relevant diagnostic tests, laboratory data, and/or discharge summary. Chief Complaint and Reason for Visit Encounter Admit Date Chief Complaint Reason for V isit Departed Clinical May 01, 2019 3:53pm Xray Hospital Discharge Instructions No known hospital discharge instructions. Hospital Discharge Medications Medication Dose Units Route Sig Qty Days Order Date Status Instructions Levonorgestre l-Ethinyl Estrad 1 TAB ORAL DAILY 84 August 17, 2018 Active flu vaccine [id number] (36 mos up)(PF)60 mcg (15 mcg x4)/0.5 mL IM susp 60 MCG INTRAMUSCULAR ONCE 0.5 July 27, 2018 Discontinued tuberculin PPD 0.1 ML INTRADERMAL ONCE 0.1 July 06, 2018 Discontinued Levonorgestre l-Ethinyl Estrad September 26, 2017 Discontinued Amoxicillin-P ot Clavulanate 1 TAB ORAL TWICE A DAY 14 September 26, 2017 Discontinued Encounters Encounter Facility Location Admit/Visit Date Discharge/Departure Date Attending Provider Departed Clinical [facility] DI [facility] May 01, 2019 3:53pm May 01, 2019 3:54pm Ed Velásquez Departed Physician/Pr ovider Office Visit [facility] Pediatrics [facility] May 01, 2019 2:11pm May 01, 2019 2:42pm Ed Velásquez Registered Inpatient [facility] Pediatrics [facility] August 17, 2018 11:59pm Jyothi Arteaga Departed Physician/Pr ovider Office Visit [facility] Pediatrics [facility] July 27, 2018 11:14am July 27, 2018 12:53pm Yvonne Frazier Departed Physician/Pr ovider Office Visit [facility] Pediatrics [facility] July 08, 2018 3:54pm July 08, 2018 11:59pm Yvonne Frazier Departed Physician/Pr ovider Office Visit [facility] Pediatrics [facility] July 06, 2018 3:48pm July 06, 2018 11:59pm Chandler Arora Functional Status No known functional status. Immunizations Immunization Name Date Given Type DTP [...] Subscriber Subscriber Id [place] Medicaid Faith Dione [id number] Self/Same as Patient Nayeli Dione [id number] SELF PAY Personal [place] MEDICAID (DO NOT USE) Medicaid Faith Dione [id number] Self/Same as Patient Nayeli Dione [id number] Plan of Care No Known Plan of Care Information Social History Query Response Date Recorded Comment Alcohol Use No September 27, 2017 6:55am Smoking Status Never smoker May 01, 2019 2:25pm Query Response Start Date Stop Date Smoking Status Never smoker Vital Signs Vital Reading Result Reference Range Collection Date/Time Height n/a Weight 113.001 kg May 01 2:22pm Temperature 98.9 F 97.6 F-99.6 F May 01 2:22pm Pulse n/a Respiration n/a Pulse Oximetry n/a Blood Pressure Systolic 110 102-133 Febr ua2019 2:22pm Blood Pressure Diastolic 60 61-85 Feb ruary 2019 2:22pm Body Mass Index n/a
--- OUTSIDE RECORDS SUMMARY | 2023-02-16 11:48 | XMS_ITS | Continuity of Care Document ---
Author Name [facility] Address [address] [place] [address] Organization [facility] Address [address] [place] [id number] Support Name Relationship Address Phone Jyothi Artegaa Primary Care Provider [facility] Leandro torres [facility] [address] [address] Windy Contreras Attending Provider [facility] Employee Health [address] [place] [address] Referral, Self Referring Provider Unknown [...] 2020 July 12, 2020 Discontinued flu vac [id number] 36mos up(PF) 60 MCG INTRAMUSCULAR ONCE 0.5 July 27, 2018 July 27, 2018 Discontinued tuberculin PPD 0.1 ML INTRADERMAL ONCE 0.1 July 06, 2018 July 06, 2018 Discontinued Levonorgestre l-Ethinyl Estrad [Vienva] September 26, 2017 August 17, 2018 Discontinued Amoxicillin-P ot Clavulanate [Augmentin] 1 TAB ORAL TWICE A DAY 14 September 26, 2017 July 27, 2018 Discontinued flu vacc [id number] 6mos up(PF) 0.5 ML INTRAMUSCULAR ONCE 0.5 [...] sheets for providers can be found at: fda.gov/media/538403/do wnload Fact sheets for patients can be found at: Phagenesis.gov/media/660346/do wnload TB Test (QFT) Antigen Minus Nil [...] 10:30am 0.01 IU/mL Test Performed b y: [facility] [address] [place] [address] Event Marketing Specialist: Boone Escudero M.D. Ph.D.; [facility]# [id number] Microbiology Results Procedure Source Result Collection Date/Time [...] DAILY June 17, 2020 Discontinued flu vac [id number] 36mos up(PF) 60 MCG INTRAMUSCULA R ONCE 0.5 July 27, 2018 Discontinued tuberculin PPD 0.1 ML INTRADERMAL ONCE 0.1 July 06, 2018 Discontinued Fluoxetine 20 MG ORAL DAILY July Active Levonorgestr el-Ethinyl Estrad September 26, 2017 Discontinued Amoxicillin- Pot Clavulanate 1 TAB ORAL TWICE A DAY 14 September 26, 2017 Discontinued flu vacc [id number] 6mos up(PF) 0.5 ML INTRAMUSCULA R ONCE 0.5 May 01, 2020 Discontinued Encounters Encounter Facility Location Admit/Visit Date Discharge/Departure Date Attending Provider Departed Physician/Pr ovider Office Visit [facility] Occupational Health [facility] July 18, 2020 2:47pm July 18, 2020 2:47pm Windy Contreras Departed Physician/Pr ovider Office Visit [facility] July 12, 2020 7:56am July 12, 2020 11:59pm Jyothi Arteaga Departed Physician/Pr ovider Office Visit [facility] July 09, 2020 10:31am July 09, 2020 9:21pm Joi Herman Departed Emergency [facility] Emergency Department July 04, 2020 10:57am July 04, 2020 11:59am Departed Clinical [facility] June 27, 2020 8:16am June 27, 2020 8:17am Windy Contreras Departed Physician/Pr ovider Office Visit [facility] June 21, 2020 7:52am June 21, 2020 3:38pm Joi Herman Departed Physician/Pr ovider Office Visit [facility] June 21, 2020 7:50am June 21, 2020 11:59pm Jyothi Arteaga Departed Physician/Pr ovider Office Visit [facility] June 14, 2020 3:05pm June 14, 2020 11:59pm Jyothi Arteaga Departed Referred [facility] LAB [facility] May 20, 2020 1:55pm May 20, 2020 1:56pm Nadege Parker Departed Physician/Pr ovider Office Visit [facility] May 20, 2020 1:16pm May 20, 2020 2:13pm Nadege Parker Departed Clinical [facility] May 20, 2020 8:31am May 20, 2020 8:32am Twyla Navarrete Departed Physician/Pr ovider Office Visit [facility] May 19, 2020 10:40am May 19, 2020 11:59pm Twyla Navarrete Departed Clinical [facility] May 01, 2020 11:04am May 01, 2020 11:05am Windy Contreras Departed Physician/Pr ovider Office Visit [facility] May 01, 2020 10:09am May 01, 2020 12:58pm Referral, Self Departed Physician/Pr ovider Office Visit [facility] February 14, 2020 7:43am February 14, 2020 11:49am Joi Herman Departed Physician/Pr ovider Office Visit [facility] Pediatrics [facility] January 12, 2020 2:30pm January 12, 2020 3:38pm Jyothi Arteaga Departed Emergency [facility] November 26, 2019 1:42pm November 26, 2019 2:22pm Departed Physician/Pr ovider Office Visit [facility] Pediatrics [facility] November 08, 2019 8:50am November 08, 2019 11:13am Joi Herman Departed Physician/Pr ovider Office Visit [facility] Pediatrics [facility] October 23, 2019 3:55pm October 23, 2019 9:38pm Joi Herman Departed Physician/Pr ovider Office Visit [facility] Pediatrics [facility] October 04, 2019 8:50am October 04, 2019 11:08pm Joi Herman Departed Emergency [facility] Emergency Department 2019 10:08pm 2019 10:51pm Departed Physician/Pr ovider Office Visit [facility] September 11, 2019 8:43am September 11, 2019 2:42pm Joi Herman Departed Referred [facility] Lab [facility] OPERATIONS ADMINISTRATIVE ASSISTANT August 31, 2019 10:03am August 31, 2019 10:04am Diana Chaidez Departed Physician/Pr ovider Office Visit [facility] STATUARY PAINTER August 31, 2019 9:48am August 31, 2019 10:13am Diana Chaidez Departed Physician/Pr ovider Office Visit [facility] August 29, 2019 9:48am August 29, 2019 1:49pm Joi Herman Departed Physician/Pr ovider Office Visit [facility] August 17, 2019 7:59am August 17, 2019 1:58pm Joi Herman Departed Physician/Pr ovider Office Visit [facility] Orthopedic&Cesar ab August 16, 2019 [...]
--- OUTSIDE RECORDS SUMMARY | 2023-02-16 11:48 | XMS_ITS | Continuity of Care Document ---
Author Name [facility] Address [address] [place] [id number] Organization [facility] Address [address] [place] [address] Care Team Providers Care Scarfer Name Role Phone Juan Carlos Santana JR [...] December 20, 2020 Disconti nued flu vac [id number] 36mos up(PF) 60 MCG INTRAMUS CULAR ONCE 0.5 July 27, 2018 July 27, 2018 Disconti nued Ondansetron Hcl [Zofran] 4 MG ORAL Q8H PRN For nausea and vomiti ng 7 September 12, 2020 October 16, 2020 Disconti nued tuberculin PPD 0.1 ML INTRADER MAL ONCE 0.1 2020November 19, 2020 Disconti nued Magnesium 200 [...] November 04, 2020 Disconti nued flu vacc [id number] 6mos up(PF) 0.5 ML INTRAMUS CULAR ONCE [...] hand, right Inactive Procedures Procedure Date Status Group A Streptococcus Screen (YVES) July 08, 2021 active NM HIDA w Pharm April 24, 2021 [...] vw Min RT July 27, 2020 completed Relevant Diagnostic Tests and/or Laboratory [...] November 19, 2020 11:18am Negative Urine Specific [place] (Manual) November 19, 2020 11:18am 1.020 POC [...] September 12, 2020 4:01pm 6.5 Urine Specific [place] September 12, 2020 4:01pm 1.015 Urine Protein [...] Catch No results entered September 12 4:01pm Hospital Discharge Instructions No known hospital [...] REFLUX Fluoxetine 20 MG ORAL DAILY 30 Sept mber 15, 2021 Active Levonorgestrel -Ethinyl Estrad 1 TAB ORAL DAILY 84 November 20, 2020 Active Magnesium 200 - 600 MG ORAL DAILY 90 November 04, 2020 Discontinu ed Riboflavin (Vitamin B2) 400 MG ORAL DAILY 90 November 04, 2020 Discontinu ed flu vac [id number] 36mos up(PF) 60 MCG INTRAMUSCU LAR ONCE [...] September 30, 2020 Discontinu ed Amitriptyline MG [facility] 2021 Active flu vacc [id number] 6mos up(PF) 0.5 ML INTRAMUSCU LAR ONCE 0.5 May 01, 2020 Discontinu ed Encounters Encounter Facility Location Admit/Visit Date Discharge/Departure Date Attending Provider Departed Referred [facility] July 08, 2021 6:15pm July 08, 2021 6:16pm Juan Carlos Santana JR Departed Emergency [facility] Emergency Department June 28, 2021 8:12pm June 28, 2021 9:35pm Departed Emergency [facility] May 12, 2021 11:36am May 12, 2021 12:40pm Departed Physician/Pr ovider Office Visit [facility] [employer] May 01, 2021 2:45pm May 01, 2021 3:00pm Fortunato Quezada Departed Clinical [facility] April 24, 2021 9:03am April 24, 2021 9:04am Juan Carlos Santana JR Departed Clinical [facility] April 01, 2021 9:05am April 01, 2021 9:06am Juan Carlos Santana JR Departed Referred [facility] March 27, 2021 6:39pm March 27, 2021 6:40pm Juan Carlos Santana JR Registered Inpatient [facility] March 06, 2021 3:15pm Soni Santa Departed Emergency [facility] Emergency Department February 22, 2021 1:48pm February 22, 2021 5:28pm Departed Emergency [facility] February 22, 2021 12:49pm February 22, 2021 1:47pm Departed Emergency [facility] Emergency Department December 21, 2020 8:46am December 21, 2020 12:00pm Departed Physician/Pr ovider Office Visit [facility] Pediatrics [facility] December 20, 2020 4:18pm December 20, 2020 4:47pm Maite Garcia Departed Physician/Pr ovider Office Visit [facility] November 19, 2020 10:32am November 19, 2020 11:29am Felicia Rodrigez Departed Physician/Pr ovider Office Visit [facility] Orthopedic&Cesar ab November 15, 2020 2:11pm November 15, 2020 2:55pm Antwon Jackson Departed Physician/Pr ovider Office Visit [facility] November 04, 2020 10:01am November 04, 2020 10:26am Jyothi Arteaga Departed Physician/Pr ovider Office Visit [facility] Orthopedic&Cesar ab October 16, 2020 1:25pm October 16, 2020 1:55pm Antwon Jackson Departed Emergency [facility] Urgent [facility] October 11, 2020 7:11pm October 11, 2020 9:23pm Departed Clinical [facility] Cardiology October 08, 2020 1:55pm October 08, 2020 1:56pm Jyothi Arteaga Departed Physician/Pr ovider Office Visit [facility] Cardiology October 08, 2020 1:50pm October 08, 2020 11:59pm Diann Oakes Departed Physician/Pr ovider Office Visit [facility] October 07, 2020 12:53pm October 07, 2020 2:16pm Jyothi Arteaga Departed Emergency [facility] Emergency Department 2020 8:52am 2020 10:22am Departed Emergency [facility] Emergency Department September 30, 2020 4:35pm September 30, 2020 8:56pm Departed Emergency [facility] September 30, 2020 2:40pm September 30, 2020 4:44pm Departed Referred [facility] Lab [facility] [place] September 12, 2020 4:01pm September 12, 2020 4:02pm Ian Garcia Departed Physician/Pr ovider Office Visit [facility] September 12, 2020 3:24pm September 12, 2020 4:17pm Ian Garcia Departed Clinical [facility] Laboratory August 30, 2020 2:39pm August 30, 2020 2:40pm Jyothi Arteaga Departed Physician/Pr ovider Office Visit [facility] August 30, 2020 1:59pm August 30, 2020 4:00pm Jyothi Arteaga Departed Physician/Pr ovider Office Visit [facility] August 19, 2020 8:59am August 19, 2020 11:18am Jyothi Arteaga Departed Physician/Pr ovider Office Visit [facility] August 06, 2020 8:07am August 06, 2020 3:16pm Joi Herman Departed Emergency [facility] Emergency Department July 27, 2020 3:43pm July 27, 2020 5:11pm Departed Physician[facility] July 24, 2020 7:51am July 24, 2020 1:52pm Joi Herman Departed Physician/Pr ovider Office Visit [facility] Occupational Health [facility] Employee Health July 18, 2020 2:47pm July 18, 2020 2:47pm Windy Contreras Departed Physician/Pr ovider Office Visit [facility] July 12, 2020 7:56am July 12, 2020 11:59pm Jyothi Arteaga Departed Physician/Pr ovider Office Visit [facility] July 09, 2020 10:31am July 09, 2020 9:21pm Joi Herman Functional Status Query Response Date [...] Drug Use Yes June 28, 2021 9:08pm [facility] marijuana as of 09/30/20 alcohol [...]
--- OUTSIDE RECORDS SUMMARY | 2023-02-16 11:48 | XMS_ITS | Continuity of Care Document ---
Author Name [facility] Address [address] [place] [id number] Organization [facility] Address [address] [place] [address] Support Name Relationship Address Phone Jyothi Arteaga Primary Care Provider [facility] Leandro torres [facility] [address] [place] [address] Soni Santa Attending Provider Unknown Unavailab le Allergies, Adverse Reactions, Alerts No known allergies. Medications Active Medications Medication Dose Units Route Sig Qty Start Date Status In structions Famotidine 0 Route .COMPLEX 270 October 30, 2020 Active TAKE 1 TABLET BY MOUTH THREE TIMES DAILY NEEDED FOR ACID REFLUX Fluoxetine 20 MG ORAL DAILY 30 November 20, 2020 Active Levonorgestrel- Ethinyl Estrad [...] December 20, 2020 Disconti nued flu vac [id number] 36mos up(PF) 60 MCG INTRAMUS CULAR ONCE [...] November 04, 2020 Disconti nued flu vacc [id number] 6mos up(PF) 0.5 ML INTRAMUS CULAR ONCE [...] Contact Location October 07, 2020 Jyothi Arteaga [phone] [facility] [place] [address] Relevant Diagnostic Tests and/or Laboratory Data Laboratory [...] November 19, 2020 11:18am Negative Urine Specific [place] (Manual) November 19, 2020 11:18am 1.020 POC [...] September 12, 2020 4:01pm 6.5 Urine Specific [place] September 12, 2020 4:01pm 1.015 Urine Protein [...] sheets for providers can be found at: [employer]/24Symbols/1362 85/download Fact sheets for patients can be found at: [employer]/24Symbols/1362 87/download TB Test (QFT) Antigen Minus Nil [...] 10:30am 0.01 IU/mL Test Performed b y: [facility] [address] [place] [address] [employer]: Boone Escudero M.D. Ph.D.; CLIA# [id number] Microbiology Results Procedure Source Result Collection Date/Time [...] November 04, 2020 Discontinu ed flu vac [id number] 36mos up(PF) 60 MCG INTRAMUSCU LAR ONCE [...] September 30, 2020 Discontinu ed flu vacc [id number] 6mos up(PF) 0.5 ML INTRAMUSCU LAR ONCE 0.5 May 01, 2020 Discontinu ed Encounters Encounter Facility Location Admit/Visit Date Discharge/Departure Date Attending Provider Registered Inpatient [facility] March 06, 2021 3:15pm Soni Santa Departed Emergency [facility] Emergency Department February 22, 2021 1:48pm February 22, 2021 5:28pm Departed Emergency [facility] February 22, 2021 12:49pm February 22, 2021 1:47pm Departed Emergency [facility] Emergency Department December 21, 2020 8:46am December 21, 2020 12:00pm Departed Physician/Pr ovider Office Visit [facility] December 20, 2020 4:18pm December 20, 2020 4:47pm Maite Garcia Departed Physician/Pr ovider Office Visit [facility] November 19, 2020 10:32am November 19, 2020 11:29am Felicia Rodrigez Departed Physician/Pr ovider Office Visit [facility] Orthopedic&Cesar ab November 15, 2020 2:11pm November 15, 2020 2:55pm Antwon Jackson Departed Physician/Pr ovider Office Visit [facility] November 04, 2020 10:01am November 04, 2020 10:26am Jyothi Arteaga Departed Physician/Pr ovider Office Visit [facility] Orthopedic&Cesar ab October 16, 2020 1:25pm October 16, 2020 1:55pm Antwon Jackson [facility] October 11, 2020 7:11pm October 11, 2020 9:23pm Departed Clinical [facility] Cardiology October 08, 2020 1:55pm October 08, 2020 1:56pm Jyothi Arteaga Departed Physician/Pr ovider Office Visit [facility] Cardiology October 08, 2020 1:50pm October 08, 2020 11:59pm Diann Oakes Departed Physician/Pr ovider Office Visit [facility] October 07, 2020 12:53pm October 07, 2020 2:16pm Jyothi Arteaga Departed Emergency [facility] Emergency Department 2020 8:52am 2020 10:22am Departed Emergency [facility] Emergency Department September 30, 2020 4:35pm September 30, 2020 8:56pm Departed Emergency [facility] September 30, 2020 2:40pm September 30, 2020 4:44pm Departed Referred [facility] Lab [facility] [place] September 12, 2020 4:01pm September 12, 2020 [...] Joi Herman Departed Physician/Pr ovider Office Visit [facility] Occupational Health [facility] July 18, 2020 2:47pm July 18, 2020 [...] 10:57am July 04, 2020 11:59am Departed Clinical [facility] June 27, 2020 8:16am June [...] 14, 2020 11:59pm Jyothi Arteaga Departed Referred [facility] LAB [facility] May 20, 2020 1:55pm May 20, 2020 1:56pm Nadege Parker Departed Physician/Pr ovider Office Visit [facility] May 20, 2020 1:16pm May 20, 2020 2:13pm Nadege Parker Departed Clinical [facility] May 20, 2020 8:31am May 20, 2020 8:32am Twyla Navarrete Departed Physician/Pr ovider Office Visit [facility] May 19, 2020 10:40am May 19, 2020 11:59pm Twyla Navarrete Departed Clinical [facility] May 01, 2020 11:04am May 01, 2020 11:05am Windy Contreras Departed Physician/Pr ovider Office Visit [facility] Occupational Health [facility] May 01, 2020 [...]
--- OUTSIDE RECORDS SUMMARY | 2023-02-16 11:48 | XMS_ITS | Continuity of Care Document ---
Author Name [facility] Address [address] [place] [address] Organization [facility] Address [address] [place] [address] Care Team Providers Care Animal Sticker Name Role Phone Juan Carlos Santana JR [...] December 20, 2020 Disconti nued flu vac [id number] 36mos up(PF) 60 MCG INTRAMUS CULAR ONCE [...] November 04, 2020 Disconti nued flu vacc [id number] 6mos up(PF) 0.5 ML INTRAMUS CULAR ONCE [...] November 19, 2020 11:18am Negative Urine Specific [place] (Manual) November 19, 2020 11:18am 1.020 POC [...] September 12, 2020 4:01pm 6.5 Urine Specific [place] September 12, 2020 4:01pm 1.015 Urine Protein [...] November 04, 2020 Discontinu ed flu vac [id number] 36mos up(PF) 60 MCG INTRAMUSCU LAR ONCE 0.5 July 27, 2018 Discontinu ed Ondansetron Hcl 4 MG ORAL Q8H PRN For nausea and vomiting 7 September 12, 2020 Discontinu ed tuberculin PPD 0.1 ML INTRADERMA L ONCE 0.1 November 19, 2020 Discontinu ed Magnesium 200 - 600 MG ORAL DAILY 90 December 20, 2020 Discontinu ed Riboflavin (Vitamin [...] September 30, 2020 Discontinu ed Amitriptyline MG [facility] 2021 Active flu vacc [id number] 6mos up(PF) 0.5 ML INTRAMUSCU LAR ONCE 0.5 May 01, 2020 Discontinu ed Encounters Encounter Facility Location Admit/Visit Date Discharge/Departure Date Attending Provider Registered Emergency [facility] May 12, 2021 11:36am Departed Physician/Pr ovider Office 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[facility] 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 May 01, 2021 2:45pm May 01, 2021 3:00pm Fortunato Quezada Departed Clinical [facility] April 24, 2021 9:03am April 24, 2021 9:04am Juan Carlos Santana JR Departed Clinical [facility] April 01, 2021 9:05am April 01, 2021 9:06am Juan Carlos Santana JR Departed [facility] March 27, 2021 6:39pm March 27, 2021 6:40pm Juan Carlos Santana JR Registered Inpatient [facility] Pediatrics [facility] March 06, 2021 3:15pm Soni Santa Departed Emergency [facility] Emergency Department February 22, 2021 1:48pm February 22, 2021 5:28pm Departed Emergency [facility] Urgent [facility] February 22, 2021 12:49pm February 22, 2021 1:47pm Departed Emergency [facility] Emergency Department December 21, 2020 8:46am December 21, 2020 12:00pm Departed Physician/Pr ovider Office Visit [facility] Pediatrics [facility] December 20, 2020 4:18pm December 20, 2020 4:47pm Maite Garcia Departed Physician/Pr ovider Office Visit [facility] Pediatrics [facility] November 19, 2020 10:32am November 19, 2020 11:29am Felicia Rodrigez Departed Physician/Pr ovider Office Visit [facility] Orthopedic&Cesar ab November 15, 2020 2:11pm November 15, 2020 2:55pm Antwon Jackson Departed Physician/Pr ovider Office Visit [facility] Pediatrics [facility] November 04, 2020 10:01am November 04, 2020 10:26am Jyothi Arteaga Departed Physician/Pr ovider Office Visit [facility] Orthopedic&Cesar ab October 16, 2020 1:25pm October 16, 2020 1:55pm Antwon Jackson Departed Emergency [facility] Urgent [facility] October 11, [...] 4:35pm September 30, 2020 8:56pm Departed Emergency [facility] Urgent [facility] September 30, 2020 2:40pm September 30, 2020 4:44pm Departed Referred [facility] Lab [facility] Peds [place] September 12, 2020 4:01pm September 12, 2020 [...] 2020 5:11pm Departed Physician/Pr ovider Office Visit [facility] July 24, 2020 7:51am July 24, 2020 1:52pm Joi Herman Departed Physician/Pr ovider Office Visit [facility] Occupational Health [facility] Employee Health July 18, 2020 2:47pm July 18, 2020 2:47pm Windy Contreras Departed Physician/Pr ovider Office Visit [facility] July 12, 2020 7:56am July 12, 2020 11:59pm Jyothi Arteaga Departed Physician/Pr ovider Office Visit [facility] Pediatrics [facility] July 09, 2020 10:31am July 09, 2020 9:21pm Joi Herman Departed Emergency [facility] Emergency Department July 04, 2020 10:57am July 04, 2020 11:59am Departed Clinical [facility] June 27, 2020 8:16am June 27, 2020 8:17am Windy Contreras Departed Physician/Pr ovider Office Visit [facility] Pediatrics [facility] June 21, 2020 7:52am June 21, 2020 3:38pm Joi Herman Departed Physician/Pr ovider Office Visit [facility] June 21, 2020 7:50am June 21, 2020 11:59pm Jyothi Arteaga Departed Physician/Pr ovider Office Visit [facility] June 14, 2020 3:05pm June 14, 2020 11:59pm Jyothi Arteaga Departed Referred [facility] LAB [facility] Peds [place] May 20, 2020 1:55pm May 20, 2020 1:56pm Nadege Parker Departed Physician/Pr ovider Office Visit [facility] Pediatrics May 20, 2020 1:16pm May 20, 2020 2:13pm Nadege Parker Departed Clinical [facility] May 20, 2020 8:31am May 20, 2020 8:32am Twyla Navarrete Departed Physician/Pr ovider Office Visit [facility] Occupational Health [facility] May 19, 2020 10:40am May [...] Comment Alcohol Use No May 12, 2021 11:45am Smoking Status Current every day smoker May 12, 2021 11:45am Substance/Street Drug Use Yes February 22, 2021 3:58pm [facility] marijuana as of 09/30/20 alcohol intake frequency February 22, 2021 1:02pm substance use type does not use May 12, 2021 11:45am Query Response Start Date Stop Date Smoking [...] 2021 11:45am Blood Pressure Systolic 124 102-133 [facility] 2021 11:45am Blood Pressure Diastolic 62 61-85 [facility] 2021 11:45am Body Mass Index 37.0 November 2:21pm
--- OUTSIDE RECORDS SUMMARY | 2023-02-16 11:48 | XMS_ITS | Continuity of Care Document ---
Author Name Address [address] [place] [address] Organization Address [address] [place] [address] Care Team Providers Care Early Childhood Special Educator Name Role Phone Juan Carlos Santana JR [...] December 20, 2020 Disconti nued flu vac [id number] 36mos up(PF) 60 MCG INTRAMUS CULAR ONCE [...] November 04, 2020 Disconti nued flu vacc [id number] 6mos up(PF) 0.5 ML INTRAMUS CULAR ONCE [...] November 19, 2020 11:18am Negative Urine Specific [place] (Manual) November 19, 2020 11:18am 1.020 POC [...] September 12, 2020 4:01pm 6.5 Urine Specific [place] September 12, 2020 4:01pm 1.015 Urine Protein [...] November 04, 2020 Discontinu ed flu vac [id number] 36mos up(PF) 60 MCG INTRAMUSCU LAR ONCE [...] September 30, 2020 Discontinu ed Amitriptyline MG [facility] 2021 Active flu vacc [id number] 6mos up(PF) 0.5 ML INTRAMUSCU LAR ONCE 0.5 May 01, 2020 Discontinu ed Encounters Encounter Facility Location Admit/Visit Date Discharge/Departure Date Attending Provider Departed Emergency Emergency Department June 28, 2021 8:12pm June 28, 2021 9:35pm Departed Emergency [facility] Urgent [facility] May 12, 2021 11:36am May 12, 2021 12:40pm Departed Physician/Pr ovider Office Visit [facility] PHARMACIST IN CHARGE May 01, 2021 2:45pm May 01, 2021 3:00pm Fortunato Quezada Departed Clinical [facility] April 24, 2021 9:03am April 24, 2021 9:04am Juan Carlos Santana JR Departed Clinical [facility] April 01, 2021 9:05am April 01, 2021 9:06am Juan Carlos Santana JR Departed Referred [facility] March 27, 2021 6:39pm March 27, 2021 6:40pm Juan Carlos Santana JR Registered Inpatient [facility] March 06, 2021 3:15pm Soni Santa Departed Emergency Emergency Department February 22, 2021 1:48pm February 22, 2021 5:28pm Departed Emergency [facility] February 22, 2021 12:49pm February 22, 2021 1:47pm Departed Emergency Emergency Department December 21, 2020 8:46am December 21, 2020 12:00pm Departed Physician/Pr ovider Office Visit [facility] Pediatrics [facility] December 20, 2020 4:18pm December 20, 2020 4:47pm Maite Garcia Departed Physician/Pr ovider Office Visit [facility] November 19, 2020 10:32am November 19, 2020 11:29am Felicia Rodrigez Departed Physician/Pr ovider Office Visit [facility] Orthopedic&Cesar ab November 15, 2020 2:11pm November 15, 2020 2:55pm Antwon Jackson Departed Physician/Pr ovider Office Visit [facility] November 04, 2020 10:01am November 04, 2020 10:26am Jyothi Arteaga Departed Physician/Pr ovider Office Visit [facility] Orthopedic&Cesar ab October 16, 2020 1:25pm October 16, 2020 1:55pm Antwon Jackson Departed Emergency [facility] Urgent [facility] October 11, 2020 7:11pm October 11, 2020 9:23pm Departed Clinical Cardiology October 08, 2020 1:55pm October 08, 2020 1:56pm Jyothi Arteaga Departed Physician/Pr ovider Office Visit [facility] Cardiology October 08, 2020 1:50pm October 08, 2020 11:59pm Diann Oakes Departed Physician/Pr ovider Office Visit [facility] October 07, 2020 12:53pm October 07, 2020 2:16pm Jyothi Arteaga Departed Emergency Emergency Department 2020 8:52am 2020 10:22am Departed Emergency Emergency Department September 30, 2020 4:35pm September 30, 2020 8:56pm Departed Emergency [facility] Urgent [facility] September 30, 2020 2:40pm September 30, 2020 4:44pm Departed Referred Lab [facility] [place] September 12, 2020 4:01pm September 12, 2020 4:02pm Ian Garcia Departed Physician/Pr ovider Office Visit [facility] September 12, 2020 3:24pm September 12, 2020 4:17pm Ian Garcia Departed Clinical Laboratory August 30, 2020 2:39pm August 30, 2020 2:40pm Jyothi Arteaga Departed Physician/Pr ovider Office Visit [facility] August 30, 2020 1:59pm August 30, 2020 4:00pm Jyothi Arteaga Departed Physician/Pr ovider Office Visit [facility] August 19, 2020 8:59am August 19, 2020 11:18am Jyothi Arteaga Departed Physician/Pr ovider Office Visit [facility] August 06, 2020 8:07am August 06, 2020 3:16pm Joi Herman Departed Emergency Emergency Department July 27, 2020 3:43pm July 27, 2020 5:11pm Departed Physician/Pr ovider Office Visit [facility] July 24, 2020 7:51am July 24, 2020 1:52pm Joi Herman Departed Physician/Pr ovider Office Visit [facility] Occupational Health [facility] Health July 18, 2020 2:47pm July 18, 2020 2:47pm Windy Contreras Departed Physician/Pr ovider Office Visit [facility] July 12, 2020 7:56am July 12, 2020 11:59pm ChandlerJyothi Departed Physician/Pr ovider Office Visit [facility] July 09, 2020 10:31am July 09, 2020 9:21pm Joi Herman Departed Emergency Emergency Department July 04, 2020 10:57am July [...] Drug Use Yes June 28, 2021 9:08pm [facility] marijuana as of 09/30/20 alcohol [...]
--- OUTSIDE RECORDS SUMMARY | 2023-02-16 11:48 | XMS_ITS | Continuity of Care Document ---
Author Name [facility] Address [address] [place] [address] Organization [facility] Address [address] [place] [address] Care Team Providers Care Overhauler Bus Truck Name Role Phone Jyothi Arteaga Primary Care [...] December 20, 2020 Disconti nued flu vac [id number] 36mos up(PF) 60 MCG INTRAMUS CULAR ONCE [...] November 04, 2020 Disconti nued flu vacc [id number] 6mos up(PF) 0.5 ML INTRAMUS CULAR ONCE [...] Contact Location October 07, 2020 Jyothi Arteaga [phone] [facility] [place] [address] Relevant Diagnostic Tests and/or Laboratory Data Laboratory [...] November 19, 2020 11:18am Negative Urine Specific [place] (Manual) November 19, 2020 11:18am 1.020 POC [...] September 12, 2020 4:01pm 6.5 Urine Specific [place] September 12, 2020 4:01pm 1.015 Urine Protein [...] sheets for providers can be found at: Epos.gov/media/1362 85/download Fact sheets for patients can be found at: Epos.gov/Clean Engines/1362 87/download TB Test (QFT) Antigen Minus Nil [...] 10:30am 0.01 IU/mL Test Performed b y: [facility] [address] [place] [address] Produce Buyer: Boone Escudero M.D. Ph.D.; [facility]# [id number] Microbiology Results Procedure Source Result Collection Date/Time [...] November 04, 2020 Discontinu ed flu vac [id number] 36mos up(PF) 60 MCG INTRAMUSCU LAR ONCE [...] September 30, 2020 Discontinu ed flu vacc [id number] 6mos up(PF) 0.5 ML INTRAMUSCU LAR ONCE 0.5 May 01, 2020 Discontinu ed Encounters Encounter Facility Location Admit/Visit Date Discharge/Departure Date Attending Provider Departed Emergency [facility] Emergency Department February 22, 2021 1:48pm February 22, 2021 5:28pm Departed Emergency [facility] February 22, 2021 12:49pm February 22, 2021 1:47pm Departed Emergency [facility] Emergency Department December 21, 2020 8:46am December 21, 2020 12:00pm Departed Physician/Pr ovider Office Visit [facility] Pediatrics [facility] December 20, 2020 4:18pm December 20, 2020 4:47pm Maite Garcia Departed Physician/Pr ovider Office Visit [facility] November 19, 2020 10:32am November 19, 2020 11:29am Felicia Rodrigez Departed Physician/Pr ovider Office Visit [facility] November 15, 2020 2:11pm November 15, 2020 2:55pm Antwon Jackson Departed Physician/Pr ovider Office Visit [facility] Pediatrics [facility] November 04, 2020 10:01am November 04, 2020 10:26am Jyothi Arteaga Departed Physician/Pr ovider Office Visit [facility] October 16, 2020 1:25pm October 16, 2020 1:55pm Antwon Jackson Departed Emergency [facility] October 11, 2020 7:11pm October 11, 2020 9:23pm Departed Clinical [facility] Cardiology October 08, 2020 1:55pm October 08, 2020 1:56pm Jyothi Arteaga Departed Physician/Pr ovider Office Visit [facility] Cardiology October 08, 2020 1:50pm October 08, 2020 11:59pm Diann Oakes Departed Physician/Pr ovider Office Visit [facility] Pediatrics [facility] October 07, 2020 12:53pm October 07, 2020 2:16pm Jyothi Arteaga Departed Emergency [facility] Emergency Department 2020 8:52am 2020 10:22am Departed Emergency [facility] Emergency Department September 30, 2020 4:35pm September 30, 2020 8:56pm Departed Emergency [facility] Urgent [facility] September 30, 2020 2:40pm September 30, 2020 4:44pm Departed Referred [facility] Lab [facility] [place] September 12, 2020 4:01pm September 12, 2020 [...] [facility] Occupational Health [facility] July 18, 2020 2:47pm July 18, 2020 [...] Clinical [facility] June 27, 2020 8:16am June [...] Jyothi Arteaga Departed Referred [facility] LAB [facility] May 20, 2020 1:55pm May 20, 2020 1:56pm Nadege Parker Departed Physician/Pr ovider Office Visit [facility] May 20, 2020 1:16pm May 20, 2020 2:13pm Nadege Parker Departed Clinical [facility] May 20, 2020 8:31am May 20, 2020 8:32am Twyla Navarrete Departed Physician/Pr ovider Office Visit [facility] May 19, 2020 10:40am May 19, 2020 11:59pm Twyla Navarrete Departed Clinical [facility] May 01, 2020 11:04am May 01, 2020 11:05am Windy Contreras Departed Physician/Pr ovider Office Visit [facility] Occupational Health [facility] May 01, 2020 [...]
--- OUTSIDE RECORDS SUMMARY | 2023-02-16 11:49 | XMS_ITS | Continuity of Care Document ---
Author Name [facility] Address [address] [place] [address] Organization [facility] Address [address] [place] [address] Care Team Providers Care Sugar Laboratory Assistant Name Role Phone Jyothi Arteaga Primary Care [...] December 20, 2020 Disconti nued flu vac [id number] 36mos up(PF) 60 MCG INTRAMUS CULAR ONCE [...] November 04, 2020 Disconti nued flu vacc [id number] 6mos up(PF) 0.5 ML INTRAMUS CULAR ONCE [...] Contact Location October 07, 2020 Jyothi Arteaga [phone] [facility] [place] [address] Relevant Diagnostic Tests and/or Laboratory Data Laboratory [...] November 19, 2020 11:18am Negative Urine Specific [place] (Manual) November 19, 2020 11:18am 1.020 POC [...] September 12, 2020 4:01pm 6.5 Urine Specific [place] September 12, 2020 4:01pm 1.015 Urine Protein [...] sheets for providers can be found at: Clctin.gov/media/68699 5/download Fact sheets for patients can be found at: Clctin.gov/Media Chaperone/94448 7/download TB Test (QFT) Antigen Minus Nil [...] y: [facility] [address] [place] [address] Electric Power Superintendent: Boone Escudero M.D. Ph.D.; [place]# [id number] Microbiology Results Procedure Source Result Collection Date/Time [...] November 04, 2020 Discontinu ed flu vac [id number] 36mos up(PF) 60 MCG INTRAMUSCU LAR ONCE [...] September 30, 2020 Discontinu ed flu vacc [id number] 6mos up(PF) 0.5 ML INTRAMUSCU LAR ONCE 0.5 May 01, 2020 Discontinu ed Encounters Encounter Facility Location Admit/Visit Date Discharge/Departure Date Attending Provider Departed Emergency [facility] February 22, 2021 12:49pm February 22, 2021 1:47pm Departed Emergency [facility] Emergency Department December 21, 2020 8:46am December 21, 2020 12:00pm Departed Physician/Pr ovider Office Visit [facility] December 20, 2020 4:18pm December 20, 2020 4:47pm Maite Garcia Departed Physician/Pr ovider Office Visit [facility] November 19, 2020 10:32am November 19, 2020 11:29am Felicia Rodrigez Departed Physician/Pr ovider Office Visit [facility]opedic[facility]esar [facility] November 15, 2020 2:11pm November 15, 2020 2:55pm Antwon Jackson Departed Physician/Pr ovider Office Visit [facility] November 04, 2020 10:01am November 04, 2020 10:26am Jyothi Arteaga Departed Physician/Pr ovider Office Visit [facility] October 16, 2020 1:25pm October 16, 2020 1:55pm Antwon Jackson Departed Emergency [facility] October 11, 2020 7:11pm October 11, 2020 9:23pm Departed Clinical [facility] Cardiology October 08, 2020 1:55pm October 08, 2020 1:56pm Jyothi Arteaga Departed Physician/Pr ovider Office Visit [facility] Cardiology October 08, 2020 1:50pm October 08, 2020 11:59pm Diann Oakes Departed Physician/Pr ovider Office Visit [facility] Pediatric[facility] October 07, 2020 12:53pm October 07, 2020 2:16pm Jyothi Arteaga Departed Emergency [facility] Emergency Department 2020 8:52am 2020 10:22am Departed Emergency [facility] Emergency Department September 30, 2020 4:35pm September 30, 2020 8:56pm Departed Emergency [facility] Urgent [facility] September 30, 2020 2:40pm September 30, 2020 4:44pm Departed Referred [facility] Lab [facility] Peds [place] September 12, 2020 4:01pm September 12, 2020 4:02pm Ian Garcia Departed Physician/Pr ovider Office Visit [facility] September 12, 2020 3:24pm September 12, 2020 4:17pm Ian Garcia Departed Clinical [facility] Laboratory August 30, 2020 2:39pm August 30, 2020 2:40pm Jyothi Arteaga Departed Physician/Pr ovider Office Visit [facility] August 30, 2020 1:59pm August 30, 2020 4:00pm Jyothi Arteaga Departed Physician/Pr ovider Office Visit [facility] August 19, 2020 8:59am August 19, 2020 11:18am Jyothi Arteaga Departed Physician/Pr ovider Office Visit [facility] August 06, 2020 8:07am August 06, 2020 3:16pm Joi Herman Departed Emergency [facility] Emergency Department July 27, 2020 3:43pm July 27, 2020 5:11pm Departed Physician/Pr ovider Office Visit [facility] July 24, 2020 7:51am July 24, 2020 1:52pm Joi Herman Departed Physician/Pr ovider Office Visit [facility] Occupational Health [facility] [...] Arteaga Departed Referred [facility] LAB [facility] May 20, 2020 1:55pm May 20, 2020 1:56pm Nadege Parker Departed Physician/Pr ovider Office Visit [facility] May 20, 2020 1:16pm May 20, 2020 2:13pm Nadege Parker Departed Clinical [facility] May 20, 2020 8:31am May 20, 2020 8:32am Twyla Navarrete Departed Physician/Pr ovider Office [facility] May 19, 2020 10:40am May 19, 2020 11:59pm Twyla Navarrete Departed Clinical [facility] May 01, 2020 11:04am May 01, 2020 11:05am Windy Contreras Departed Physician/Pr ovider Office Visit [facility] May 01, 2020 10:09am May 01, [...]
--- OUTSIDE RECORDS SUMMARY | 2023-02-16 11:49 | XMS_ITS | Continuity of Care Document ---
Author Name [facility] Address [address] [place] [id number] Organization [facility] Address [address] [place] [address] Care Team Providers Care Biometry Teacher Name Role Phone Juan Carlos Santana JR [...] December 20, 2020 Disconti nued flu vac [id number] 36mos up(PF) 60 MCG INTRAMUS CULAR ONCE [...] November 04, 2020 Disconti nued flu vacc [id number] 6mos up(PF) 0.5 ML INTRAMUS CULAR ONCE [...] November 19, 2020 11:18am Negative Urine Specific [place] (Manual) November 19, 2020 11:18am 1.020 POC [...] September 12, 2020 4:01pm 6.5 Urine Specific [place] September 12, 2020 4:01pm 1.015 Urine Protein [...] sheets for providers can be found at: Viva Dengi.gov/media/1362 85/download Fact sheets for patients can be found at: Viva Dengi.gov/Fresh Coast Lithotripsy/1362 87/download TB Test (QFT) Antigen Minus Nil [...] 0.01 IU/mL Test Performed b y: [facility] [address] [place] [address] Re Recording Mixer: Boone Escudero M.D. Ph.D.; [place]# [id number] Microbiology Results Procedure Source Result Collection Date/Time [...] November 04, 2020 Discontinu ed flu vac [id number] 36mos up(PF) 60 MCG INTRAMUSCU LAR ONCE [...] September 30, 2020 Discontinu ed flu vacc [id number] 6mos up(PF) 0.5 ML INTRAMUSCU LAR ONCE 0.5 May 01, 2020 Discontinu ed Encounters Encounter Facility Location Admit/Visit Date Discharge/Departure Date Attending Provider Registered Clinical [facility] DI [facility] April 01, 2021 9:05am Juan Carlos Santana JR Departed Referred [facility] March 27, 2021 6:39pm March 27, 2021 6:40pm Juan Carlos Santana JR Registered Inpatient [facility] March 06, 2021 3:15pm Soni Santa Departed Emergency [facility] Emergency Department February 22, 2021 1:48pm February 22, 2021 5:28pm Departed Emergency [facility] February 22, 2021 12:49pm February 22, 2021 1:47pm Departed Emergency [facility] Emergency Department December 21, 2020 8:46am December 21, 2020 12:00pm Departed Physician/Pr ovider Office Visit [facility] Pediatrics [facility] December 20, 2020 4:18pm December 20, 2020 4:47pm Maite Garcia Departed Physician/Pr ovider Office Visit [facility] November 19, 2020 10:32am November 19, 2020 11:29am Felicia Rodrigez Departed Physician/Pr ovider Office Visit [facility]Cesar [facility] November 15, 2020 2:11pm November 15, 2020 2:55pm Antwon Jackson Departed Physician/Pr ovider Office Visit [facility] November 04, 2020 10:01am November 04, 2020 10:26am Jyothi Arteaga Departed Physician/Pr ovider Office Visit [facility]Cesar [facility] October 16, 2020 1:25pm October 16, 2020 1:55pm Antwon Jackson Departed Emergency [facility] Urgent [facility] October 11, 2020 7:11pm October 11, 2020 9:23pm Departed Clinical [facility] Cardiology October 08, 2020 1:55pm October 08, 2020 1:56pm Jyothi Arteaga Departed Physician/Pr ovider Office Visit [facility] Cardiology October 08, 2020 1:50pm October 08, 2020 11:59pm Diann Oakes Departed Physician/Pr ovider Office Visit [facility] October 07, 2020 12:53pm October 07, 2020 2:16pm Jyothi Arteaga Departed Emergency [facility] Emergency Department 2020 8:52am 2020 10:22am Departed Emergency [facility] Emergency Department September 30, 2020 4:35pm September 30, 2020 8:56pm Departed Emergency [facility] Urgent [facility] September 30, 2020 2:40pm September 30, 2020 4:44pm Departed Referred [facility] Lab [facility] Peds [place] September 12, 2020 4:01pm September 12, 2020 4:02pm Ian Garcia Departed Physician/Pr ovider Office Visit [facility] September 12, 2020 3:24pm September 12, 2020 4:17pm Ian Garcia Departed Clinical [facility] Laboratory August 30, 2020 2:39pm August [...] 06, 2020 3:16pm Joi Herman Departed Emergency [facility] Emergency Department July 27, 2020 3:43pm July 27, 2020 5:11pm Departed Physician/Pr ovider Office Visit [facility] July 24, 2020 7:51am July 24, 2020 1:52pm Joi Herman Departed Physician/Pr ovider Office Visit [facility] Occupational Health [facility] July 18, 2020 2:47pm July 18, 2020 2:47pm Windy Contreras Departed Physician/Pr ovider Office Visit [facility] July 12, 2020 7:56am July 12, 2020 11:59pm Jyothi Arteaga Departed Physician/Pr ovider Office Visit [facility] July 09, 2020 10:31am July 09, 2020 9:21pm Joi Herman Departed Emergency [facility] Emergency Department July 04, 2020 10:57am [...] 2020 11:59pm Jyothi Arteaga Departed Referred [facility] LAB [facility] Peds [place] May 20, 2020 1:55pm May 20, 2020 1:56pm Nadege Parker Departed Physician/Pr ovider Office Visit [facility] May 20, 2020 1:16pm May 20, 2020 2:13pm Nadege Parker Departed Clinical [facility] May 20, 2020 8:31am May 20, 2020 8:32am Twyla Navarrete Departed Physician/Pr ovider Office Visit [facility] Occupational Health [facility] May 19, 2020 10:40am May 19, 2020 11:59pm Twyla Navarrete Departed Clinical [facility] Lab [facility] May 01, 2020 11:04am May 01, 2020 11:05am Windy Contreras Departed Physician/Pr ovider Office Visit [facility] May 01, 2020 10:09am May 01, 2020 [...]
--- OUTSIDE RECORDS SUMMARY | 2023-02-16 11:49 | XMS_ITS | Continuity of Care Document ---
Author Name [facility] Address [address] [place] [address] Organization [facility] Address [address] [place] [id number] Support Name Relationship Address Phone Jyothi Arteaga Primary Care Provider [facility] Leandro torres [facility] [address] [place] [address] Soni Santa Attending Provider Unknown [...] December 20, 2020 Disconti nued flu vac [id number] 36mos up(PF) 60 MCG INTRAMUS CULAR ONCE [...] November 04, 2020 Disconti nued flu vacc [id number] 6mos up(PF) 0.5 ML INTRAMUS CULAR ONCE [...] Contact Location October 07, 2020 Jyothi Arteaga [phone] [facility] [place] [address] Relevant Diagnostic Tests and/or Laboratory Data Laboratory [...] November 19, 2020 11:18am Negative Urine Specific [place] (Manual) November 19, 2020 11:18am 1.020 POC [...] September 12, 2020 4:01pm 6.5 Urine Specific [place] September 12, 2020 4:01pm 1.015 Urine Protein [...] sheets for providers can be found at: SPIL GAMES.cloudswave/[place]/1362 85/download Fact sheets for patients can be found at: SPIL GAMES.cloudswave/[place]/1362 87/download TB Test (QFT) Antigen Minus Nil [...] 10:30am 0.01 IU/mL Test Performed b y: [facility] [address] [place] [address] Cargo Station Worker: Boone Escudero M.D. Ph.D.; CLIA# [id number] Microbiology Results Procedure Source Result Collection Date/Time [...] November 04, 2020 Discontinu ed flu vac [id number] 36mos up(PF) 60 MCG INTRAMUSCU LAR ONCE [...] September 30, 2020 Discontinu ed flu vacc [id number] 6mos up(PF) 0.5 ML INTRAMUSCU LAR ONCE 0.5 May 01, 2020 Discontinu ed Encounters Encounter Facility Location Admit/Visit Date Discharge/Departure Date Attending Provider Registered Inpatient [facility] March 06, 2021 3:15pm Soni Santa Departed Emergency [facility] Emergency Department February 22, 2021 1:48pm February 22, 2021 5:28pm Departed Emergency [facility] February 22, 2021 12:49pm February 22, 2021 1:47pm Departed Emergency [facility] Emergency Department December 21, 2020 8:46am December 21, 2020 12:00pm Departed Physician/Pr ovider Office Visit [facility] Pediatrics [facility] December 20, 2020 4:18pm December 20, 2020 4:47pm Maite Garcia Departed Physician/Pr ovider Office Visit [facility] November 19, 2020 10:32am November 19, 2020 11:29am Felicia Rodrigez Departed Physician/Pr ovider Office Visit [facility] Orthopedic[facility]Cesar [facility] November 15, 2020 2:11pm November 15, 2020 2:55pm Antwon Jackson Departed Physician/Pr ovider Office Visit [facility] November 04, 2020 10:01am November 04, 2020 10:26am yJothi Arteaga Departed Physician/Pr ovider Office Visit [facility] Orthopedic[facility]Cesar ab October 16, 2020 1:25pm October 16, 2020 1:55pm Antwon Jackson [facility] October 11, 2020 7:11pm October 11, 2020 9:23pm Departed Clinical [facility] Cardiology October 08, 2020 1:55pm October 08, 2020 1:56pm Jyothi Arteaga Departed Physician/Pr ovider Office Visit [facility] Cardiology October 08, 2020 1:50pm October 08, 2020 11:59pm Diann Oakes Departed Physician/Pr ovider Office Visit [facility] October 07, 2020 12:53pm October 07, 2020 2:16pm Jyothi Arteaga Departed Emergency [facility] Emergency Department 2020 8:52am 2020 10:22am Departed Emergency [facility] Emergency Department September 30, 2020 4:35pm September 30, 2020 8:56pm Departed Emergency [facility] September 30, 2020 2:40pm September 30, 2020 4:44pm Departed Referred [facility] Lab [facility] Peds [employer] September 12, 2020 4:01pm September 12, 2020 4:02pm Ian Garcia Departed Physician/Pr ovider Office Visit [facility] September 12, 2020 3:24pm September 12, 2020 4:17pm Ian Garcia Departed Clinical [facility] Laboratory August 30, 2020 2:39pm August 30, 2020 2:40pm Jyothi Arteaga Departed Physician/Pr ovider Office Visit [facility] August 30, 2020 1:59pm August 30, 2020 4:00pm Jyothi Arteaga Departed Physician/Pr ovider Office Visit [facility] August 19, 2020 8:59am August 19, 2020 11:18am Jyothi Arteaga Departed Physician/Pr ovider Office Visit [facility] August 06, 2020 8:07am August 06, 2020 3:16pm Joi Herman Departed Emergency [facility] Emergency Department July 27, 2020 3:43pm July 27, 2020 5:11pm Departed Physician/Pr ovider Office Visit [facility] July 24, 2020 7:51am July 24, 2020 1:52pm Joi Herman Departed Physician/Pr ovider Office Visit [facility] Occupational Health [facility] July 18, 2020 2:47pm July 18, 2020 2:47pm Windy Contreras Departed Physician/Pr ovider Office Visit [facility] July 12, 2020 7:56am July 12, 2020 11:59pm Jyothi Arteaga Departed Physician/Pr ovider Office Visit [facility] July 09, 2020 10:31am July 09, 2020 9:21pm Joi Herman Departed Emergency [facility] Emergency Department July 04, 2020 10:57am July 04, 2020 11:59am Departed Clinical [facility] June 27, 2020 8:16am June 27, 2020 8:17am Windy Contreras Departed Physician/Pr ovider Office Visit [facility] June 21, 2020 7:52am June 21, 2020 3:38pm Joi Herman Departed Physician/Pr ovider Office Visit [facility] June 21, 2020 7:50am June 21, 2020 11:59pm Jyothi Arteaga Departed Physician/Pr ovider Office Visit [facility] June 14, 2020 3:05pm June 14, 2020 11:59pm Jyothi Arteaga Departed Referred [facility] LAB [facility] May 20, 2020 1:55pm May 20, 2020 1:56pm Nadege Parker Departed Physician/Pr ovider Office Visit [facility] May 20, 2020 1:16pm May 20, 2020 2:13pm Nadege Parker Departed Clinical [facility] May 20, 2020 8:31am May 20, 2020 8:32am Twyla Navarrete Departed Physician/Pr ovider Office Visit [facility] May 19, 2020 10:40am May 19, 2020 11:59pm Twyla Navarrete Departed Clinical [facility] May 01, 2020 11:04am May 01, 2020 11:05am Windy Contreras Departed Physician/Pr ovider Office Visit [facility] Occupational Health [facility] [...]
--- OUTSIDE RECORDS SUMMARY | 2023-02-16 11:49 | XMS_ITS | Continuity of Care Document ---
Author Name [facility] Address [address] [place] [address] Organization [facility] Address [address] [place] [address] Care Team Providers Care Lens Blank Gauger Name Role Phone Jyothi Arteaga Primary Care [...] December 20, 2020 Disconti nued flu vac [id number] 36mos up(PF) 60 MCG INTRAMUS CULAR ONCE [...] November 04, 2020 Disconti nued flu vacc [id number] 6mos up(PF) 0.5 ML INTRAMUS CULAR ONCE [...] Contact Location October 07, 2020 Jyothi Arteaga [phone] [facility] [place] [address] Relevant Diagnostic Tests and/or Laboratory Data Laboratory [...] November 19, 2020 11:18am Negative Urine Specific [place] (Manual) November 19, 2020 11:18am 1.020 POC [...] September 12, 2020 4:01pm 6.5 Urine Specific [place] September 12, 2020 4:01pm 1.015 Urine Protein [...] sheets for providers can be found at: HearMeOut.gov/media/43770 5/download Fact sheets for patients can be found at: HearMeOut.gov/[employer]/61337 7/download TB Test (QFT) Antigen Minus Nil [...] Performed b y: [facility] [address] [place] [address] Clinical Laboratory Director: Boone Escudero M.D. Ph.D.; [facility]# [id number] Microbiology Results Procedure Source Result Collection Date/Time [...] November 04, 2020 Discontinu ed flu vac [id number] 36mos up(PF) 60 MCG INTRAMUSCU LAR ONCE [...] September 30, 2020 Discontinu ed flu vacc [id number] 6mos up(PF) 0.5 ML INTRAMUSCU LAR ONCE 0.5 May 01, 2020 Discontinu ed Encounters Encounter Facility Location Admit/Visit Date Discharge/Departure Date Attending Provider Departed Emergency [facility] Emergency Department December 21, 2020 8:46am December 21, 2020 12:00pm Departed Physician/Pr ovider Office Visit [facility] December 20, 2020 4:18pm December 20, 2020 4:47pm Maite Garcia Departed Physician/Pr ovider Office Visit [facility] November 19, 2020 10:32am November 19, 2020 11:29am Felicia Rodrigez Departed Physician/Pr ovider Office Visit [facility] November 15, 2020 2:11pm November 15, 2020 2:55pm Antwon Jackson Departed Physician/Pr ovider Office Visit [facility] November 04, 2020 10:01am November 04, 2020 10:26am Jyothi Arteaga Departed Physician/Pr ovider Office Visit [facility] October 16, 2020 1:25pm October 16, 2020 1:55pm Antwon Jackson Departed Emergency [facility] Urgent [facility] October 11, 2020 7:11pm October 11, 2020 9:23pm Departed Clinical [facility] Cardiology October 08, 2020 1:55pm October 08, 2020 1:56pm Jyothi Arteaga Departed Physician/Pr ovider Office Visit [facility] Cardiology October 08, 2020 1:50pm October 08, 2020 11:59pm Diann Oakes Departed Physician/Pr ovider Office Visit [facility] October 07, 2020 12:53pm October 07, 2020 2:16pm Jyothi Atreaga Departed Emergency [facility] Emergency Department 2020 8:52am 2020 10:22am Departed Emergency [facility] Emergency Department September 30, 2020 4:35pm September 30, 2020 8:56pm Departed Emergency [facility] Urgent [facility] September 30, 2020 2:40pm September 30, 2020 4:44pm Departed Referred [facility] Lab [facility] [place] September 12, 2020 4:01pm September 12, 2020 4:02pm Ian Garcia Departed Physician/Pr ovider Office Visit [facility] September 12, 2020 3:24pm September 12, 2020 4:17pm Ian Garcia Departed Clinical [facility] Laboratory August 30, 2020 2:39pm August 30, 2020 2:40pm Jyothi rAteaga Departed Physician/Pr ovider Office Visit [facility] August 30, 2020 1:59pm August 30, 2020 4:00pm Jyothi Arteaga Departed Physician/Pr ovider Office Visit [facility] August 19, 2020 8:59am August 19, 2020 11:18am Jyothi Arteaga Departed Physician/Pr ovider Office Visit [facility] August 06, 2020 8:07am August 06, 2020 3:16pm Joi Herman Departed Emergency [facility] Emergency Department July 27, 2020 3:43pm July 27, 2020 5:11pm Departed Physician/Pr ovider Office Visit [facility] July 24, 2020 7:51am July 24, 2020 1:52pm Joi Herman Departed Physician/Pr ovider Office Visit [facility] Occupational Health [facility] Health July 18, 2020 2:47pm July 18, 2020 2:47pm Windy Contreras Departed Physician/Pr ovider Office Visit [facility] July 12, 2020 7:56am July 12, 2020 11:59pm Jyothi Arteaga Departed Physician/Pr ovider Office Visit [facility] July 09, 2020 10:31am July 09, 2020 9:21pm Joi Herman Departed Emergency [facility] Emergency Department July 04, 2020 10:57am July 04, 2020 11:59am Departed Clinical [facility] June 27, 2020 8:16am June 27, 2020 8:17am Windy Contreras Departed Physician/Pr ovider Office Visit [facility] June 21, 2020 7:52am June 21, 2020 3:38pm Joi Herman Departed Physician/Pr ovider Office Visit [facility] June 21, 2020 7:50am June 21, 2020 11:59pm Jyothi Arteaga Departed Physician/Pr ovider Office Visit [facility] June 14, 2020 3:05pm June 14, 2020 11:59pm Jyothi Arteaga Departed [facility] May 20, 2020 1:55pm May 20, 2020 1:56pm Nadege Parker Departed Physician/Pr ovider Office Visit [facility] May 20, 2020 1:16pm May 20, 2020 2:13pm Nadege Parker Departed Clinical [facility] May 20, 2020 8:31am May 20, 2020 8:32am Twyla Navarrete Departed Physician/Pr ovider Office Visit [facility] May 19, 2020 10:40am May 19, 2020 11:59pm Twyla Navarrete Departed Clinical [facility] May 01, 2020 11:04am May 01, 2020 11:05am Windy Contreras Departed Physician/Pr ovider Office Visit [facility] May 01, 2020 10:09am May 01, 2020 12:58pm Referral, Self Departed Physician/Pr ovider Office Visit [facility] February 14, [...]
--- OUTSIDE RECORDS SUMMARY | 2023-02-16 11:49 | XMS_ITS | Continuity of Care Document ---
Author Name [facility] Address [address] [place] [address] Organization [facility] Address [address] [place] [address] Care Team Providers Care Bow Rehairer Name Role Phone Juan Carlos Santana JR [...] December 20, 2020 Disconti nued flu vac [id number] 36mos up(PF) 60 MCG INTRAMUS CULAR ONCE [...] November 04, 2020 Disconti nued flu vacc [id number] 6mos up(PF) 0.5 ML INTRAMUS CULAR ONCE 0.5 May 01, 2020 May 01, 2020 Disconti nued Problem List Active Problems Medical Problem Onset Date Status Effusion of knee December 06, 2017 Benign mole Active Vomiting and diarrhea Active Abrasion, right foot, initial encounter Active Otalgia June 11, 2016 Acute viral syndrome Active Anxiety Trauma and stressor-related disorder Headache Active [...] November 19, 2020 11:18am Negative Urine Specific [place] (Manual) November 19, 2020 11:18am 1.020 POC [...] September 12, 2020 4:01pm 6.5 Urine Specific [place] September 12, 2020 4:01pm 1.015 Urine Protein [...] for patients can be found at: fda.gov/media/1363 87/download Microbiology Results Procedure Source Result Collection Date/Time Resu lt Date/Time Urine Culture Ur,Clean Catch No results entered September 12 4:01pm Chief Complaint and Reason for Visit Encounter Admit Date Chief Complaint Reason for V isit Registered Emergency June 28, 2021 8:12pm FEVER, COUG H Hospital Discharge Instructions No known hospital discharge [...] 20 MG ORAL DAILY 30 Sept mber 2020 Active Levonorgestrel -Ethinyl Estrad 1 TAB ORAL DAILY 84 November 20, 2020 Active Magnesium 200 - 600 MG ORAL DAILY 90 November 04, 2020 Discontinu ed Riboflavin (Vitamin B2) 400 MG ORAL DAILY 90 November 04, 2020 Discontinu ed flu vac [id number] 36mos up(PF) 60 MCG INTRAMUSCU LAR ONCE [...] September 30, 2020 Discontinu ed Amitriptyline MG [facility] 2021 Active flu vacc [id number] 6mos up(PF) 0.5 ML INTRAMUSCU LAR ONCE 0.5 May 01, 2020 Discontinu ed Encounters Encounter Facility Location Admit/Visit Date Discharge/Departure Date Attending Provider Registered Emergency [facility] Emergency Department June 28, 2021 8:12pm Departed Emergency [facility] May 12, 2021 11:36am May 12, 2021 12:40pm Departed Physician/Pr ovider Office Visit [facility] May 01, 2021 2:45pm May 01, 2021 3:00pm Fortunato Quezada Departed Clinical [facility] April 24, 2021 9:03am April 24, 2021 9:04am Juan Carlos Santana JR Departed Clinical [facility] April 01, 2021 9:05am April 01, 2021 9:06am Juan Carlos Santana JR Departed Referred [facility] March 27, 2021 6:39pm March 27, 2021 6:40pm Juan Carlos Santana JR Registered Inpatient [facility] March 06, 2021 3:15pm Soni Santa Departed Emergency [facility] Emergency Department February 22, 2021 1:48pm February 22, 2021 5:28pm Departed Emergency [facility] February 22, 2021 12:49pm February 22, 2021 1:47pm Departed Emergency [facility] Emergency Department December 21, 2020 8:46am December 21, 2020 12:00pm Departed Physician/Pr ovider Office Visit [facility] December 20, 2020 4:18pm December 20, 2020 4:47pm Maite Garcia Departed Physician/Pr ovider Office Visit [facility] November 19, 2020 10:32am November 19, 2020 11:29am Felicia Rodrigez Departed Physician/Pr ovider Office Visit [facility] November 15, 2020 2:11pm November 15, 2020 2:55pm Antwon Jackson Departed Physician/Pr ovider Office Visit [facility] November 04, 2020 10:01am November 04, 2020 10:26am Jyothi Arteaga Departed Physician/Pr ovider Office Visit [facility] October 16, 2020 1:25pm October 16, 2020 1:55pm Antwon Jackson Departed Emergency [facility] October 11, 2020 7:11pm October 11, 2020 9:23pm Departed Clinical [facility] October 08, 2020 1:55pm October 08, 2020 1:56pm Jyothi Arteaga Departed Physician/Pr ovider Office Visit [facility] Cardiology October 08, 2020 1:50pm October 08, 2020 11:59pm Diann Oakes Departed Physician/Pr ovider Office Visit [facility] October 07, 2020 12:53pm October 07, 2020 2:16pm Jyothi Arteaga Departed Emergency [facility] Emergency Department 2020 8:52am 2020 10:22am Departed Emergency [facility] Emergency Department September 30, 2020 4:35pm September 30, 2020 8:56pm Departed Emergency [facility] Urgent [facility] September 30, 2020 2:40pm September 30, 2020 4:44pm Departed Referred [facility] Lab [facility] [place] [facility] [place] September 12, 2020 4:01pm September 12, 2020 4:02pm Ian Garcia Departed Physician/Pr ovider Office Visit [facility] September 12, 2020 3:24pm September 12, 2020 4:17pm Ian Garcia Departed Clinical [facility] Laboratory August 30, 2020 2:39pm August 30, 2020 2:40pm Jyothi Arteaga Departed Physician/Pr ovider Office Visit [facility] August 30, 2020 1:59pm August 30, 2020 4:00pm Jyothi Arteaga Departed Physician/Pr ovider Office Visit [facility] August 19, 2020 8:59am August 19, 2020 11:18am Jyothi Arteaga Departed Physician/Pr ovider Office Visit [facility] August 06, 2020 8:07am August 06, 2020 3:16pm Joi Herman Departed Emergency [facility] Emergency Department July 27, 2020 3:43pm July 27, 2020 5:11pm Departed Physician/Pr ovider Office Visit [facility] July 24, 2020 7:51am July 24, 2020 1:52pm Joi Herman Departed Physician/Pr ovider Office Visit [facility] [place] Occupational Health [facility] Employee Health July 18, 2020 2:47pm July 18, 2020 2:47pm FontanaWindy gonzalez Departed Physician/Pr ovider Office Visit [facility] July 12, 2020 7:56am July 12, 2020 11:59pm Jyothi Arteaga Departed Physician/Pr ovider Office Visit [facility] July 09, 2020 10:31am July [...] Drug Use Yes June 28, 2021 9:08pm QHS marijuana as of 09/30/20 alcohol intake [...]
--- OUTSIDE RECORDS SUMMARY | 2023-02-16 11:49 | XMS_ITS | Continuity of Care Document ---
Author Name [facility] Address [address] [place] [id number] Organization [facility] Address [address] [place] [id number] Support Name Relationship Address Phone Jyothi Arteaga Primary Care Provider [facility] Leandro torres [facility] [address] [place] [address] Soni Santa Attending Provider Unknown [...] December 20, 2020 Disconti nued flu vac [id number] 36mos up(PF) 60 MCG INTRAMUS CULAR ONCE [...] November 04, 2020 Disconti nued flu vacc [id number] 6mos up(PF) 0.5 ML INTRAMUS CULAR ONCE [...] Contact Location October 07, 2020 Jyothi Arteaga [phone] [facility] [place] [address] Relevant Diagnostic Tests and/or Laboratory Data Laboratory [...] November 19, 2020 11:18am Negative Urine Specific [place] (Manual) November 19, 2020 11:18am 1.020 POC [...] September 12, 2020 4:01pm 6.5 Urine Specific [place] September 12, 2020 4:01pm 1.015 Urine Protein [...] sheets for providers can be found at: [facility]/1362 85/download Fact sheets for patients can be found at: [facility]/1362 87/download TB Test (QFT) Antigen Minus Nil [...] 0.01 IU/mL Test Performed b y: [facility] [address] [place] [address] Analysis Director: Boone Escudero M.D. Ph.D.; CLIA# [id number] Microbiology Results Procedure Source Result Collection Date/Time [...] November 04, 2020 Discontinu ed flu vac [id number] 36mos up(PF) 60 MCG INTRAMUSCU LAR ONCE [...] September 30, 2020 Discontinu ed flu vacc [id number] 6mos up(PF) 0.5 ML INTRAMUSCU LAR ONCE 0.5 May 01, 2020 Discontinu ed Encounters Encounter Facility Location Admit/Visit Date Discharge/Departure Date Attending Provider Registered Inpatient [facility] March 06, 2021 3:15pm Soni Santa Departed Emergency [facility] Emergency Department February 22, 2021 1:48pm February 22, 2021 5:28pm Departed Emergency [facility] February 22, 2021 12:49pm February 22, 2021 1:47pm Departed Emergency [facility] Emergency Department December 21, 2020 8:46am December 21, 2020 12:00pm Departed Physician/Pr ovider Office Visit [facility] December 20, 2020 4:18pm December 20, 2020 [...] 16, 2020 1:55pm Antwon Jackson Departed Emergency [facility] October 11, 2020 7:11pm October 11, 2020 9:23pm Departed Clinical [facility] October 08, 2020 1:55pm October 08, 2020 1:56pm Jyothi Arteaga Departed Physician/Pr ovider Office Visit [facility] Cardiology October 08, 2020 1:50pm October 08, 2020 11:59pm Diann Oakes Departed Physician/Pr ovider Office Visit [facility] October 07, 2020 12:53pm October 07, 2020 2:16pm Jyothi Arteaga Departed Emergency [facility] Emergency Department 2020 8:52am 2020 10:22am Departed Emergency [facility] Emergency Department September 30, 2020 4:35pm September 30, 2020 8:56pm Departed Emergency [facility] September 30, 2020 2:40pm September 30, 2020 4:44pm Departed Referred [facility] Lab [facility] P[facility] [place] September 12, 2020 4:01pm September 12, 2020 4:02pm Ian Garcia Departed Physician/Pr ovider Office Visit [facility] September 12, 2020 3:24pm September 12, 2020 4:17pm Ian Garcia Departed Clinical [facility] Laboratory August 30, 2020 2:39pm August 30, 2020 2:40pm Jyothi Arteaga Departed Physician/Pr ovider Office Visit [facility] August 30, 2020 1:59pm August 30, 2020 4:00pm Jyothi Arteaga Departed Physician/Pr ovider Office Visit [facility] August 19, 2020 8:59am August 19, 2020 11:18am Jyothi Arteaga Departed Physician/Pr ovider Office Visit [facility] August 06, 2020 8:07am August 06, 2020 3:16pm Joi Herman Departed Emergency [facility] Emergency Department July 27, 2020 3:43pm July 27, 2020 5:11pm Departed Physician/Pr ovider Office Visit [facility] July 24, 2020 7:51am July 24, 2020 1:52pm Joi Herman Departed Physician/Pr ovider Office Visit [facility] Occupational Health [facility] July 18, 2020 2:47pm July [...] Jyothi Arteaga Departed Referred [facility] LAB [facility] May 20, 2020 1:55pm May 20, 2020 1:56pm Nadege Parker Departed Physician/Pr ovider Office Visit [facility] May 20, 2020 1:16pm May 20, 2020 2:13pm Nadege Parker Departed Clinical [facility] May 20, 2020 8:31am May 20, 2020 8:32am Twyla Navarrete Departed Physician/Pr ovider Office Visit [facility] May 19, 2020 10:40am May 19, 2020 11:59pm Twyla Navarrete Departed Clinical [facility] May 01, 2020 11:04am May 01, 2020 11:05am Windy Contreras Departed Physician/Pr ovider Office Visit [facility] Occupational Health [facility] May 01, 2020 10:09am [...]
--- OUTSIDE RECORDS SUMMARY | 2023-02-16 11:49 | XMS_ITS | Continuity of Care Document ---
Author Name [facility] Address [address] [place] [address] Organization [facility] Address [address] [place] [address] Support Name Relationship Address Phone Jyohti Arteaga Primary Care Provider [facility] Leandro torres [facility] [address] [place] [address] Soni Santa Attending Provider Unknown [...] December 20, 2020 Disconti nued flu vac [id number] 36mos up(PF) 60 MCG INTRAMUS CULAR ONCE [...] November 04, 2020 Disconti nued flu vacc [id number] 6mos up(PF) 0.5 ML INTRAMUS CULAR ONCE [...] Contact Location October 07, 2020 Jyothi Arteaga [phone] [facility] [place] [address] Relevant Diagnostic Tests and/or Laboratory Data Laboratory [...] November 19, 2020 11:18am Negative Urine Specific [place] (Manual) November 19, 2020 11:18am 1.020 POC [...] September 12, 2020 4:01pm 6.5 Urine Specific [place] September 12, 2020 4:01pm 1.015 Urine Protein [...] sheets for providers can be found at: Industry Weapon.Flirq/DIY/1362 85/download Fact sheets for patients can be found at: Industry Weapon.Flirq/DIY/1362 87/download TB Test (QFT) Antigen Minus Nil [...] [facility] [address] [place] [address] Associate Java Developer: Boone Escudero M.D. Ph.D.; CLIA# [id number] Microbiology Results Procedure Source Result Collection Date/Time [...] November 04, 2020 Discontinu ed flu vac [id number] 36mos up(PF) 60 MCG INTRAMUSCU LAR ONCE [...] September 30, 2020 Discontinu ed flu vacc [id number] 6mos up(PF) 0.5 ML INTRAMUSCU LAR ONCE 0.5 May 01, 2020 Discontinu ed Encounters Encounter Facility Location Admit/Visit Date Discharge/Departure Date Attending Provider Registered Inpatient [facility] March 06, 2021 3:15pm Soni Santa Departed Emergency [facility] Emergency Department February 22, 2021 1:48pm February 22, 2021 5:28pm Departed Emergency [facility] February 22, 2021 12:49pm February 22, 2021 1:47pm Departed Emergency [facility] Emergency Department December 21, 2020 8:46am December 21, 2020 12:00pm Departed Physician/Pr ovider Office Visit [facility] December 20, 2020 4:18pm December 20, 2020 4:47pm Maite Garcia Departed Physician/Pr ovider Office Visit [facility] November 19, 2020 10:32am November 19, 2020 11:29am Felicia Rodrigez Departed Physician/Pr ovider Office Visit [facility]opedic[facility]Cesar [facility] November 15, 2020 2:11pm November 15, 2020 2:55pm Antwon Jackson Departed Physician/Pr ovider Office Visit [facility] November 04, 2020 10:01am November 04, 2020 10:26am Jyothi Arteaga Departed Physician/Pr ovider Office Visit [facility] Orthopedic[facility]Cesar [facility] October 16, 2020 1:25pm October 16, 2020 1:55pm Antwon Jackson [facility]arted [facility] October 11, 2020 7:11pm October 11, 2020 9:23pm Departed Clinical [facility] Cardiology October 08, 2020 1:55pm October 08, 2020 1:56pm Jyothi Arteaga Departed Physician/Pr ovider Office Visit [facility] Cardiology October 08, 2020 1:50pm October 08, 2020 11:59pm Diann Oakes Departed Physician/Pr ovider Office Visit [facility] October 07, 2020 12:53pm October 07, 2020 2:16pm Jyothi Arteaga Departed Emergency [facility] Emergency Department 2020 8:52am 2020 10:22am Departed Emergency [facility] Emergency Department September 30, 2020 4:35pm September 30, 2020 8:56pm Departed Emergency [facility] September 30, 2020 2:40pm September 30, 2020 4:44pm Departed Referred [facility] Lab [facility] [place] September 12, 2020 4:01pm September 12, 2020 4:02pm Ian Garcia Departed Physician/Pr ovider Office Visit [facility] September 12, 2020 3:24pm September 12, 2020 4:17pm Ian Garcia Departed Clinical [facility] Laboratory August 30, 2020 2:39pm August 30, 2020 2:40pm Jyothi Arteaga Departed Physician/Pr ovider Office Visit [facility] August 30, 2020 1:59pm August 30, 2020 4:00pm Jyothi Arteaga Departed Physician/Pr ovider Office Visit [facility] August 19, 2020 8:59am August 19, 2020 11:18am Jyothi Arteaga Departed Physician/Pr ovider Office Visit [facility] August 06, 2020 8:07am August 06, 2020 3:16pm Joi Herman Departed Emergency [facility] Emergency Department July 27, 2020 3:43pm July 27, 2020 5:11pm Departed Physician/Pr ovider Office Visit [facility] July 24, 2020 7:51am July 24, 2020 1:52pm Joi Herman Departed Physician/Pr ovider Office Visit [facility] Occupational Health [facility] July 18, 2020 2:47pm July 18, 2020 2:47pm Windy Contreras Departed Physician/Pr ovider Office Visit [facility] July 12, 2020 7:56am July 12, 2020 11:59pm Jyothi Arteaga Departed Physician/Pr ovider Office Visit [facility] July 09, 2020 10:31am July 09, 2020 9:21pm Joi Herman Departed Emergency [facility] Emergency Department July 04, 2020 10:57am July 04, 2020 11:59am Departed Clinical [facility] June 27, 2020 8:16am June 27, 2020 8:17am Windy Contreras Departed Physician/Pr ovider Office Visit [facility] June 21, 2020 7:52am June 21, 2020 3:38pm Joi Herman Departed Physician/Pr ovider Office Visit [facility] June 21, 2020 7:50am June 21, 2020 11:59pm Jyothi Arteaga Departed Physician/Pr ovider Office Visit [facility] June 14, 2020 3:05pm June 14, 2020 11:59pm Jyothi Arteaga Departed Referred [facility] LAB [facility] May 20, 2020 1:55pm May 20, 2020 1:56pm Nadege Parker Departed Physician/Pr ovider Office Visit [facility] May 20, 2020 1:16pm May 20, 2020 2:13pm Nadege Parker Departed Clinical [facility] May 20, 2020 8:31am May 20, 2020 8:32am Twyla Navarrete Departed Physician/Pr ovider Office Visit [facility] May 19, 2020 10:40am May 19, 2020 11:59pm Twyla Navarrete Departed Clinical [facility] May 01, 2020 11:04am May 01, 2020 11:05am Windy Contreras Departed Physician/Pr ovider Office Visit [facility] Occupational Health [facility] May 01, [...]
--- OUTSIDE RECORDS SUMMARY | 2023-02-16 11:49 | XMS_ITS | Continuity of Care Document ---
Author Name [facility] Address [address] [place] [address] Organization [facility] Address [address] [place] [address] Care Team Providers Care Regional Director Of Finance Name Role Phone Jyohti Arteaga Primary Care Physician Felicia Rodrigez Attending Physician Allergies, Adverse Reactions, Alerts No [...] Inactiv e Procedures Procedure Date Status Knee 1 or 2 vw LT November 09, 2017 completed Relevant Diagnostic Tests and/or Laboratory Data No known relevant diagnostic tests, laboratory data, and/or discharge summary. Advance Directives Advance Directive Response Recorded Date/ Time Do we have a copy on file here at [facility]? No May 23, 2016 9:44am Does patient have an Advanced Directive? No December 09, 2012 11:08am Pt has a Living Will? No December 09, 2012 11:08am Pt has a Power of Supervisory Aide? No Octo 2012 11:08am Chief Complaint and Reason for Visit Encounter Admit Date Chief Complaint Reason for V isit Departed Clinical November 09, 2017 2:36pm Xray Hospital Discharge Instructions No known hospital discharge instructions. Hospital Discharge Medications Medication Dose Units Route Sig Qty Days Order Date Status Ins tructions Levonorgestrel-Et hinyl Estrad September Active Amoxicillin-Pot Clavulanate 1 TAB ORAL TWICE A DAY 14 September 062017 Active Encounters Encounter Facility Location Admit/Visit Date Discharge/Departure Date Attending Provider Departed Clinical [facility] DI [facility] November 09, 2017 2:36pm November 09, 2017 2:37pm Felicia Rodrigez Departed Emergency [facility] [place] September 26, 2017 2:24pm September 26, 2017 2:59pm Functional Status No known functional status. Immunizations No known immunizations. Payers Payer Name Policy Type Covered Alliance Party Covered Alliance Party Id Relationship Subscriber Subscriber Id [place] Medicaid FAITH RAMSES [id number] Self/Same as Patient [place] [id number] SELF PAY Personal [place] MEDICAID (DO NOT USE) Medicaid [place] [id number] Self/Same as Patient TERA RAMSES [id number] Plan of Care No Known Plan of [...]
--- OUTSIDE RECORDS SUMMARY | 2023-02-16 11:49 | XMS_ITS | Continuity of Care Document ---
Author Name [facility] Address [address] [place] [address] [facility] Address [address] [place] [address]47 Support Name Relationship Address Phone Jyothi Arteaga Primary Care Provider [facility] Leandro torres [facility] [address] [place] [address] Soni Santa Attending Provider Unknown [...] December 20, 2020 Disconti nued flu vac [id number] 36mos up(PF) 60 MCG INTRAMUS CULAR ONCE [...] November 04, 2020 Disconti nued flu vacc [id number] 6mos up(PF) 0.5 ML INTRAMUS CULAR ONCE [...] Contact Location October 07, 2020 Jyothi Arteaga [phone] [facility] [place] [address] Relevant Diagnostic Tests and/or Laboratory Data Laboratory [...] November 19, 2020 11:18am Negative Urine Specific [place] (Manual) November 19, 2020 11:18am 1.020 POC [...] September 12, 2020 4:01pm 6.5 Urine Specific [place] September 12, 2020 4:01pm 1.015 Urine Protein [...] sheets for providers can be found at: SellAnyCar.ru.Globoforce/MyStore.com/1362 85/download Fact sheets for patients can be found at: SellAnyCar.ru.Globoforce/MyStore.com/1362 87/download TB Test (QFT) Antigen Minus Nil [...] Test Performed b y: [facility] [address] [place] [address] Chair: Boone Escudero M.D. Ph.D.; CLIA# [id number] Microbiology Results Procedure Source Result Collection Date/Time [...] November 04, 2020 Discontinu ed flu vac [id number] 36mos up(PF) 60 MCG INTRAMUSCU LAR ONCE [...] September 30, 2020 Discontinu ed flu vacc [id number] 6mos up(PF) 0.5 ML INTRAMUSCU LAR ONCE 0.5 May 01, 2020 Discontinu ed Encounters Encounter Facility Location Admit/Visit Date Discharge/Departure Date Attending Provider Registered Inpatient [facility] March 06, 2021 3:15pm Soni Santa Departed Emergency [facility] Emergency Department February 22, 2021 1:48pm February 22, 2021 5:28pm Departed Emergency [facility] February 22, 2021 12:49pm February 22, 2021 1:47pm Departed Emergency [facility] Emergency Department December 21, 2020 8:46am December 21, 2020 12:00pm Departed Physician/Pr ovider Office Visit [facility] Pediatric[facility] December 20, 2020 4:18pm December 20, 2020 4:47pm Maite Garcia Departed Physician/Pr ovider Office Visit [facility] November 19, 2020 10:32am November 19, 2020 11:29am Felicia Rodrigez Departed Physician/Pr ovider Office Visit [facility] Orthopedic[facility]Cesar [facility] November 15, 2020 2:11pm November 15, 2020 2:55pm Antwon Jackson Departed Physician/Pr ovider Office Visit [facility] November 04, 2020 10:01am November 04, 2020 10:26am Jyothi Arteaga Departed Physician/Pr ovider Office Visit [facility] Orthopedic[facility]Cesar ab October 16, 2020 1:25pm October 16, 2020 1:55pm Antwon Jackson [facility] October 11, 2020 7:11pm October 11, 2020 9:23pm Departed Clinical [facility] Cardiology October 08, 2020 1:55pm October 08, 2020 1:56pm Jyothi Arteaga Departed Physician/Pr ovider Office Visit [facility] Cardiology October 08, 2020 1:50pm October 08, 2020 11:59pm Diann Oakes Departed Physician/Pr ovider Office Visit [facility] October 07, 2020 12:53pm October 07, 2020 2:16pm Jyothi Arteaga Departed Emergency [facility] Emergency Department 2020 8:52am 2020 10:22am Departed Emergency [facility] Emergency Department September 30, 2020 4:35pm September 30, 2020 8:56pm Departed Emergency [facility] September 30, 2020 2:40pm September 30, 2020 4:44pm Departed Referred [facility] Lab [facility] Peds [place] September 12, 2020 4:01pm September 12, 2020 4:02pm Ian Garcia Departed Physician/Pr ovider Office Visit [facility] September 12, 2020 3:24pm September 12, 2020 4:17pm Ian Garcia Departed Clinical [facility] Laboratory August 30, 2020 2:39pm August 30, 2020 2:40pm Jyothi Arteaga Departed Physician/Pr ovider Office Visit [facility] August 30, 2020 1:59pm August 30, 2020 4:00pm Jyothi Arteaga Departed Physician/Pr ovider Office Visit [facility] August 19, 2020 8:59am August 19, 2020 11:18am Jyothi Arteaga Departed Physician/Pr ovider Office Visit [facility] August 06, 2020 8:07am August 06, 2020 3:16pm Joi Herman Departed Emergency [facility] Emergency Department July 27, 2020 3:43pm July 27, 2020 5:11pm Departed Physician/Pr ovider Office Visit [facility] July 24, 2020 7:51am July 24, 2020 1:52pm Joi Herman Departed Physician/Pr ovider Office Visit [facility] Occupational Health [facility] July 18, 2020 2:47pm July 18, 2020 2:47pm Windy Contreras Departed Physician/Pr ovider Office Visit [facility] July 12, 2020 7:56am July 12, 2020 11:59pm Jyothi Arteaga Departed Physician/Pr ovider Office Visit [facility] July 09, 2020 10:31am July 09, 2020 9:21pm Joi Herman Departed Emergency [facility] Emergency Department July 04, 2020 10:57am July 04, 2020 11:59am Departed Clinical [facility] June 27, 2020 8:16am June 27, 2020 8:17am Windy Contreras Departed Physician/Pr ovider Office Visit [facility] June 21, 2020 7:52am June 21, 2020 3:38pm Joi Herman Departed Physician/Pr ovider Office Visit [facility] June 21, 2020 7:50am June 21, 2020 11:59pm Jyothi Arteaga Departed Physician/Pr ovider Office Visit [facility] June 14, 2020 3:05pm June 14, 2020 11:59pm Jyothi Arteaga Departed Referred [facility] LAB [facility] May 20, 2020 1:55pm May 20, 2020 1:56pm Nadege Parker Departed Physician/Pr ovider Office Visit [facility] May 20, 2020 1:16pm May 20, 2020 2:13pm Nadege Parker Departed Clinical [facility] May 20, 2020 8:31am May 20, 2020 8:32am Twyla Navarrete Departed Physician/Pr ovider Office Visit [facility] May 19, 2020 10:40am May 19, 2020 11:59pm Twyla Navarrete Departed Clinical [facility] May 01, 2020 11:04am May 01, 2020 11:05am Windy Contreras Departed Physician/Pr ovider Office Visit [facility] Occupational Health [facility] May 01, 2020 10:09am [...]
--- OUTSIDE RECORDS SUMMARY | 2023-02-16 11:49 | XMS_ITS | Continuity of Care Document ---
Author Name Address [address] [place] [address] Organization Address [address] [place] [address] Support Name Relationship Address Phone Jyothi Arteaga Primary Care Provider [facility] Leandro torres [address] [address] Jyothi Arteaga Attending Provider [facility] Pediatrmaeve alfaro [address] [address] Referral, Self Referring Provider Unknown [...] July 12, 2020 Disconti nued flu vac [id number] 36mos up(PF) 60 MCG INTRAMUS CULAR ONCE [...] November 04, 2020 Disconti nued flu vacc [id number] 6mos up(PF) 0.5 ML INTRAMUS CULAR ONCE [...] Location October 07, 2020 Jyothi Gigi Arteaga [phone] [facility] [place] [address] Relevant Diagnostic Tests and/or Laboratory Data Laboratory Results Test Date/Time Result Interp. Ref. Range Result Comment Urine Test (Clinic) November 04, 2020 10:17am Negative Urine Color (Manual) September 12, 2020 4:12pm [place] Urine Clarity (Manual) September 12, 2020 4:12pm Clear POC Urine Glucose September 12, 2020 4:12pm Negative POC Urine Bilirubin Confirmation September 12, 2020 4:12pm Negative Urine Ketones (Manual) September 12, 2020 4:12pm Large (+++) Urine Specific [place] (Manual) September 12, 2020 4:12pm 1.015 POC [...] September 12, 2020 4:01pm 6.5 Urine Specific [place] September 12, 2020 4:01pm 1.015 Urine Protein [...] sheets for providers can be found at: Cearna.gov/media/07289 5/download Fact sheets for patients can be found at: [place].gov/AltheRx Pharmaceuticals/15670 7/download TB Test (QFT) Antigen Minus Nil [...] 0.01 IU/mL Test Performed b y: [facility] [address] [place] [address] Infection Control Coordinator: Boone Escudero M.D. Ph.D.; CLIA# [id number] Microbiology Results Procedure Source Result Collection Date/Time [...] 90 November 04, 2020 Active flu vac [id number] 36mos up(PF) 60 MCG INTRAMUSCU LAR ONCE [...] September 30, 2020 Discontinu ed flu vacc [id number] 6mos up(PF) 0.5 ML INTRAMUSCU LAR ONCE 0.5 May 01, 2020 Discontinu ed Encounters Encounter Facility Location Admit/Visit Date Discharge/Departure Date Attending Provider Departed Physician/Pr ovider Office Visit [facility] Pediatric[facility] November 04, 2020 10:01am November 04, 2020 10:26am Jyothi Arteaga Departed Physician/Pr ovider Office Visit [facility] Orthopedic&Cesar ab October 16, 2020 1:25pm October 16, 2020 1:55pm Antwon Jackson Departed Emergency [facility] Urgent [facility] October 11, 2020 7:11pm October 11, 2020 9:23pm Departed Clinical Cardiology October 08, 2020 1:55pm October 08, 2020 1:56pm Jyothi Arteaga Departed Physician/Pr ovider Office Visit [facility] Cardiology October 08, 2020 1:50pm October 08, 2020 11:59pm Diann Oakes Departed Physician/Pr ovider Office Visit [facility] October 07, 2020 12:53pm October 07, 2020 2:16pm Jyothi Arteaga Departed Emergency Emergency Department 2020 8:52am 2020 10:22am Departed Emergency Emergency Department September 30, 2020 4:35pm September 30, 2020 8:56pm Departed Emergency [facility] September 30, 2020 2:40pm September 30, 2020 4:44pm Departed Referred Lab [facility] P[facility] [place] [facility] September 12, 2020 4:01pm September 12, 2020 4:02pm Ian Garcia Departed Physician/Pr ovider Office Visit [facility] September 12, 2020 3:24pm September 12, 2020 4:17pm Ian Garcia Departed Clinical Laboratory August 30, 2020 2:39pm August 30, 2020 2:40pm Jyothi Arteaga Departed Physician/Pr ovider Office Visit [facility] August 30, 2020 1:59pm August 30, 2020 4:00pm Jyothi Arteaga Departed Physician/Pr ovider Office Visit [facility] August 19, 2020 8:59am August 19, 2020 11:18am Jyothi Arteaga Departed Physician/Pr ovider Office Visit [facility] August 06, 2020 8:07am August 06, 2020 3:16pm Joi Herman Departed Emergency Emergency Department July 27, 2020 3:43pm July 27, 2020 5:11pm Departed Physician/Pr ovider Office Visit [facility] July 24, 2020 7:51am July 24, 2020 1:52pm Joi Herman Departed Physician/Pr ovider Office Visit [facility] Occupational Health [facility] July 18, 2020 2:47pm July 18, 2020 2:47pm Windy Contreras Departed Physician/Pr ovider Office Visit [facility] July 12, 2020 7:56am July 12, 2020 11:59pm Jyothi Arteaga Departed Physician/Pr ovider Office Visit [facility] July 09, 2020 10:31am July 09, 2020 9:21pm Joi Herman Departed Emergency Emergency Department July 04, 2020 10:57am July 04, 2020 11:59am Departed Clinical [facility] June 27, 2020 8:16am June 27, 2020 8:17am Windy Contreras Departed Physician/Pr ovider Office Visit [facility] June 21, 2020 7:52am June 21, 2020 3:38pm Joi Herman Departed Physician/Pr ovider Office Visit [facility] June 21, 2020 7:50am June 21, 2020 11:59pm Jyothi Arteaga Departed Physician/Pr ovider Office Visit [facility] June 14, 2020 3:05pm June 14, 2020 11:59pm Jyothi Arteaga Departed Referred [facility] P[facility] [place] May 20, 2020 1:55pm May 20, 2020 1:56pm Nadege Parker Departed Physician/Pr ovider Office Visit [facility] May 20, 2020 1:16pm May 20, 2020 2:13pm Nadege Parker Departed Clinical [facility] May 20, 2020 8:31am May 20, 2020 8:32am Twyla Navarrete Departed Physician/Pr ovider Office Visit [facility] May 19, 2020 10:40am May 19, 2020 11:59pm Twyla Navarrete Departed Clinical [facility] May 01, 2020 11:04am May 01, 2020 11:05am [place] Departed Physician/Pr ovider Office Visit [facility] May 01, 2020 10:09am May 01, 2020 12:58pm Referral, Self Departed Physician/Pr ovider Office Visit [facility] Pediatric[facility] February 14, 2020 7:43am February 14, 2020 11:49am Joi Herman Departed Physician/Pr ovider Office Visit [facility] January 12, 2020 2:30pm January 12, 2020 3:38pm Jyothi Arteaga Departed Emergency [facility] November 26, 2019 1:42pm November 26, 2019 2:22pm Departed Physician/Pr ovider Office Visit [facility] November 08, 2019 8:50am November 08, 2019 [...] 16 1:32pm Blood Pressure Systolic 110 102-133 [facility] 2020 1:32pm Blood Pressure Diastolic 80 61-85 Oct [facility] 2020 1:32pm Body Mass Index 37.3 October 16 1:32pm
--- OUTSIDE RECORDS SUMMARY | 2023-02-16 11:49 | XMS_ITS | Continuity of Care Document ---
Author Name Address [address] [place] [address] Organization Address [address] [place] [address] Care Team Providers Care Terrazzo Helper Name Role Phone Jyothi Arteaga Primary Care Physician [phone] Allergies, Adverse Reactions, Alerts No known allergies. [...] December 20, 2020 Disconti nued flu vac [id number] 36mos up(PF) 60 MCG INTRAMUS CULAR ONCE [...] November 04, 2020 Disconti nued flu vacc [id number] 6mos up(PF) 0.5 ML INTRAMUS CULAR ONCE [...] Contact Location October 07, 2020 Jyothi Arteaga [phone] [facility] [place] [place] [address] Relevant Diagnostic Tests and/or Laboratory Data Laboratory [...] November 19, 2020 11:18am Negative Urine Specific [place] (Manual) November 19, 2020 11:18am 1.020 POC [...] September 12, 2020 4:01pm 6.5 Urine Specific [place] September 12, 2020 4:01pm 1.015 Urine Protein [...] sheets for providers can be found at: [place].gov/media/94450 5/download Fact sheets for patients can be found at: [place].gov/Huiyuan/02622 7/download TB Test (QFT) Antigen Minus Nil [...] 10:30am 0.01 IU/mL Test Performed b y: [facility] [address] [place] [address] Circuit Board Inspector: Boone Escudero M.D. Ph.D.; [facility]# [id number] Microbiology Results Procedure Source Result Collection Date/Time [...] November 04, 2020 Discontinu ed flu vac [id number] 36mos up(PF) 60 MCG INTRAMUSCU LAR ONCE [...] September 30, 2020 Discontinu ed flu vacc [id number] 6mos up(PF) 0.5 ML INTRAMUSCU LAR ONCE 0.5 May 01, 2020 Discontinu ed Encounters Encounter Facility Location Admit/Visit Date Discharge/Departure Date Attending Provider Departed Emergency Emergency Department December 21, 2020 8:46am December 21, 2020 12:00pm Departed Physician/Pr ovider Office Visit [facility] Pediatrics [facility] December 20, 2020 4:18pm December 20, 2020 4:47pm Maite Garcia Departed Physician/Pr ovider Office Visit [facility] Pediatrics [facility] November 19, 2020 10:32am November 19, 2020 11:29am Felicia Rodrigez Departed Physician/Pr ovider Office Visit [facility]esar [facility] November 15, 2020 2:11pm November 15, 2020 2:55pm Antwon Jackson Departed Physician/Pr ovider Office Visit [facility] Pediatrics [facility] November 04, 2020 10:01am November 04, 2020 10:26am Jyothi Arteaga Departed Physician/Pr ovider Office Visit [facility]esar [facility] October 16, 2020 1:25pm October 16, 2020 1:55pm Antwon Jackson Departed Emergency [facility] Urgent [facility] October 11, 2020 7:11pm October 11, 2020 9:23pm Departed Clinical Cardiology October 08, 2020 1:55pm October 08, 2020 1:56pm Jyothi Arteaga Departed Physician/Pr ovider Office Visit [facility] Cardiology October 08, 2020 1:50pm October 08, 2020 11:59pm Diann Oakes Departed Physician/Pr ovider Office Visit [facility] Pediatrics [facility] October 07, 2020 12:53pm October 07, 2020 2:16pm Jyothi Arteaga Departed Emergency Emergency Department 2020 8:52am 2020 10:22am Departed Emergency Emergency Department September 30, 2020 4:35pm September 30, 2020 8:56pm Departed Emergency [facility] Urgent [facility] September 30, 2020 2:40pm September 30, 2020 4:44pm Departed Referred Lab [facility] [place] September 12, 2020 4:01pm September 12, 2020 4:02pm Ian Garcia Departed Physician/Pr ovider Office Visit [facility] September 12, 2020 3:24pm September 12, 2020 4:17pm Ian Garcia Departed Clinical Laboratory August 30, 2020 2:39pm August 30, 2020 2:40pm Jyothi Arteaga Departed Physician/Pr ovider Office Visit [facility] August 30, 2020 1:59pm August 30, 2020 4:00pm Jyothi Arteaga Departed Physician/Pr ovider Office Visit [facility] August 19, 2020 8:59am August 19, 2020 11:18am Jyothi Arteaga Departed Physician/Pr ovider Office Visit [facility] August 06, 2020 8:07am August 06, 2020 3:16pm Joi Herman Departed Emergency Emergency Department July 27, 2020 3:43pm July 27, 2020 5:11pm Departed Physician/Pr ovider Office Visit [facility] July 24, 2020 7:51am July 24, 2020 1:52pm Joi Herman Departed Physician/Pr ovider Office [place] [facility] Employee Health July 18, 2020 2:47pm July 18, 2020 2:47pm Windy Contreras Departed Physician/Pr ovider Office Visit [facility] July 12, 2020 7:56am July 12, 2020 11:59pm Jyothi Arteaga Departed Physician/Pr ovider Office Visit [facility] July 09, 2020 10:31am July 09, 2020 9:21pm Joi Herman Departed Emergency Emergency Department July 04, 2020 10:57am July 04, 2020 11:59am Departed Clinical [facility] June 27, 2020 8:16am June 27, 2020 8:17am Windy Contreras Departed Physician/Pr ovider Office Visit [facility] June 21, 2020 7:52am June 21, 2020 3:38pm Joi Herman Departed Physician/Pr ovider Office Visit [facility] June 21, 2020 7:50am June 21, 2020 11:59pm Jyothi Arteaga Departed Physician/Pr ovider Office Visit [facility] June 14, 2020 3:05pm June 14, 2020 11:59pm Jyothi Arteaga Departed [facility] May 20, 2020 1:55pm May 20, 2020 1:56pm Nadege Parker Departed Physician/Pr ovider Office Visit [facility] May 20, 2020 1:16pm May 20, 2020 2:13pm Nadege Parker Departed Clinical [facility] May 20, 2020 8:31am May 20, 2020 8:32am Twyla Navarrete Departed Physician/Pr ovider Office Visit [facility] May 19, 2020 10:40am May 19, 2020 11:59pm Twyla Navarrete Departed Clinical [facility] May 01, 2020 11:04am May 01, 2020 11:05am Windy Contreras Departed Physician/Pr ovider Office Visit [facility] May 01, 2020 10:09am May 01, 2020 12:58pm Referral, Self Departed Physician/Pr ovider Office Visit [facility] Pediatrics [facility] February 14, 2020 7:43am February 14, 2020 11:49am Joi Herman Departed Physician/Pr ovider Office Visit [facility] Pediatric[facility] January 12, [...] 8:57am Blood Pressure Systolic 116 102-133 Octo [facility] 2020 8:57am Blood Pressure Diastolic 65 61-85 Oct mono 2020 8:57am Body Mass Index 37.0 November 2:21pm
--- OUTSIDE RECORDS SUMMARY | 2023-02-16 11:50 | XMS_ITS | Continuity of Care Document ---
Author Name [facility] Address [address] [place] [address] Organization [facility] Address [address] [place] [address] Care Team Providers Care Electrophysiology Technologist Name Role Phone Jyothi Arteaga Primary Care Physician Allergies, Adverse Reactions, Alerts No allergy information available. Medications No medication information available. Problem List No problem information available. Procedures Procedure Date Status FINGER(S) 2VW MIN LT February 04, 2015 active Group A Streptococcus Screen (YVES) June 08, 2014 completed Relevant Diagnostic Tests and/or Laboratory Data Microbiology Results Procedure Source Result Collection Date/Time Resu lt Date/Time Group A Streptococcus Screen (YVES) Throat No results entered June 08, 2014 1:30pm Advance Directives Advance Directive Response Recorded Date/ Time Does the patient have a living will? No December 09, 2012 11:08am Does the patient have an advanced directive? No December 09, 2012 11:08am Power of Vacuum Filter Operator? No December 09 11:08am Hospital Discharge Instructions No known hospital discharge instructions. Encounters Encounter Facility Location Admit Date Discharge Date Attending Provider Departed Emergency [facility] Emergency Department February 04, 2015 10:53pm February 04, 2015 11:51pm Registered Referred [facility] [place] June 08, 2014 6:09pm Jyothi Arteaga Departed Emergency [facility] Emergency Department April 05, 2014 9:42pm April 05, 2014 11:29pm Departed Emergency [facility] Emergency Department February 23, 2014 7:35pm February 23, 2014 8:30pm Functional Status No known functional status. Immunizations No known immunizations. Payers Payer Name Policy Type Covered Libertarian Covered Libertarian Id Relationship Subscriber Subscriber Id [place] MEDICAID Medicaid TERA PEARCE [id number] SELF/SAME PATIENT TERA PEARCE [id number] Plan of Care No known plan of care. Social History No known social history. Vital Signs No known vital signs results.
--- OUTSIDE RECORDS SUMMARY | 2023-02-16 11:50 | XMS_ITS | Continuity of Care Document ---
Author Name [facility] Address [address] [place] [address] Organization [facility] Address [address] [place] [address] Care Team Providers Care Manufacturing Engineer Name Role Phone Juan Carlos Santana JR [...] December 20, 2020 Disconti nued flu vac [id number] 36mos up(PF) 60 MCG INTRAMUS CULAR ONCE [...] November 04, 2020 Disconti nued flu vacc [id number] 6mos up(PF) 0.5 ML INTRAMUS CULAR ONCE [...] November 19, 2020 11:18am Negative Urine Specific [place] (Manual) November 19, 2020 11:18am 1.020 POC [...] September 12, 2020 4:01pm 6.5 Urine Specific [place] September 12, 2020 4:01pm 1.015 Urine Protein [...] sheets for patients can be found at: fda.gov/media/1368 87/download Microbiology Results Procedure Source Result Collection [...] 20 MG ORAL DAILY 30 Septe mber 2020 Active Levonorgestrel -Ethinyl Estrad 1 TAB ORAL DAILY 84 November 20, 2020 Active Magnesium 200 - 600 MG ORAL DAILY 90 November 04, 2020 Discontinu ed Riboflavin (Vitamin B2) 400 MG ORAL DAILY 90 November 04, 2020 Discontinu ed flu vac [id number] 36mos up(PF) 60 MCG INTRAMUSCU LAR ONCE [...] 30, 2020 Discontinu ed Amitriptyline MG [facility] 2021 Active flu vacc [id number] 6mos up(PF) 0.5 ML INTRAMUSCU LAR ONCE 0.5 May 01, 2020 Discontinu ed Encounters Encounter Facility Location Admit/Visit Date Discharge/Departure Date Attending Provider Departed Emergency [facility] Emergency Department June 28, 2021 8:12pm June 28, 2021 9:35pm Departed Emergency [facility] May 12, 2021 11:36am May 12, 2021 12:40pm Departed Physician/Pr ovider Office Visit [facility] OPERATING ROOM AIDE May 01, 2021 2:45pm May 01, 2021 3:00pm Fortunato Quezada Departed Clinical [facility] April 24, 2021 9:03am April 24, 2021 9:04am Juan Carlos Santana JR Departed Clinical [facility] April 01, 2021 9:05am April 01, 2021 9:06am Juan Carlos Santana JR Departed Referred [facility] March 27, 2021 6:39pm March 27, 2021 6:40pm Juan Carlos Santana JR Registered Inpatient [facility] Pediatrics [facility] March 06, 2021 3:15pm Soni Santa Departed Emergency [facility] Emergency Department February 22, 2021 1:48pm February 22, 2021 5:28pm Departed Emergency [facility] Urgent [facility] February 22, 2021 12:49pm February 22, 2021 1:47pm Departed Emergency [facility] Emergency Department December 21, 2020 8:46am December 21, 2020 12:00pm Departed Physician/Pr ovider Office Visit [facility] Pediatrics [facility] December 20, 2020 4:18pm December 20, 2020 4:47pm Maite Garcia Departed Physician/Pr ovider Office Visit [facility] Pediatrics [facility] November 19, 2020 10:32am November 19, 2020 11:29am Felicia Rodrigez Departed Physician/Pr ovider Office Visit [facility] Orthopedic[facility]Cesar ab November 15, 2020 2:11pm November 15, 2020 2:55pm Antwon Jackson Departed Physician/Pr ovider Office Visit [facility] Pediatrics [facility] November 04, 2020 10:01am November 04, 2020 10:26am Jyothi Arteaga Departed Physician/Pr ovider Office Visit [facility] Orthopedic[facility]Cesar ab October 16, 2020 1:25pm October 16, 2020 1:55pm Antwon Jackson Departed Emergency [facility] Urgent [facility] October 11, 2020 7:11pm October 11, 2020 9:23pm Departed Clinical [facility] Cardiology October 08, 2020 1:55pm October 08, 2020 1:56pm Jyothi Arteaga Departed Physician/Pr ovider Office Visit [facility] Cardiology October 08, 2020 1:50pm October 08, 2020 11:59pm Diann Oakes Departed Physician/Pr ovider Office Visit [facility] Pediatrics [facility] October 07, 2020 12:53pm October 07, 2020 2:16pm Jyothi Arteaga Departed Emergency [facility] Emergency Department 2020 8:52am 2020 10:22am Departed Emergency [facility] Emergency Department September 30, 2020 4:35pm September 30, 2020 8:56pm Departed Emergency [facility] Urgent [facility] September 30, 2020 2:40pm September 30, 2020 4:44pm Departed Referred [facility] Lab [facility] [place] September 12, 2020 4:01pm September 12, 2020 4:02pm Ian Garcia Departed Physician/Pr ovider Office Visit [facility] September 12, 2020 3:24pm September 12, 2020 4:17pm Ian Garcia Departed Clinical [facility] Laboratory August 30, 2020 2:39pm August 30, 2020 2:40pm Jyothi Arteaga Departed Physician/Pr ovider Office Visit [facility] August 30, 2020 1:59pm August 30, 2020 4:00pm Jyothi Arteaga Departed Physician/Pr ovider Office Visit [facility] August 19, 2020 8:59am August 19, 2020 11:18am Jyothi Arteaga Departed Physician/Pr ovider Office Visit [facility] August 06, 2020 8:07am August 06, 2020 3:16pm Joi Herman Departed Emergency [facility] Emergency Department July 27, 2020 3:43pm July 27, 2020 5:11pm Departed Physician/Pr ovider Office Visit [facility] July 24, 2020 7:51am July 24, 2020 1:52pm Joi Herman Departed Physician/Pr ovider Office Visit [facility] Occupational Health [facility] Employee Health July 18, 2020 2:47pm July 18, 2020 2:47pm Windy Contreras Departed Physician/Pr ovider Office Visit [facility] Pediatrics [facility] July 12, 2020 7:56am July 12, 2020 11:59pm Jyothi Arteaga Departed Physician/Pr ovider Office Visit [facility] Pediatrics [facility] July 09, 2020 10:31am July 09, [...] Drug Use Yes June 28, 2021 9:08pm [facility] marijuana as of 09/30/20 alcohol [...]
--- OUTSIDE RECORDS SUMMARY | 2023-02-16 11:50 | XMS_ITS | Continuity of Care Document ---
Author Name [facility] Address [address] [place] [id number] Organization [facility] Address [address] [place] [address] Care Team Providers Care Towel Weaver Name Role Phone Jyothi Arteaga Primary Care Physician [phone] Allergies, Adverse Reactions, Alerts No known allergies. [...] December 20, 2020 Disconti nued flu vac [id number] 36mos up(PF) 60 MCG INTRAMUS CULAR ONCE [...] November 04, 2020 Disconti nued flu vacc [id number] 6mos up(PF) 0.5 ML INTRAMUS CULAR ONCE 0.5 May 01, 2020 May 01, 2020 Disconti nued Problem List Active Problems Medical Problem Onset Date Status Abdominal pain, right lower quadrant Active Effusion of knee December 06, 2017 Benign mole Active Viral URI with cough Active Vomiting and diarrhea Active Abrasion, right foot, initial encounter Active Otalgia June 11, 2016 URI (upper respiratory infection) Active Anxiety Trauma and stressor-related disorder Headache Active Anxiety and depression Encounter for well child check without abnormal findings Active Hepatic hemangioma Active Acute pharyngitis Active Knee pain November 09, 2017 Abdominal pain Active Abdominal pain Active Chest pain Active Foreign [...] Contact Location October 07, 2020 Jyothi Arteaga [phone] [facility] [place] [address] Relevant Diagnostic Tests and/or Laboratory Data Laboratory [...] November 19, 2020 11:18am Negative Urine Specific [place] (Manual) November 19, 2020 11:18am 1.020 POC [...] September 12, 2020 4:01pm 6.5 Urine Specific [place] September 12, 2020 4:01pm 1.015 Urine Protein [...] sheets for providers can be found at: [employer] [place].gov/media/1362 85/download Fact sheets for patients can be found at: [employer] [place].gov/Roozt.com/1362 87/download TB Test (QFT) Antigen Minus Nil [...] 10:30am 0.01 IU/mL Test Performed b y: [facility] [address] [place] [address] Powertrain Control Systems Engineer: Boone Escudero M.D. Ph.D.; [facility]# [id number] Microbiology Results Procedure Source Result Collection Date/Time [...] November 04, 2020 Discontinu ed flu vac [id number] 36mos up(PF) 60 MCG INTRAMUSCU LAR ONCE [...] September 30, 2020 Discontinu ed flu vacc [id number] 6mos up(PF) 0.5 ML INTRAMUSCU LAR ONCE 0.5 May 01, 2020 Discontinu ed Encounters Encounter Facility Location Admit/Visit Date Discharge/Departure Date Attending Provider Departed Emergency [facility] Emergency Department February 22, 2021 1:48pm February 22, 2021 5:28pm Departed Emergency [facility] February 22, 2021 12:49pm February 22, 2021 1:47pm Departed Emergency [facility] Emergency Department December 21, 2020 8:46am December 21, 2020 12:00pm Departed Physician/Pr ovider Office Visit [facility] Pediatrics [facility] December 20, 2020 4:18pm December 20, 2020 4:47pm Maite Garcia Departed Physician/Pr ovider Office Visit [facility] Pediatrics [facility] November 19, 2020 10:32am November 19, 2020 11:29am Felicia Rodrigez Departed Physician/Pr ovider Office Visit [facility] Orthopedic&Cesar ab November 15, 2020 2:11pm November 15, 2020 2:55pm Antwon Jackson Departed Physician/Pr ovider Office Visit [facility] Pediatrics [facility] November 04, 2020 10:01am November 04, 2020 10:26am Jyothi Arteaga Departed Physician/Pr ovider Office Visit [facility] Orthopedic&Cesar ab October 16, 2020 1:25pm October 16, 2020 1:55pm Antwon Jackson Departed Emergency [facility] October 11, 2020 7:11pm October 11, 2020 9:23pm Departed Clinical [facility] Cardiology October 08, 2020 1:55pm October 08, 2020 1:56pm Jyothi Arteaga Departed Physician/Pr ovider Office Visit [facility] Cardiology October 08, 2020 1:50pm October 08, 2020 11:59pm Diann Oakes Departed Physician/Pr ovider Office Visit [facility] Pediatrics [facility] October 07, 2020 12:53pm October 07, 2020 2:16pm Jyothi Arteaga Departed Emergency [facility] Emergency Department 2020 8:52am 2020 10:22am Departed Emergency [facility] Emergency Department September 30, 2020 4:35pm September 30, 2020 8:56pm Departed Emergency [facility] September 30, 2020 2:40pm September 30, 2020 4:44pm Departed Referred [facility] Lab [facility] [place] September 12, 2020 4:01pm September 12, 2020 4:02pm Ian Garcia Departed Physician/Pr ovider Office Visit [facility] September 12, 2020 3:24pm September 12, 2020 4:17pm Ian Garcia Departed Clinical [facility] Laboratory August 30, 2020 2:39pm August 30, 2020 2:40pm Jyothi Arteaga Departed Physician/Pr ovider Office Visit [facility] August 30, 2020 1:59pm August 30, 2020 4:00pm Jyothi Arteaga Departed Physician/Pr ovider Office Visit [facility] August 19, 2020 8:59am August 19, 2020 11:18am Jyothi Arteaga Departed Physician/Pr ovider Office Visit [facility] August 06, 2020 8:07am August 06, 2020 3:16pm Joi Herman Departed Emergency [facility] Emergency Department July 27, 2020 3:43pm July 27, 2020 5:11pm Departed Physician/Pr ovider Office Visit [facility] July 24, 2020 7:51am July 24, 2020 1:52pm Joi Herman Departed Physician/Pr ovider Office Visit [facility] July 18, 2020 2:47pm July 18, 2020 2:47pm Windy Contreras Departed Physician/Pr ovider Office Visit [facility] July 12, 2020 7:56am July 12, 2020 11:59pm Jyothi Arteaga Departed Physician/Pr ovider Office Visit [facility] July 09, 2020 10:31am July 09, 2020 9:21pm Joi Herman Departed Emergency [facility] Emergency Department July 04, 2020 10:57am July 04, 2020 11:59am Departed Clinical [facility] June 27, 2020 8:16am June 27, 2020 8:17am Windy Contreras Departed Physician/Pr ovider Office Visit [facility] June 21, 2020 7:52am June 21, 2020 3:38pm Joi Herman Departed Physician/Pr ovider Office Visit [facility] June 21, 2020 7:50am June 21, 2020 11:59pm Jyothi Arteaga Departed Physician/Pr ovider Office Visit [facility] June 14, 2020 3:05pm June 14, 2020 11:59pm Jyothi Arteaga Departed Referred [facility] LAB [facility] May [...] Windy Contreras Departed Physician[facility] May 01, 2020 10:09am May [...]
--- OUTSIDE RECORDS SUMMARY | 2023-02-16 11:50 | XMS_ITS | Continuity of Care Document ---
Author Name [facility] Address [address] [place] [id number] Organization [facility] Address [address] [place] [id number] Support Name Relationship Address Phone Jyothi Arteaga Primary Care Provider [facility] Leandro torres [facility] [address] [place] [address] Soni Santa Attending Provider Unknown [...] December 20, 2020 Disconti nued flu vac [id number] 36mos up(PF) 60 MCG INTRAMUS CULAR ONCE [...] November 04, 2020 Disconti nued flu vacc [id number] 6mos up(PF) 0.5 ML INTRAMUS CULAR ONCE [...] Contact Location October 07, 2020 Jyothi Arteaga [phone] [facility] [place] [address] Relevant Diagnostic Tests and/or Laboratory Data Laboratory [...] November 19, 2020 11:18am Negative Urine Specific [place] (Manual) November 19, 2020 11:18am 1.020 POC [...] September 12, 2020 4:01pm 6.5 Urine Specific [place] September 12, 2020 4:01pm 1.015 Urine Protein [...] sheets for providers can be found at: Vartopia.Signal/Enviance/1362 85/download Fact sheets for patients can be found at: Vartopia.Signal/Enviance/1362 87/download TB Test (QFT) Antigen Minus Nil [...] 10:30am 0.01 IU/mL Test Performed b y: [facility] [address] [place] [address] Auto Technician Mechanic: Boone Escudero M.D. Ph.D.; CLIA# [id number] Microbiology Results Procedure Source Result Collection Date/Time [...] November 04, 2020 Discontinu ed flu vac [id number] 36mos up(PF) 60 MCG INTRAMUSCU LAR ONCE [...] September 30, 2020 Discontinu ed flu vacc [id number] 6mos up(PF) 0.5 ML INTRAMUSCU LAR ONCE 0.5 May 01, 2020 Discontinu ed Encounters Encounter Facility Location Admit/Visit Date Discharge/Departure Date Attending Provider [place]istered [place] [facility] [place] 06, 2021 3:15pm Soni Santa Departed Emergency [facility] Emergency Department February 22, 2021 1:48pm February 22, 2021 5:28pm Departed Emergency [facility] February 22, 2021 12:49pm February 22, 2021 1:47pm Departed Emergency [facility] Emergency Department December 21, 2020 8:46am December 21, 2020 12:00pm Departed Physician/Pr ovider Office Visit [facility] Pediatrics [facility] December 20, 2020 4:18pm December 20, 2020 4:47pm Maite Garcia Departed Physician/Pr ovider Office [place] [facility] November 19, 2020 10:32am November 19, 2020 11:29am Felicia Rodrigez Departed Physician/Pr ovider Office Visit [facility] November 15, 2020 2:11pm November 15, 2020 2:55pm Antwon Jackson Departed Physician/Pr ovider Office [place] [facility] [place] 04, 2020 10:01am November 04, 2020 10:26am Jyothi Arteaga Departed Physician/Pr ovider Office Visit [facility] October 16, 2020 1:25pm October 16, 2020 1:55pm Antwon Jackson [facility] October 11, 2020 7:11pm October 11, 2020 [...] 4:44pm Departed Referred [facility] [place] September 12, 2020 4:01pm September 12, 2020 [...] [place] [facility] [place] July 18, 2020 2:47pm July 18, [...] Arteaga Departed Referred [facility] LAB [facility] May 20, 2020 1:55pm May 20, 2020 1:56pm Nadege Parker Departed Physician/Pr ovider Office Visit [facility] May 20, 2020 1:16pm May 20, 2020 2:13pm Nadege Parker Departed Clinical [facility] May 20, 2020 8:31am May 20, 2020 8:32am Twyla Navarrete Departed Physician/Pr ovider Office Visit [facility] May 19, 2020 10:40am May 19, 2020 11:59pm Twyla Navarrete Departed Clinical [facility] May 01, 2020 11:04am May 01, 2020 11:05am Windy Contreras Departed Physician/Pr ovider Office Visit [facility] [place] May 01, 2020 10:09am [...]
--- OUTSIDE RECORDS SUMMARY | 2023-02-16 11:50 | XMS_ITS | Continuity of Care Document ---
Author Name [facility] Address [address] [place] [id number] Organization [facility] Address [address] [place] [address] Care Team Providers Care Lorry Weigher Name Role Phone Jyothi Arteaga Primary Care Physician Juan Carlos Santana JR [...] December 20, 2020 Disconti nued flu vac [id number] 36mos up(PF) 60 MCG INTRAMUS CULAR ONCE [...] November 04, 2020 Disconti nued flu vacc [id number] 6mos up(PF) 0.5 ML INTRAMUS CULAR ONCE [...] November 19, 2020 11:18am Negative Urine Specific [place] (Manual) November 19, 2020 11:18am 1.020 POC [...] September 12, 2020 4:01pm 6.5 Urine Specific [place] September 12, 2020 4:01pm 1.015 Urine Protein [...] sheets for providers can be found at: Socialize.gov/Ar[employer]rapeutics/1362 85/download Fact sheets for patients can be found at: Socialize.Phone Warrior/[employer]/1362 87/download TB Test (QFT) Antigen Minus Nil [...] 0.01 IU/mL Test Performed b y: [facility] [address] [place] [address] Quality Assurance Qa Lab Technician: Boone Escudero M.D. Ph.D.; CLIA# [id number] Microbiology Results Procedure Source Result Collection Date/Time [...] November 04, 2020 Discontinu ed flu vac [id number] 36mos up(PF) 60 MCG INTRAMUSCU LAR ONCE [...] September 30, 2020 Discontinu ed flu vacc [id number] 6mos up(PF) 0.5 ML INTRAMUSCU LAR ONCE 0.5 May 01, 2020 Discontinu ed Encounters Encounter Facility Location Admit/Visit Date Discharge/Departure Date Attending Provider Departed Referred [facility] March 27, 2021 6:39pm March 27, 2021 6:40pm Juan Carlos Santana JR Registered Inpatient [facility] Pediatric[facility] March 06, 2021 3:15pm Soni Santa Departed Emergency [facility] Emergency Department February 22, 2021 1:48pm February 22, 2021 5:28pm Departed Emergency [facility] Urgent [facility] February 22, 2021 12:49pm February 22, 2021 1:47pm Departed Emergency [facility] Emergency Department December 21, 2020 8:46am December 21, 2020 12:00pm Departed Physician/Pr ovider Office Visit [facility] Pediatrics [facility] December 20, 2020 4:18pm December 20, 2020 4:47pm Maite Garcia Departed Physician/Pr ovider Office Visit [facility] Pediatrics [facility] November 19, 2020 10:32am November 19, 2020 11:29am Felicia Rodrigez Departed Physician/Pr ovider Office Visit [facility]esar [facility] November 15, 2020 2:11pm November 15, 2020 2:55pm Antwon Jackson Departed Physician/Pr ovider Office Visit [facility] Pediatric[facility] November 04, 2020 10:01am [...] Oakes Departed Physician/Pr ovider Office Visit [facility] October 07, 2020 12:53pm October 07, 2020 2:16pm Jyothi Arteaga Departed Emergency [facility] Emergency Department 2020 8:52am 2020 10:22am Departed Emergency [facility] Emergency Department September 30, 2020 4:35pm September 30, 2020 8:56pm Departed Emergency [facility] September 30, 2020 2:40pm September 30, 2020 4:44pm Departed Referred [facility] Lab [facility] [place] September 12, 2020 4:01pm September 12, 2020 4:02pm Ian Garcia Departed Physician/Pr ovider Office Visit [facility] September 12, 2020 3:24pm September 12, 2020 4:17pm Ian Garcia Departed Clinical [facility] Laboratory August 30, 2020 2:39pm August 30, 2020 2:40pm Jyothi Arteaga Departed Physician/Pr ovider Office Visit [facility] August 30, 2020 1:59pm August 30, 2020 4:00pm Jyothi Arteaga Departed Physician/Pr ovider Office Visit [facility] August 19, 2020 8:59am August 19, 2020 11:18am Jyothi Arteaga Departed Physician/Pr ovider Office Visit [facility] August 06, 2020 8:07am August 06, 2020 3:16pm Joi Herman Departed Emergency [facility] Emergency Department July 27, 2020 3:43pm July 27, 2020 5:11pm Departed Physician/Pr ovider Office Visit [facility] July 24, 2020 7:51am July 24, 2020 1:52pm Joi Herman Departed Physician/Pr ovider Office Visit [facility] Occupational Health [facility] July 18, 2020 2:47pm July 18, 2020 2:47pm Windy Contreras Departed Physician/Pr ovider Office Visit [facility] July 12, 2020 7:56am July 12, 2020 11:59pm Jyothi Arteaga Departed Physician/Pr ovider Office Visit [facility] July 09, 2020 10:31am July 09, 2020 9:21pm Joi Herman Departed Emergency [facility] Emergency Department July 04, 2020 10:57am July 04, 2020 11:59am Departed Clinical [facility] June 27, 2020 8:16am June 27, 2020 8:17am Windy Contreras Departed Physician/Pr ovider Office Visit [facility] June 21, 2020 7:52am June 21, 2020 3:38pm Joi Herman Departed Physician/Pr ovider Office Visit [facility] June 21, 2020 7:50am June 21, 2020 11:59pm Jyothi Arteaga Departed Physician/Pr ovider Office Visit [facility] June 14, 2020 3:05pm June 14, 2020 11:59pm Jyothi Arteaga Departed Referred [facility] LAB [facility] May 20, 2020 1:55pm May 20, 2020 1:56pm Nadege Parker Departed Physician/Pr ovider Office Visit [facility] May 20, 2020 1:16pm May 20, 2020 2:13pm Nadege Parker Departed Clinical [facility] May 20, 2020 8:31am May 20, 2020 8:32am Twyla Navarrete Departed Physician/Pr ovider Office Visit [facility] May 19, 2020 10:40am May 19, 2020 11:59pm Twyla Navarrete Departed Clinical [facility] May 01, 2020 11:04am May 01, 2020 11:05am Windy Contreras Departed Physician/Pr ovider Office Visit [facility] Occupational Health [facility] May 01, [...]
--- OUTSIDE RECORDS SUMMARY | 2023-02-16 11:50 | XMS_ITS | Continuity of Care Document ---
Author Name [facility] Address [address] [place] [address] Organization [facility] Address [address] [place] [address] Care Team Providers Care Rod Mill Tender Name Role Phone Juan Carlos Santana JR [...] December 20, 2020 Disconti nued flu vac [id number] 36mos up(PF) 60 MCG INTRAMUS CULAR ONCE [...] November 04, 2020 Disconti nued flu vacc [id number] 6mos up(PF) 0.5 ML INTRAMUS CULAR ONCE [...] November 19, 2020 11:18am Negative Urine Specific [place] (Manual) November 19, 2020 11:18am 1.020 POC [...] September 12, 2020 4:01pm 6.5 Urine Specific [place] September 12, 2020 4:01pm 1.015 Urine Protein [...] November 04, 2020 Discontinu ed flu vac [id number] 36mos up(PF) 60 MCG INTRAMUSCU LAR ONCE [...] September 30, 2020 Discontinu ed Amitriptyline MG [facility] 2021 Active flu vacc [id number] 6mos up(PF) 0.5 ML INTRAMUSCU LAR ONCE 0.5 May 01, 2020 Discontinu ed Encounters Encounter Facility Location Admit/Visit Date Discharge/Departure Date Attending Provider Departed Emergency [facility] May 12, 2021 11:36am May 12, 2021 12:40pm Departed Physician/Pr ovider Office Visit [facility] RECORDS TECHNICIAN May 01, 2021 2:45pm May 01, 2021 3:00pm Fortunato Quezada Departed Clinical [facility] April 24, 2021 9:03am April 24, 2021 9:04am Juan Carlos Santana JR Departed Clinical [facility] April 01, 2021 9:05am April 01, 2021 9:06am Juan Carlos Santana JR Departed Referred [facility] March 27, 2021 6:39pm March 27, 2021 6:40pm Juan Carlos Santana JR Registered Inpatient [facility] Pediatrics [facility] March 06, 2021 3:15pm Soni Santa Departed Emergency [facility] Emergency Department February 22, 2021 1:48pm February 22, 2021 5:28pm Departed Emergency [facility] February 22, 2021 12:49pm February 22, 2021 1:47pm Departed Emergency [facility] Emergency Department December 21, 2020 8:46am December 21, 2020 12:00pm Departed Physician/Pr ovider Office Visit [facility] Pediatrics [facility] December 20, 2020 4:18pm December 20, 2020 4:47pm Maite Garcia Departed Physician/Pr ovider Office Visit [facility] Pediatrics [facility] November 19, 2020 10:32am November 19, 2020 11:29am Felicia Rodrigez Departed Physician/Pr ovider Office Visit [facility] Orthopedic[facility]Cesar ab November 15, 2020 2:11pm November 15, 2020 2:55pm Antwon Jackson Departed Physician/Pr ovider Office Visit [facility] Pediatrics [facility] November 04, 2020 10:01am November 04, 2020 10:26am Jyothi Arteaga Departed Physician/Pr ovider Office Visit [facility]Cesar [facility] October 16, 2020 1:25pm October 16, 2020 1:55pm Antwon Jackson Departed Emergency [facility] Urgent [facility] October 11, 2020 7:11pm October 11, 2020 9:23pm Departed Clinical [facility] Cardiology October 08, 2020 1:55pm October 08, 2020 1:56pm Jyothi Arteaga Departed Physician/Pr ovider Office Visit [facility] Cardiology October 08, 2020 1:50pm October 08, 2020 11:59pm Diann Oakes Departed Physician/Pr ovider Office Visit [facility] Pediatrics [facility] October 07, 2020 12:53pm October 07, 2020 2:16pm Jyothi Arteaga Departed Emergency [facility] Emergency Department 2020 8:52am 2020 10:22am Departed Emergency [facility] Emergency Department September 30, 2020 4:35pm September 30, 2020 8:56pm Departed Emergency [facility] Urgent [facility] September 30, 2020 2:40pm September 30, 2020 4:44pm Departed Referred [facility] Lab [facility] Peds [place] September 12, 2020 4:01pm September 12, 2020 4:02pm Ian Garcia Departed Physician/Pr ovider Office Visit [facility] September 12, 2020 3:24pm September 12, 2020 4:17pm Ian Garcia Departed Clinical [facility] Laboratory August 30, 2020 2:39pm August 30, 2020 2:40pm Jyothi Arteaga Departed Physician/Pr ovider Office Visit [facility] Pediatrics [facility] August 30, 2020 1:59pm August 30, 2020 4:00pm Jyothi Arteaga Departed Physician/Pr ovider Office Visit [facility] Pediatrics [facility] August 19, 2020 8:59am August 19, 2020 11:18am Jyothi Arteaga Departed Physician/Pr ovider Office Visit [facility] Pediatrics [facility] August 06, 2020 8:07am August 06, 2020 3:16pm Joi Herman Departed Emergency [facility] Emergency Department July 27, 2020 3:43pm July 27, 2020 5:11pm Departed Physician/Pr ovider Office Visit [facility] July 24, 2020 7:51am July 24, 2020 1:52pm Joi Herman Departed Physician/Pr ovider Office Visit [facility] Occupational Health [facility] July 18, 2020 2:47pm July 18, 2020 2:47pm Windy Contreras Departed Physician/Pr ovider Office Visit [facility] July 12, 2020 7:56am July 12, 2020 11:59pm Jyothi Arteaga Departed Physician/Pr ovider Office Visit [facility] July 09, 2020 10:31am July 09, 2020 9:21pm Joi Herman Departed Emergency [facility] Emergency Department July 04, 2020 10:57am July 04, 2020 11:59am Departed Clinical [facility] June 27, 2020 8:16am June 27, 2020 8:17am Windy Contreras Departed Physician/Pr ovider Office Visit [facility] June 21, 2020 7:52am June 21, 2020 3:38pm Joi Herman Departed Physician/Pr ovider Office Visit [facility] June 21, 2020 7:50am June 21, 2020 11:59pm Jyothi Arteaga Departed Physician/Pr ovider Office Visit [facility] June 14, 2020 3:05pm June 14, 2020 11:59pm Jyothi Arteaga Departed Referred [facility] LAB [facility] May 20, 2020 1:55pm May 20, 2020 1:56pm Nadege Parker Departed Physician/Pr ovider Office Visit [facility] Pediatrics May 20, 2020 1:16pm May 20, 2020 2:13pm Nadege Parker Departed Clinical [facility] May 20, 2020 8:31am May 20, 2020 8:32am Twyla Navarrete Departed Physician/Pr ovider Office Visit [facility] May 19, 2020 10:40am May 19, 2020 [...] 2021 11:45am Blood Pressure Systolic 124 102-133 [facility] 2021 11:45am Blood Pressure Diastolic 62 61-85 [facility] 2021 11:45am Body Mass Index 37.0 November 2:21pm
--- OUTSIDE RECORDS SUMMARY | 2023-02-16 11:50 | XMS_ITS | Continuity of Care Document ---
Author Name [facility] Address [address] [place] [id number] Organization [facility] Address [address] [place] [id number] Support Name Relationship Address Phone Jyothi Arteaga Primary Care Provider [facility] Leandro torres [facility] [address] [place] [address] Soni Santa Attending Provider Unknown [...] December 20, 2020 Disconti nued flu vac [id number] 36mos up(PF) 60 MCG INTRAMUS CULAR ONCE [...] November 04, 2020 Disconti nued flu vacc [id number] 6mos up(PF) 0.5 ML INTRAMUS CULAR ONCE [...] Contact Location October 07, 2020 Jyothi Arteaga [phone] [facility] [place] [address] Relevant Diagnostic Tests and/or Laboratory Data Laboratory [...] November 19, 2020 11:18am Negative Urine Specific [place] (Manual) November 19, 2020 11:18am 1.020 POC [...] September 12, 2020 4:01pm 6.5 Urine Specific [place] September 12, 2020 4:01pm 1.015 Urine Protein [...] sheets for providers can be found at: [employer]/1362 85/download Fact sheets for patients can be found at: [employer]/1362 87/download TB Test (QFT) Antigen Minus Nil [...] 10:30am 0.01 IU/mL Test Performed b y: [facility] [address] [place] [address] Cnc Lathe Machinist: Boone Escudero M.D. Ph.D.; CLIA# [id number] Microbiology Results Procedure Source Result Collection Date/Time [...] November 04, 2020 Discontinu ed flu vac [id number] 36mos up(PF) 60 MCG INTRAMUSCU LAR ONCE [...] September 30, 2020 Discontinu ed flu vacc [id number] 6mos up(PF) 0.5 ML INTRAMUSCU LAR ONCE 0.5 May 01, 2020 Discontinu ed Encounters Encounter Facility Location Admit/Visit Date Discharge/Departure Date Attending Provider Registered Inpatient [facility] March 06, 2021 3:15pm Soni Santa Departed Emergency [facility] Emergency Department February 22, 2021 1:48pm February 22, 2021 5:28pm Departed Emergency [facility] February 22, 2021 12:49pm February 22, 2021 1:47pm Departed Emergency [facility] Emergency Department December 21, 2020 8:46am December 21, 2020 12:00pm Departed Physician/Pr ovider Office Visit [facility] Pediatrics [facility] December 20, 2020 4:18pm December 20, 2020 4:47pm Maite Garcia Departed Physician/Pr ovider Office Visit [facility] November 19, 2020 10:32am November 19, 2020 11:29am Felicia Rodrigez Departed Physician/Pr ovider Office Visit [facility] November 15, 2020 2:11pm November 15, 2020 2:55pm Antwon Jackson Departed Physician/Pr ovider Office Visit [facility] November 04, 2020 10:01am November 04, 2020 10:26am Jyothi Arteaga Departed Physician/Pr ovider Office Visit [facility] Orthopedic[facility]Cesar [facility] October 16, 2020 1:25pm October 16, 2020 1:55pm [facility] October 11, 2020 7:11pm October 11, 2020 9:23pm Departed Clinical [facility] Cardiology October 08, 2020 1:55pm October 08, 2020 1:56pm Jyothi Arteaga Departed Physician/Pr ovider Office Visit [facility] Cardiology October 08, 2020 1:50pm October 08, 2020 11:59pm Diann Oakes Departed Physician/Pr ovider Office Visit [facility] October 07, 2020 12:53pm October 07, 2020 2:16pm Jyothi Arteaga Departed Emergency [facility] Emergency Department 2020 8:52am 2020 10:22am Departed Emergency [facility] Emergency Department September 30, 2020 4:35pm September 30, 2020 8:56pm Departed Emergency [facility] September 30, 2020 2:40pm September 30, 2020 4:44pm Departed Referred [facility] Lab [facility] P[facility] [place] September 12, 2020 4:01pm September 12, 2020 4:02pm Ian Garcia Departed Physician/Pr ovider Office Visit [facility] September 12, 2020 3:24pm September 12, 2020 4:17pm Ian Garcia Departed Clinical [facility] Laboratory August 30, 2020 2:39pm August 30, 2020 2:40pm Jyothi Arteaga Departed Physician/Pr ovider Office Visit [facility] August 30, 2020 1:59pm August 30, 2020 4:00pm Jyothi Arteaga Departed Physician/Pr ovider Office Visit [facility] August 19, 2020 8:59am August 19, 2020 11:18am Jyothi Arteaga Departed Physician/Pr ovider Office Visit [facility] August 06, 2020 8:07am August 06, 2020 3:16pm Joi Herman Departed Emergency [facility] Emergency Department July 27, 2020 3:43pm July 27, 2020 5:11pm Departed Physician/Pr ovider Office Visit [facility] July 24, 2020 7:51am July 24, 2020 1:52pm Joi eHrman Departed Physician/Pr ovider Office Visit [facility] Occupational Health [facility] July 18, 2020 2:47pm July 18, 2020 2:47pm Windy Contreras Departed Physician/Pr ovider Office Visit [facility] July 12, 2020 7:56am July 12, 2020 11:59pm Jyothi Arteaga Departed Physician/Pr ovider Office Visit [facility] July 09, 2020 10:31am July 09, 2020 9:21pm Joi Herman Departed Emergency [facility] Emergency Department July 04, 2020 10:57am July 04, 2020 11:59am Departed Clinical [facility] June 27, 2020 8:16am June 27, 2020 8:17am Windy Contreras Departed Physician/Pr ovider Office Visit [facility] June 21, 2020 7:52am June 21, 2020 3:38pm Joi Herman Departed Physician/Pr ovider Office Visit [facility] June 21, 2020 7:50am June 21, 2020 11:59pm Jyothi Arteaga Departed Physician/Pr ovider Office Visit [facility] June 14, 2020 3:05pm June 14, 2020 11:59pm Jyothi Arteaga Departed Referred [facility] LAB [facility] May 20, 2020 1:55pm May 20, 2020 1:56pm Nadege Parker Departed Physician/Pr ovider Office Visit [facility] May 20, 2020 1:16pm May 20, 2020 2:13pm Nadege Parker Departed Clinical [facility] May 20, 2020 8:31am May 20, 2020 8:32am Twyla Navarrete Departed Physician/Pr ovider Office Visit [facility] May 19, 2020 10:40am May 19, 2020 11:59pm Twyla Navarrete Departed Clinical [facility] May 01, 2020 11:04am May 01, 2020 11:05am Windy Contreras Departed Physician/Pr ovider Office Visit [facility] Occupational Health [facility] May 01, 2020 10:09am [...]
--- OUTSIDE RECORDS SUMMARY | 2023-02-16 11:50 | XMS_ITS | Continuity of Care Document ---
Author Name [facility] Address [address] [place] [address] Organization [facility] Address [address] [place] [address] Care Team Providers Care Job Forwarder Name Role Phone Jyothi Arteaga Primary Care Physician Allergies, Adverse Reactions, Alerts No known allergies. Medications Active Medications Medication Dose Units Route Sig Qty Start Date St atus Levonorgestrel-Ethinyl Estra d [Vienva] September 26, 2017 Active Amoxicillin-Pot Clavulanate [Augmentin] 1 TAB ORAL TWICE A DAY 14 September 26, 2017 Ac tive Problem List Active Problems Medical Problem Onset Date Status Laceration of foot, left Active Procedures No known history of procedures. Relevant Diagnostic Tests and/or Laboratory Data No known relevant diagnostic tests, laboratory data, and/or discharge summary. Advance Directives Advance Directive Response Recorded Date/ Time Do we have a copy on file here at [facility]? No May 23, 2016 9:44am Does patient have an Advanced Directive? No December 09, 2012 11:08am Pt has a Living Will? No December 09, 2012 11:08am Pt has a Power of Fractionation Plant Supervisor? No Deco 2012 11:08am Hospital Discharge Instructions No known hospital discharge instructions. Hospital Discharge Medications Medication Dose Units Route Sig Qty Days Order Date Status Ins tructions Levonorgestrel-Et hinyl Estrad September Active Amoxicillin-Pot Clavulanate 1 TAB ORAL TWICE A DAY 14 September 062017 Active Encounters Encounter Facility Location Admit/Visit Date Discharge/Departure Date Attending Provider Departed Emergency [facility] September 26, 2017 2:24pm September 26, 2017 2:59pm Functional Status No known functional status. Immunizations No known immunizations. Payers Payer Name Policy Type Covered Libertarian Covered Libertarian Id Relationship Subscriber Subscriber Id [place] Medicaid TERA PEARCE [id number] Self/Same as Patient TERA PEARCE [id number] SELF PAY Personal [place] MEDICA[place] (DO NOT USE) Medicaid TERA PEARCE [id number] Self/Same as Patient TERA PEARCE [id number] Plan of Care No Known Plan of [...]
--- OUTSIDE RECORDS SUMMARY | 2023-02-16 11:50 | XMS_ITS | Continuity of Care Document ---
Author Name [facility] Address [address] [place] [address] Organization [facility] Address [address] [place] [address] Care Team Providers Care Letter Of Credit Clerk Name Role Phone Jyothi Arteaga Primary Care Physician Diana Chaidez Attending Physician [phone] Allergies, Adverse Reactions, Alerts No known allergies. Medications Active Medications Medication Dose Units Route Sig Qty Start Date St atus Levonorgestrel-Ethinyl Estrad 1 TAB ORAL DAILY 84 August 17, 2018 Active Discontinued Medications Medication Dose Units Route Sig Qty Start Date Discontinued Date Status flu vaccine [id number] (36 mos up)(PF)60 mcg (15 mcg x4)/0.5 [...] data, and/or discharge summary. Hospital Discharge Instructions No known hospital discharge instructions. Hospital Discharge Medications Medication Dose Units Route Sig Qty Days Order Date Status Instructions Levonorgestre l-Ethinyl Estrad 1 TAB ORAL DAILY 84 August 17, 2018 Active flu vaccine [id number] (36 mos up)(PF)60 mcg (15 mcg x4)/0.5 mL IM susp 60 MCG INTRAMUSCULAR ONCE 0.5 July 27, 2018 Discontinued tuberculin PPD 0.1 ML INTRADERMAL ONCE 0.1 July 06, 2018 Discontinued Levonorgestre l-Ethinyl Estrad September 26, 2017 Discontinued Amoxicillin-P ot Clavulanate 1 TAB ORAL TWICE A DAY 14 September 26, 2017 Discontinued Encounters Encounter Facility Location Admit/Visit Date Discharge/Departure Date Attending Provider Departed Referred [facility] Lab [facility] ACCOUNTING COORDINATOR August 31, 2019 10:03am August 31, 2019 10:04am Diana Chaidez Departed Physician/Pr ovider Office Visit [facility] ORDER ENTRY August 31, 2019 9:48am August 31, 2019 10:13am Diana Chaidez Departed Physician/Pr ovider Office Visit [facility] Pediatrics [facility] August 29, 2019 9:48am August 29, 2019 1:49pm Joi Herman Departed Physician/Pr ovider Office Visit [facility] Pediatrics [facility] August 17, 2019 7:59am August 17, 2019 1:58pm Joi Herman Departed Physician/Pr ovider Office Visit [facility] Orthopedic&Cesar ab August 16, 2019 10:18am August 16, 2019 1:51pm Chris Bearden Departed Physician/Pr ovider Office Visit [facility] Pediatrics [facility] May 24, 2019 2:01pm May 24, 2019 2:13pm Joi Herman Departed Physician/Pr ovider Office Visit [facility] May 10, 2019 1:54pm May 10, 2019 2:51pm Joi Herman Departed Clinical [facility] DI [facility] May 01, 2019 3:53pm May 01, 2019 3:54pm Ed Velásquez Departed Physician/Pr ovider Office Visit [facility] Pediatrics [facility] May 01, 2019 2:11pm May 01, 2019 2:42pm Ed Velásquez Functional Status No known functional status. Immunizations [...] Historical Payers Payer Name Policy Type Covered Republican Covered Republican Id Relationship Subscriber Subscriber Id [place] Medicaid TERA PEARCE [id number] Self/Same as Patient TERA PEARCE [id number] SELF PAY Personal [place] MED[place] (DO NOT USE) Medicaid FAITH MARSHIA [id number] Self/Same as Patient TERA PEARCE [id number] Plan of Care No Known Plan of Care Information Social History Query Response Date Recorded Comment Alcohol Use No September 27, 2017 6:55am Smoking Status Never smoker August 31, 2019 10:13am Query Response Start Date Stop Date Smoking Status Never smoker Vital Signs Vital Reading Result Reference Range Collection Date/Time Height 5 ft 5 in August 31, 2019 9 :58am Weight 115.439 kg August 31, 2019 9 :59am Temperature 98.9 F 97.6 F-99.6 F May 01 020 2:22pm Blood Pressure Systolic 118 102-133 August 31, 2019 9:59am Blood Pressure Diastolic 64 61-85 Aug 9:59am
--- OUTSIDE RECORDS SUMMARY | 2023-02-16 11:50 | XMS_ITS | Continuity of Care Document ---
Author Name [facility] Address [address] [place] [address] Organization [facility] Address [address] [place] [address] Care Team Providers Care Bag End Sewer Name Role Phone Jyothi Arteaga Primary Care Physician [phone] Allergies, Adverse Reactions, Alerts No known allergies. [...] 2020 July 12, 2020 Discontinued flu vac [id number] 36mos up(PF) 60 MCG INTRAMUSCULAR ONCE 0.5 [...] 2017 July 27, 2018 Discontinued flu vacc [id number] 6mos up(PF) 0.5 ML INTRAMUSCULAR ONCE 0.5 [...] hand, right Inactive Procedures Procedure Date Status Urine Culture September 12, 2020 completed Hand [...] Urine Color (Manual) September 12, 2020 4:12pm Coward Urine Clarity (Manual) September 12, 2020 4:12pm Clear POC Urine Glucose September 12, 2020 4:12pm Negative POC Urine Bilirubin Confirmation September 12, 2020 4:12pm Negative Urine Ketones (Manual) September 12, 2020 4:12pm Large (+++) Urine Specific [place] (Manual) September 12, 2020 4:12pm 1.015 POC Urine RBC September 12, 2020 4:12pm Negative Urine pH (Manual) September 12, 2020 4:12pm 6.0 POC Urine Protein Confirmation September 12, 2020 4:12pm Trace Urine Urobilinogen (Manual) September 12, 2020 4:12pm 4 Urine Nitrite (Manual) September 12, 2020 4:12pm Negative Urine Leukocyte Esterase (Manual) September 12, 2020 4:12pm Negative White Blood Count August 30, 2020 3:29pm [...] Differential Method August 30, 2020 3:29pm Automated Urine Color September 12, 2020 4:01pm Yellow Urine Clarity September 12, 2020 4:01pm Clear Urine pH September 12, 2020 4:01pm 6.5 Urine Specific [place] September 12, 2020 4:01pm 1.015 Urine Protein [...] 2020 4:01pm 2+ /hpf High Sodium Level August 30, 2020 3:29pm 139 [...] sheets for providers can be found at: [employer]/Faveous/57851 5/download Fact sheets for patients can be found at: [employer]ave[employer]/61728 7/download TB Test (QFT) Antigen Minus Nil [...] Performed b y: [facility] [address] [place] [address] Welding Teacher: Boone Escudero M.D. Ph.D.; IA# [id number] Microbiology Results Procedure Source Result Collection Date/Time [...] June 17, 2020 Discontinu ed flu vac [id number] 36mos up(PF) 60 MCG INTRAMUSCU LAR ONCE [...] A DAY September 26, 2017 Discontinu ed flu vacc [id number] 6mos up(PF) 0.5 ML INTRAMUSCU LAR ONCE 0.5 May 01, 2020 Discontinu ed Encounters Encounter Facility Location Admit/Visit Date Discharge/Departure Date Attending Provider Departed Emergency [facility] September 30, 2020 2:40pm September 30, 2020 4:44pm Departed Referred [facility] Lab [facility] [place] September 12, 2020 4:01pm September 12, 2020 4:02pm Ian Garcia Departed Physician/Pr ovider Office Visit [facility] September 12, 2020 3:24pm September 12, 2020 4:17pm Ian Garcia Departed Clinical [facility] Laboratory August 30, 2020 2:39pm August 30, 2020 2:40pm Jyothi Arteaga Departed Physician/Pr ovider Office Visit [facility] August 30, 2020 1:59pm August 30, 2020 4:00pm Jyothi Arteaga Departed Physician/Pr ovider Office Visit [facility] August 19, 2020 8:59am August 19, 2020 11:18am Jyothi Arteaga Departed Physician/Pr ovider Office Visit [facility] August 06, 2020 8:07am August 06, 2020 3:16pm Joi Herman Departed Emergency [facility] Emergency Department July 27, 2020 3:43pm July 27, 2020 5:11pm Departed Physician/Pr ovider Office Visit [facility] July 24, 2020 7:51am July 24, 2020 1:52pm Joi Herman Departed Physician/Pr ovider Office Visit [facility] Occupational Health [facility] July 18, 2020 2:47pm July 18, 2020 2:47pm Windy Contreras Departed Physician/Pr ovider Office Visit [facility] July 12, 2020 7:56am July 12, 2020 11:59pm Jyothi Arteaga Departed Physician/Pr ovider Office Visit [facility] July 09, 2020 10:31am July 09, 2020 9:21pm Joi Herman Departed Emergency [facility] Emergency Department July 04, 2020 10:57am July 04, 2020 11:59am Departed Clinical [facility] Curbside June 27, 2020 8:16am June 27, 2020 8:17am Windy Contreras Departed Physician/Pr ovider Office Visit [facility] June 21, 2020 7:52am June 21, 2020 3:38pm Joi Herman Departed Physician/Pr ovider Office Visit [facility] June 21, 2020 7:50am June 21, 2020 11:59pm Jyothi Arteaga Departed Physician/Pr ovider Office Visit [facility] June 14, 2020 3:05pm June 14, 2020 11:59pm Jyothi Arteaga Departed Referred [facility] LAB [facility] P[facility] [place] May 20, 2020 1:55pm May 20, 2020 1:56pm Nadege Parker Departed Physician/Pr ovider Office Visit [facility] May 20, 2020 1:16pm May 20, 2020 2:13pm Nadege Parker Departed Clinical [facility] May 20, 2020 8:31am May 20, 2020 8:32am Twyla Navarrete Departed Physician/Pr ovider Office Visit [facility] Occupational [facility] May 19, 2020 10:40am May 19, 2020 11:59pm Twyla Navarrete Departed Clinical [facility] May 01, 2020 11:04am May 01, 2020 11:05am Windy Contreras Departed Physician/Pr ovider Office Visit [facility] May 01, 2020 10:09am May 01, 2020 12:58pm Referral, Self Departed Physician/Pr ovider Office Visit [facility] February 14, 2020 7:43am February 14, 2020 11:49am Joi Herman Departed Physician/Pr ovider Office Visit [facility] January 12, 2020 2:30pm January 12, 2020 3:38pm Jyothi Arteaga Departed Emergency [facility] November 26, 2019 1:42pm November 26, 2019 2:22pm Departed Physician/Pr ovider Office Visit [facility] November 08, 2019 8:50am November 08, 2019 11:13am Joi Herman Departed Physician/Pr ovider Office Visit [facility] October 23, 2019 3:55pm October 23, 2019 9:38pm Joi Herman Departed Physician/Pr ovider Office Visit [facility] October 04, 2019 8:50am October 04, 2019 11:08pm Joi Herman Departed Emergency [facility] Emergency Department 2019 10:08pm 2019 10:51pm Functional Status Query Response Date Recorded Comment Comprehension Ability Understands Concepts July 27 4:22pm Mood/Behavior Appropriate July 27, 2020 4:22pm Speech Appropriate Clear July 27, 2020 4:22pm Query Response Date Recorded Comment Living Situation Home September 30, 2020 3:51pm Immunizations Immunization Name Date Given Type DTP [...] Comment Alcohol Use No September 30, 2020 3:51pm Smoking Status Current every day smoker September 30, 2020 3:51pm alcohol intake frequency holidays/special occasions on ly September 30, 2020 3:51pm substance use type marijuana September 30, 2020 3:51pm Query Response Start Date Stop Date Smoking Status Current every day smoker Vital Signs Vital Reading Result Reference Range Collection Date/Time Height 5 ft 6 in August 30, 2020 2 :02pm Weight 103.419 kg September 30, 2020 3 :05pm Temperature 99.7 F 97.6 F-99.6 F September 30, 2020 3:05pm Pulse 98 BPM 56-106 September 30, 2020 3 :05pm Respiration 13 RPM 16-24 September 30, 2020 3 :05pm Pulse Oximetry 98 % 95-100 September 30, 2020 3:05pm Blood Pressure Systolic 120 102-133 September 30, 2020 3:05pm Blood Pressure Diastolic 80 61-85 [place] 2020 3:05pm Body Mass Index 41.3 August 30 2:02pm
--- OUTSIDE RECORDS SUMMARY | 2023-02-16 11:50 | XMS_ITS | Continuity of Care Document ---
Author Name Address [address] [place] [address] Organization Address [address] [place] [address] Care Team Providers Care Swimming Professor Name Role Phone Jyothi Arteaga Primary Care Physician [phone] Allergies, Adverse Reactions, Alerts No known allergies. [...] December 20, 2020 Disconti nued flu vac [id number] 36mos up(PF) 60 MCG INTRAMUS CULAR ONCE [...] November 04, 2020 Disconti nued flu vacc [id number] 6mos up(PF) 0.5 ML INTRAMUS CULAR ONCE [...] Contact Location October 07, 2020 Jyothi Arteaga [phone] [facility] [place] [address] Relevant Diagnostic Tests and/or Laboratory Data Laboratory [...] November 19, 2020 11:18am Negative Urine Specific Wall (Manual) November 19, 2020 11:18am 1.020 POC [...] September 12, 2020 4:01pm 6.5 Urine Specific Wall September 12, 2020 4:01pm 1.015 Urine Protein [...] sheets for providers can be found at: Root Metrics.gov/media/25128 5/download Fact sheets for patients can be found at: Root Met[employer].gov/Yicha Online/70152 7/download TB Test (QFT) Antigen Minus Nil [...] 10:30am 0.01 IU/mL Test Performed b y: [facility] [address] [place] [address] Leaf Size Picker: Boone Escudero M.D. Ph.D.; [facility]# [id number] Microbiology Results Procedure Source Result Collection Date/Time [...] November 04, 2020 Discontinu ed flu vac [id number] 36mos up(PF) 60 MCG INTRAMUSCU LAR ONCE [...] September 30, 2020 Discontinu ed flu vacc [id number] 6mos up(PF) 0.5 ML INTRAMUSCU LAR ONCE 0.5 May 01, 2020 Discontinu ed Encounters Encounter Facility Location Admit/Visit Date Discharge/Departure Date Attending Provider Departed Emergency Emergency Department December 21, 2020 8:46am December 21, 2020 12:00pm Departed Physician/Pr ovider Office Visit [facility] Pediatrics [facility] December 20, 2020 4:18pm December 20, 2020 [...] 16, 2020 1:55pm Antwon Jackson Departed Emergency [facility] October 11, 2020 7:11pm October 11, 2020 9:23pm Departed Clinical Cardiology October 08, 2020 1:55pm October 08, 2020 1:56pm Jyothi Arteaga Departed Physician/Pr ovider Office Visit [facility] Cardiology October 08, 2020 1:50pm October 08, 2020 11:59pm Diann Oakes Departed Physician/Pr ovider Office Visit [facility] Pediatrics [facility] October 07, 2020 12:53pm October 07, 2020 2:16pm Jyothi Arteaga Departed Emergency Emergency Department 2020 8:52am 2020 10:22am Departed Emergency Emergency Department September 30, 2020 4:35pm September 30, 2020 8:56pm Departed Emergency [facility] Urgent [facility] September 30, 2020 2:40pm September 30, 2020 4:44pm Departed Referred Lab [facility] [place] September 12, 2020 4:01pm September 12, 2020 [...] Herman Departed Physician/Pr ovider Office Visit [facility] Occupational Health [facility] Employee Health [...] June 14, 2020 11:59pm Jyothi Arteaga Departed [facility] LAB [facility] May 20, 2020 1:55pm May 20, 2020 1:56pm Nadege Parker Departed Physician/Pr ovider Office Visit [facility] May 20, 2020 1:16pm May 20, 2020 2:13pm Nadege Parker Departed Clinical [facility] May 20, 2020 8:31am May 20, 2020 8:32am Twyla Navarrete Departed Physician/Pr ovider Office Visit [facility] May 19, 2020 10:40am May 19, 2020 11:59pm Twyla Navarrete Departed Clinical [facility] May 01, 2020 11:04am May 01, 2020 11:05am Windy Contreras Departed Physician/Pr ovider Office Visit [facility] May 01, 2020 10:09am May 01, 2020 12:58pm Referral, Self Departed Physician/Pr ovider Office Visit [facility] Pediatrics [facility] February 14, 2020 7:43am February 14, 2020 11:49am Joi Herman Departed Physician/Pr ovider Office Visit [facility] Pediatrics [facility] January 12, [...] 8:57am Blood Pressure Systolic 116 102-133 [facility] 2020 8:57am Blood Pressure Diastolic 65 61-85 Oct mono 2020 8:57am Body Mass Index 37.0 November 2:21pm
--- OUTSIDE RECORDS SUMMARY | 2023-02-16 11:50 | XMS_ITS | Continuity of Care Document ---
Author Name [facility] Address [address] [place] [id number] Organization [facility] Address [address] [place] [address] Care Team Providers Care Elementary Esl Teacher Name Role Phone Jyothi Arteaga Primary Care Physician Ian Garcia Attending Physician [phone] Allergies, Adverse Reactions, Alerts No known allergies. [...] 2020 July 12, 2020 Discontinued flu vac [id number] 36mos up(PF) 60 MCG INTRAMUSCULAR ONCE 0.5 [...] 2017 July 27, 2018 Discontinued flu vacc [id number] 6mos up(PF) 0.5 ML INTRAMUSCULAR ONCE 0.5 [...] Date Status Urine Culture September 12, 2020 active Hand 3 vw Min RT July 27, [...] Urine Color (Manual) September 12, 2020 4:12pm [place] Urine Clarity (Manual) September 12, 2020 4:12pm Clear POC Urine Glucose September 12, 2020 4:12pm Negative POC Urine Bilirubin Confirmation September 12, 2020 4:12pm Negative Urine Ketones (Manual) September 12, 2020 4:12pm Large (+++) Urine Specific Slemp (Manual) September 12, 2020 4:12pm 1.015 POC [...] September 12, 2020 4:01pm 6.5 Urine Specific Slemp September 12, 2020 4:01pm 1.015 Urine Protein [...] sheets for providers can be found at: Baboom.gov/media/90134 5/download Fact sheets for patients can be found at: Baboom.gov/MYFLY/99966 7/download TB Test (QFT) Antigen Minus Nil [...] b y: [facility] [address] [place] [address] Core Assembly Supervisor: Boone Escudero M.D. Ph.D.; [facility]# [id number] Microbiology Results Procedure Source Result Collection Date/Time Resu lt Date/Time Group A Streptococcus Screen (YVES) Throat No results entered November 26, 2019 2:11pm Group A Streptococcus Screen (YVES) Throat No results entered May 20, 2020 1:55pm Hospital Discharge Instructions No known hospital discharge instructions. Hospital Discharge Medications Medication Dose Units Route Sig Qty Days Order Date Status Ins tructions Levonorgestrel -Ethinyl Estrad 1 TAB ORAL DAILY 84 August 17, 2018 Discontinu ed Levonorgestrel -Ethinyl Estrad 1 TAB ORAL DAILY 84 November 08, 2019 Active Fluoxetine 10 MG ORAL DAILY 30 June 17, 2020 Discontinu ed flu vac [id number] 36mos up(PF) 60 MCG INTRAMUSCU LAR ONCE [...] DAY 14 September 26, 2017 Discontinu ed flu vacc [id number] 6mos up(PF) 0.5 ML INTRAMUSCU LAR ONCE 0.5 May 01, 2020 Discontinu ed Encounters Encounter Facility Location Admit/Visit Date Discharge/Departure Date Attending Provider Departed Referred [facility] Lab [facility] [place] September 12, 2020 4:01pm September 12, 2020 4:02pm Ian Garcia Departed Physician/Pr ovider Office Visit [facility] Pediatrics [facility] September 12, 2020 3:24pm September 12, 2020 4:17pm JoseIan corado Departed Clinical [facility] Laboratory August 30, 2020 2:39pm August 30, 2020 2:40pm Jyothi Arteaga Departed Physician/Pr ovider Office Visit [facility] August 30, 2020 1:59pm August 30, 2020 4:00pm Jyothi Arteaga Departed Physician/Pr ovider Office Visit [facility] August 19, 2020 8:59am August 19, 2020 11:18am Jyothi Arteaga Departed Physician/Pr ovider Office Visit [facility] August 06, 2020 8:07am August 06, 2020 3:16pm Joi Herman Departed Emergency [facility] Emergency Department July 27, 2020 3:43pm July 27, 2020 5:11pm Departed Physician/Pr ovider Office Visit [facility] July 24, 2020 7:51am July 24, 2020 1:52pm Joi Herman Departed Physician/Pr ovider Office Visit [facility] Occupational Health [facility] July 18, 2020 2:47pm July 18, 2020 2:47pm Windy Contreras Departed Physician/Pr ovider Office Visit [facility] July 12, 2020 7:56am July 12, 2020 11:59pm Jyothi Arteaga Departed Physician/Pr ovider Office Visit [facility] July 09, 2020 10:31am July 09, 2020 9:21pm Joi Herman Departed Emergency [facility] Emergency Department July 04, 2020 10:57am July 04, 2020 11:59am Departed Clinical [facility] Curbside June 27, 2020 8:16am June 27, 2020 8:17am Windy Contreras Departed Physician/Pr ovider Office Visit [facility] June 21, 2020 7:52am June 21, 2020 3:38pm Joi Herman Departed Physician/Pr ovider Office Visit [facility] June 21, 2020 7:50am June 21, 2020 11:59pm Jyothi Arteaga Departed Physician/Pr ovider Office Visit [facility] June 14, 2020 3:05pm June 14, 2020 11:59pm Jyothi Arteaga Departed Referred [facility] LAB [facility] Peds [place] May 20, 2020 1:55pm May 20, 2020 1:56pm Nadege Parker Departed Physician/Pr ovider Office Visit [facility] Pediatrics May 20, 2020 1:16pm May 20, 2020 2:13pm Nadege Parker Departed Clinical [facility] Curbside May 20, 2020 8:31am May 20, 2020 8:32am Twyla Navarrete Departed Physician/Pr ovider Office Visit [facility] May 19, 2020 10:40am May 19, 2020 11:59pm Twyla Navarrete Departed Clinical [facility] May 01, 2020 11:04am May 01, 2020 11:05am Windy Contreras Departed Physician/Pr ovider Office Visit [facility] May 01, 2020 10:09am May 01, 2020 12:58pm Referral, Self Departed Physician/Pr ovider Office Visit [facility] February 14, 2020 7:43am February 14, 2020 11:49am Joi Herman Departed Physician/Pr ovider Office Visit [facility] January 12, 2020 2:30pm January 12, 2020 3:38pm Jyothi Arteaga Departed Emergency [facility] November 26, 2019 1:42pm November 26, 2019 2:22pm Departed Physician/Pr ovider Office Visit [facility] November 08, 2019 8:50am November 08, 2019 11:13am Joi Herman Departed Physician/Pr ovider Office Visit [facility] October 23, 2019 3:55pm October 23, 2019 9:38pm Joi Herman Departed Physician/Pr ovider Office Visit [facility] October 04, 2019 8:50am October 04, 2019 [...] 6:37pm Smoking Status Current every day smoker September 12, 2020 3 :40pm alcohol intake frequency holidays/special occasions on ly July 27, 2020 6:37pm substance use type marijuana August 20, 2020 4:18am Query Response Start Date Stop Date Smoking Status Current every day smoker Vital Signs Vital Reading Result Reference Range Collection Date/Time Height 5 ft 6 in August 30, 2020 2 :02pm Weight 107.955 kg September 12, 2020 3: 36pm Temperature 99.6 F 97.6 F-99.6 F September 12, 2020 3 :36pm Pulse 68 BPM 56-106 September 12, 2020 3: 36pm Respiration 16 RPM 16-24 July 27, 2020 3: 52pm Pulse Oximetry 99 % 95-100 July 27, 2020 5:10pm Blood Pressure Systolic 120 102-133 September 12, 2020 3:36pm Blood Pressure Diastolic 60 61-85 Sep 3:36pm Body Mass Index 41.3 August 30 2:02pm
--- OUTSIDE RECORDS SUMMARY | 2023-02-16 11:50 | XMS_ITS | Continuity of Care Document ---
Author Name [facility] Address [address] [place] [id number] Organization [facility] Address [address] [place] [address] Care Team Providers Care Horseshoer Name Role Phone Jyothi Arteaga Primary Care Physician Windy Contreras Attending Physician Allergies, Adverse Reactions, Alerts No [...] 2018 November 08, 2019 Discontinued flu vac [id number] 36mos up(PF) 60 MCG INTRAMUSCULAR ONCE 0.5 July 27, 2018 July 27, 2018 Discontinued tuberculin PPD 0.1 ML INTRADERMAL ONCE 0.1 July 06, 2018 July 06, 2018 Discontinued Levonorgestre l-Ethinyl Estrad [Vienva] September 26, 2017 August 17, 2018 Discontinued Amoxicillin-P ot Clavulanate [Augmentin] 1 TAB ORAL TWICE A DAY 14 September 26, 2017 July 27, 2018 Discontinued flu vacc [id number] 6mos up(PF) 0.5 ML INTRAMUSCULAR ONCE 0.5 [...] nevi, unspecified January 12, 2020 Jyothi Arteaga [phone] [facility] [place] [address] Relevant Diagnostic Tests and/or Laboratory Data Laboratory [...] sheets for providers can be found at: EthicsGame.gov/media/039057/do wnload Fact sheets for patients can be found at: EthicsGame.gov/media/144518/do wnload TB Test (QFT) Antigen Minus Nil [...] of Tuberculosis in Adults and Children [Renzoinsedyn DM et. al. Clin. Infect. Dis. 2017;64(2):111-115]. [...] 0.01 IU/mL Test Performed b y: [facility] [address] [place] [address] Cylinder Checker: Boone Escudero M.D. Ph.D.; [facility]# [id number] Microbiology Results Procedure Source Result Collection Date/Time Resu lt Date/Time Group A Streptococcus Screen (YVES) Throat No results entered November 26, 2019 2:11pm Group A Streptococcus Screen (YVES) Throat No results entered May 20, 2020 1:55pm Chief Complaint and Reason for Visit Encounter Admit Date Chief Complaint Reason for V isit Departed Clinical June 27, 2020 8:16am Contact with and (suspected) exposure to covid-19 [...] 30 June 17, 2020 Active flu vac [id number] 36mos up(PF) 60 MCG INTRAMUSCULA R ONCE 0.5 July 27, 2018 Discontinued tuberculin PPD 0.1 ML INTRADERMAL ONCE 0.1 July 06, 2018 Discontinued Levonorgestr el-Ethinyl Estrad September 26, 2017 Discontinued Amoxicillin- Pot Clavulanate 1 TAB ORAL TWICE A DAY 14 September 26, 2017 Discontinued flu vacc [id number] 6mos up(PF) 0.5 ML INTRAMUSCULA R ONCE 0.5 May 01, 2020 Discontinued Encounters Encounter Facility Location Admit/Visit Date Discharge/Departure Date Attending Provider Departed Clinical [facility] [place] June 27, 2020 8:16am June 27, 2020 8:17am Windy Contreras Departed Physician/Pr ovider Office Visit [facility] Pediatrics [facility] June 21, 2020 7:52am June 21, 2020 3:38pm Joi Herman Departed Physician/Pr ovider Office Visit [facility] Pediatric[facility] June 21, 2020 7:50am June 21, 2020 11:59pm Jyothi Arteaga Departed Physician/Pr ovider Office Visit [facility] June 14, 2020 3:05pm June 14, 2020 11:59pm Jyothi Arteaga Departed Referred [facility] LAB [facility] P[facility] [place] May 20, 2020 1:55pm May 20, 2020 1:56pm Nadege Parker Departed Physician/Pr ovider Office Visit [facility] May 20, 2020 1:16pm May 20, 2020 2:13pm Nadege Parker Departed Clinical [facility] Curbside May 20, 2020 8:31am May 20, 2020 8:32am Twyla Navarrete Departed Physician/Pr ovider Office Visit [facility] Occupational [facility] May 19, 2020 10:40am May 19, 2020 11:59pm Twyla Navarrete Departed Clinical [facility] May 01, 2020 11:04am May 01, 2020 11:05am Windy Contreras Departed Physician/Pr ovider Office Visit [facility] Occupational [facility] May 01, 2020 10:09am May 01, 2020 12:58pm Referral, Self Departed Physician/Pr ovider Office Visit [facility] February 14, 2020 7:43am February 14, 2020 11:49am Joi Herman Departed Physician/Pr ovider Office Visit [facility] January 12, 2020 2:30pm January 12, 2020 3:38pm Jyothi Arteaga Departed Emergency [facility] November 26, 2019 1:42pm November 26, 2019 2:22pm Departed Physician/Pr ovider Office Visit [facility] November 08, 2019 8:50am November 08, 2019 11:13am Joi Herman Departed Physician/Pr ovider Office Visit [facility] October 23, 2019 3:55pm October 23, 2019 9:38pm Joi Herman Departed Physician/Pr ovider Office Visit [facility] October 04, 2019 8:50am October 04, 2019 11:08pm Joi Herman Departed Emergency [facility] Emergency Department 2019 10:08pm 2019 10:51pm Departed Physician/Pr ovider Office Visit [facility] Pediatrics [facility] September 11, 2019 8:43am September 11, 2019 2:42pm Joi Herman Departed Referred [facility] Lab [facility] BIOENGINEER August 31, 2019 10:03am August 31, 2019 10:04am Diana Chaidez Departed Physician/Pr ovider Office Visit [facility] DIRECTOR FOOD AND BEVERAGE August 31, 2019 9:48am August 31, 2019 10:13am Diana Chaidez Departed Physician/Pr ovider Office Visit [facility] Pediatrics [facility] August 29, 2019 9:48am August 29, 2019 1:49pm Joi Herman Departed Physician/Pr ovider Office Visit [facility] Pediatrics [facility] August 17, 2019 7:59am August 17, 2019 1:58pm Joi Herman Departed Physician/Pr ovider Office Visit [facility] Orthopedic&Cesar ab August 16, 2019 [...] 1:57pm Smoking Status Current every day smoker June 24, 2020 2:55pm alcohol intake frequency holidays/specia l occasions only November 26, 2019 1:57pm substance use type marijuana June 22, 2020 1:49pm Query Response Start Date Stop Date Smoking [...] 20 1:31pm Blood Pressure Systolic 94 102-133 Ramon 2020 1:31pm Blood Pressure Diastolic 66 61-85 Mar 2020 1:31pm
--- OUTSIDE RECORDS SUMMARY | 2023-02-16 11:51 | XMS_ITS | Continuity of Care Document ---
Author Name [facility] Address [address] [place] [id number] Organization [facility] Address [address] [place] [address] Care Team Providers Care [facility] Consultant Name Role Phone Juan Carlos Santana JR [...] December 20, 2020 Disconti nued flu vac [id number] 36mos up(PF) 60 MCG INTRAMUS CULAR ONCE [...] November 04, 2020 Disconti nued flu vacc [id number] 6mos up(PF) 0.5 ML INTRAMUS CULAR ONCE [...] November 19, 2020 11:18am Negative Urine Specific [place] (Manual) November 19, 2020 11:18am 1.020 POC [...] September 12, 2020 4:01pm 6.5 Urine Specific [place] September 12, 2020 4:01pm 1.015 Urine Protein [...] patients can be found at: fda.gov/media/1362 87/download TB Test (QFT) Antigen Minus Nil [...] 0.01 IU/mL Test Performed b y: [facility] [address] [place] [address] Wind Up Worker: Boone Escudero M.D. Ph.D.; [place]# [id number] Microbiology Results Procedure Source Result Collection Date/Time [...] November 04, 2020 Discontinu ed flu vac [id number] 36mos up(PF) 60 MCG INTRAMUSCU LAR ONCE [...] September 30, 2020 Discontinu ed flu vacc [id number] 6mos up(PF) 0.5 ML INTRAMUSCU LAR ONCE 0.5 May 01, 2020 Discontinu ed Encounters Encounter Facility Location Admit/Visit Date Discharge/Departure Date Attending Provider Departed Clinical [facility] April 24, 2021 9:03am April 24, 2021 9:04am Juan Carlos Santana JR Departed Clinical [facility] April 01, 2021 9:05am April 01, 2021 9:06am Juan Carlos Santana JR Departed Referred [facility] March 27, 2021 6:39pm March 27, 2021 6:40pm Juan Carlos Santana JR Registered Inpatient [facility] Pediatrics [facility] March 06, 2021 3:15pm Soni Santa Departed Emergency [facility] Emergency Department February 22, 2021 1:48pm February 22, 2021 5:28pm Departed Emergency [facility] February 22, 2021 12:49pm February 22, 2021 1:47pm Departed Emergency [facility] Emergency Department December 21, 2020 8:46am December 21, 2020 12:00pm Departed Physician/Pr ovider Office Visit [facility] Pediatrics [facility] December 20, 2020 4:18pm December 20, 2020 4:47pm Maite Garcia Departed Physician/Pr ovider Office Visit [facility] Pediatrics [facility] November 19, 2020 10:32am November 19, 2020 11:29am RainFelicia Departed Physician/Pr ovider Office Visit [facility] Orthopedic&Cesar ab November 15, 2020 2:11pm November 15, 2020 2:55pm Antwon Jackson Departed Physician/Pr ovider Office Visit [facility] November 04, 2020 10:01am November 04, 2020 10:26am Jyothi Arteaga Departed Physician/Pr ovider Office Visit [facility] Orthopedic&Cesar ab October 16, 2020 1:25pm October 16, 2020 1:55pm Antwon Jackson Departed Emergency [facility] Urgent [facility] October 11, 2020 7:11pm October 11, 2020 9:23pm Departed Clinical [facility] Cardiology October 08, 2020 1:55pm October 08, 2020 1:56pm Jyothi Arteaga Departed Physician/Pr ovider Office Visit [facility] Cardiology October 08, 2020 1:50pm October 08, 2020 11:59pm Diann Oakes Departed Physician/Pr ovider Office Visit [facility] October 07, 2020 12:53pm October 07, 2020 2:16pm Jyothi Arteaga Departed Emergency [facility] Emergency Department 2020 8:52am 2020 10:22am Departed Emergency [facility] Emergency Department September 30, 2020 4:35pm September 30, 2020 8:56pm Departed Emergency [facility] September 30, 2020 2:40pm September 30, 2020 4:44pm Departed Referred [facility] Lab [facility] [place] September 12, 2020 4:01pm September 12, 2020 4:02pm Ian Garcia Departed Physician/Pr ovider Office Visit [facility] September 12, 2020 3:24pm September 12, 2020 4:17pm Ian Gracia Departed Clinical [facility] Laboratory August 30, 2020 2:39pm August 30, 2020 2:40pm Jyothi Arteaga Departed Physician/Pr ovider Office Visit [facility] August 30, 2020 1:59pm August 30, 2020 4:00pm Jyothi Arteaga Departed Physician/Pr ovider Office Visit [facility] Pediatrics [facility] August 19, 2020 8:59am August 19, 2020 11:18am Jyothi Arteaga Departed Physician/Pr ovider Office Visit [facility] August 06, 2020 8:07am August 06, 2020 3:16pm Joi Herman Departed Emergency [facility] Emergency Department July 27, 2020 3:43pm July 27, 2020 5:11pm Departed Physician/Pr ovider Office Visit [facility] July 24, 2020 7:51am July 24, 2020 1:52pm Joi Herman Departed Physician/Pr ovider Office Visit [facility] Occupational Health [facility] July 18, 2020 2:47pm July 18, 2020 2:47pm Windy Contreras Departed Physician/Pr ovider Office Visit [facility] July 12, 2020 7:56am July 12, 2020 11:59pm Jyothi Arteaga Departed Physician/Pr ovider Office Visit [facility] July 09, 2020 10:31am July 09, 2020 9:21pm Joi Herman Departed Emergency [facility] Emergency Department July 04, 2020 10:57am July 04, 2020 11:59am Departed Clinical [facility] Curbside June 27, 2020 8:16am June 27, 2020 8:17am Windy Contreras Departed Physician/Pr ovider Office Visit [facility] June 21, 2020 7:52am June 21, 2020 3:38pm Joi Herman Departed Physician/Pr ovider Office Visit [facility] June 21, 2020 7:50am June 21, 2020 11:59pm Jyothi Arteaga Departed Physician/Pr ovider Office Visit [facility] June 14, 2020 3:05pm June 14, 2020 11:59pm Jyothi Arteaga Departed Referred [facility] LAB [facility] [place] May 20, 2020 1:55pm May 20, 2020 1:56pm Nadege Parker Departed Physician/Pr ovider Office Visit [facility] Pediatrics May 20, 2020 1:16pm May 20, 2020 2:13pm Nadege Parker Departed Clinical [facility] Curbside May 20, 2020 8:31am May 20, 2020 8:32am Twyla Navarrete Departed Physician/Pr ovider Office Visit [facility] May 19, 2020 10:40am May 19, 2020 11:59pm Twyla Navarrete Departed Clinical [facility] Lab [facility] May 01, 2020 11:04am May 01, 2020 11:05am Windy Contreras Departed Physician/Pr ovider Office Visit [facility] May 01, 2020 10:09am [...] 56-106 February 22 5:25pm Respiration 17 RPM -24 February 22 5:25pm Pulse Oximetry 98 % 95-100 February 22, 2021 5:25pm Blood Pressure Systolic 102 102-133 Dece mb2020 5:25pm Blood Pressure Diastolic 69 61-85 Dec emb2020 5:25pm Body Mass Index 37.0 November 2:21pm
--- OUTSIDE RECORDS SUMMARY | 2023-02-16 11:51 | XMS_ITS | Continuity of Care Document ---
Author Name [facility] Address [address] [place] [id number] Organization [facility] Address [address] [place] [address] Care Team Providers Care Livestock Breeder Name Role Phone Juan Carlos Santana JR Primary Care Physician [phone] Juan Carlos Santana JR Attending Physician Allergies, [...] December 20, 2020 Disconti nued flu vac [id number] 36mos up(PF) 60 MCG INTRAMUS CULAR ONCE [...] November 04, 2020 Disconti nued flu vacc [id number] 6mos up(PF) 0.5 ML INTRAMUS CULAR ONCE [...] November 19, 2020 11:18am Negative Urine Specific [place] (Manual) November 19, 2020 11:18am 1.020 POC [...] September 12, 2020 4:01pm 6.5 Urine Specific [place] September 12, 2020 4:01pm 1.015 Urine Protein [...] sheets for providers can be found at: [employer].gov/media/1362 85/download Fact sheets for patients can be found at: Useful Systems.gov/Time Solutions/1362 87/download TB Test (QFT) Antigen Minus Nil [...] [facility] [address] [place] [address] Overedge Machine Operator: Boone Escudero M.D. Ph.D.; [place]# [id number] Microbiology Results Procedure Source Result Collection Date/Time [...] November 04, 2020 Discontinu ed flu vac [id number] 36mos up(PF) 60 MCG INTRAMUSCU LAR ONCE [...] September 30, 2020 Discontinu ed flu vacc [id number] 6mos up(PF) 0.5 ML INTRAMUSCU LAR ONCE 0.5 May 01, 2020 Discontinu ed Encounters Encounter Facility Location Admit/Visit Date Discharge/Departure Date Attending Provider Registered Clinical [facility] DI [facility] April 01, 2021 9:05am Juan Carlos Santana JR Departed Referred [facility] March 27, 2021 6:39pm March 27, 2021 6:40pm Juan Carlos Santana JR Registered Inpatient [facility] Pediatrics [facility] March 06, 2021 3:15pm Soni Santa Departed Emergency [facility] Emergency Department February 22, 2021 1:48pm February 22, 2021 5:28pm Departed Emergency [facility] February 22, 2021 12:49pm February 22, 2021 1:47pm Departed Emergency [facility] Emergency Department December 21, 2020 8:46am December 21, 2020 12:00pm Departed Physician/Pr ovider Office Visit [facility] Pediatrics [facility] December 20, 2020 4:18pm December 20, 2020 4:47pm Maite Garcia Departed Physician/Pr ovider Office Visit [facility] Pediatrics [facility] November 19, 2020 10:32am November 19, 2020 11:29am Felicia Rodrigez Departed Physician/Pr ovider Office Visit [facility] Orthopedic&Cesar ab November 15, 2020 2:11pm November 15, 2020 2:55pm Antwon Jackson Departed Physician/Pr ovider Office Visit [facility] Pediatrics [facility] November 04, 2020 10:01am November 04, 2020 10:26am Jyothi Arteaga Departed Physician/Pr ovider Office Visit [facility] Orthopedic&Cesar ab October 16, 2020 1:25pm October 16, 2020 1:55pm Antwon Jackson Departed Emergency [facility] Urgent [facility] October 11, 2020 7:11pm October 11, 2020 9:23pm Departed Clinical [facility] Cardiology October 08, 2020 1:55pm October 08, 2020 1:56pm Jyothi Arteaga Departed Physician/Pr ovider Office Visit [facility] Cardiology October 08, 2020 1:50pm October 08, 2020 11:59pm Diann Oakes Departed Physician/Pr ovider Office Visit [facility] October 07, 2020 12:53pm October 07, 2020 2:16pm Jyothi Arteaga Departed Emergency [facility] Emergency Department 2020 8:52am 2020 10:22am Departed Emergency [facility] Emergency Department September 30, 2020 4:35pm September 30, 2020 8:56pm Departed Emergency [facility] Urgent [facility] September 30, 2020 2:40pm September 30, 2020 4:44pm Departed Referred [facility] Lab [facility] Peds [place] September 12, 2020 4:01pm September 12, 2020 4:02pm Ian Garcia Departed Physician/Pr ovider Office Visit [facility] September 12, 2020 3:24pm September 12, 2020 4:17pm Ian Garcia Departed Clinical [facility] Laboratory August 30, 2020 2:39pm August 30, 2020 2:40pm Jyothi Arteaga Departed Physician/Pr ovider Office Visit [facility] August 30, 2020 1:59pm August 30, 2020 4:00pm Jyothi Arteaga Departed Physician/Pr ovider Office Visit [facility] August 19, 2020 8:59am August 19, 2020 11:18am Jyothi Arteaga Departed Physician/Pr ovider Office Visit [facility] August 06, 2020 8:07am August 06, 2020 3:16pm Joi Herman Departed Emergency [facility] Emergency Department July 27, 2020 3:43pm July 27, 2020 5:11pm Departed Physician/Pr ovider Office Visit [facility] July 24, 2020 7:51am July 24, 2020 1:52pm Joi Herman Departed Physician/Pr ovider Office Visit [facility] Occupational Health [facility] July 18, 2020 2:47pm July 18, 2020 2:47pm Windy Contreras Departed Physician/Pr ovider Office Visit [facility] July 12, 2020 7:56am July 12, 2020 11:59pm Jyothi Arteaga Departed Physician/Pr ovider Office Visit [facility] July 09, 2020 10:31am July 09, 2020 9:21pm Joi Herman Departed Emergency [facility] Emergency Department July 04, 2020 10:57am July 04, 2020 11:59am Departed Clinical [facility] June 27, 2020 8:16am June 27, 2020 8:17am Windy Contreras Departed Physician/Pr ovider Office Visit [facility] June 21, 2020 7:52am June 21, 2020 3:38pm Joi Herman Departed Physician/Pr ovider Office Visit [facility] June 21, 2020 7:50am June 21, 2020 11:59pm Jyothi Arteaga Departed Physician/Pr ovider Office Visit [facility] June 14, 2020 3:05pm June 14, 2020 11:59pm Jyothi Arteaga Departed Referred [facility] LAB [facility] Peds [place] May 20, 2020 1:55pm May 20, 2020 1:56pm Nadege Parker Departed Physician/Pr ovider Office Visit [facility] Pediatrics May 20, 2020 1:16pm May 20, 2020 2:13pm Nadege Parker Departed Clinical [facility] May 20, 2020 8:31am May 20, 2020 8:32am Twyla Navarrete Departed Physician/Pr ovider Office Visit [facility] Occupational Health [facility] May 19, 2020 10:40am May 19, 2020 11:59pm Twyla Navarrete Departed Clinical [facility] Lab [facility] May 01, 2020 11:04am May 01, [...]
--- OUTSIDE RECORDS SUMMARY | 2023-02-16 11:51 | XMS_ITS | Continuity of Care Document ---
Author Name Address [address] [place] [address] Organization Address [address] [place] [address] Care Team Providers Care Affiliate Manager Name Role Phone Jyothi Arteaga Primary Care Physician [phone] Allergies, Adverse Reactions, Alerts No known allergies. [...] December 20, 2020 Disconti nued flu vac [id number] 36mos up(PF) 60 MCG INTRAMUS CULAR ONCE [...] November 04, 2020 Disconti nued flu vacc [id number] 6mos up(PF) 0.5 ML INTRAMUS CULAR ONCE [...] Provider Office Contact Location October 07, 2020 Jyohti Arteaga [phone] [facility] [place] [address] Relevant Diagnostic Tests and/or Laboratory Data Laboratory [...] November 19, 2020 11:18am Negative Urine Specific [place] (Manual) November 19, 2020 11:18am 1.020 POC [...] September 12, 2020 4:01pm 6.5 Urine Specific [place] September 12, 2020 4:01pm 1.015 Urine Protein [...] sheets for providers can be found at: [employer]gov/media/24896 5/download Fact sheets for patients can be found at: [employer]gov/Sharewave/06101 7/download TB Test (QFT) Antigen Minus Nil [...] Performed b y: [facility] [address] [place] [address] Wide Piece Goods Inspector: Boone Escudero M.D. Ph.D.; [facility]# [id number] Microbiology Results Procedure Source Result Collection Date/Time [...] November 04, 2020 Discontinu ed flu vac [id number] 36mos up(PF) 60 MCG INTRAMUSCU LAR ONCE [...] September 30, 2020 Discontinu ed flu vacc [id number] 6mos up(PF) 0.5 ML INTRAMUSCU LAR ONCE 0.5 May 01, 2020 Discontinu ed Encounters Encounter Facility Location Admit/Visit Date Discharge/Departure Date Attending Provider Registered Emergency Emergency Department December 21, 2020 8:46am Departed Physician/Pr ovider Office Visit [facility] Pediatrics [facility] December 20, 2020 4:18pm December 20, 2020 4:47pm Maite Garcia Departed Physician/Pr ovider Office Visit [facility] Pediatrics [facility] November 19, 2020 10:32am November 19, 2020 11:29am Felicia Rodrigez Departed Physician/Pr ovider Office Visit [facility] Orthopedic&Cesar ab November 15, 2020 2:11pm November 15, 2020 2:55pm Antwon Jackson Departed Physician/Pr ovider Office Visit [facility] Pediatrics [facility] November 04, 2020 10:01am November 04, 2020 10:26am Jyothi Arteaga Departed Physician/Pr ovider Office Visit [facility] Orthopedic&Cesar ab October 16, 2020 1:25pm October 16, 2020 1:55pm Antwon Jackson Departed Emergency [facility] Urgent [facility] October 11, 2020 7:11pm October 11, 2020 9:23pm Departed Clinical Cardiology October 08, 2020 1:55pm October 08, 2020 1:56pm Jyothi Arteaga Departed Physician/Pr ovider Office Visit [facility] Cardiology October 08, 2020 1:50pm October 08, 2020 11:59pm Diann Oakes Departed Physician/Pr ovider Office Visit [facility] October 07, 2020 12:53pm October 07, 2020 2:16pm Jyothi Arteaga Departed Emergency Emergency Department 2020 8:52am 2020 10:22am Departed Emergency Emergency Department September 30, 2020 4:35pm September 30, 2020 8:56pm Departed Emergency [facility] Urgent [facility] September 30, 2020 2:40pm September 30, 2020 4:44pm Departed Referred Lab [facility] P[facility] [place] September 12, 2020 4:01pm September 12, 2020 [...] Herman Departed Physician/Pr ovider Office Visit [facility] Occupational Health [facility] Employee Health July 18, 2020 2:47pm July 18, 2020 2:47pm Windy Contreras Departed Physician/Pr ovider Office Visit [facility] July 12, 2020 7:56am July 12, 2020 11:59pm Jyothi Arteaga Departed Physician/Pr ovider Office Visit [facility] July 09, 2020 10:31am July 09, 2020 9:21pm Joi Herman Departed Emergency Emergency Department July 04, 2020 10:57am July 04, 2020 11:59am Departed Clinical [facility] June 27, 2020 8:16am June 27, 2020 8:17am Windy Contreras Departed Physician/Pr ovider Office Visit [facility] June 21, 2020 7:52am June 21, 2020 3:38pm Joi Herman Departed Physician/Pr ovider Office Visit [facility] June 21, 2020 7:50am June 21, 2020 11:59pm Jyothi Arteaga Departed Physician/Pr ovider Office Visit [facility] June 14, 2020 3:05pm June 14, 2020 11:59pm Jyothi Arteaga Departed Referred LAB [facility] May 20, 2020 1:55pm May 20, 2020 1:56pm Nadege Parker Departed Physician/Pr ovider Office Visit [facility] May 20, 2020 1:16pm May 20, 2020 2:13pm Nadege Parker Departed Clinical [facility] May 20, 2020 8:31am May 20, 2020 8:32am Twyla Navarrete Departed Physician/Pr ovider Office Visit [facility] May 19, 2020 10:40am May 19, 2020 11:59pm Twyla Navarrete Departed Clinical [facility] May 01, 2020 11:04am May 01, 2020 11:05am Windy Contreras Departed Physician/Pr ovider Office Visit [facility] May 01, 2020 10:09am May 01, 2020 12:58pm Referral, Self Departed Physician/Pr ovider Office Visit [facility] Pediatrics [facility] February 14, 2020 7:43am February 14, 2020 11:49am Joi Herman Departed Physician/Pr ovider Office Visit [facility] Pediatrics [facility] January 12, 2020 2:30pm January 12, 2020 3:38pm Jyothi Atreaga Functional Status Query Response Date Recorded Comment [...]
--- OUTSIDE RECORDS SUMMARY | 2023-02-16 11:51 | XMS_ITS | Continuity of Care Document ---
Author Name [facility] Address [address] [place] [id number] Organization [facility] Address [address] [place] [address] Support Name Relationship Address Phone Jyothi Arteaga Primary Care Provider [facility] Leandro torres [address] [address] Referral, Self Referring Provider Unknown Unavail able Felicia Rodrigez Attending Provider [facility] Pediatri angelina [address] [address] Allergies, Adverse Reactions, Alerts No known [...] July 12, 2020 Disconti nued flu vac [id number] 36mos up(PF) 60 MCG INTRAMUS CULAR ONCE 0.5 July 27, 2018 July 27, 2018 Disconti nued Ondansetron Hcl [Zofran] 4 MG ORAL Q8H PRN For nausea and vomiti ng 7 September 12, 2020 October 16, 2020 Disconti nued tuberculin PPD 0.1 ML INTRADER MAL ONCE 0.1 Septembe r 2020November 19, 2020 Disconti nued tuberculin PPD [...] November 04, 2020 Disconti nued flu vacc [id number] 6mos up(PF) 0.5 ML INTRAMUS CULAR ONCE [...] Location October 07, 2020 Jyothi Gigi Arteaga [phone] [facility] [place] [address] Relevant Diagnostic Tests and/or Laboratory Data Laboratory [...] November 19, 2020 11:18am Negative Urine Specific Counsel[place] (Manual) November 19, 2020 11:18am 1.020 POC Urine RBC November 19, 2020 11:18am Negative Urine pH (Manual) November 19, 2020 11:18am 7.0 POC Urine Protein Confirmation November 19, 2020 11:18am Negative Urine Urobilinogen (Manual) November 19, 2020 11:18am Negative Urine Nitrite (Manual) November 19, 2020 11:18am Negative Urine Leukocyte Esterase (Manual) November 19, 2020 11:18am Negative White Blood Count September 30, 2020 [...] September 12, 2020 4:01pm 6.5 Urine Specific Counsel[place] September 12, 2020 4:01pm 1.015 Urine Protein [...] sheets for providers can be found at: [employer]/media/01248 5/download Fact sheets for patients can be found at: [employer]/Mayi Zhaopin/66569 7/download TB Test (QFT) Antigen Minus Nil [...] 0.01 IU/mL Test Performed b y: [facility] [address] [place] [id number] Polymer Specialist: Boone Escudero M.D. Ph.D.; CLIA# [id number] Microbiology Results Procedure Source Result Collection Date/Time [...] V isit Departed Physician/Provider Office Visit November 19, 2020 10:32am Ppd placement Hospital Discharge Instructions No known hospital discharge [...] 90 November 04, 2020 Active flu vac [id number] 36mos up(PF) 60 MCG INTRAMUSCU LAR ONCE 0.5 July 27, 2018 Discontinu ed Ondansetron Hcl 4 MG ORAL Q8H PRN For nausea and vomiting 7 September 12, 2020 Discontinu ed tuberculin PPD 0.1 ML INTRADERMA L ONCE 0.1 November 19, 2020 Discontinu ed tuberculin PPD 0.1 ML [...] September 30, 2020 Discontinu ed flu vacc [id number] 6mos up(PF) 0.5 ML INTRAMUSCU LAR ONCE 0.5 May 01, 2020 Discontinu ed Encounters Encounter Facility Location Admit/Visit Date Discharge/Departure Date Attending Provider Departed Physician/Pr ovider Office Visit [facility] Pediatrics [facility] November 19, 2020 10:32am November 19, 2020 11:29am Felicia Rodrigez Departed Physician/Pr ovider Office Visit [facility] Orthopedic[facility]Cesar [facility] November 15, 2020 2:11pm November 15, 2020 2:55pm Antwon Jackson Departed Physician/Pr ovider Office Visit [facility] November 04, 2020 10:01am November 04, 2020 10:26am Jyothi Arteaga Departed Physician/Pr ovider Office Visit [facility] Orthopedic[facility]Cesar [facility] October 16, 2020 1:25pm October 16, 2020 1:55pm Antwon Jackson Departed Emergency [facility] Urgent [facility] October 11, 2020 7:11pm October 11, 2020 9:23pm Departed Clinical [facility] Cardiology October 08, 2020 1:55pm October 08, 2020 1:56pm Jyothi Arteaga Departed Physician/Pr ovider Office Visit [facility] Cardiology October 08, 2020 1:50pm October 08, 2020 11:59pm Diann Oakes Departed Physician/Pr ovider Office Visit [facility] October 07, 2020 12:53pm October 07, 2020 2:16pm Jyothi Arteaga Departed Emergency [facility] Emergency Department 2020 8:52am 2020 10:22am Departed Emergency [facility] Emergency Department September 30, 2020 4:35pm September 30, 2020 8:56pm Departed Emergency [facility] September 30, 2020 2:40pm September 30, 2020 4:44pm Departed Referred [facility] Lab [facility] Peds [place] September 12, 2020 4:01pm September 12, 2020 4:02pm Ian Garcia Departed Physician/Pr ovider Office Visit [facility] September 12, 2020 3:24pm September 12, 2020 4:17pm JoseIan Departed Clinical [facility] Laboratory August 30, 2020 2:39pm August 30, 2020 2:40pm Jyothi Arteaga Departed Physician/Pr ovider Office Visit [facility] August 30, 2020 1:59pm August 30, 2020 4:00pm Jyothi Arteaga Departed Physician/Pr ovider Office Visit [facility] August 19, 2020 8:59am August 19, 2020 11:18am Jyothi Arteaga Departed Physician/Pr ovider Office Visit [facility] August 06, 2020 8:07am August 06, 2020 3:16pm Joi Herman Departed Emergency [facility] Emergency Department July 27, 2020 3:43pm July 27, 2020 5:11pm Departed Physician/Pr ovider Office Visit [facility] July 24, 2020 7:51am July 24, 2020 1:52pm Joi Herman Departed Physician/Pr ovider Office Visit [facility] Occupational Health [facility] Employee Health July 18, 2020 2:47pm July 18, 2020 2:47pm Windy Contreras Departed Physician/Pr ovider Office Visit [facility] July 12, 2020 7:56am July 12, 2020 11:59pm Jyothi Arteaga Departed Physician/Pr ovider Office Visit [facility] July 09, 2020 10:31am July 09, 2020 9:21pm Joi Herman Departed Emergency [facility] Emergency Department July 04, 2020 10:57am July 04, 2020 11:59am Departed Clinical [facility] June 27, 2020 8:16am June 27, 2020 8:17am Windy Contreras Departed Physician/Pr ovider Office Visit [facility] June 21, 2020 7:52am June 21, 2020 3:38pm Joi Herman Departed Physician/Pr ovider Office Visit [facility] June 21, 2020 7:50am June 21, 2020 11:59pm Jyothi Arteaga Departed Physician/Pr ovider Office Visit [facility] Pediatrics [facility] June 14, 2020 3:05pm June 14, 2020 11:59pm Jyothi Arteaga Departed Referred [facility] Peds [place] May 20, 2020 1:55pm May 20, 2020 1:56pm Nadege Parker Departed Physician/Pr ovider Office Visit [facility] Pediatrics May 20, 2020 1:16pm May 20, 2020 2:13pm Nadege Parker Departed Clinical [facility] May 20, 2020 8:31am May 20, 2020 8:32am Twyla Navarrete Departed Physician/Pr ovider Office Visit [facility] May 19, 2020 10:40am May 19, 2020 11:59pm Twyla Navarrete Departed Clinical [facility] May 01, 2020 11:04am May 01, 2020 11:05am Windy Contreras Departed Physician/Pr ovider Office Visit [facility] May 01, 2020 10:09am May 01, 2020 12:58pm Referral, Self Departed Physician/Pr ovider Office Visit [facility] February 14, 2020 7:43am February 14, 2020 11:49am Joi Herman Departed Physician/Pr ovider Office Visit [facility] January 12, 2020 2:30pm January 12, 2020 3:38pm Jyothi Arteaga Departed Emergency [facility] Urgent [facility] November 26, 2019 1:42pm November 26, 2019 2:22pm Functional Status Query Response Date Recorded Comment [...] Smoking Status Current every day smoker November 19, 2020 11:25am Substance/Street Drug Use Yes October 11, 2020 8:30pm QHS marijuana as o f 09/30/20 alcohol intake frequency holidays/special occasions only October 11, 2020 8:30pm substance use type marijuana November 11, 2020 1:48am Query Response Start Date Stop Date Smoking Status Current every day smoker Vital Signs Vital Reading Result Reference Range Collection Date/Time Height 5 ft 5 in November 15 2:21pm Weight 101.151 kg November 15 2:21pm Temperature 98.8 F 97.6 F-99.6 F October 11, 2020 7:49pm Pulse 88 BPM 56-106 November 15 2:21pm Respiration 20 RPM 16-24 October 11, 2020 7:49pm Pulse Oximetry 98 % 95-100 November 15, 2020 2:21pm Blood Pressure Systolic 110 102-133 Sept ember 2020 2:21pm Blood Pressure Diastolic 60 61-85 Sep tember 2020 2:21pm Body Mass Index 37.0 November 2:21pm
--- OUTSIDE RECORDS SUMMARY | 2023-02-16 11:51 | XMS_ITS | Continuity of Care Document ---
Author Name [facility] Address [address] [place] [address] Organization [facility] Address [address] [place] [address] Care Team Providers Care Manager Clinical Services Name Role Phone Juan Carlos Santana JR [...] December 20, 2020 Disconti nued flu vac [id number] 36mos up(PF) 60 MCG INTRAMUS CULAR ONCE [...] November 04, 2020 Disconti nued flu vacc [id number] 6mos up(PF) 0.5 ML INTRAMUS CULAR ONCE [...] November 19, 2020 11:18am Negative Urine Specific [place] (Manual) November 19, 2020 11:18am 1.020 POC [...] September 12, 2020 4:01pm 6.5 Urine Specific [place] September 12, 2020 4:01pm 1.015 Urine Protein [...] November 04, 2020 Discontinu ed flu vac [id number] 36mos up(PF) 60 MCG INTRAMUSCU LAR ONCE [...] September 30, 2020 Discontinu ed Amitriptyline MG [facility] 2021 Active flu vacc [id number] 6mos up(PF) 0.5 ML INTRAMUSCU LAR ONCE 0.5 May 01, 2020 Discontinu ed Encounters Encounter Facility Location Admit/Visit Date Discharge/Departure Date Attending Provider Departed Emergency [facility] May 12, 2021 11:36am May 12, 2021 12:40pm Departed Physician/Pr ovider Office Visit [facility]KE REAMER May 01, 2021 2:45pm May 01, 2021 3:00pm Fortunato Quezada Departed Clinical [facility] April 24, 2021 9:03am April 24, 2021 9:04am Juan Carlos Santana JR Departed Clinical [facility] April 01, 2021 9:05am April 01, 2021 9:06am Juan Carlos Santana JR Departed Referred [facility] March 27, 2021 6:39pm March 27, 2021 6:40pm Juan Carlos Santana JR Registered Inpatient [facility] Pediatrics [facility] March 06, 2021 3:15pm Soni Santa Departed Emergency [facility] Emergency Department February 22, 2021 1:48pm February 22, 2021 5:28pm Departed Emergency [facility] February 22, 2021 12:49pm February 22, 2021 1:47pm Departed Emergency [facility] Emergency Department December 21, 2020 8:46am December 21, 2020 12:00pm Departed Physician/Pr ovider Office Visit [facility] Pediatrics [facility] December 20, 2020 4:18pm December 20, 2020 4:47pm Maite Garcia Departed Physician/Pr ovider Office Visit [facility] Pediatrics [facility] November 19, 2020 10:32am November 19, 2020 11:29am Felicia Rodrigez Departed Physician/Pr ovider Office Visit [facility] Orthopedic&Cesar ab November 15, 2020 2:11pm November 15, 2020 2:55pm Antwon Jackson Departed Physician/Pr ovider Office Visit [facility] Pediatrics [facility] November 04, 2020 10:01am November 04, 2020 10:26am Jyothi Arteaga Departed Physician/Pr ovider Office Visit [facility] Orthopedic&Cesar ab October 16, 2020 1:25pm October 16, 2020 1:55pm Antwon Jackson Departed Emergency [facility] Urgent [facility] October 11, 2020 7:11pm October 11, 2020 9:23pm Departed Clinical [facility] Cardiology October 08, 2020 1:55pm October 08, 2020 1:56pm Jyothi Arteaga Departed Physician/Pr ovider Office Visit [facility] Cardiology October 08, 2020 1:50pm October 08, 2020 11:59pm Diann Oakes Departed Physician/Pr ovider Office Visit [facility] Pediatric[facility] October 07, 2020 12:53pm October 07, 2020 2:16pm Jyothi Arteaga Departed Emergency [facility] Emergency Department 2020 8:52am 2020 10:22am Departed Emergency [facility] Emergency Department September 30, 2020 4:35pm September 30, 2020 8:56pm Departed Emergency [facility] Urgent [facility] September 30, 2020 2:40pm September 30, 2020 4:44pm Departed Referred [facility] Lab [facility] Peds [place] September 12, 2020 4:01pm September 12, 2020 4:02pm Ian Garcia Departed Physician/Pr ovider Office Visit [facility] September 12, 2020 3:24pm September 12, 2020 4:17pm Ian Garcia Departed Clinical [facility] Laboratory August 30, 2020 2:39pm August 30, 2020 2:40pm Jyothi Arteaga Departed Physician/Pr ovider Office Visit [facility] Pediatric[facility] August 30, 2020 1:59pm August 30, 2020 4:00pm Jyothi Arteaga Departed Physician/Pr ovider Office Visit [facility] Pediatric[facility] August 19, 2020 8:59am August 19, 2020 11:18am Jyothi Arteaga Departed Physician/Pr ovider Office Visit [facility] Pediatric[facility] August 06, 2020 8:07am August 06, 2020 3:16pm Joi Herman Departed Emergency [facility] Emergency Department July 27, 2020 3:43pm July 27, 2020 5:11pm Departed Physician/Pr ovider Office Visit [facility] July 24, 2020 7:51am July 24, 2020 1:52pm Joi Herman Departed Physician/Pr ovider Office Visit [facility] Occupational Health [facility] July 18, 2020 2:47pm July 18, 2020 2:47pm Windy Contreras Departed Physician/Pr ovider Office Visit [facility] July 12, 2020 7:56am July 12, 2020 11:59pm Jyothi Arteaga Departed Physician/Pr ovider Office Visit [facility] July 09, 2020 10:31am July 09, 2020 9:21pm Joi Herman Departed Emergency [facility] Emergency Department July 04, 2020 10:57am July 04, 2020 11:59am Departed Clinical [facility] June 27, 2020 8:16am June 27, 2020 8:17am Windy Contreras Departed Physician/Pr ovider Office Visit [facility] June 21, 2020 7:52am June 21, 2020 3:38pm Joi Herman Departed Physician/Pr ovider Office Visit [facility] June 21, 2020 7:50am June 21, 2020 11:59pm Jyothi Arteaga Departed Physician/Pr ovider Office Visit [facility] June 14, 2020 3:05pm June 14, 2020 11:59pm Jyothi Arteaga Departed Referred [facility] LAB [facility] May 20, 2020 1:55pm May 20, 2020 1:56pm Nadege Parker Departed Physician/Pr ovider Office Visit [facility] Pediatrics May 20, 2020 1:16pm May 20, 2020 2:13pm Nadege Parker Departed Clinical [facility] May 20, 2020 8:31am May 20, 2020 8:32am Twyla Navarrete Departed Physician/Pr ovider Office Visit [facility] May 19, 2020 10:40am [...] 2021 11:45am Blood Pressure Systolic 124 102-133 [facility] 2021 11:45am Blood Pressure Diastolic 62 61-85 [facility] 2021 11:45am Body Mass Index 37.0 November 2:21pm
--- OUTSIDE RECORDS SUMMARY | 2023-02-16 11:51 | XMS_ITS | Continuity of Care Document ---
Author Name [facility] Address [address] [place] [address] Organization [facility] Address [address] [place] [address] Care Team Providers Care Clock Assembler Name Role Phone Juan Carlos Santana JR [...] December 20, 2020 Disconti nued flu vac [id number] 36mos up(PF) 60 MCG INTRAMUS CULAR ONCE [...] November 04, 2020 Disconti nued flu vacc [id number] 6mos up(PF) 0.5 ML INTRAMUS CULAR ONCE [...] November 19, 2020 11:18am Negative Urine Specific [place] (Manual) November 19, 2020 11:18am 1.020 POC [...] September 12, 2020 4:01pm 6.5 Urine Specific [place] September 12, 2020 4:01pm 1.015 Urine Protein [...] sheets for providers can be found at: [employer]gov/media/1362 85/download Fact sheets for patients can be found at: [employer]/Appointuit/1362 87/download TB Test (QFT) Antigen Minus Nil [...] Test Performed b y: [facility] [address] [place] [address] Supercharger Mechanic: Boone Escudero M.D. Ph.D.; [facility]# [id number] Microbiology Results Procedure Source Result Collection Date/Time [...] November 04, 2020 Discontinu ed flu vac [id number] 36mos up(PF) 60 MCG INTRAMUSCU LAR ONCE [...] September 30, 2020 Discontinu ed flu vacc [id number] 6mos up(PF) 0.5 ML INTRAMUSCU LAR ONCE 0.5 May 01, 2020 Discontinu ed Encounters Encounter Facility Location Admit/Visit Date Discharge/Departure Date Attending Provider Registered Clinical [facility] April 01, 2021 9:05am Juan Carlos Santana JR Departed Referred [facility] March 27, 2021 6:39pm March 27, 2021 6:40pm Juan Carlos Santana JR Registered Inpatient [facility] Pediatric[facility] March [...] Office Visit [facility] Pediatric[facility] December 20, 2020 4:18pm December 20, 2020 4:47pm Maite Garcia Departed Physician/Pr ovider Office Visit [facility] Pediatric[facility] November 19, 2020 10:32am November 19, 2020 11:29am Felicia Rodrigez Departed Physician/Pr ovider Office Visit [facility] Orthopedic&Cesar ab November 15, 2020 2:11pm November 15, 2020 2:55pm Antwon Jackson Departed Physician/Pr ovider Office Visit [facility] Pediatric[facility] November 04, 2020 10:01am November 04, 2020 10:26am Jyothi Arteaga Departed Physician/Pr ovider Office Visit [facility] Orthopedic&Cesar ab October 16, 2020 1:25pm October 16, 2020 1:55pm Antwon Jackson Departed Emergency [facility] Urgent [facility] October 11, 2020 7:11pm October 11, 2020 9:23pm Departed Clinical [facility] Cardiology October 08, 2020 1:55pm October 08, 2020 1:56pm Jyothi Arteaga Departed Physician/Pr ovider Office Visit [facility] Cardiology October 08, 2020 1:50pm October 08, 2020 11:59pm Diann Oakes Departed Physician/Pr ovider Office Visit [facility] Pediatrics [facility] October 07, 2020 12:53pm October 07, 2020 2:16pm Jyothi Arteaga Departed Emergency [facility] Emergency Department 2020 8:52am 2020 10:22am Departed Emergency [facility] Emergency Department September 30, 2020 4:35pm September 30, 2020 8:56pm Departed Emergency [facility] Urgent [facility] September 30, 2020 2:40pm September 30, 2020 4:44pm Departed Referred [facility] Lab [facility] Peds [place] September 12, 2020 4:01pm September 12, 2020 4:02pm Ian Garcia Departed Physician/Pr ovider Office Visit [facility] September 12, 2020 3:24pm September 12, 2020 4:17pm Ian Garcia Departed Clinical [facility] Laboratory August 30, 2020 2:39pm August 30, 2020 2:40pm Jyothi Arteaga Departed Physician/Pr ovider Office Visit [facility] Pediatrics [facility] August 30, 2020 1:59pm August 30, 2020 4:00pm Jyothi Arteaga Departed Physician/Pr ovider Office Visit [facility] Pediatric[facility] August 19, 2020 8:59am August 19, 2020 11:18am Jyothi Arteaga Departed Physician/Pr ovider Office Visit [facility] Pediatric[facility] August 06, 2020 8:07am August 06, 2020 3:16pm Joi Herman Departed Emergency [facility] Emergency Department July 27, 2020 3:43pm July 27, 2020 5:11pm Departed Physician/Pr ovider Office Visit [facility] July 24, 2020 7:51am July 24, 2020 1:52pm Joi Herman Departed Physician/Pr ovider Office Visit [facility] Occupational Health [facility] Health July 18, 2020 2:47pm July 18, 2020 2:47pm Windy Contreras Departed Physician/Pr ovider Office Visit [facility] July 12, 2020 7:56am July 12, 2020 11:59pm Jyothi Arteaga Departed Physician/Pr ovider Office Visit [facility] July 09, 2020 10:31am July 09, 2020 9:21pm Joi Herman Departed Emergency [facility] Emergency Department July 04, 2020 10:57am July 04, 2020 11:59am Departed Clinical [facility] June 27, 2020 8:16am June 27, 2020 8:17am Windy Contreras Departed Physician/Pr ovider Office Visit [facility] June 21, 2020 7:52am June 21, 2020 3:38pm Joi Herman Departed Physician/Pr ovider Office Visit [facility] June 21, 2020 7:50am June 21, 2020 11:59pm Jyothi Arteaga Departed Physician/Pr ovider Office Visit [facility] June 14, 2020 3:05pm June 14, 2020 11:59pm Jyothi Arteaga Departed Referred [facility] LAB [facility] Peds [place] May 20, 2020 1:55pm May 20, 2020 1:56pm Nadege Parker Departed Physician/Pr ovider Office Visit [facility] Pediatrics May 20, 2020 1:16pm May 20, 2020 2:13pm Nadege Parker Departed Clinical [facility] May 20, 2020 8:31am May 20, 2020 8:32am Twyla Navarrete Departed Physician/Pr ovider Office Visit [facility] Occupational formerly [facility] May 19, 2020 10:40am May 19, 2020 11:59pm Twyla Navarrete Departed Clinical [facility] Lab [facility] May 01, 2020 11:04am May 01, 2020 11:05am Windy Contreras Departed Physician/Pr ovider Office Visit [facility] May 01, 2020 10:09am May [...] 5:25pm Blood Pressure Diastolic 69 61-85 [facility]2020 5:25pm Body Mass Index 37.0 November 2:21pm
--- OUTSIDE RECORDS SUMMARY | 2023-02-16 11:51 | XMS_ITS | Continuity of Care Document ---
Author Name [facility] Address [address] [place] [id number] Organization [facility] Address [address] [place] [address] Care Team Providers Care Turbine Subassembler Name Role Phone Jyothi Arteaga Primary Care Physician [phone] Allergies, Adverse Reactions, Alerts No known allergies. [...] December 20, 2020 Disconti nued flu vac [id number] 36mos up(PF) 60 MCG INTRAMUS CULAR ONCE [...] November 04, 2020 Disconti nued flu vacc [id number] 6mos up(PF) 0.5 ML INTRAMUS CULAR ONCE [...] Contact Location October 07, 2020 Jyothi Arteaga [phone] [facility] [place] [address] Relevant Diagnostic Tests and/or Laboratory Data Laboratory [...] November 19, 2020 11:18am Negative Urine Specific [place] (Manual) November 19, 2020 11:18am 1.020 POC [...] September 12, 2020 4:01pm 6.5 Urine Specific [place] September 12, 2020 4:01pm 1.015 Urine Protein [...] sheets for providers can be found at: ArQule.gov/media/1362 85/download Fact sheets for patients can be found at: ArQule.gov/Coveo/1362 87/download TB Test (QFT) Antigen Minus Nil [...] Test Performed b y: [facility] [address] [place] [address] Business Solutions Director: Boone Escudero M.D. Ph.D.; [facility]# [id number] Microbiology Results Procedure Source Result Collection Date/Time [...] November 04, 2020 Discontinu ed flu vac [id number] 36mos up(PF) 60 MCG INTRAMUSCU LAR ONCE [...] September 30, 2020 Discontinu ed flu vacc [id number] 6mos up(PF) 0.5 ML INTRAMUSCU LAR ONCE 0.5 May 01, 2020 Discontinu ed Encounters Encounter Facility Location Admit/Visit Date Discharge/Departure Date Attending Provider Departed Emergency [facility] Emergency Department February 22, 2021 1:48pm February 22, 2021 5:28pm Departed Emergency [facility] February 22, 2021 12:49pm February 22, 2021 1:47pm Departed Emergency [facility] Emergency Department December 21, 2020 8:46am December 21, 2020 12:00pm Departed Physician/Pr ovider Office Visit [facility] December 20, 2020 4:18pm December 20, 2020 4:47pm Maite Garcia Departed Physician/Pr ovider Office Visit [facility] Pediatric[facility] November 19, 2020 10:32am November 19, 2020 11:29am Felicia Rodrigez Departed Physician/Pr ovider Office Visit [facility] November 15, 2020 2:11pm November 15, 2020 2:55pm Antwon Jackson Departed Physician/Pr ovider Office Visit [facility] November [...] Diann Oakes Departed Physician/Pr ovider Office Visit [facility] October 07, 2020 12:53pm October 07, 2020 2:16pm Jyothi Arteaga Departed Emergency [facility] Emergency Department 2020 8:52am 2020 10:22am Departed Emergency [facility] Emergency Department September 30, 2020 4:35pm September 30, 2020 8:56pm Departed Emergency [facility] September 30, 2020 2:40pm September 30, 2020 4:44pm Departed Referred [facility] Lab [facility] P[facility] [place] September 12, 2020 4:01pm September 12, 2020 4:02pm Ian Garcia Departed Physician/Pr ovider Office Visit [facility] September 12, 2020 3:24pm September 12, 2020 4:17pm Ian Garcia Departed Clinical [facility] Laboratory August 30, 2020 2:39pm August 30, 2020 2:40pm Jyothi Arteaga Departed Physician/Pr ovider Office Visit [facility] August 30, 2020 1:59pm August 30, 2020 4:00pm Jyothi Arteaga Departed Physician/Pr ovider Office Visit [facility] August 19, 2020 8:59am August 19, 2020 11:18am Jyothi Arteaga Departed Physician/Pr ovider Office Visit [facility] August 06, 2020 8:07am August 06, 2020 3:16pm Joi Herman Departed Emergency [facility] Emergency Department July 27, 2020 3:43pm July 27, 2020 5:11pm Departed Physician/Pr ovider Office Visit [facility] July 24, 2020 7:51am July 24, 2020 1:52pm Joi Herman Departed Physician/Pr ovider Office Visit [facility] Occupational Health [facility] July 18, 2020 2:47pm July 18, 2020 2:47pm Windy Contreras Departed Physician/Pr ovider Office Visit [facility] July 12, 2020 7:56am July 12, 2020 11:59pm Jyothi Arteaga Departed Physician/Pr ovider Office Visit [facility] July 09, 2020 10:31am July 09, 2020 9:21pm Joi Herman Departed Emergency [facility] Emergency Department July 04, 2020 10:57am July 04, 2020 11:59am Departed Clinical [facility] June 27, 2020 8:16am June 27, 2020 8:17am Windy Contreras Departed Physician/Pr ovider Office Visit [facility] June 21, 2020 7:52am June 21, 2020 3:38pm Joi Herman Departed Physician/Pr ovider Office Visit [facility] June 21, 2020 7:50am June 21, 2020 11:59pm Jyothi Arteaga Departed Physician/Pr ovider Office Visit [facility] June 14, 2020 3:05pm June 14, 2020 11:59pm Jyothi Arteaga Departed Referred [facility] LAB [facility] May 20, 2020 1:55pm May 20, 2020 1:56pm Nadege Parker Departed Physician/Pr ovider Office Visit [facility] May 20, 2020 1:16pm May 20, 2020 2:13pm Nadege Parker Departed Clinical [facility] May 20, 2020 8:31am May 20, 2020 8:32am Twyla Navarrete Departed Physician/Pr ovider Office Visit [facility] May 19, 2020 10:40am May 19, 2020 11:59pm Twyla Navarrete Departed Clinical [facility] May 01, 2020 11:04am May 01, 2020 11:05am Windy Contreras Departed Physician/Pr [facility]ider [facility] May 01, 2020 10:09am [...]
--- OUTSIDE RECORDS SUMMARY | 2023-02-16 11:51 | XMS_ITS | Continuity of Care Document ---
Author Name [facility] Address [address] [place] [address] Organization [facility] Address [address] [place] [address] Care Team Providers Care Tree Doctor Name Role Phone Jyothi Arteaga Primary Care Physician Jyothi Arteaga Attending Physician [phone] Allergies, Adverse Reactions, Alerts No known allergies. [...] have a copy on file here at [facility]? No May 23, 2016 9:44am Does patient have an Advanced Directive? No December 09, 2012 11:08am Pt has a Living Will? No December 09, 2012 11:08am Pt has a Power of Docent Coordinator? No Deco 2012 11:08am Hospital Discharge Instructions No known hospital discharge instructions. Hospital Discharge Medications Medication Dose Units Route Sig Qty Days Order Date Status Ins tructions Levonorgestrel-Et hinyl Estrad September Active Amoxicillin-Pot Clavulanate 1 TAB ORAL TWICE A DAY 14 September 062017 Active Encounters Encounter Facility Location Admit/Visit Date Discharge/Departure Date Attending Provider Departed Referred [facility] [place] March 21, 2018 7:00pm March 21, 2018 7:01pm Jyothi Arteaga Departed Clinical [facility] December 21, 2017 4:52pm December 21, 2017 4:53pm Arik Rosas Departed Clinical [facility] November 09, 2017 2:36pm November 09, 2017 2:37pm Felicia Rodrigez Departed Emergency [facility] Urgent [facility] September 26, 2017 2:24pm September 26, 2017 2:59pm Functional Status No known functional status. Immunizations No known immunizations. Payers Payer Name Policy Type Covered Alliance Party Covered Alliance Party Id Relationship Subscriber Subscriber Id [place] Medicaid FAITH RAMSES [id number] Self/Same as Patient TERA RAMSES [id number] SELF PAY Personal [place] MEDICAID (DO NOT USE) Medicaid TERA RAMSES [id number] Self/Same as Patient TERA PEARCE [id number] Plan of Care No Known Plan of [...]
--- OUTSIDE RECORDS SUMMARY | 2023-02-16 11:51 | XMS_ITS | Continuity of Care Document ---
Author Name Unknown Address [address] [place] [address] Phone [facility] Address [address] [place] [address] Phone Care Team Providers Care Manager Ui Name Role Phone Jyothi Arteaga Primary Care Provider [phone] Ed Velásquez Attending Provider [phone] Diana Chaidez Attending Provider Allergies, Adverse Reactions, Alerts No known allergies. Medications Medication Status Dose Units Route Sig Qty Days Start Date End Date Instructions Levonorgestre l-Ethinyl Estrad Active 1 TAB PO DAILY 84 August 17, 2018 1:08pm flu vaccine [id number] (36 mos up)(PF)60 mcg (15 mcg x4)/0.5 mL IM susp Discontinued 60 MCG IM ONCE 0.5 July 27, 2018 11:15am July 27, 2018 11:33 am tuberculin PPD Discontinued 0.1 ML ID ONCE 0.1 July 06, 2018 3:45pm July 06, 2018 4:03p m Levonorgestre l-Ethinyl Estrad (Vienva) 0.1-20 mg-mcg tablet Discontinued TABLET September 26, 2017 2:36pm August 17, 2018 1:09p m Amoxicillin-P ot Clavulanate (Augmentin) 875-125 mg tablet Discontinued 1 TAB PO TWICE A DAY 14 September 26, 2017 2:57pm July 27, 2018 11:32 am Problems Active Problems Medical Problem Onset Date Status Effusion of knee December 06, 2017 Active Otalgia June 11, 2016 Active Anxiety Active Knee pain November 09, 2017 Active Inactive/Resolved Problems Medical Problem Onset Date Status Laceration of foot, left Resolve d Procedures Procedure Date Performed Status Knee 3 vw RT May 01, 2019 3:59pm compl eted Relevant Diagnostic Tests and/or Laboratory Data Diagnostic Imaging Reports Report Dictated Date/Time Dictated By Status Radiology Report May 01, 2019 4:21pm Briana Monique MD completed [facility] RADIOLOGY REPORT PATIENT NAME: Nayeli Pearce [id number] DATE OF : 2000 ATTENDING/ER PHYSICIAN: Ed Velásquez MD ER/ATTENDING PHYSICIAN: PRIMARY CARE PHYS: Jyothi Arteaga MD ADMITTING PHYSICIAN: CONSULTING PHYSICIAN: PROCEDURE DATE: 05/01/19 REPORT STATUS: Signed DICTATING PHYSICIAN: Briana Monique MD REASON FOR EXAM: right knee pain after fall onto knee; pain anterior and medial knee STUDY: Knee 3 vw RT CLINICAL HISTORY: Right knee pain after fall onto knee, pain anterior and medial knee. COMPARISON: None. FINDINGS/IMPRESSION: There is no acute fracture or dislocation. Normal joint space is maintained in medial, lateral and patellofemoral compartments. No joint effusion is identified. dd: 05/01/19 1621 <Electronically signed by Briana Monique MD in [place]> 05/01/19 1622 Advance Directives Advance Directive Response Recorded Date/ Time Does patient have an Advanced Directive? No December 09, 2012 11:08am Do we have a copy on file here at [facility]? No May 23, 2016 9:44am Pt has a Living Will? No December 11:08am Do we have a copy on file here at [facility]? No May 23, 2016 9:44am Pt has a Power of Alarm Mechanism Adjuster? No 2012 11:08am Do we have a copy on file here at [facility]? No May 23, 2016 9:44am Chief Complaint and Reason for Visit Chief Complaint Injury Xray counseling COUNSELING - [phone] - LT KNEE counseling counseling Control Reason for Visit Knee pain Anxiety Encounters Encounter Location(s) Arrival/Admit Date Discharge/Depart Date Provider(s) Departed Physician/Prov ider Office Visit [facility] [address] May 01, 2019 2:11pm May 01, 2019 2:42pm Ed Velásquez MD Departed Clinical [facility] May 01, 2019 3:53pm May 01, 2019 3:54pm Ed Velásquez MD Departed Physician/Prov ider Office Visit [facility] May 10, 2019 1:54pm May 10, 2019 2:51pm Virgil Tamez Departed Physician/Prov ider Office Visit [facility] May 24, 2019 2:01pm May 24, 2019 2:13pm Virgil Tamez [facility]arted Physician[facility] August 16, 2019 10:18am August 16, 2019 1:51pm Chris Bearden MD Departed Physician/Prov ider Office Visit [facility] August 17, 2019 7:59am August 17, 2019 1:58pm Virgil Tamez Departed Physician/Prov ider Office [facility] August 29, 2019 9:48am August 29, 2019 1:49pm Virgil Tamez Departed Physician[facility]Prov [facility] August 31, 2019 9:48am August 31, 2019 10:13am Diana Chaidez MD Departed Referred [facility] SHEET METAL INSULATOR August 31, 2019 10:03am August 31, 2019 10:04am Diana Chaidez MD Recent Diagnosis Onset Date Knee pain November 09, 2017 Anxiety Assessments Diagnosis Onset Date Resolution Status Knee pain November 09, 2017 noneacti ve Anxiety noneactive Family History Relationship Condition Age at Onset Recorded Date/T carie Parent Family history non-contributory Unknown Parent Family history non-contributory Unknown Not Specified Diabetes mellitus Unknown Cardiac disease Unknown Functional Status No Functional Status information available Goals Goals may be documented in an alternate section. Immunizations Immunization Event Date Not Given Reason Dose Number Application Spec Lot Number Vaccine Information Statement (VIS) Detail DTP vaccine (H) 2002 DTP vaccine (H) March 13, 2003 DTP vaccine (H) July 13, 2003 DTP vaccine (H) February 05, 2004 DTP vaccine (H) October 03, 2007 Hepatitis A Pediatric/Adolesc ent April 26, 2014 Hepatitis A Pediatric/Adolesc ent May 22, 2015 Hepatitis B UNSP (H) 2002 Hepatitis B UNSP (H) March 13, 2003 Hepatitis B UNSP (H) July 13, 2003 HIB, Unspecified (H) 2002 HIB, Unspecified (H) March 13, 2003 HIB, Unspecified (H) July 13, 2003 HIB, Unspecified (H) June 02, 2004 HPV 4 (H) April 26, 2014 HPV 4 (H) May 22, 2015 Influenza IIV4 PF July 27, 2018 [id number] Influenza IIV3 April 10, 2011 Influenza Virus Vaccine (H) February 04, 2006 Influenza Virus Vaccine (H) February 10, 2006 Influenza Virus Vaccine (H) December 29, 2006 Influenza Virus Vaccine (H) January 27, 2008 Influenza Virus Vaccine (H) April 26, 2009 Meningococcal Conjugate MCV4 (Menactra) April 26, 2014 Measles,Mumps,Rub melody Vaccine June 02, 2004 Measles,Mumps,Rub melody Vaccine October 03, 2007 Pneumococcal Unspecified (H) 2002 Pneumococcal Unspecified (H) March 13, 2003 Pneumococcal Unspecified (H) November 23, 2003 Pneumococcal Unspecified (H) February 05, 2004 Polio unspecified (H) 2002 Polio unspecified (H) March 13, 2003 Polio unspecified (H) July 13, 2003 Polio unspecified (H) November 09, 2006 Tdap April 26, 2014 Varicella Virus Vaccine (Varivax) November 23, 2003 Varicella Virus Vaccine (Varivax) October 03, 2007 Mental Status No Mental Status Information Available Medical Equipment No Medical Equipment Information available Insurance Providers Guarantor Norris Pearce Address [address] [address] Contact Info. Home Phone: Payer Policy Id Coverage Id Subscriber's Name Subscriber Id Effective Date Expiration Date MEDICAID [facility] [id number] NAYELI PEARCE [id number] SELF PAY Self N/A [place] MEDICAID (DO NOT USE) [id number] NAYELI PEARCE [id number] 2015 Plan of Treatment #CC: newly sexually active G0, on cOCPs and reports medication adherence. Discussed efficacy of oral contraceptive pills, with 97% for perfect use and 93% for typical use. - GCCT today - Pt instructed to take pill at same time daily and use condoms to prevent against sexually transmitted infections TREATMENT GOAL: 1) Build therapeutic alliance 2) Explore strategies and coping skills to reduce feelings of anxiety 3) Support pt in being more comfortable around male peers. STATUS: New SELF MANAGEMENT GOAL: taking a drive CURRENT SUPPORTS: pt reports father and stepmom are supportive TRIGGERS: None identified STRENGTHS: resilient, independent, motivated to make positive changes. Assessment: Pt presents with symptoms of anxiety and possibly some depression. Pt is extremely busy with school and work and appears to have high expectations of herself. Pt has friends that are trustworthy and a source of support however pt, at least during this interview, does not use them to lean on with issues that are troubling to pt. Pt is motivated to explore strategies to reduce anxiety. Pt is also motivated to improve relationships with males she is not best friends with. TREATMENT GOAL:1) Plan to continue to build therapeutic alliance 2) Continue to explore coping skills and strategies to reduce feelings of anxiety STATUS: On going SELF MANAGEMENT GOAL: Continue to take country drives in the car, get outside for fresh air Assessment Completed successful phone check-in with pt. Pt was open and engaged during phone call. TREATMENT GOAL:1) Plan to continue to build therapeutic alliance 2) Continue to explore coping skills and strategies to reduce feelings of anxiety STATUS: On going SELF MANAGEMENT GOAL: Continue to take country drives in the car, get outside for fresh air CURRENT SUPPORTS: friends TRIGGERS: boyfriend STRENGTHS: resilient, volunteer rescue, family Assessment: Pt did not follow up with this data analyst report writer when COVID-19 began. Pt recently reached out on her own to this data analyst report writer to improve symptoms associated with anxiety. Pt appears to be still somewhat reserved but if pt and this data analyst report writer meet consistently every two weeks, a therapeutic alliance may be formed and pt may be able to feel comfortable in the therapeutic relationship so that pt may disclose what pt is holding back on. Future Tests Future scheduled test information is unavailable Pending Tests Pending diagnostic test information is unavailable Future Visits Future appointment information is unavailable Referrals to Other Providers Referral information is unavailable Future Procedures Future procedure information is unavailable Future Medications Future medication information is unavailable Patient Instructions Patient instructions are unavailable Social History Smoking Status Status Date of Observation Never smoked tobacco (finding) August 10:13am Observation Status Observation Response Date of Response Alcohol Use No September 27, 2017 6:55am Smoking Status Never smoker August 31, 2019 10:13am Assigned Sex Female Vital Signs Vital Reading Result Reference Range Collection Date/Time Weight 113.00 kg May 01, 2019 2:22pm Body Temperature 98.9 [degF] 97.6-99.6 May 012019 2:22pm BP Systolic 110 mm[Hg] 102-133 May 01, 2019 2:22pm BP Diastolic 60 mm[Hg] 61-85 May 01, 2019 2:22pm Height 65 [in_i] August 31, 2019 9:58am Weight 115.43 kg August 31, 2019 9:59am BP Systolic 118 mm[Hg] 102-133 August 31, 2019 9:59am BP Diastolic 64 mm[Hg] 61-85 August 31, 2019 9:59am
--- OUTSIDE RECORDS SUMMARY | 2023-02-16 11:51 | XMS_ITS | Continuity of Care Document ---
Author Name [facility] Address [address] [place] [id number] Organization [facility] Address [address] [place] [address] Care Team Providers Care Keller Machine Operator Name Role Phone Jyothi Arteaga Primary Care Physician [phone] Allergies, Adverse Reactions, Alerts No known allergies. [...] December 20, 2020 Disconti nued flu vac [id number] 36mos up(PF) 60 MCG INTRAMUS CULAR ONCE [...] November 04, 2020 Disconti nued flu vacc [id number] 6mos up(PF) 0.5 ML INTRAMUS CULAR ONCE [...] Contact Location October 07, 2020 Jyothi Arteaga [phone] [facility] [place] [address] Relevant Diagnostic Tests and/or Laboratory Data Laboratory [...] November 19, 2020 11:18am Negative Urine Specific [place] (Manual) November 19, 2020 11:18am 1.020 POC [...] September 12, 2020 4:01pm 6.5 Urine Specific [place] September 12, 2020 4:01pm 1.015 Urine Protein [...] sheets for providers can be found at: Well[employer]gov/media/1362 85/download Fact sheets for patients can be found at: Well[employer]gov/[employer]/1362 87/download TB Test (QFT) Antigen Minus Nil [...] [facility] [address] [place] [address] Photographic Specialist: Boone Escudero M.D. Ph.D.; [facility]# [id number] Microbiology Results Procedure Source Result Collection Date/Time [...] November 04, 2020 Discontinu ed flu vac [id number] 36mos up(PF) 60 MCG INTRAMUSCU LAR ONCE [...] September 30, 2020 Discontinu ed flu vacc [id number] 6mos up(PF) 0.5 ML INTRAMUSCU LAR ONCE 0.5 May 01, 2020 Discontinu ed Encounters Encounter Facility Location Admit/Visit Date Discharge/Departure Date Attending Provider Departed Emergency [facility] Emergency Department February 22, 2021 1:48pm February 22, 2021 5:28pm Departed Emergency [facility] February 22, 2021 12:49pm February 22, 2021 1:47pm Departed Emergency [facility] Emergency Department December 21, 2020 8:46am December 21, 2020 12:00pm Departed Physician/Pr ovider Office Visit [facility] Pediatrics [facility] December 20, 2020 4:18pm December 20, 2020 4:47pm Maite Garcia Departed Physician/Pr ovider Office Visit [facility] Pediatrics [facility] November 19, 2020 10:32am November 19, 2020 11:29am Felicia Rodrigez Departed Physician/Pr ovider Office Visit [facility] November 15, 2020 2:11pm November 15, 2020 2:55pm Antwon Jackson Departed Physician/Pr ovider Office Visit [facility] Pediatrics [facility] November 04, 2020 10:01am November 04, 2020 10:26am Jyothi Arteaga Departed Physician/Pr ovider Office Visit [facility] October 16, 2020 1:25pm October 16, 2020 1:55pm Antwon Jackson Departed Emergency [facility] October 11, 2020 7:11pm October 11, 2020 9:23pm Departed Clinical [facility] Cardiology October 08, 2020 1:55pm October 08, 2020 1:56pm Jyothi Arteaga Departed Physician/Pr ovider Office Visit [facility] Cardiology October 08, 2020 1:50pm October 08, 2020 11:59pm Diann Oakes Departed Physician/Pr ovider Office Visit [facility] Pediatrics [facility] October 07, 2020 12:53pm October 07, 2020 2:16pm Jyothi Arteaga Departed Emergency [facility] Emergency Department 2020 8:52am 2020 10:22am Departed Emergency [facility] Emergency Department September 30, 2020 4:35pm September 30, 2020 8:56pm Departed Emergency [facility] September 30, 2020 2:40pm September 30, 2020 4:44pm Departed Referred [facility] Lab [facility] [place] September 12, 2020 4:01pm September 12, 2020 4:02pm Ian Garcia Departed Physician/Pr ovider Office Visit [facility] September 12, 2020 3:24pm September 12, 2020 4:17pm Ian Garcia Departed Clinical [facility] Laboratory August 30, 2020 2:39pm August 30, 2020 2:40pm Jyothi Arteaga Departed Physician/Pr ovider Office Visit [facility] August 30, 2020 1:59pm August 30, 2020 4:00pm Jyothi Arteaga Departed Physician/Pr ovider Office Visit [facility] August 19, 2020 8:59am August 19, 2020 11:18am Jyothi Arteaga Departed Physician/Pr ovider Office Visit [facility] August 06, 2020 8:07am August 06, 2020 3:16pm Joi Herman Departed Emergency [facility] Emergency Department July 27, 2020 3:43pm July 27, 2020 5:11pm Departed Physician/Pr ovider Office Visit [facility] July 24, 2020 7:51am July 24, 2020 1:52pm Joi Herman Departed Physician/Pr ovider Office Visit [facility] Occupational Health [facility] July 18, 2020 2:47pm July 18, 2020 2:47pm Windy Contreras Departed Physician/Pr ovider Office Visit [facility] July 12, 2020 7:56am July 12, 2020 11:59pm Jyothi Arteaga Departed Physician/Pr ovider Office Visit [facility] July 09, 2020 10:31am July 09, 2020 9:21pm Joi Herman Departed Emergency [facility] Emergency Department July 04, 2020 10:57am July 04, 2020 11:59am Departed Clinical [facility] June 27, 2020 8:16am June 27, 2020 8:17am Windy Contreras Departed Physician/Pr ovider Office Visit [facility] June 21, 2020 7:52am June 21, 2020 3:38pm Joi Herman Departed Physician/Pr ovider Office Visit [facility] June 21, 2020 7:50am June 21, 2020 11:59pm Jyothi Arteaga Departed Physician/Pr ovider Office Visit [facility] June 14, 2020 3:05pm June 14, 2020 11:59pm Jyothi Arteaga Departed Referred [facility] LAB [facility] May 20, 2020 1:55pm May 20, 2020 1:56pm Nadege Parker Departed Physician/Pr ovider Office Visit [facility] May 20, 2020 1:16pm May 20, 2020 2:13pm Nadege Parker Departed Clinical [facility] May 20, 2020 8:31am May 20, 2020 8:32am Twyla Navarrete Departed Physician/Pr ovider Office Visit [facility] May 19, 2020 10:40am May 19, 2020 11:59pm Twyla Navarrete Departed Clinical [facility] May 01, 2020 11:04am May 01, 2020 11:05am Windy Contreras Departed Physician[facility]Pr [facility] May 01, 2020 [...]
--- OUTSIDE RECORDS SUMMARY | 2023-02-16 11:51 | XMS_ITS | Continuity of Care Document ---
Author Name [facility] Address [address] [place] [address] Organization [facility] Address [address] [place] [address] Care Team Providers Care Tie Mill Operator Name Role Phone Juan Carlos Santana JR Primary Care Physician [phone] Allergies, Adverse Reactions, Alerts No known allergies. [...] December 20, 2020 Disconti nued flu vac [id number] 36mos up(PF) 60 MCG INTRAMUS CULAR ONCE [...] November 04, 2020 Disconti nued flu vacc [id number] 6mos up(PF) 0.5 ML INTRAMUS CULAR ONCE [...] November 19, 2020 11:18am Negative Urine Specific [place] (Manual) November 19, 2020 11:18am 1.020 POC [...] September 12, 2020 4:01pm 6.5 Urine Specific [place] September 12, 2020 4:01pm 1.015 Urine Protein [...] November 04, 2020 Discontinu ed flu vac [id number] 36mos up(PF) 60 MCG INTRAMUSCU LAR ONCE [...] September 30, 2020 Discontinu ed Amitriptyline [facility] 2021 Active flu vacc [id number] 6mos up(PF) 0.5 ML INTRAMUSCU LAR ONCE 0.5 May 01, 2020 Discontinu ed Encounters Encounter Facility Location Admit/Visit Date Discharge/Departure Date Attending Provider Departed Emergency [facility] May 12, 2021 11:36am May 12, 2021 12:40pm Departed Physician/Pr ovider Office Visit [facility] WELDING INSTRUCTOR May 01, 2021 2:45pm May 01, 2021 3:00pm Fortunato Quezada Departed Clinical [facility] April 24, 2021 9:03am April 24, 2021 9:04am Juan Carlos Santana JR Departed Clinical [facility] April 01, 2021 9:05am April 01, 2021 9:06am Juan Carlos Santana JR Departed Referred [facility] March 27, 2021 6:39pm March 27, 2021 6:40pm Juan Carlos Santana JR Registered Inpatient [facility] Pediatrics [facility] March 06, 2021 3:15pm Soni Santa Departed Emergency [facility] Emergency Department February 22, 2021 1:48pm February 22, 2021 5:28pm Departed Emergency [facility] February 22, 2021 12:49pm February 22, 2021 1:47pm Departed Emergency [facility] Emergency Department December 21, 2020 8:46am December 21, 2020 12:00pm Departed Physician/Pr ovider Office Visit [facility] Pediatrics [facility] December 20, 2020 4:18pm December 20, 2020 4:47pm Maite Garcia Departed Physician/Pr ovider Office Visit [facility] Pediatrics [facility] November 19, 2020 10:32am November 19, 2020 11:29am Felicia Rodrigez Departed Physician/Pr ovider Office Visit [facility]Cesar [facility] November 15, 2020 2:11pm November 15, 2020 2:55pm Antwon Jackson Departed Physician/Pr ovider Office Visit [facility] Pediatrics [facility] November 04, 2020 10:01am November 04, 2020 10:26am Jyothi Arteaga Departed Physician/Pr ovider Office Visit [facility] October 16, 2020 1:25pm October 16, 2020 1:55pm Antwon Jackson Departed Emergency [facility] Urgent [facility] October 11, 2020 7:11pm October 11, 2020 9:23pm Departed Clinical [facility] Cardiology October 08, 2020 1:55pm October 08, 2020 1:56pm Jyothi Arteaga Departed Physician/Pr ovider Office Visit [facility] Cardiology October 08, 2020 1:50pm October 08, 2020 11:59pm Diann Oakes Departed Physician/Pr ovider Office Visit [facility] Pediatrics [facility] October 07, 2020 12:53pm October 07, 2020 2:16pm Jyothi Arteaga Departed Emergency [facility] Emergency Department 2020 8:52am 2020 10:22am Departed Emergency [facility] Emergency Department September 30, 2020 4:35pm September 30, 2020 8:56pm Departed Emergency [facility] Urgent [facility] September 30, 2020 2:40pm September 30, 2020 4:44pm Departed Referred [facility] Lab [facility] Peds [place] September 12, 2020 4:01pm September 12, 2020 4:02pm Ian Garcia Departed Physician/Pr ovider Office Visit [facility] September 12, 2020 3:24pm September 12, 2020 4:17pm Ian Garcia Departed Clinical [facility] Laboratory August 30, 2020 2:39pm August 30, 2020 2:40pm Jyothi Arteaga Departed Physician/Pr ovider Office Visit [facility] Pediatrics [facility] August 30, 2020 1:59pm August 30, 2020 4:00pm Jyothi Arteaga Departed Physician/Pr ovider Office Visit [facility] Pediatrics [facility] August 19, 2020 8:59am August 19, 2020 11:18am Jyothi Arteaga Departed Physician/Pr ovider Office Visit [facility] Pediatrics [facility] August 06, 2020 8:07am August 06, 2020 3:16pm Joi Herman Departed Emergency [facility] Emergency Department July 27, 2020 3:43pm July 27, 2020 5:11pm Departed Physician/Pr ovider Office Visit [facility] July 24, 2020 7:51am July 24, 2020 1:52pm Joi Herman Departed Physician/Pr ovider Office Visit [facility] Occupational Health [facility] July 18, 2020 2:47pm July 18, 2020 2:47pm Windy Contreras Departed Physician/Pr ovider Office Visit [facility] July 12, 2020 7:56am July 12, 2020 11:59pm Jyothi Arteaga Departed Physician/Pr ovider Office Visit [facility] July 09, 2020 10:31am July 09, 2020 9:21pm Joi Herman Departed Emergency [facility] Emergency Department July 04, 2020 10:57am July 04, 2020 11:59am Departed Clinical [facility] June 27, 2020 8:16am June 27, 2020 8:17am Windy Contreras Departed Physician/Pr ovider Office Visit [facility] June 21, 2020 7:52am June 21, 2020 3:38pm Joi Herman Departed Physician/Pr ovider Office Visit [facility] June 21, 2020 7:50am June 21, 2020 11:59pm Jyothi Arteaga Departed Physician/Pr ovider Office Visit [facility] June 14, 2020 3:05pm June 14, 2020 11:59pm Jyothi Arteaga Departed Referred [facility] LAB [facility] May 20, 2020 1:55pm May 20, 2020 1:56pm Nadege Parker Departed Physician/Pr ovider Office Visit [facility] May 20, 2020 1:16pm May 20, 2020 2:13pm Nadege Parker Departed Clinical [facility] May 20, 2020 8:31am May 20, 2020 8:32am Twyla Navarrete Departed Physician/Pr ovider Office Visit [facility] May 19, 2020 10:40am May [...] 2021 11:45am Blood Pressure Systolic 124 102-133 [facility] 2021 11:45am Blood Pressure Diastolic 62 61-85 [facility] 2021 11:45am Body Mass Index 37.0 November 2:21pm
--- OUTSIDE RECORDS SUMMARY | 2023-02-16 11:52 | XMS_ITS | Continuity of Care Document ---
Author Name Unknown Address [address] [place] [address] Phone [facility] Address [address] [place] [address] Phone Support Name Relationship Address Phone RAMSES SOLOMON Father Unknown [phone] Step Mother Unknown [employer], Conversion Attending Provider Unknown Analia vailable Bonnie Watts Emergency Provider Unknown Unavai lable Medent, Conversion Attending Provider Unknown Analia vailable Med[facility], Conversion Attending Provider Unknown Analia vailable Medent, Conversion Attending Provider Unknown Analia vailable Medent, Conversion Attending Provider Unknown Analia vailable Medent, Conversion Attending Provider Unknown Analia vailable Medent, Conversion Attending Provider Unknown Analia vailable Medent, Conversion Attending Provider Unknown Analia vailable Medent, Conversion Attending Provider Unknown Analia vailable Medent, Conversion Attending Provider Unknown Analia vailable Medent, Conversion Attending Provider Unknown Analia vailable Jyothi Arteaga Primary Care Provider Unknown Un available Chandler Arora Attending Provider Unknown Unavail able Referral, Self Referring Provider Unknown Unavail able Yvonne Frazier Attending Provider Unknown Unavai lable Jyothi Arteaga Primary Care Provider Unknown Un available Referral, Self Referring Provider Unknown Unavail able Yvonne Frazier Attending Provider Unknown Unavai labJyothi Ferreira Primary Care Provider Unknown Un available Referral, Self Referring Provider Unknown Unavail able Care Team Providers Care Conveyor Loader Name Role Phone Jyothi Arteaga Primary Care Provider Unavailab Jyothi Ferreira Primary Care Provider Unavailab Felicia Stokes Attending Provider Unavailable Jyothi Arteaga Primary Care Provider Unavailab Arik Salcido JR Attending Provider Unavail able Jyothi Arteaga Primary Care Provider Unavailab Jyothi Ferreira Attending Provider Unavailable Allergies, Adverse Reactions, Alerts No known allergies. Medications Medication Status Dose Units Route Sig Qty Days Start Date End Date Instructions Levonorgestrel- Ethinyl Estrad Active TABLET September 2:36pm Problems Active Problems Medical Problem Onset Date Status Effusion of knee December 06, 2017 Active Otalgia June 11, 2016 Active Knee pain November 09, 2017 Active Inactive/Resolved Problems Medical Problem Onset Date Status Laceration of foot, left Resolve d Procedures Procedure Date Performed Status Knee 1 or 2 vw LT November 09, 2017 completed Group A Streptococcus Screen (YVES) March 21, 2018 completed MRI LT Lower Ext Jt w/o Contr December 21, 2017 completed Relevant Diagnostic Tests and/or Laboratory Data Microbiology Results Procedure Source Result Collection Date/Time Result Date/Time Result Comment Performing Site Group A Streptococcus Screen (YVES) Throat March 21, 2018 4:35pm March 23, 2018 8:08am MAIN LAB, [address] [place] [address] Diagnostic Imaging Reports Report Dictated Date/Time Dictated By Status Radiology Report November 09, 2017 4:27pm Naseem Crump MD completed [facility] RADIOLOGY REPORT PATIENT NAME: NAYELI PEARCE [id number] DATE OF : 2000 ATTENDING/ER PHYSICIAN: Felicia Rodrigez MD ER/ATTENDING PHYSICIAN: PRIMARY CARE PHYS: Jyothi Arteaga MD ADMITTING PHYSICIAN: CONSULTING PHYSICIAN: PROCEDURE DATE: 11/09/17 REPORT STATUS: Signed DICTATING PHYSICIAN: Naseem Crump MD REASON FOR EXAM: PAIN IN LEFT KNEE LEFT KNEE, 2 VIEWS TECHNIQUE: A 2 view exam was requested. AP and lateral images were obtained. COMPARISON: None. FINDINGS: No opaque foreign body, soft tissue calcification, significant joint effusion, fracture, dislocation, arthritis, destructive lesion or other osseous or joint abnormality are demonstrated in the left knee. Joint spaces are maintained on supine images. IMPRESSION: No abnormalities demonstrated by two-view radiographic exam. dd: 11/09/17 162 <Electronically signed by Naseem Crump MD in [place]> 11/09/17 1629 Radiology Report December 21, 2017 8:18pm Briana Monique MD completed [facility] MRI REPORT PATIENT NAME: NAYELI PEARCE [id number] DATE OF : 2000 ATTENDING/ER PHYSICIAN: Arik Rosas Jr., DO ER/ATTENDING PHYSICIAN: PRIMARY CARE PHYS: Jyothi Arteaga MD ADMITTING PHYSICIAN: CONSULTING PHYSICIAN: PROCEDURE DATE: 12/21/17 REPORT STATUS: Signed DICTATING PHYSICIAN: Briana Monique MD REASON FOR EXAM: LEFT KNEE PAIN M25.562 STUDY: MRI LT Lower Ext Jt w/o Contr CLINICAL HISTORY: Left knee pain status post sliding injury November 04. COMPARISON: Radiograph of the left knee dated 11/09/2017. TECHNIQUE: Noncontrast MRI of the knee was performed with axial and sagittal PD and T2 fat-suppressed images. Sagittal 3DFE images, coronal T1 and T2 fat-suppressed images were also obtained. Preliminary questionnaire demonstrated no MR contraindications. FINDINGS: Please note, the exam is somewhat suboptimal secondary to lack of ability to use the appropriate extremity coil given the patient's body habitus. A region of bone marrow edema is noted in the medial tibial plateau, predominantly posteriorly. No T1 hypointense signal to suggest fracture. Findings are therefore suggestive of bone contusion in the setting of prior trauma. Alternative etiologies such as stress reaction could also have a similar appearance. The medial and lateral menisci are unremarkable. The anterior and posterior cruciate ligaments are intact. The extensor mechanism is unremarkable. There is no joint effusion or Vieyra's cyst. The medial collateral ligament and lateral collateral ligament complex are intact and unremarkable. The patellar, trochlear, femoral, and tibial articular cartilage are intact and unremarkable. The musculature is normal in appearance and signal characteristics. IMPRESSION: Nonspecific bone marrow edema in the medial tibial plateau, likely representing bone contusion in the setting of prior trauma. dd: 12/21/17 2018 <Electronically signed by Briana Monique MD in [place]> 12/21/172022 Chief Complaint and Reason for Visit Chief Complaint Xray LEFT KNEE PAIN M25.562 PPD Office visit nursing note Immunizations Encounters Encounter Location(s) Arrival/Admit Date Discharge/Depart Date Provider(s) Departed Physician/Prov ider Office Visit [facility] July 28, 2017 12:00am July 28, 2017 Conversion Medent Departed Emergency [facility] September 26, 2017 2:24pm September 26, 2017 2:59pm null Departed Physician/Prov ider Office Visit [facility] October 13, 2017 12:00am October 13, 2017 Conversion Medent Departed Physician/Prov ider Office Visit [facility] October 29, 2017 12:00am October 29, 2017 Conversion Medent Departed Physician/Prov ider Office Visit [facility] November 03, 2017 12:00am November 03, 2017 Conversion Medent Departed Physician/Prov ider Office Visit [facility] November 09, 2017 12:00am November 09, 2017 Conversion Medent Departed Clinical [facility] November 09, 2017 2:36pm November 09, 2017 2:37pm Felicia Rodrigez MD Departed Physician/Prov ider Office Visit [facility] November 22, 2017 12:00am November 22, 2017 Conversion Medent Departed Physician/Prov ider Office Visit [facility] December 06, 2017 12:00am December 06, 2017 Conversion Medent Departed Physician/Prov ider Office Visit [facility] December 15, 2017 12:00am December 15, 2017 Conversion Medent Departed Clinical [facility] December 21, 2017 4:52pm December 21, 2017 4:53pm Arik Rosas Jr., DO Departed Physician/Prov ider Office Visit [facility] December 29, 2017 12:00am December 29, 2017 Conversion Medent Departed Physician/Prov ider Office Visit [facility] January 31, 2018 12:00am January 31, 2018 Conversion Medent Departed Physician/Prov ider Office Visit [facility] March 21, 2018 12:00am March 21, 2018 Conversion Medent Departed Referred [facility] March 21, 2018 7:00pm March 21, 2018 7:01pm Jyothi Arteaga MD Departed Physician/Prov ider Office Visit [facility] July 06, 2018 3:48pm July 06, 2018 11:59pm Chandler Arora Departed Physician/Prov ider Office Visit [facility] July 08, 2018 3:54pm July 08, 2018 11:59pm Yvonne Frazier MA Departed Physician/Prov ider Office Visit [facility] July 27, 2018 11:14am July 27, 2018 12:53pm Yvonne Frazier MA Assessments No Assessments Information Available Family History Relationship Condition Age at Onset Recorded Date/T carie Parent Family history non-contributory Unknown Parent Family history non-contributory Unknown Not Specified Diabetes mellitus Unknown Cardiac disease Unknown Functional Status Observation Response Date Recorded Living Situation With Family September 26, 2017 2:36pm Goals No Goals Information Available Immunizations Immunization Event Date Not Given Reason Dose Number District Adviser Lot Number Vaccine Information Statement (VIS) Detail DTP vaccine 2002 VIS not given DTP vaccine March 13, 2003 VIS not given DTP vaccine July 13, 2003 VIS no t given DTP vaccine February 05, 2004 VIS not given DTP vaccine October 03, 2007 VIS not given Hepatitis A Pediatric/Adolesc ent April 26, 2014 VIS not given Hepatitis A Pediatric/Adolesc ent May 22, 2015 VIS not given Hepatitis B UNSP 2002 VIS not given Hepatitis B UNSP March 13, 2003 VIS not given Hepatitis B UNSP July 13, 2003 V IS not given HIB, Unspecified 2002 VIS not given HIB, Unspecified March 13, 2003 VIS not given HIB, Unspecified July 13, 2003 V IS not given HIB, Unspecified June 02, 2004 VIS not given HPV 4 April 26, 2014 VIS not given HPV 4 May 22, 2015 VIS not given Influenza IIV4 PF July 27, 2018 [id number] VIS not given Influenza IIV3 April 10, 2011 VIS not given Influenza Virus Vaccine February 04, 2006 VIS not given Influenza Virus Vaccine February 10, 2006 VIS not given Influenza Virus Vaccine December 29, 2006 VIS not given Influenza Virus Vaccine January 27, 2008 VIS not given Influenza Virus Vaccine April 26, 2009 VIS not given Meningococcal Conjugate MCV4 (Menactra) April 26, 2014 VIS not given Measles,Mumps,Rub melody Vaccine June 02, 2004 VIS not given Measles,Mumps,Rub melody Vaccine October 03, 2007 VIS not given Pneumococcal Unspecified 2002 VIS not given Pneumococcal Unspecified March 13, 2003 VIS not given Pneumococcal Unspecified November 23, 2003 VIS not given Pneumococcal Unspecified February 05, 2004 VIS not given Polio unspecified 2002 VIS not given Polio unspecified March 13, 2003 VIS not given Polio unspecified July 13, 2003 VIS not given Polio unspecified November 09, 2006 VIS not given Tdap April 26, 2014 VIS not given Varicella Virus Vaccine November 23, 2003 VIS not given Varicella Virus Vaccine October 03, 2007 VIS not given Mental Status No Mental Status Information Available Medical Equipment No Medical Equipment Information available Insurance Providers Guarantor Norris Pearce Address [address] [facility] [address] Contact Info. Home Phone: Payer Policy Id Coverage Id Subscriber's Name Subscriber Id Effective Date Expiration Date [place] [id number] Nayeli Pearce [id number] SELF PAY Self N/A [place] MEDICAID (DO NOT USE) [id number] Nayeli Pearce [id number] 2015 Plan of Treatment Future Tests Future scheduled test information is unavailable Pending Tests Pending diagnostic test information is unavailable Future Visits Future appointment information is unavailable Referrals to Other Providers Reason for Referral Referral Start Date Provider Provider Contact Information Provider Address Gigi Roe Work Phone: [facility] [address] [facility] [address] Future Procedures Future procedure information is unavailable Future Medications Future medication information is unavailable Patient Instructions Patient instructions are unavailable Social History Assigned Sex Female Vital Signs Vital Reading Result Reference Range Collection Date/Time Weight 105.68 kg September 26, 2017 2:36pm Body Temperature 98.7 [degF] 97.6-99.6 September 26, 2017 2:36pm Heart Rate 66 /min 56-106 September 26, 2017 2:36pm Respiratory rate 17 /min 16-24 September 26, 2017 2:36pm Oxygen saturation by Pulse oximetry 98 % 95-100 September 26, 2017 2:36 pm BP Systolic 120 mm[Hg] 102-133 September 26, 2017 2:36pm BP Diastolic 76 mm[Hg] 61-85 September 26, 2017 2:36pm
--- OUTSIDE RECORDS SUMMARY | 2023-02-16 11:52 | XMS_ITS | Continuity of Care Document ---
Author Name Unknown Address [address] [place] [address] Phone [facility] Address [address] [place] [address] Phone Care Team Providers Care Glucose And Syrup Weigher Name Role Phone Jyothi Arteaga Primary Care Provider [phone] Ed Velásquez Attending Provider Diana Chaidez Attending Provider Allergies, Adverse Reactions, Alerts No known allergies. Medications Medication Status Dose Units Route Directions Qty Days St art Date End Date Instructions Levonorgestr el-Ethinyl Estrad Discontin ued 1 TAB PO DAILY 84 August 17, 2018 1:08pm Septem bakari 2019 1:39pm Levonorgestr el-Ethinyl Estrad Active 1 TAB PO DAILY 84 Septemb er 2019 1:39pm flu vaccine [id number] (36 mos up)(PF)60 mcg (15 mcg x4)/0.5 mL IM susp Discontin ued 60 MCG IM ONCE 0.5 July 27, 2018 11:15am July 27, 2018 11:33a m tuberculin PPD Discontin ued 0.1 ML ID ONCE 0.1 July 06, 2018 3:45pm July 06, 2018 4:03pm Levonorgestr el-Ethinyl Estrad (Vienva) 0.1-20 mg-mcg tablet Discontin ued TABLET September 26, 2017 2:36pm August 17, 2018 1:09pm Amoxicillin- Pot Clavulanate (Augmentin) 875-125 mg tablet Discontin ued 1 TAB PO TWICE A DAY 14 September 26, 2017 2:57pm July 27, 2018 11:32a m Problems Active Problems Medical Problem Onset Date Status Effusion of knee December 06, 2017 Active Otalgia June 11, 2016 Active Anxiety Active Knee pain November 09, 2017 Active Acute viral pharyngitis Active Inactive/Resolved Problems Medical Problem Onset Date Status Contusion of hand, right Resolve d Laceration of foot, left Resolve d Procedures Procedure Date Performed Status Hand 3 vw Min RT 2019 10:21pm complet ed Group A Streptococcus Screen (YVES) November active Knee 3 vw RT May 01, 2019 4:59pm compl eted Relevant Diagnostic Tests and/or Laboratory Data Diagnostic Imaging Reports Report Dictated Date/Time Dictated By Status Radiology Report May 01, 2019 5:21pm Briana Monique MD completed [facility] RADIOLOGY REPORT PATIENT NAME: Nayeli Pearce 89 DATE OF : 2000 ATTENDING/ER PHYSICIAN: Ed Velásquez MD ER/ATTENDING PHYSICIAN: PRIMARY CARE PHYS: Jyothi Aretaga MD ADMITTING PHYSICIAN: CONSULTING PHYSICIAN: PROCEDURE DATE: [...] by Briana Monique MD in OV> 05/01/19 162 Radiology Report October 02, 2019 7:28am Nancy pittman MD completed [facility] RADIOLOGY REPORT PATIENT NAME: NAYELI PEARCE 89 DATE OF : 2000 ATTENDING/ER PHYSICIAN: ER/ATTENDING PHYSICIAN: Gamaliel Roger NP PRIMARY CARE PHYS: Jyothi Arteaga MD ADMITTING PHYSICIAN: CONSULTING PHYSICIAN: PROCEDURE DATE: 10/01/19 REPORT STATUS: Signed DICTATING PHYSICIAN: Nancy Grijalva MD REASON FOR EXAM: struck hand with wood STUDY: Hand 3 vw Min RT No comparison. FINDINGS: There are no acute osseous abnormalities. No radiopaque foreign bodies are noted within the soft tissues. Carpal alignment is anatomic. The osseous mineralization is normal. CONCLUSION: No acute osseous abnormalities. dd: 10/02/19727 <Electronically signed by Nancy Grijalva MD in OV> 10/02/19727 Advance Directives Advance Directive Response Recorded Date/ Time Does patient have an Advanced Directive? No December 09, 2012 11:08am Do we have a copy on file here at [facility]? No May 23, 2016 9:44am Pt has a Living Will? No December 11:08am Do we have a copy on file here at [facility]? No May 23, 2016 9:44am Pt has a Power of Medical Assistant Float? No 2012 11:08am Do we have a copy on file here at [facility]? No May 23, 2016 9:44am Chief Complaint and Reason for Visit Chief Complaint Injury Xray counseling COUNSELING EP - [phone] - LT KNEE counseling counseling Control Z11.3 counseling HAND INJURY counseling counseling counseling Reason for Visit Knee pain Anxiety Anxiety Anxiety Anxiety Encounters Encounter Location(s) Arrival/Admit Date Discharge/Depart Date Provider(s) Departed Physician/Prov ider Office Visit [facility] [place] May 01, 2019 3:11pm May 01, 2019 3:42pm Ed Velásquez MD Departed Clinical [facility] May 01, 2019 4:53pm May 01, 2019 4:54pm Ed Velásquez MD Departed Physician/Prov ider Office Visit [facility] May 10, 2019 2:54pm May 10, 2019 3:51pm Virgil Tamez Departed Physician/Prov ider Office Visit [facility] May 24, 2019 2:01pm May 24, 2019 2:13pm Virgil Tamez Departed Physician[facility] August 16, 2019 10:18am August 16, 2019 1:51pm Chris Bearden MD Departed Physician/Prov ider Office Visit [facility] August 17, 2019 7:59am August 17, 2019 1:58pm Virgil Tamez Departed Physician/Prov ider Office Visit [facility] August 29, 2019 9:48am August 29, 2019 1:49pm Virgil Tamez Departed Physician/Prov ider Office Visit [facility] rn STAFF HOME THERAPY RN August 31, 2019 9:48am August 31, 2019 10:13am Diana Chaidez MD Departed Referred [facility] CARPENTER HELPER August 31, 2019 10:03am August 31, 2019 10:04am Diana Chaidez MD Departed Physician/Prov ider Office Visit [facility] September 11, 2019 8:43am September 11, 2019 2:42pm Virgil Tamez Departed Emergency [facility]Emergency Department 2019 10:08pm 2019 10:51pm null Departed Physician/Prov ider Office Visit [facility] October 04, 2019 8:50am October 04, 2019 11:08pm Virgil Tamez Departed Physician/Prov ider Office Visit [facility] October 23, 2019 3:55pm October 23, 2019 9:38pm Virgil Tamez Departed Physician/Prov ider Office Visit [facility] November 08, 2019 8:50am November 08, 2019 11:13am Virgil Tamez Departed Emergency [facility] rn Urgent [facility] November 26, 2019 1:42pm November 26, 2019 2:22pm null Recent Diagnosis Onset Date Knee pain November 09, 2017 Anxiety Anxiety Anxiety Anxiety Assessments Diagnosis Onset Date Resolution Status Knee pain November 09, 2017 noneacti ve Anxiety noneactive Anxiety noneactive Anxiety noneactive Anxiety noneactive Family History Relationship Condition Age at Onset Recorded Date/T carie Parent Family history non-contributory Unknown Parent Family history non-contributory Unknown Not Specified Diabetes mellitus Unknown Cardiac disease Unknown Functional Status Observation Response Date Recorded Living Situation Home 2019 10:51pm Living Situation With Family November 26, 2019 1:57pm With Significant Other November 26, 2019 1:57pm Goals Goals may be documented in an alternate section. Immunizations Immunization Event Date Not Given Reason Dose Number Hand Method Lasting Machine Operator Lot Number Vaccine Information Statement (VIS) Detail [...] 2015 Influenza IIV4 PF July 27, 2018 [id number] Influenza IIV3 April 10, 2011 Influenza Virus [...] Equipment Information available Insurance Providers Guarantor Norris Ramses Address [address] [place], [place] [id number] Contact Info. Home Phone: Payer Policy Id Coverage Id Subscriber's Name Subscriber Id Effective Date Expiration Date [place] [id number] NAYELI PEARCE [id number] SELF PAY Self N/A [place] MEDICAID (DO NOT USE) [id number] NAYELI PEARCE [id number] 2015 Plan of Treatment TREATMENT GOAL:1) Plan to continue to build therapeutic alliance 2) Continue to explore coping skills and strategies to reduce feelings of anxiety STATUS: On going SELF MANAGEMENT GOAL: Continue to take country drives in the car, get outside for fresh air, walking daily CURRENT SUPPORTS: friends TRIGGERS: boyfriend STRENGTHS: resilient, volunteer rescue, family Assessment: Pt reports feeling relief after breaking up with boyfriend and relief that pt didn't stay and watch the unhealthy family dynamics at her mother's house. 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 Pt reports anxiety has decreased. Pt is opening up more and learning to trust in the therapeutic relationship. #CC: newly sexually active G0, on cOCPs [...] she is not best friends with. TREATMENT GOAL: 1) Continue to explore coping skills and strategies to reduce feelings of anxiety 2) Improve self-esteem STATUS: New SELF MANAGEMENT GOAL: Continue to take country drives in the car, get outside for fresh air, walking daily CURRENT SUPPORTS: friends TRIGGERS: none identified during this visit STRENGTHS: resilient, volunteer rescue, family Assessment: Pt is continuing to feel much more comfortable in the therapeutic process and is slowly opening up and willing to work on skills to reduce anxiety. Pt agreed self- esteem is an issue and is positive in changing how she feels about herself. Pt is making improvements and will continue to benefit from supportive counseling. TREATMENT GOAL:1) Plan to continue to build therapeutic alliance 2) Continue to explore coping skills and strategies to reduce feelings of anxiety STATUS: On going SELF MANAGEMENT GOAL: Continue to take country drives in the car, get outside for fresh air, walking daily CURRENT SUPPORTS: friends TRIGGERS: boyfriend STRENGTHS: resilient, volunteer rescue, family Assessment: Pt reports feeling supported by close friends but not really supported by boyfriend. Pt recently reached out on her own to this blog writer to improve symptoms associated with anxiety. Pt is opening up more and learning to trust in the therapeutic relationship. TREATMENT GOAL:1) Plan to continue to build [...] Pt did not follow up with this blog writer when COVID-19 began. Pt recently reached out on her own to this blog writer to improve symptoms associated with anxiety. Pt appears to be still somewhat reserved but if pt and this blog writer meet consistently every two weeks, a [...] Date Provider Provider Contact Information Provider Address Jyothi Arteaga MD Work Phone: [facility] [address] [address] Jyothi Arteaga MD Work Phone: [facility] [address] [address] Future Procedures Future procedure information is unavailable Future Medications Future medication information is unavailable Patient Instructions COVID 19 General Instruction s- decrease the spread of coronavirus ([facility]) Sore Throat, Child (DC) COVID 19 General Instructions- decrease the spread of coronavirus ([facility]) Social History Smoking Status Status Date of Observation Smokes tobacco daily (finding) November 26, 2019 1:57pm Observation Status Observation Response Date of Response Alcohol Use No November 26, 2019 1:57pm alcohol intake frequency holidays/special occasi ons only November 26, 2019 1:57pm substance use type marijuana November 1:57pm Smoking Status Current every day smoker 2019 1:57pm Assigned Sex Female Vital Signs Vital Reading Result Reference Range Collection Date/Time Weight 113.00 kg May 01, 2019 3:22pm Body Temperature 98.9 [degF] 97.6-99.6 May 012019 3:22pm BP Systolic 110 mm[Hg] 102-133 May 01, 2019 3:22pm BP Diastolic 60 mm[Hg] 61-85 May 01, 2019 3:22pm Height 65 [in_i] August 31, 2019 9:58am Weight 115.43 kg August 31, 2019 9:59am BP Systolic 118 mm[Hg] 102-133 August 31, 2019 9:59am BP Diastolic 64 mm[Hg] 61-85 August 31, 2019 9:59am Weight 114.75 kg 2019 10:11pm Body Temperature 97.8 [degF] 97.6-99.6 2019 10:11pm Heart Rate 92 /min 56-106 2019 10:11pm Respiratory rate 18 /min 16-24 2019 10:11pm Oxygen saturation by Pulse oximetry 98 % 95-100 2019 10:1 1pm BP Systolic 114 mm[Hg] 102-133 2019 10:11pm BP Diastolic 81 mm[Hg] 61-85 2019 10:11pm Weight 112.49 kg November 26, 2019 1:48pm Body Temperature 98.6 [degF] 97.6-99.6 November 072019 1:48pm Heart Rate 82 /min 56-106 November 26, 2019 1:48pm Oxygen saturation by Pulse oximetry 99 % 95-100 November 26, 2019 1:48pm BP Systolic 110 mm[Hg] 102-133 November 26, 2019 1:48pm BP Diastolic 70 mm[Hg] 61-85 November 26, 2019 1:48pm
--- OUTSIDE RECORDS SUMMARY | 2023-02-16 11:52 | XMS_ITS | Continuity of Care Document ---
Author Name Unknown Address [address] [place] [address] Phone [facility] Address [address] [place] [address] Phone Care Team Providers Care Agency Manager Name Role Phone Jyothi Arteaga Primary Care Provider [phone] Ed Velásquez Attending Provider Diana Chaidez Attending Provider Allergies, Adverse Reactions, Alerts No known allergies. Medications Medication Status Dose Units Route Sig Qty Days Start Date End Date Instructions Levonorgestre l-Ethinyl Estrad Active 1 TAB PO DAILY 84 August 17, 2018 1:08pm flu vaccine [id number] (36 mos up)(PF)60 mcg (15 mcg x4)/0.5 [...] vw Min RT 2019 10:21pm complet ed Knee 3 vw RT May 01, 2019 3:59pm compl eted Relevant Diagnostic Tests and/or Laboratory Data Diagnostic Imaging Reports Report Dictated Date/Time Dictated By Status Radiology Report May 01, 2019 4:21pm Briana Monique MD completed [facility] RADIOLOGY REPORT PATIENT NAME: Nayeli Pearce 672 [...] Briana Monique MD in OV> 05/01/19 1622 Radiology Report October 02, 2019 7:28am Nancy pittman MD completed [facility] RADIOLOGY REPORT PATIENT NAME: NAYELI [...] have a copy on file here at [facility]? No May 23, 2016 9:44am Pt has a Living Will? No December 11:08am Do we have a copy on file here at [facility]? No May 23, 2016 9:44am Pt has a Power of New Car Make Ready Worker? No 2012 11:08am Do we have a copy on file here at [facility]? No May 23, 2016 9:44am Chief Complaint and Reason for Visit Chief Complaint Injury Xray counseling COUNSELING - [phone] - LT KNEE counseling counseling Control Z11.3 counseling HAND INJURY counseling counseling counseling Reason for Visit Knee pain Anxiety Anxiety Anxiety Anxiety Encounters Encounter Location(s) Arrival/Admit Date Discharge/Depart Date Provider(s) Departed Physician/Prov ider Office Visit [facility] May 01, 2019 2:11pm May 01, 2019 2:42pm Ed Velásquez MD Departed Clinical [facility] May 01, 2019 3:53pm May 01, 2019 3:54pm Ed Velásquez MD Departed Physician/Prov ider Office Visit [facility] May 10, 2019 1:54pm May 10, 2019 2:51pm Virgil Tamez Departed Physician/Prov ider Office Visit [facility] May 24, 2019 2:01pm May 24, 2019 2:13pm Virgil Tamez Departed Physician/Prov ider Office Visit [facility] August 16, 2019 10:18am August 16, 2019 1:51pm Chris Bearden MD Departed Physician/Prov ider Office Visit [facility] August 17, 2019 7:59am August 17, 2019 1:58pm Virgil Tamez Departed Physician/Prov ider Office Visit [facility] August 29, 2019 9:48am August 29, 2019 1:49pm Virgil Tamez Departed Physician/Prov ider Office Visit [facility] PICKER OPERATOR August 31, 2019 9:48am August 31, 2019 10:13am Diana Chaidez MD Departed Referred [facility] LEAD FURNACE OPERATOR August 31, 2019 10:03am August 31, 2019 10:04am Diana Chaidez MD Departed Physician/Prov ider Office Visit [facility] September 11, 2019 8:43am September 11, 2019 2:42pm Virgil Tamez Departed Emergency [facility] 2019 10:08pm 2019 10:51pm null Departed Physician/Prov ider Office Visit [facility] October 04, 2019 8:50am October 04, 2019 11:08pm Virgil Tamez Departed Physician/Prov ider Office Visit [facility] October 23, 2019 3:55pm October 23, 2019 9:38pm Virgil Tamez Departed Physician/Prov ider Office Visit [facility] November 08, 2019 8:50am November 08, 2019 11:13am Virgil Tamez Recent Diagnosis Onset Date Knee pain November [...] Date Recorded Living Situation Home 2019 10:51pm Goals Goals may be documented in an alternate section. Immunizations Immunization Event Date Not Given Reason Dose Number Slide Machine Tender Lot Number Vaccine Information Statement (VIS) Detail [...] 2015 Influenza IIV4 PF July 27, 2018 [id number] Influenza IIV3 April 10, 2011 Influenza Virus [...] Insurance Providers Guarantor Norris Pearce Address [address] [facility] [address] Contact Info. Home Phone: Payer Policy Id Coverage Id Subscriber's Name Subscriber Id Effective Date Expiration Date MEDICAID [facility] [id number] NAYELI PEARCE [id number] SELF PAY Self N/A [place] MEDICAID (DO NOT USE) [id number] NAYELI PEACRE [id number] 2015 Plan of Treatment TREATMENT GOAL:1) Plan [...] reached out on her own to this verse writer to improve symptoms associated with anxiety. [...] Pt did not follow up with this verse writer when COVID-19 began. Pt recently reached out on her own to this verse writer to improve symptoms associated with anxiety. Pt appears to be still somewhat reserved but if pt and this verse writer meet consistently every two weeks, a [...] Provider Address Jyothi Arteaga MD Work Phone: [facility] [address] [facility] [address] Future Procedures Future procedure information is unavailable Future Medications Future medication information is unavailable Patient Instructions COVID 19 General Instruction s- decrease the spread of coronavirus ([facility]) Social History Smoking Status Status Date of Observation Never smoked tobacco (finding) September 11:38pm Observation Status Observation Response Date of Response Alcohol Use No 2019 11:38pm alcohol intake frequency holidays/special occasi ons only 2019 11:38pm substance use type marijuana November 10:42am Smoking Status Never smoker 2019 11:38pm Assigned Sex Female Vital Signs Vital Reading [...]
--- OUTSIDE RECORDS SUMMARY | 2023-02-16 11:52 | XMS_ITS | Continuity of Care Document ---
Author Name Unknown Address [address] [place] [address] Phone [facility] Address [address] [place] [address] Phone Care Team Providers Care Parts Cataloguer Name Role Phone Jyothi Arteaga Primary Care Provider Ed Velásquez Attending Provider Allergies, Adverse Reactions, Alerts No known allergies. Medications Medication Status Dose Units Route Sig Qty Days Start Date End Date Instructions Levonorgestr el-Ethinyl Estrad Active 1 TAB ORAL DAILY 84 August 17, 2018 1:08pm flu vaccine [id number] (36 mos up)(PF)60 mcg (15 mcg x4)/0.5 mL IM susp Discontinued 60 MCG INTRAMUSCUL AR ONCE 0.5 July 27, 2018 11:15a m July 27, 2018 11:33 am tuberculin PPD Discontinued 0.1 ML INTRADERMAL ONCE 0.1 July 06, 2018 3:45pm July 06, 2018 4:03p m Levonorgestr el-Ethinyl Estrad Discontinued TABLET September 26, 2017 2:36pm August 17, 2018 1:09p m Amoxicillin- Pot Clavulanate Discontinued 1 TAB ORAL TWICE A DAY 14 [...] completed Relevant Diagnostic Tests and/or Laboratory Data Diagnostic Imaging Reports Report Dictated Date/Time Dictated By Status Radiology Report May 01, 2019 4:21pm Briana Monique MD completed [facility] RADIOLOGY REPORT PATIENT NAME: Nayeli Parham 89 DATE OF : 2000 ATTENDING/ER PHYSICIAN: [...] have a copy on file here at [facility]? No May 23, 2016 9:44am Pt has a Living Will? No December 11:08am Do we have a copy on file here at [facility]? No May 23, 2016 9:44am Pt has a Power of Hadoop Engineer? No 2012 11:08am Do we have a copy on file here at [facility]? No May 23, 2016 9:44am Chief Complaint and Reason for Visit Chief Complaint PPD Office visit nursing note Immunizations fax Injury Xray counseling Encounters Encounter Location(s) Arrival/Admit Date Discharge /Depart Date Provider(s) Departed Physician/Provi raz Office Visit [facility] July 06, 2018 3:48pm July 06, 2018 11:59pm Chandler Arora Departed Physician/Provi raz Office Visit [facility] July 08, 2018 3:54pm July 08, 2018 11:59pm Yvonne Frazier MA Departed Physician/Provi raz Office Visit [facility] July 27, 2018 11:14am July 27, 2018 12:53pm Yvonne Frazier MA Registered Inpatient [facility] August 17, 2018 11:59pm Jyothi Arteaga MD Departed Physician/Provi raz Office Visit [facility] May 01, 2019 2:11pm May 01, 2019 2:42pm Ed Velásquez MD Departed Clinical [facility] May 01, 2019 3:53pm May 01, 2019 3:54pm Ed Velásquez MD Departed Physician/Provi raz Office Visit [facility] May 10, 2019 1:54pm May 10, 2019 2:51pm Virgil Salgado No Assessments Information Available Family History Relationship Condition Age at Onset Recorded Date/T carie Parent Family history non-contributory Unknown Parent Family history non-contributory Unknown Not Specified Diabetes mellitus Unknown Cardiac disease Unknown Functional Status No Functional Status information available Goals Goals may be documented in an alternate section. Immunizations Immunization Event Date Not Given Reason Dose Number Life Coach Lot Number Vaccine Information Statement (VIS) Detail [...] 2015 Influenza IIV4 PF July 27, 2018 [id number] Influenza IIV3 April 10, 2011 Influenza Virus [...] available Insurance Providers Guarantor Norris Ramses Address [address] [facility] [address] Contact Info. Home Phone: Payer Policy Id Coverage Id Subscriber's Name Subscriber Id Effective Date Expiration Date [place] [id number] Nayeli Parham [id number] SELF PAY Self N/A [place] (DO NOT USE) [id number] Nayeli Parham [id number] 2015 Plan of Treatment Future Tests Future scheduled test information is unavailable Pending Tests Pending diagnostic test information is unavailable Future Visits Future appointment information is unavailable Referrals to Other Providers Reason for Referral Referral Start Date Provider Provider Contact Information Provider Address Jyothi Arteaga MD Work Phone: [facility] [address] [facility] [address] Future Procedures Future procedure information is unavailable Future Medications Future medication information is unavailable Patient Instructions Patient instructions are unavailable Social History Smoking Status Status Date of Observation Never smoked tobacco (finding) May 01, 2019 2:25pm Observation Status Observation Response Date of Response Alcohol Use No September 27, 2017 6:55am Smoking Status Never smoker May 01 2:25pm Assigned Sex Female Vital Signs Vital Reading Result Reference Range Collection Date/Time Weight 113.00 kg May 01, 2019 2:22pm Body Temperature 98.9 [degF] 97.6-99.6 May 012019 2:22pm BP Systolic 110 mm[Hg] 102-133 May 01, 2019 2:22pm BP Diastolic 60 mm[Hg] 61-85 May 01, 2019 2:22pm
--- OUTSIDE RECORDS SUMMARY | 2023-02-16 11:52 | XMS_ITS | Continuity of Care Document ---
Author Name Unknown Address [address] [place] [address] Phone [facility] Address [address] [place] [address] Phone Support Name Relationship Address Phone RAMSES SOLOMON Father Unknown RAMSES BARRY Step Mother Unknown [phone] Jyothi Arteaga [place] [address] Chandler Arora Attending Provider Unknown Unavail able Referral, Self Referring Provider Unknown Unavail able Yvonne Frazier Attending Provider Unknown UnaEd Mays Attending Provider [facility] [place] [address] Allergies, Adverse Reactions, Alerts No known allergies. Medications Medication Status Dose Units Route Sig Qty Days Start Date End Date Instructions Levonorgestr el-Ethinyl Estrad Active 1 TAB ORAL DAILY 84 August 17, 2018 1:08pm flu vaccine [id number] (36 mos up)(PF)60 mcg (15 mcg x4)/0.5 [...] Status Laceration of foot, left Resolve d Advance Directives Advance Directive Response Recorded Date/ Time Does patient have an Advanced Directive? No December 09, 2012 11:08am Do we have a copy on file here at [facility]? No May 23, 2016 9:44am Pt has a Living Will? No December 11:08am Do we have a copy on file here at [facility]? No May 23, 2016 9:44am Pt has a Power of Tapper Hand? No 2012 11:08am Do we have a copy on file here at [facility]? No May 23, 2016 9:44am Chief Complaint and Reason for Visit Chief Complaint PPD Office visit nursing note Immunizations fax Injury Encounters Encounter Location(s) Arrival/Admit Date Discharge /Depart Date Provider(s) Departed Physician/Provi raz Office Visit [facility] July 06, 2018 3:48pm July 06, 2018 11:59pm Chandler Arora Departed Physician/Provi raz Office Visit [facility] July 08, 2018 3:54pm July 08, 2018 11:59pm Yvonne rFazier MA Departed Physician/Provi raz Office Visit [facility] July 27, 2018 11:14am July 27, 2018 12:53pm Yvonne Frazier MA Registered Inpatient [facility] August 17, 2018 11:59pm Jyothi Arteaga MD Departed Physician/Provi raz Office Visit [facility] May 01, 2019 2:11pm May 01, 2019 2:42pm Ed Velásquez MD Assessments No Assessments Information Available Family History Relationship Condition Age at Onset Recorded Date/T carie Parent Family history non-contributory Unknown Parent Family history non-contributory Unknown Not Specified Diabetes mellitus Unknown Cardiac disease Unknown Functional Status No Functional Status information available Goals Goals may be documented in an alternate section. Immunizations Immunization Event Date Not Given Reason Dose Number Representative Government Relations Lot Number Vaccine Information Statement (VIS) Detail [...] 2015 Influenza IIV4 PF July 27, 2018 [id number] Influenza IIV3 April 10, 2011 Influenza Virus [...] Insurance Providers Guarantor Norris Ramses Address [address] [facility] [address] Contact Info. Home Phone: Payer Policy Id Coverage Id Subscriber's Name Subscriber Id Effective Date Expiration Date [place] [id number] Nayeli Parham [id number] SELF PAY Self N/A [place] MEDICAID (DO NOT USE) [id number] Nayeli Parham [id number] 2015 Plan of Treatment Future Tests Future scheduled test information is unavailable Pending Tests Pending diagnostic test information is unavailable Future Visits Future appointment information is unavailable Referrals to Other Providers Reason for Referral Referral Start Date Provider Provider Contact Information Provider Address Jyothi Arteaga MD Work Phone: [facility] [place] [address] Future Procedures Future procedure information is unavailable [...]
--- OUTSIDE RECORDS SUMMARY | 2023-02-16 11:52 | XMS_ITS | Continuity of Care Document ---
Author Name Unknown Address [address] [place] [address] Phone [facility] Address [address] [place] [address] Phone Care Team Providers Care Life Scientists Name Role Phone Jyothi Arteaga Primary Care Provider [phone] Ed Velásquez Attending Provider [phone] Allergies, Adverse Reactions, Alerts No known allergies. Medications Medication Status Dose Units Route Sig Qty Days Start Date End Date Instructions Levonorgestre l-Ethinyl Estrad Active 1 TAB PO DAILY 84 August 17, 2018 1:08pm flu vaccine [id number] (36 mos up)(PF)60 mcg (15 mcg x4)/0.5 [...] [facility] PATIENT NAME: Nayeli Parham [...] have a copy on file here at [facility] No May 23, 2016 9:44am Pt has a Living Will? No December 11:08am Do we have a copy on file here at [facility] No May 23, 2016 9:44am Pt has a Power of Tin Can Feeder? No 2012 11:08am Do we have a copy on file here at [facility] No May 23, 2016 9:44am Chief Complaint and Reason for Visit Chief Complaint fax Injury Xray counseling COUNSELING EP - [phone] - LT KNEE counseling Reason for Visit Knee pain Encounters Encounter Location(s) Arrival/Admit Date Discharge /Depart Date Provider(s) Registered Inpatient [facility] August 17, 2018 11:59pm Jyothi Arteaga MD Departed Physician/Provi raz Office Visit [facility] May 01, 2019 2:11pm May 01, 2019 2:42pm Ed Velásquez MD Departed Clinical [facility] May 01, 2019 3:53pm May 01, 2019 3:54pm Ed Velásquez MD Departed Physician/Provi raz Office Visit [facility] May 10, 2019 1:54pm May 10, 2019 2:51pm Virgil Tamez Departed Physician/Provi raz Office Visit [facility] May 24, 2019 2:01pm May 24, 2019 2:13pm Virgil Tamez Departed Physician/Provi raz Office Visit [facility] August 16, 2019 10:18am August 16, 2019 1:51pm Chris Bearden MD Departed Physician/Provi raz Office Visit [facility] August 17, 2019 7:59am August 17, 2019 1:58pm Virgil Tamez Recent Diagnosis Onset Date Knee pain November 09, 2017 Assessments Diagnosis Onset Date Resolution Status Knee pain November 09, 2017 noneacti ve Family History Relationship Condition Age at Onset Recorded Date/T carie Parent Family history non-contributory Unknown Parent Family history non-contributory Unknown Not Specified Diabetes mellitus Unknown Cardiac disease Unknown Functional Status No Functional Status information available Goals Goals may be documented in an alternate section. Immunizations Immunization Event Date Not Given Reason Dose Number Windshield Wiper Repairer Lot Number Vaccine Information Statement (VIS) Detail [...] 2015 Influenza IIV4 PF July 27, 2018 [id number] Influenza IIV3 April 10, 2011 Influenza Virus [...] Insurance Providers Guarantor Norris Ramses Address [address] [facility] [address] [facility] [address] Contact Info. Home Phone: Payer Policy Id Coverage Id Subscriber's Name Subscriber Id Effective Date Expiration Date [place] [id number] Nayeli Parham [id number] SELF PAY Self N/A [place] MEDICAID (DO NOT USE) [id number] Nayeli Parham [id number] 2015 Plan of Treatment TREATMENT GOAL: 1) Build therapeutic alliance 2) [...] was open and engaged during phone call. Future Tests Future scheduled test information is [...] 6:55am Smoking Status Never smoker May 01 020 2:25pm Assigned Sex Female Vital Signs Vital Reading Result Reference Range Collection Date/Time Weight 113.00 kg May 01, 2019 2:22pm Body Temperature 98.9 [degF] 97.6-99.6 May 012019 2:22pm BP Systolic 110 mm[Hg] 102-133 May 01, 2019 2:22pm BP Diastolic 60 mm[Hg] 61-85 May 01, 2019 2:22pm
--- OUTSIDE RECORDS SUMMARY | 2023-02-16 11:52 | XMS_ITS | Continuity of Care Document ---
Author Name Unknown Address [address] [place] [address] Phone [facility] Address [address] [place] [address] Phone Care Team Providers Care Metal Furrer Name Role Phone Jyothi Arteaga Primary Care Provider Ed Velásquez Attending Provider Allergies, Adverse Reactions, Alerts No known allergies. Medications Medication Status Dose Units Route Sig Qty Days Start Date End Date Instructions Levonorgestre l-Ethinyl Estrad Active 1 TAB PO DAILY 84 August 17, 2018 1:08pm flu vaccine [id number] (36 mos up)(PF)60 mcg (15 mcg x4)/0.5 [...] have a copy on file here at [facility]? No May 23, 2016 9:44am Pt has a Living Will? No December 11:08am Do we have a copy on file here at [facility]? No May 23, 2016 9:44am Pt has a Power of Ship Wirer? No 2012 11:08am Do we have a copy on file here at [facility]? No May 23, 2016 9:44am Chief Complaint and Reason for Visit Chief Complaint Injury Xray counseling COUNSELING EP - [phone] - LT KNEE counseling counseling Reason for Visit Knee pain Anxiety Encounters Encounter Location(s) Arrival/Admit Date Discharge/Depart Date Provider(s) Departed Physician/Prov ider Office Visit [facility] May 01, 2019 2:11pm May 01, 2019 2:42pm Ed Velásquez MD Departed Clinical [facility] May 01, 2019 3:53pm May 01, 2019 3:54pm Ed Velásquez MD Departed Physician/Prov ider [place] [facility] May 10, 2019 1:54pm May 10, 2019 2:51pm Virgil Tamez Departed Physician/Prov ider [place] [facility] May 24, 2019 2:01pm May 24, 2019 2:13pm Virgil Tamez Departed Physician/Prov ider Office Visit [facility] August 16, 2019 10:18am August 16, 2019 1:51pm Chris Bearden MD Departed Physician/Prov ider [place] [facility] [place] 17, 2019 7:59am August 17, 2019 1:58pm Virgil Tamez Departed Physician/Prov ider [place] [facility] August 29, 2019 9:48am August 29, 2019 1:49pm Virgil Tamez Recent Diagnosis Onset Date Knee [...] Event Date Not Given Reason Dose Number Bale Sewer Lot Number Vaccine Information Statement (VIS) Detail [...] 2015 Influenza IIV4 PF July 27, 2018 [id number] Influenza IIV3 April 10, 2011 Influenza Virus [...] Insurance Providers Guarantor Norris Ramses Address [address] [address] Contact Info. Home Phone: Payer Policy Id Coverage Id Subscriber's Name Subscriber Id Effective Date Expiration Date [place] [id number] Nayeli Parham [id number] SELF PAY Self N/A [place] (DO NOT USE) [id number] Nayeli Parham [id number] 2015 Plan of Treatment TREATMENT GOAL: 1) [...] Pt did not follow up with this quality analyst/technical writer when COVID-19 began. Pt recently reached out on her own to this quality analyst/technical writer to improve symptoms associated with anxiety. Pt appears to be still somewhat reserved but if pt and this quality analyst/technical writer meet consistently every two weeks, a [...]
--- OUTSIDE RECORDS SUMMARY | 2023-02-16 11:52 | XMS_ITS | Continuity of Care Document ---
Author Name Unknown Address [address] [place] [address] Phone [facility] Address [address] [place] [address] Phone Care Team Providers Care Sales Representative Jewelry Name Role Phone Jyothi Arteaga Primary Care Provider Ed Velásquez Attending Provider Allergies, Adverse Reactions, Alerts No known allergies. Medications Medication Status Dose Units Route Sig Qty Days Start Date End Date Instructions Levonorgestre l-Ethinyl Estrad Active 1 TAB PO DAILY 84 August 17, 2018 1:08pm flu vaccine [id number] (36 mos up)(PF)60 mcg (15 mcg x4)/0.5 [...] 01, 2019 4:21pm Briana Monique MD completed [facility] RADIOLOGY REPORT PATIENT NAME: Nayeli Parham [...] have a copy on file here at [facility]? No May 23, 2016 9:44am Pt has a Living Will? No December 11:08am Do we have a copy on file here at [facility]? No May 23, 2016 9:44am Pt has a Power of Judicial Law Clerk? No 2012 11:08am Do we have a copy on file here at [facility]? No May 23, 2016 9:44am Chief Complaint and Reason for Visit Chief Complaint fax Injury Xray counseling COUNSELING - [phone] - LT KNEE Reason for Visit Knee pain Encounters Encounter Location(s) Arrival/Admit Date Discharge /Depart Date Provider(s) Registered Inpatient [facility] August 17, 2018 11:59pm Jyothi Arteaga MD Departed Physician/Provi raz Office Visit [facility] May 01, 2019 2:11pm May 01, 2019 2:42pm Ed Velásquez MD Departed Clinical [facility] May 01, 2019 3:53pm May 01, 2019 3:54pm Ed Velásquez MD Departed Physician/Provi raz Office Visit [facility] May 10, 2019 1:54pm May 10, 2019 2:51pm Virgil Tamez Departed Physician/Provi raz Office Visit [facility] May 24, 2019 2:01pm May 24, 2019 2:13pm Virgil Tamez Departed Physician/Provi raz Office Visit [facility] August 16, 2019 10:18am August 16, 2019 1:51pm Chris Bearden MD Recent Diagnosis Onset Date Knee pain [...] Event Date Not Given Reason Dose Number Shingle Grader Lot Number Vaccine Information Statement (VIS) Detail [...] 2015 Influenza IIV4 PF July 27, 2018 [id number] Influenza IIV3 April 10, 2011 Influenza Virus [...] Equipment Information available Insurance Providers Guarantor Norris Sureshrobyn Address [address] [place] [address] Contact Info. Home Phone: Payer Policy Id Coverage Id Subscriber's Name Subscriber Id Effective Date Expiration Date [place] [id number] Nayeli Parham [id number] SELF PAY Self N/A [place] (DO NOT USE) [id number] Nayeli Parham [id number] 2015 Plan of Treatment TREATMENT GOAL: 1) [...] 6:55am Smoking Status Never smoker May 01, 020 2:25pm Assigned Sex Female Vital Signs Vital Reading Result Reference Range Collection Date/Time Weight 113.00 kg May 01, 2019 2:22pm Body Temperature 98.9 [degF] 97.6-99.6 May 012019 2:22pm BP Systolic 110 mm[Hg] 102-133 May 01, 2019 2:22pm BP Diastolic 60 mm[Hg] 61-85 May 01, 2019 2:22pm
--- OUTSIDE RECORDS SUMMARY | 2023-02-16 11:52 | XMS_ITS | Continuity of Care Document ---
Author Name Unknown Address [address] [place] [address] Phone [facility] Address [address] [place] [address] Phone Care Team Providers Care Yeast Fermentation Attendant Name Role Phone Jyothi Arteaga Primary Care Provider Ed Velásquez Attending Provider [phone] Diana Chaidez Attending Provider [phone] Allergies, Adverse Reactions, Alerts No known allergies. Medications Medication Status Dose Units Route Sig Qty Days Start Date End Date Instructions Levonorgestre l-Ethinyl Estrad Active 1 TAB PO DAILY 84 August 17, 2018 1:08pm flu vaccine [id number] (36 mos up)(PF)60 mcg (15 mcg x4)/0.5 [...] Active Knee pain November 09, 2017 Active Contusion of hand, right Active Inactive/Resolved Problems Medical Problem Onset Date Status Laceration of foot, left Resolve d Procedures Procedure Date Performed Status Hand 3 vw Min RT 2019 10:21pm active Knee 3 vw RT May 01, 2019 3:59pm compl eted Relevant Diagnostic Tests and/or Laboratory Data Diagnostic Imaging Reports Report Dictated Date/Time Dictated By Status Radiology Report May 01, 2019 4:21pm Briana Monique MD completed [facility] RADIOLOGY REPORT PATIENT NAME: Nayeli [...] have a copy on file here at [facility] No May 23, 2016 9:44am Pt has a Living Will? No December 11:08am Do we have a copy on file here at [facility]? No May 23, 2016 9:44am Pt has a Power of Director E Learning? No 2012 11:08am Do we have a copy on file here at [facility]? No May 23, 2016 9:44am Chief Complaint and Reason for Visit Chief Complaint Injury Xray counseling COUNSELING EP - [phone] - LT KNEE counseling counseling Control counseling HAND INJURY Reason for Visit Knee pain Anxiety Anxiety Encounters Encounter Location(s) Arrival/Admit Date Discharge/Depart Date Provider(s) Departed Physician/Prov ider Office Visit [facility] May 01, 2019 2:11pm May 01, 2019 2:42pm Ed Velásquez MD Departed Clinical [facility] May 01, 2019 3:53pm May 01, 2019 3:54pm Ed Velásquez MD Departed Physician/Prov ider Office Visit [facility] May 10, 2019 1:54pm May 10, 2019 2:51pm Virgil Tamez Departed Physician/Prov ider Office Visit [facility] May 24, 2019 2:01pm May 24, 2019 2:13pm Virgil Tamez Departed Physician/Prov ider [facility] August 16, 2019 10:18am August 16, 2019 1:51pm Chris Bearden MD Departed Physician/Prov ider Office Visit [facility] August 17, 2019 7:59am August 17, 2019 1:58pm Virgil Tamez Departed Physician/Prov ider Office Visit [facility] August 29, 2019 9:48am August 29, 2019 1:49pm Virgil Tamez Departed Physician/Prov ider [facility] August 31, 2019 9:48am August 31, 2019 10:13am Diana Chaidez MD Departed Referred [facility] REALTIME COURT REPORTER August 31, 2019 10:03am August 31, 2019 10:04am Diana Chaidez MD Departed Physician/Prov ider Office Visit [facility] September 11, 2019 8:43am September 11, 2019 2:42pm Virgil Tamez Departed Emergency [facility] 2019 10:08pm 2019 10:51pm null Recent Diagnosis Onset Date Knee pain November 09, 2017 Anxiety Anxiety Assessments Diagnosis Onset Date Resolution Status Knee pain November 09, 2017 noneacti ve Anxiety noneactive Anxiety noneactive Family History Relationship Condition Age at Onset Recorded Date/T carie Parent Family history non-contributory Unknown Parent Family history non-contributory Unknown Not Specified Diabetes mellitus Unknown Cardiac disease Unknown Functional Status Observation Response Date Recorded Living Situation Home 2019 10:51pm Goals Goals may be documented in an alternate section. Immunizations Immunization Event Date Not Given Reason Dose Number Engineering Analyst Lot Number Vaccine Information Statement (VIS) Detail [...] 2015 Influenza IIV4 PF July 27, 2018 [id number] Influenza IIV3 April 10, 2011 Influenza Virus [...] Insurance Providers Guarantor Norris Ramses Address [address] [place] [address] Contact Info. Home Phone: Payer Policy Id Coverage Id Subscriber's Name Subscriber Id Effective Date Expiration Date [place] [id number] NAYELI PEARCE [id number] SELF PAY Self N/A [place] (DO [place] USE) [id number] NAYELI PEARCE [id number] 2015 Plan of Treatment #CC: newly sexually [...] reached out on her own to this remote mortgage underwriter to improve symptoms associated with anxiety. Pt [...] Pt did not follow up with this remote mortgage underwriter when COVID-19 began. Pt recently reached out on her own to this remote mortgage underwriter to improve symptoms associated with anxiety. Pt appears to be still somewhat reserved but if pt and this remote mortgage underwriter meet consistently every two weeks, a therapeutic [...] Provider Address Jyothi Arteaga MD Work Phone: [facility] [address] [place] [address] Future Procedures Future procedure information is unavailable Future Medications Future medication information is unavailable Patient Instructions COVID 19 General Instruction s- decrease the spread of coronavirus ([facility]) Social History Smoking Status Status Date of Observation Never smoked tobacco (finding) September 10:13pm Observation Status Observation Response Date of Response Alcohol Use No 2019 10:13pm alcohol intake frequency holidays/special occasi ons only 2019 10:13pm substance use type marijuana September 30 10:13pm Smoking Status Never smoker 2019 10:13pm Assigned Sex Female Vital Signs Vital Reading [...]
--- OUTSIDE RECORDS SUMMARY | 2023-02-16 11:52 | XMS_ITS | Continuity of Care Document ---
Author Name Unknown Address [address] [place] [address] Phone [facility] Address [address] [place] [address] Phone Care Team Providers Care Head Of Precision Targeting Name Role Phone Jyothi Arteaga Primary Care Provider [phone] Ed Velásquez Attending Provider Diana Chaidez Attending Provider [phone] Allergies, Adverse Reactions, Alerts No known allergies. Medications Medication Status Dose Units Route Sig Qty Days Start Date End Date Instructions Levonorgestre l-Ethinyl Estrad Active 1 TAB PO DAILY 84 August 17, 2018 1:08pm flu vaccine [id number] (36 mos up)(PF)60 mcg (15 mcg x4)/0.5 [...] 01, 2019 4:21pm Briana Monique MD completed [facility] RADIOLOGY REPORT PATIENT NAME: Nayeli [...] 2016 9:44am Pt has a Power of Focused Factory Manager? No 2012 11:08am Do we have a copy on file here at [facility]? No May 23, 2016 9:44am Chief Complaint and Reason for Visit Chief Complaint Injury Xray counseling COUNSELING - [phone] - LT KNEE counseling counseling Control Reason for Visit Knee pain Anxiety Encounters Encounter Location(s) Arrival/Admit Date Discharge /Depart Date Provider(s) Departed Physician/Provi raz Office Visit [facility] May 01, 2019 2:11pm May 01, 2019 2:42pm Ed Velásquez MD Departed Clinical [facility] May 01, 2019 3:53pm May 01, 2019 3:54pm Ed Velásquez MD Departed Physician/Provi raz Office Visit [facility] May 10, 2019 1:54pm May 10, 2019 2:51pm Virgil Tamez Departed Physician/Provi raz Office Visit [facility] May 24, 2019 2:01pm May 24, 2019 2:13pm Virgil Tamez Departed Physician/Provi raz Office Visit [facility] August 16, 2019 10:18am August 16, 2019 1:51pm Chris Bearden MD Departed Physician/Provi raz Office Visit [facility] August 17, 2019 7:59am August 17, 2019 1:58pm Virgil Tamez Departed Physician/Provi raz Office Visit [facility] August 29, 2019 9:48am August 29, 2019 1:49pm Virgil Tamez Departed Physician/Provi raz Office Visit [facility] SOFTWARE PROJECT LEAD August 31, 2019 9:48am August 31, 2019 10:13am Diana Chaidez MD Registered Referred [facility] MEDICATION AIDE August 31, 2019 10:03am Diana Chaidez MD Recent Diagnosis Onset Date [...] Event Date Not Given Reason Dose Number Grounds Caretaker Lot Number Vaccine Information Statement (VIS) Detail [...] 2015 Influenza IIV4 PF July 27, 2018 [id number] Influenza IIV3 April 10, 2011 Influenza Virus [...] Insurance Providers Guarantor Norris Pearce Address [address] [facility] [address] Contact Info. Home Phone: Payer Policy Id Coverage Id Subscriber's Name Subscriber Id Effective Date Expiration Date [place] [id number] NAYELI PEARCE [id number] SELF PAY Self N/A [place]DO [place] USE) [id number] NAYELI PEARCE [id number] 2015 Plan of Treatment #CC: newly sexually [...] Pt did not follow up with this handbook writer when COVID-19 began. Pt recently reached out on her own to this handbook writer to improve symptoms associated with anxiety. Pt appears to be still somewhat reserved but if pt and this handbook writer meet consistently every two weeks, a [...]
--- OUTSIDE RECORDS SUMMARY | 2023-02-16 11:52 | XMS_ITS | Continuity of Care Document ---
Author Name Unknown Address [address] [place] [address] Phone [facility] Address [address] [place] [address] Phone Care Team Providers Care Marker Machine Attendant Name Role Phone Jyothi Arteaga Primary Care Provider Ed Velásquez Attending Provider Diana Chaidez Attending Provider Allergies, Adverse Reactions, Alerts No known allergies. Medications Medication Status Dose Units Route Sig Qty Days Start Date End Date Instructions Levonorgestre l-Ethinyl Estrad Active 1 TAB PO DAILY 84 August 17, 2018 1:08pm flu vaccine [id number] (36 mos up)(PF)60 mcg (15 mcg x4)/0.5 [...] 01, 2019 4:21pm Briana Monique MD completed [facility] RADIOLOGY REPORT PATIENT NAME: Nayeli Pearce [...] have a copy on file here at [facility]? No May 23, 2016 9:44am Pt has a Living Will? No December 11:08am Do we have a copy on file here at [facility]? No May 23, 2016 9:44am Pt has a Power of Second Chef? No 2012 11:08am Do we have a copy on file here at [facility]? No May 23, 2016 9:44am Chief Complaint and Reason for Visit Chief Complaint Injury Xray counseling COUNSELING - [phone] - LT KNEE counseling counseling Control counseling Reason for Visit Knee pain Anxiety Encounters Encounter Location(s) Arrival/Admit Date Discharge/Depart Date Provider(s) Departed Physician/Prov ider Office Visit [facility] May 01, 2019 2:11pm May 01, 2019 2:42pm Ed Velásquez MD Departed Clinical [facility] May 01, 2019 3:53pm May 01, 2019 3:54pm Ed Velásquez MD Departed Physician/Prov ider Office [place] [facility] [place] 10, 2019 1:54pm May 10, 2019 2:51pm Virgil Tamez Departed Physician/Prov ider Office [place] [facility] May 24, 2019 2:01pm May 24, 2019 2:13pm Virgil Tamez Departed Physician/Prov ider Office Visit [facility] August 16, 2019 10:18am August 16, 2019 1:51pm Chris Bearden MD Departed Physician/Prov ider Office Visit [facility] August 17, 2019 7:59am August 17, 2019 1:58pm Virgil Tamez Departed Physician/Prov ider Office [place] [facility] August 29, 2019 9:48am August 29, 2019 1:49pm Virgil Tamez Departed Physician/Prov ider Office Visit [facility] WOODWORKER HELPER August 31, 2019 9:48am August 31, 2019 10:13am Diana Chaidez MD Departed Referred [facility] TWO WAY RADIO INSTALLER August 31, 2019 10:03am August 31, 2019 10:04am Diana Chaidez MD Departed Physician/Prov ider Office Visit [facility] September 11, 2019 8:43am September 11, 2019 2:42pm Virgil Tamez Recent Diagnosis Onset Date Knee [...] Event Date Not Given Reason Dose Number Sanding Machine Tender Lot Number Vaccine Information Statement [...] 2015 Influenza IIV4 PF July 27, 2018 [id number] Influenza IIV3 April 10, 2011 Influenza Virus [...] Insurance Providers Guarantor Norris Pearce Address [address] [facility] [address] Contact Info. Home Phone: Payer Policy Id Coverage Id Subscriber's Name Subscriber Id Effective Date Expiration Date [place] [id number] NAYELI PEARCE [id number] SELF PAY Self N/A [place] MEDICAID (DO NOT USE) [id number] NAYELI PEARCE [id number] 2015 Plan of Treatment #CC: newly sexually [...] Pt did not follow up with this production underwriter when COVID-19 began. Pt recently reached out on her own to this production underwriter to improve symptoms associated with anxiety. Pt appears to be still somewhat reserved but if pt and this production underwriter meet consistently every two weeks, a [...]
--- OUTSIDE RECORDS SUMMARY | 2023-02-16 11:52 | XMS_ITS | Continuity of Care Document ---
Author Name Unknown Address [address] [place] [address] Phone [facility] Address [address] [place] [address] Phone Care Team Providers Care Zoo Veterinarian Name Role Phone Jyothi Arteaga Primary Care Provider Ed Velásquez Attending Provider Diana Chaidez Attending Provider [phone] Allergies, Adverse Reactions, Alerts No known allergies. Medications Medication Status Dose Units Route Directions Qty Days St art Date End Date Instructions Levonorgestr el-Ethinyl Estrad Discontin ued 1 TAB PO DAILY 84 August 17, 2018 1:08pm Septem bakari 2019 1:39pm Levonorgestr el-Ethinyl Estrad Active 1 TAB PO DAILY 84 Septemb er 2019 1:39pm flu vaccine [id number] (36 mos up)(PF)60 mcg (15 mcg x4)/0.5 [...] 01, 2019 5:21pm Briana Monique MD completed RADIOLOGY REPORT PATIENT NAME: Nayeli Pearce 672 [...] 02, 2019 7:28am Nancy pittman MD completed RADIOLOGY REPORT PATIENT NAME: NAYELI PEARCE [id number] [...] a copy on file here at [facility]? No May 23, 2016 9:44am Pt has a Living Will? No December 11:08am Do we have a copy on file here at [facility]? No May 23, 2016 9:44am Pt has a Power of Stock Preparer? No 2012 11:08am Do we have a copy on file here at [facility]? No May 23, 2016 9:44am Chief Complaint and Reason for Visit Chief Complaint Injury Xray counseling COUNSELING EP - [phone] - LT KNEE counseling counseling Control Z11.3 counseling HAND INJURY counseling counseling counseling Reason for Visit Knee pain Anxiety Anxiety Anxiety Anxiety Encounters Encounter Location(s) Arrival/Admit Date Discharge/Depart Date Provider(s) Departed Physician/Prov ider Office Visit [facility] [place] May 01, 2019 3:11pm May 01, 2019 3:42pm Ed Velásquez MD Departed Clinical [facility] May 01, 2019 4:53pm May 01, 2019 4:54pm Ed Velásquez MD Departed Physician/Prov ider Office Visit [facility] May 10, 2019 2:54pm May 10, 2019 3:51pm Virgil Tamez Departed Physician/Prov ider Office Visit [facility] May 24, 2019 2:01pm May 24, 2019 2:13pm Virgil Tamez [facility]arted Physician[facility] 16, 2019 10:18am August 16, 2019 1:51pm Chris Bearden MD Departed Physician/Prov ider Office Visit [facility] August 17, 2019 7:59am August 17, 2019 1:58pm Virgil Tamez Departed Physician/Prov ider Office Visit [facility] August 29, 2019 9:48am August 29, 2019 1:49pm Virgil Tamez Departed Physician/Prov ider Office Visit [facility] rn SURFACING MACHINE OPERATOR August 31, 2019 9:48am August 31, 2019 10:13am Diana Chaidez MD Departed Referred [facility] ELECTRICAL UNIT REBUILDER August 31, 2019 10:03am August 31, 2019 10:04am Diana Chaidez MD Departed Physician/Prov ider Office Visit [facility] September 11, 2019 8:43am September 11, 2019 2:42pm Virgil Tamez Departed Emergency [facility]Emer[facility] 2019 10:08pm 2019 10:51pm null Departed Physician/Prov ider Office Visit [facility] October 04, 2019 8:50am October 04, 2019 11:08pm Virgil Tamez Departed Physician/Prov ider Office Visit [facility] October 23, 2019 3:55pm October 23, 2019 9:38pm Virgil Tamez Departed Physician/Prov ider Office Visit [facility] November 08, 2019 8:50am November 08, 2019 11:13am Virgil Tamez Departed Emergency [facility] r[facility] Urgent [facility] November 26, 2019 [...] Event Date Not Given Reason Dose Number Advanced Registered Nurse Lot Number Vaccine Information Statement (VIS) Detail [...] 2015 Influenza IIV4 PF July 27, 2018 [id number] Influenza IIV3 April 10, 2011 Influenza Virus [...] available Insurance Providers Guarantor Norris Ramses Address [address] [place], [place] [id number] Contact Info. Home Phone: Payer Policy Id Coverage Id Subscriber's Name Subscriber Id Effective Date Expiration Date [place] [id number] NAYELI PEARCE [id number] SELF PAY Self N/A [place] (DO NOT USE) [id number] NAYELI PEARCE [id number] 2015 Plan of Treatment TREATMENT GOAL:1) Plan [...] reached out on her own to this magnetic tape typewriter operator to improve symptoms associated with anxiety. Pt [...] Pt did not follow up with this magnetic tape typewriter operator when COVID-19 began. Pt recently reached out on her own to this magnetic tape typewriter operator to improve symptoms associated with anxiety. Pt appears to be still somewhat reserved but if pt and this magnetic tape typewriter operator meet consistently every two weeks, a therapeutic [...] Provider Address Jyothi Arteaga MD Work Phone: [facility] [address] [address] Jyothi Arteaga MD Work Phone: [facility] [address] [address] Future Procedures Future procedure information is unavailable [...]
--- OUTSIDE RECORDS SUMMARY | 2023-02-16 11:52 | XMS_ITS | Continuity of Care Document ---
Author Name Unknown Address [address] [place] [address] Phone [facility] Address [address] [place] [address] Phone Care Team Providers Care Slat Basket Top Maker Name Role Phone Jyothi Artaega Primary Care Provider Ed Velásquez Attending Provider [phone] Diana Chaidez Attending Provider [phone] Allergies, Adverse Reactions, Alerts No known allergies. Medications Medication Status Dose Units Route Directions Qty Days St art Date End Date Instructions Levonorgestr el-Ethinyl Estrad Discontin ued 1 TAB PO DAILY 84 August 17, 2018 12:08pm Septem bakari 2019 12:39p m Levonorgestr el-Ethinyl Estrad Active 1 TAB PO DAILY 84 Septemb er 2019 12:39pm flu vac [id number] 36mos up(PF) Discontin ued 60 MCG IM ONCE 0.5 July 27, 2018 10:15am July 27, 2018 10:33a m tuberculin PPD Discontin ued 0.1 ML ID ONCE 0.1 July 06, 2018 2:45pm July 06, 2018 3:03pm Levonorgestr el-Ethinyl Estrad (Vienva) 0.1-20 mg-mcg tablet Discontin ued TABLET September 26, 2017 1:36pm August 17, 2018 12:09p m Amoxicillin- Pot Clavulanate (Augmentin) 875-125 mg tablet Discontin ued 1 TAB PO TWICE A DAY 14 September 26, 2017 1:57pm July 27, 2018 10:32a m Problems Active Problems Medical Problem Onset Date Status Effusion of knee December 06, 2017 Active Benign mole Active Otalgia June 11, 2016 Active Anxiety Active Knee pain November 09, 2017 Active Inactive/Resolved Problems Medical Problem Onset Date Status Acute viral pharyngitis Resolved Contusion of hand, right Resolve d Laceration of foot, left Resolve d Procedures Procedure Date Performed Status Hand 3 vw Min RT 2019 9:21pm complete d Group A Streptococcus Screen (YVES) November completed Knee 3 vw RT May 01, 2019 3:59pm compl eted Relevant Diagnostic Tests and/or Laboratory Data Microbiology Results Procedure Source Result Collection Date/Time Result Date/Time Result Comment Performing Site Group A Streptococcus Screen (YVES) Throat November 26, 2019 2:11pm November 28, 2019 7:14am MAIN LAB, [address] [place] [address] Diagnostic Imaging Reports Report Dictated Date/Time Dictated By Status Radiology Report May 01, 2019 4:21pm Briana Monique MD completed RADIOLOGY REPORT PATIENT NAME: Nayeli Pearce 89 DATE OF : 2000 ATTENDING/ER PHYSICIAN: Ed Velásquez MD ER/ATTENDING PHYSICIAN: PRIMARY CARE PHYS: Jyothi C. Chandler, MD ADMITTING PHYSICIAN: CONSULTING PHYSICIAN: PROCEDURE DATE: [...] compartments. No joint effusion is identified. dd: 05/01/191620 <Electronically signed by Briana Monique MD in [place]> 05/01/191621 Radiology Report October 02, 2019 7:28am Nancy [...] an Advanced Directive? No December 09, 2012 10:08am Do we have a copy on file here at [facility]? No May 23, 2016 8:44am Pt has a Living Will? No December 10:08am Do we have a copy on file here at [facility]? No May 23, 2016 8:44am Pt has a Power of Second Chef? No 2012 10:08am Do we have a copy on file here at [facility]? No May 23, 2016 8:44am Chief Complaint and Reason for Visit Chief Complaint Injury Xray counseling COUNSELING - [phone] - LT KNEE counseling counseling Control Z11.3 counseling HAND INJURY counseling counseling counseling irritated mole on forehead Reason for Visit Knee pain Anxiety Anxiety Anxiety Anxiety Anxiety Anxiety Benign mole Encounters Encounter Location(s) Arrival/Admit Date Discharge/Depart Date Provider(s) Departed Physician/Prov ider Office Visit [facility] [place] May 01, 2019 2:11pm May 01, 2019 2:42pm Ed Velásquez MD Departed Clinical [facility] May 01, 2019 3:53pm May 01, 2019 3:54pm Ed Velásquez MD Departed Physician/Prov ider Office Visit [facility] May 10, 2019 1:54pm May 10, 2019 2:51pm Virgil Tamez Departed Physician/Prov ider Office Visit [facility] May 24, 2019 1:01pm May 24, 2019 1:13pm Virgil Tamez Departed Physician/Prov ider Office Visit [facility] rn diabetes educator&Rehab August 16, 2019 9:18am August 16, 2019 12:51pm Chris Bearden MD Departed Physician/Prov ider Office Visit [facility] August 17, 2019 6:59am August 17, 2019 12:58pm Virgil Tamez Departed Physician/Prov ider Office Visit [facility] August 29, 2019 8:48am August 29, 2019 12:49pm Virgil Tamez Departed Physician/Prov ider Office Visit [facility] rn EDITOR CONTINUITY AND SCRIPT August 31, 2019 8:48am August 31, 2019 9:13am Diana Chaidez MD Departed Referred [facility] AUTO BODY MAN August 31, 2019 9:03am August 31, 2019 9:04am Diana Chaidez MD Departed Physician/Prov ider Office Visit [facility] September 11, 2019 7:43am September 11, 2019 1:42pm Virgil Tamez Departed Emergency [facility]Emer[facility] 2019 9:08pm 2019 9:51pm null Departed Physician/Prov ider Office Visit [facility] October 04, 2019 7:50am October 04, 2019 10:08pm Virgil Tamez Departed Physician/Prov ider Office Visit [facility] October 23, 2019 2:55pm October 23, 2019 8:38pm Virgil Tamez Departed Physician/Prov ider Office Visit [facility] November 08, 2019 7:50am November 08, 2019 10:13am Virgil Tamez Departed Emergency [facility] rn Urgent [facility] November 26, 2019 12:42pm November 26, 2019 1:22pm null Departed Physician/Prov ider Office Visit [facility] January 12, 2020 2:30pm January 12, 2020 3:38pm Jyothi Arteaga MD Recent Diagnosis Onset Date Knee pain November 09, 2017 Anxiety Anxiety Anxiety Anxiety Anxiety Anxiety Benign mole Assessments Diagnosis Onset Date Resolution Status Knee pain November 09, 2017 noneacti ve Anxiety noneactive Anxiety noneactive Anxiety noneactive Anxiety noneactive Anxiety noneactive Anxiety noneactive Benign mole acute Family History Relationship Condition Age at Onset Recorded Date/T carie Parent Family history non-contributory Unknown Parent Family history non-contributory Unknown Not Specified Diabetes mellitus Unknown Cardiac disease Unknown Functional Status Observation Response Date Recorded Living Situation Home 2019 9:51pm Living Situation With Family November 26, 2019 12:57pm With Significant Other November 26, 2019 12:57pm Goals Goals may be documented in an alternate section. Immunizations Immunization Event Date Not Given Reason Dose Number Commercial Management Accountant Lot Number Vaccine Information Statement (VIS) Detail [...] 2015 Influenza IIV4 PF July 27, 2018 [id number] Influenza IIV3 April 10, 2011 Influenza Virus [...] Insurance Providers Guarantor Norris Ramses Address [address] [address] Contact Info. Home Phone: Payer Policy Id Coverage Id Subscriber's Name Subscriber Id Effective Date Expiration Date [place] [id number] NAYELI PEARCE [id number] SELF PAY Self N/A [place] (DO [place] USE) [id number] NAYELI PEARCE [id number] 2015 Plan of Treatment TREATMENT GOAL: 1) Continue to explore coping skills and strategies to reduce feelings of anxiety 2) Improve self-esteem STATUS: Ongoing SELF MANAGEMENT GOAL: Continue to take country drives in the car, get outside for fresh air, walking daily, talk to boyfriend and boyfriends family CURRENT SUPPORTS: friends TRIGGERS: none identified during this visit STRENGTHS: resilient, volunteer rescue, family Assessment: Pt continues to agree self-esteem is an issue and is positive in changing how she feels about herself. Pt reports being in a positive relationship is making a huge difference.' Pt is making improvements and will continue [...] males she is not best friends with. benign looking mole, but now that it is changing and itchy and bled once, will refer to derm for further eval. TREATMENT GOAL: 1) Continue to explore coping skills and strategies to reduce feelings of anxiety 2) Improve self-esteem STATUS: Ongoing SELF MANAGEMENT GOAL: Continue to take country drives in the car, get outside for fresh air, walking daily, talk to boyfriend and boyfriends family CURRENT SUPPORTS: friends TRIGGERS: none identified during this visit STRENGTHS: resilient, volunteer rescue, family Assessment: Pt sounds very happy to this lyric writer. Herbarium Curator has not heard pt being so upbeat and aware of changes she needs to continue to make to take care of her mental health. Pt loves her family but is aware that their relationships are toxic and is aware that spending less time with pt family is better for pt. Pt is learning to change how she feels about herself. Pt reports being in a positive relationship is making a huge difference.' Pt is making improvements and is feeling good about them. TREATMENT GOAL: 1) Continue to explore coping [...] reached out on her own to this lyric writer to improve symptoms associated with anxiety. [...] Pt did not follow up with this lyric writer when COVID-19 began. Pt recently reached out on her own to this lyric writer to improve symptoms associated with anxiety. Pt appears to be still somewhat reserved but if pt and this lyric writer meet consistently every two weeks, a [...] Address Jyothi Arteaga MD Work Phone: [facility] [address] [address] Jyothi Arteaga MD Work Phone: [address] [address] D22.9 - Melanocytic nevi, unspecified January 12, 2020 Annalisa Shipman MD [address] [address] Future Procedures Future procedure information is unavailable Future Medications Future medication information is unavailable Patient Instructions COVID 19 General Instruction s- decrease the spread of coronavirus ([facility]) Sore Throat, Child (DC) COVID 19 General Instructions- decrease the spread of coronavirus ([facility]) Social History Smoking Status Status Date of Observation Smokes tobacco daily (finding) January 12, 2020 2:46pm Observation Status Observation Response Date of Response Alcohol Use No November 26, 2019 12:57pm alcohol intake frequency holidays/special occasi ons only November 26, 2019 12:57pm substance use type marijuana November 2:40pm Smoking Status Current every day smoker Novembe r 2019 2:46pm Assigned Sex Female Vital Signs Vital Reading [...]
--- OUTSIDE RECORDS SUMMARY | 2023-02-16 11:52 | XMS_ITS | Continuity of Care Document ---
Author Name Unknown Address [address] [place] [address] Phone [facility] Address [address] [place] [address] Phone Care Team Providers Care Vice President Of Business Development Name Role Phone Jyothi Arteaga Primary Care Provider Ed Velásquez Attending Provider [phone] Diana Chaidez Attending Provider [phone] Allergies, Adverse Reactions, Alerts No known allergies. Medications Medication Status Dose Units Route Sig Qty Days Start Date End Date Instructions Levonorgestre l-Ethinyl Estrad Active 1 TAB PO DAILY 84 August 17, 2018 1:08pm flu vaccine [id number] (36 mos up)(PF)60 mcg (15 mcg x4)/0.5 [...] 01, 2019 4:21pm Briana Monique MD completed [facility] RADIOLOGY REPORT PATIENT NAME: Nayeli Pearce [id number] DATE OF : 2000 ATTENDING/ER PHYSICIAN: Ed Velásquez MD ER/ATTENDING PHYSICIAN: PRIMARY CARE PHYS: Jyothi Arteaga MD ADMITTING PHYSICIAN: CONSULTING PHYSICIAN: PROCEDURE DATE: 05/01/19 REPORT STATUS: Signed DICTATING PHYSICIAN: rBiana Monique MD REASON FOR EXAM: right knee [...] 02, 2019 7:28am Nancy pittman MD completed [facility] RADIOLOGY REPORT PATIENT NAME: NAYELI [...] a copy on file here at [facility]? No May 23, 2016 9:44am Pt has a Living Will? No December 11:08am Do we have a copy on file here at [facility]? No May 23, 2016 9:44am Pt has a Power of Sr Vice President? No 2012 11:08am Do we have a copy on file here at [facility]? No May 23, 2016 9:44am Chief Complaint and Reason for Visit Chief Complaint Injury Xray counseling COUNSELING - [phone] - LT KNEE counseling counseling Control counseling HAND INJURY counseling counseling Reason for Visit Knee pain Anxiety Anxiety Anxiety Encounters Encounter Location(s) Arrival/Admit Date Discharge/Depart Date Provider(s) Departed Physician/Prov ider Office Visit [facility] Pediatric[facility] May 01, 2019 2:11pm May 01, 2019 2:42pm Ed Velásquez MD Departed Clinical [facility] May 01, 2019 3:53pm May 01, 2019 3:54pm Ed Velásquez MD Departed Physician/Prov ider Office Visit [facility] Pediatric[facility] May 10, 2019 1:54pm May 10, 2019 2:51pm Virgil Tamez Departed Physician/Prov ider Office Visit [facility] May 24, 2019 2:01pm May 24, 2019 2:13pm Virgil Tamez Departed Physician/Prov ider Office Visit [facility] Orthopedic[facility]Re[facility] August 16, 2019 10:18am August 16, 2019 1:51pm Chris Bearden MD Departed Physician/Prov ider Office Visit [facility] August 17, 2019 7:59am August 17, 2019 1:58pm Virgil Tamez Departed Physician/Prov ider Office Visit [facility] August 29, 2019 9:48am August 29, 2019 1:49pm Virgil Tamez Departed Physician/Prov ider Office Visit [facility] HOUSEKEEPER AND LAUNDRY ASSISTANT August 31, 2019 9:48am August 31, 2019 10:13am Diana Chaidez MD Departed Referred [facility] CALL CENTER TEAM LEADER August 31, 2019 10:03am August 31, 2019 10:04am Diana Chaidez MD Departed Physician/Prov ider Office Visit [facility] September 11, 2019 8:43am September 11, 2019 2:42pm Virgil Tamez Departed Emergency [facility] 2019 10:08pm 2019 10:51pm null Departed Physician/Prov ider Office Visit [facility] October 04, 2019 8:50am October 04, 2019 11:08pm Virgil Tamez Departed Physician/Prov ider Office Visit [facility] October 23, 2019 3:55pm October 23, 2019 9:38pm Virgil Tamez Recent Diagnosis Onset Date Knee pain November 09, 2017 Anxiety Anxiety Anxiety Assessments Diagnosis Onset Date Resolution Status Knee pain November 09, 2017 noneacti ve Anxiety noneactive Anxiety noneactive Anxiety noneactive Family History Relationship Condition Age at Onset Recorded Date/T carie Parent Family history non-contributory Unknown Parent Family history non-contributory Unknown Not Specified Diabetes mellitus Unknown Cardiac disease Unknown Functional Status Observation Response Date Recorded Living Situation Home 2019 10:51pm Goals Goals may be documented in an alternate section. Immunizations Immunization Event Date Not Given Reason Dose Number Television Schedule Coordinator Lot Number Vaccine Information Statement (VIS) Detail [...] 2015 Influenza IIV4 PF July 27, 2018 [id number] Influenza IIV3 April 10, 2011 Influenza Virus [...] Insurance Providers Guarantor Norris Ramses Address [address] [address] Contact Info. Home Phone: Payer Policy Id Coverage Id Subscriber's Name Subscriber Id Effective Date Expiration Date [place] [id number] NAYELI PEARCE [id number] SELF PAY Self N/A [place] MEDICAID (DO NOT USE) [id number] NAYELI PEARCE [id number] 2015 Plan of Treatment TREATMENT GOAL:1) Plan [...] reached out on her own to this senior technical writer to improve symptoms associated with anxiety. [...] Pt did not follow up with this senior technical writer when COVID-19 began. Pt recently reached out on her own to this senior technical writer to improve symptoms associated with anxiety. Pt appears to be still somewhat reserved but if pt and this senior technical writer meet consistently every two weeks, a [...] Address Jyothi Arteaga MD Work Phone: [facility] [place] [address] Future Procedures Future procedure information is unavailable Future Medications Future medication information is unavailable Patient Instructions COVID 19 General Instruction s- decrease the spread of coronavirus ([facility]) Social History Smoking Status Status Date of Observation Never smoked tobacco (finding) September 11:38pm Observation Status Observation Response Date of Response Alcohol Use No 2019 11:38pm alcohol intake frequency holidays/special occasi ons only 2019 11:38pm substance use type marijuana September 30 11:38pm Smoking Status Never smoker 2019 11:38pm Assigned [...]
--- OUTSIDE RECORDS SUMMARY | 2023-02-16 11:52 | XMS_ITS | Continuity of Care Document ---
Author Name Unknown Address [address] [place] [address] Phone [facility] Address [address] [place] [address] Phone Care Team Providers Care Utility Helicopter Repairer Name Role Phone Jyothi Arteaga Primary Care Provider [phone] Ed Velásquez Attending Provider [phone] Diana Chaidez Attending Provider [phone] Allergies, Adverse Reactions, Alerts No known allergies. Medications Medication Status Dose Units Route Sig Qty Days Start Date End Date Instructions Levonorgestre l-Ethinyl Estrad Active 1 TAB PO DAILY 84 August 17, 2018 1:08pm flu vaccine [id number] (36 mos up)(PF)60 mcg (15 mcg x4)/0.5 [...] 01, 2019 4:21pm Briana Monique MD completed [facility] RADIOLOGY REPORT PATIENT NAME: Nayeli Pearce [...] 02, 2019 7:28am Nancy pittman MD completed [facility] RADIOLOGY REPORT PATIENT NAME: NAYELI PEARCE [...] have a copy on file here at [facility]? No May 23, 2016 9:44am Pt has a Living Will? No December 11:08am Do we have a copy on file here at [facility]? No May 23, 2016 9:44am Pt has a Power of Process Control Specialist? No 2012 11:08am Do we have a copy on file here at [facility]? No May 23, 2016 9:44am Chief Complaint and Reason for Visit Chief Complaint Injury Xray counseling COUNSELING - [phone] - LT KNEE counseling counseling Control counseling HAND INJURY counseling Reason for Visit Knee pain Anxiety Anxiety Encounters Encounter Location(s) Arrival/Admit Date Discharge/Depart Date Provider(s) Departed Physician/Prov ider Office Visit [facility] Pediatrics [facility] May 01, 2019 2:11pm May 01, 2019 2:42pm Ed Velásquez MD Departed Clinical [facility] May 01, 2019 3:53pm May 01, 2019 3:54pm Ed Velásquez MD Departed Physician/Prov ider Office Visit [facility] Pediatric[facility] May 10, 2019 1:54pm May 10, 2019 2:51pm Virgil Tamez Departed Physician/Prov ider Office Visit [facility] May 24, 2019 2:01pm May 24, 2019 2:13pm Virgil Tamez Departed Physician/Prov ider Office Visit [facility] Orthopedic[facility]Rehab August 16, 2019 10:18am August 16, 2019 1:51pm Chris Bearden MD Departed Physician/Prov ider Office Visit [facility] August 17, 2019 7:59am August 17, 2019 1:58pm Virgil Tamez Departed Physician/Prov ider Office Visit [facility] August 29, 2019 9:48am August 29, 2019 1:49pm Virgil Tamez Departed Physician/Prov ider Office Visit [facility] ON CALL August 31, 2019 9:48am August 31, 2019 10:13am Diana Chaidez MD Departed Referred [facility] MANAGER SALES TRAINING August 31, 2019 10:03am August 31, 2019 10:04am Diana Chaidez MD Departed Physician/Prov ider Office Visit [facility] September 11, 2019 8:43am September 11, 2019 2:42pm Virgil Tamez Departed Emergency [facility] 2019 10:08pm 2019 10:51pm null Departed Physician/Prov ider Office Visit [facility] October 04, 2019 8:50am October 04, 2019 11:08pm Virgil Tamez Recent Diagnosis Onset Date Knee [...] Event Date Not Given Reason Dose Number Security Alarm Installer Lot Number Vaccine Information Statement (VIS) Detail [...] 2015 Influenza IIV4 PF July 27, 2018 [id number] Influenza IIV3 April 10, 2011 Influenza Virus [...] Insurance Providers Guarantor Norris Pearce Address [address] [address] Contact Info. Home Phone: Payer Policy Id Coverage Id Subscriber's Name Subscriber Id Effective Date Expiration Date [place] [id number] NAYELI PEARCE [id number] SELF PAY Self N/A [place] (DO NOT USE) [id number] NAYELI PEARCE [id number] 2015 Plan of Treatment #CC: newly sexually [...] reached out on her own to this ticket writer to improve symptoms associated with anxiety. [...] Pt did not follow up with this ticket writer when COVID-19 began. Pt recently reached out on her own to this ticket writer to improve symptoms associated with anxiety. Pt appears to be still somewhat reserved but if pt and this ticket writer meet consistently every two weeks, a [...] Provider Address Jyothi Arteaga MD Work Phone: [facility] [place] [address] Future Procedures Future procedure information is unavailable Future Medications Future medication information is unavailable Patient Instructions COVID 19 General Instruction s- decrease the spread of coronavirus ([facility]) Social History Smoking Status Status Date of [...]
--- OUTSIDE RECORDS SUMMARY | 2023-02-16 11:52 | XMS_ITS | Continuity of Care Document ---
Author Name Unknown Address [address] [place] [address] Phone [facility] Address [address] [place] [address] Phone Care Team Providers Care Engineering Designer Name Role Phone Jyothi Arteaga Primary Care Provider Ed Velásquez Attending Provider [phone] Allergies, Adverse Reactions, Alerts No known allergies. Medications Medication Status Dose Units Route Sig Qty Days Start Date End Date Instructions Levonorgestr el-Ethinyl Estrad Active 1 TAB ORAL DAILY 84 August 17, 2018 1:08pm flu vaccine [id number] (36 mos up)(PF)60 mcg (15 mcg x4)/0.5 [...] 01, 2019 4:21pm Briana Monique MD completed [facility] RADIOLOGY REPORT PATIENT NAME: Nayeli Parham [...] have a copy on file here at [facility]? No May 23, 2016 9:44am Pt has a Living Will? No December 11:08am Do we have a copy on file here at [facility]? No May 23, 2016 9:44am Pt has a Power of Make Up Girl? No 2012 11:08am Do we have a copy on file here at [facility]? No May 23, 2016 9:44am Chief Complaint and Reason for Visit Chief Complaint PPD Office visit nursing note Immunizations fax Injury Xray counseling COUNSELING Encounters Encounter Location(s) Arrival/Admit Date Discharge /Depart Date Provider(s) Departed Physician/Provi raz Office Visit [facility] July 06, 2018 3:48pm July 06, 2018 11:59pm Chandler Nurse Departed Physician/Provi raz Office Visit [facility] July 08, 2018 3:54pm July 08, 2018 11:59pm Yvonne Frazier MA Departed Physician/Provi raz Office Visit [facility] July 27, 2018 11:14am July 27, 2018 12:53pm Yvonne Frazier MA Registered Inpatient [facility] August 17, 2018 11:59pm Jyothi Arteaga MD Departed Physician/Provi raz Office Visit [facility] May 01, 2019 2:11pm May 01, 2019 2:42pm Ed Velásquez MD Departed Clinical [facility] May 01, 2019 3:53pm May 01, 2019 3:54pm Ed Velásquez MD Departed Physician/Provi raz Office Visit [facility] May 10, 2019 1:54pm May 10, 2019 2:51pm Virgil Tamez Departed Physician/Provi raz Office Visit [facility] May 24, 2019 2:01pm May 24, 2019 2:13pm Virgil Tamez Assessments No Assessments Information Available Family History Relationship Condition Age at Onset Recorded Date/T carie Parent Family history non-contributory Unknown Parent Family history non-contributory Unknown Not Specified Diabetes mellitus Unknown Cardiac disease Unknown Functional Status No Functional Status information available Goals Goals may be documented in an alternate section. Immunizations Immunization Event Date Not Given Reason Dose Number [facility] Director Lot Number Vaccine Information Statement (VIS) Detail [...] 2015 Influenza IIV4 PF July 27, 2018 [id number] Influenza IIV3 April 10, 2011 Influenza Virus [...] Insurance Providers Guarantor Norris Ramses Address [address] [phone] Contact Info. Home Phone: Payer Policy Id Coverage Id Subscriber's Name Subscriber Id Effective Date Expiration Date [place] [id number] Nayeli Parham [id number] SELF PAY Self N/A [place]DO NOT USE) [id number] Nayeli Parham [id number] 2015 Plan of Treatment TREATMENT GOAL: 1) [...] males she is not best friends with. Future Tests Future scheduled test information is unavailable Pending Tests Pending diagnostic test information is unavailable Future Visits Future appointment information is unavailable Referrals to Other Providers Reason for Referral Referral Start Date Provider Provider Contact Information Provider Address Jyothi Arteaga MD Work Phone: [facility] [address] [address] Future Procedures Future procedure information is unavailable [...]
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
--- OUTSIDE RECORDS SUMMARY | 2023-02-16 11:53 | XMS_ITS | Continuity of Care Document ---
Author Name Unknown Address [address] [place] [address] [facility] Address [address] [place] [address] Phone Care Team Providers Care Apprise Counselor Name Role Phone Jyothi Arteaga Primary Care Provider [phone] Ed Velásquez Attending Provider [phone] Allergies, Adverse Reactions, Alerts No known allergies. Medications Medication Status Dose Units Route Sig Qty Days Start Date End Date Instructions Levonorgestr el-Ethinyl Estrad Active 1 TAB ORAL DAILY 84 August 17, 2018 1:08pm flu vaccine [id number] (36 mos up)(PF)60 mcg (15 mcg x4)/0.5 [...] 01, 2019 4:21pm Briana Monique MD completed [facility] [...] have a copy on file here at [facility]? No May 23, 2016 9:44am Pt has a Living Will? No December 11:08am Do we have a copy on file here at [facility]? No May 23, 2016 9:44am Pt has a Power of Cartridge Maker? No 2012 11:08am Do we have a copy on file here at [facility]? No May 23, 2016 9:44am Chief Complaint and Reason for Visit Chief Complaint PPD Office visit nursing note Immunizations fax Injury Xray Encounters Encounter Location(s) Arrival/Admit Date Discharge /Depart Date Provider(s) Departed Physician/Provi raz Office Visit [facility] July 06, 2018 3:48pm July 06, 2018 11:59pm Chandler Arora Departed Physician/Provi raz Office Visit [facility] July 08, 2018 3:54pm July 08, 2018 11:59pm Yvonne Frazier MA Departed Physician/Provi raz Office Visit [facility] July 27, 2018 11:14am July 27, 2018 12:53pm Yvonne Frazier MA Registered Inpatient [facility] August 17, 2018 11:59pm Jyothi Arteaga MD Departed Physician/Provi raz Office Visit [facility] May 01, 2019 2:11pm May 01, 2019 2:42pm Ed Velásquez MD Departed Clinical [facility] May 01, 2019 3:53pm May 01, 2019 3:54pm Ed Velásquez MD Assessments No Assessments Information Available Family History Relationship Condition Age at Onset Recorded Date/T carie Parent Family history non-contributory Unknown Parent Family history non-contributory Unknown Not Specified Diabetes mellitus Unknown Cardiac disease Unknown Functional Status No Functional Status information available Goals Goals may be documented in an alternate section. Immunizations Immunization Event Date Not Given Reason Dose Number Stain Applicator Lot Number Vaccine Information Statement (VIS) Detail [...] 2015 Influenza IIV4 PF July 27, 2018 [id number] Influenza IIV3 April 10, 2011 Influenza Virus [...] Insurance Providers Guarantor Norris Ramses Address [address] [facility] [address] Contact Info. Home Phone: Payer Policy Id Coverage Id Subscriber's Name Subscriber Id Effective Date Expiration Date [place] [id number] Nayeli Joshua Sureshrobyn [id number] SELF PAY Self N/A [place] MEDICA[place] (DO NOT USE) [id number] Nayeli Joshua Ramses [id number] 2015 Plan of Treatment Future Tests Future scheduled test information is unavailable Pending Tests Pending diagnostic test information is unavailable Future Visits Future appointment information is unavailable Referrals to Other Providers Reason for Referral Referral Start Date Provider Provider Contact Information Provider Address Jyothi Arteaga MD Work Phone: [facility] [address] [facility] [address] Future Procedures Future procedure information is unavailable [...]
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
--- OUTSIDE RECORDS SUMMARY | 2023-02-16 11:53 | XMS_ITS | Continuity of Care Document ---
Author Name Unknown Address [address] [place] [address] Phone Organization [facility] Address [address] [place] [address] Phone Care Team Providers Care Fisher Diver Net Name Role Phone Juan Carlos Santana JR Primary Care Provider Juan Carlos Santana JR Attending Provider Chief Complaint and Reason for Visit Chief Complaint Epigastric Pain Test Allergies, Adverse Reactions, Alerts No known allergies Social History Smoking Status Status Start Date End Date Date of Observa tion Smokes tobacco daily (finding) February 22, 2021 3:58pm Observation Status Observation Response Date of Response Alcohol Use No February 22, 2 021 3:58pm alcohol intake frequency [facility] 2020 1:02pm Substance/Street Drug Use Yes [facility] 2020 3:58pm substance use type marijuana February 3:58pm Smoking Status Current every day smoker [facility] 2020 3:58pm Additional Data Assigned Sex Female Family History Relationship Condition Age at Onset Recorded Date/T carie Parent Type 1 diabetes mellitus Unknown Parent Family history non-contributory Unknown Not Specified Diabetes mellitus Unknown Cardiac disease Unknown Problems Active Problems Medical Problem Onset Date Status Effusion of knee December 06, 2017 Active Benign mole Active Vomiting and diarrhea [...] Date Status Abdominal pain, right lower quadrant Resolved Abdominal pain, RUQ Resolved Chronic chest wall pain Resolved Acute foot pain Resolved Viral URI with cough Resolved URI (upper respiratory infection) Resolved Acute [...] PO DAILY 84 August 17, 2018 12:08pm Nov 2019 12:39p m Levonorgestr el-Ethinyl Estrad Disconti nued 1 TAB PO DAILY 2019 12:39pm Septem bakari 2020 1:15pm Fluoxetine Disconti nued 10 MG PO DAILY June 17, 2020 7:38am July 12, 2020 3:21pm Famotidine Active 0 .ROUTE .COMPLEX 270 Octu 2020 2:18pm TAKE 1 TABLET BY MOUTH THREE TIMES DAILY NEEDED FOR ACID REFLUX Fluoxetine Active 20 MG PO DAILY er 2020 1:14pm Levonorgestr el-Ethinyl Estrad Active 1 TAB PO DAILY er 2020 1:15pm Magnesium Disconti nued 200 - 600 MG PO DAILY November 04, 2020 9:18am Octobe r 2020 3:41pm Riboflavin (Vitamin B2) Disconti nued 400 MG PO DAILY November 04, 2020 9:19am Octobe r 2020 3:41pm Ondansetron Hcl (Zofran) 4 mg tablet Disconti nued 4 MG PO Q8H September 12, 2020 3:03pm October 16, 2020 12:36p m Magnesium Active 200 - 600 MG PO DAILY December 20, 2020 3:41pm Riboflavin (Vitamin B2) Active 400 MG PO DAILY December 20, 2020 3:41pm Famotidine Disconti nued 20 MG PO THREE TIMES A DAY August 30, 2020 1:16pm October 30, 2020 2:18pm Fluoxetine Disconti nued 20 MG PO DAILY August 30, 2020 1:21pm Sept2020 1:14pm Fluoxetine Disconti nued 20 MG PO DAILY July 12, 2020 3:21pm August 19, 2020 8:34am Fluoxetine Disconti nued 20 MG PO DAILY August 19, 2020 8:34am August 30, 2020 1:22pm Silver Sulfadiazine (Silvadene) 1 % cream Disconti nued 1 APPLIC TOP TWICE A DAY October 16, 2020 12:44pm November 04, 2020 9:09am apply a 1.5 mm thickness Levonorgestr el-Ethinyl Estrad (Vienva) 0.1-20 mg-mcg tablet Disconti nued TABLET September 26, 2017 1:36pm August 17, 2018 12:09p m Amoxicillin- Pot Clavulanate (Augmentin) 875-125 mg tablet Disconti nued 1 TAB PO TWICE A DAY 14 September 26, 2017 1:57pm July 27, 2018 10:32a m Ondansetron Disconti nued 4 MG PO Q8H 14 September 30, 2020 7:46pm November 04, 2020 9:09am Immunizations Immunization Event Date Not Given Reason Dose Number Fruit Bar Maker Lot Number Vaccine Information Statement (VIS) Detail [...] 2015 Influenza IIV4 PF July 27, 2018 [id number] Influenza IIV4 PF May 01, 2020 [id number] Influenza IIV3 April 10, 2011 Influenza Virus Vaccine (H) February 04, 2006 Influenza Virus Vaccine (H) February 10, 2006 Influenza Virus Vaccine (H) December 29, 2006 Influenza Virus Vaccine (H) January 27, 2008 Influenza Virus Vaccine (H) April 26, 2009 Meningococcal Conjugate MCV4 (Menactra) April 26, 2014 Meningococcal Conjugate MCV4 (Menactra) August 30, 2020 [id number] Measles,Mumps,Rub melody Vaccine June 02, 2004 Measles,Mumps,Rub [...] 03, 2007 Procedures Procedure Date Performed Status NM HIDA w Pharm April 24, 2021 9:30am compl eted Relevant Diagnostic Tests and/or Laboratory Data Laboratory Results Test Date/Time Result Interpretation Reference Range Result Comment Performing Site Urine Test (Clinic) May 01, 2021 2:49pm Negative Diagnostic Imaging Reports Report Dictated Date/Time Dictated By Status Radiology Report April 24, 2021 11:14am Nancy Grijalva MD completed [facility] NUCLEAR MED REPORT PATIENT NAME: TERA PEARCE 89 DATE OF : 2000 ATTENDING/ER PHYSICIAN: Juan Carlos Santana JR, DO ER/ATTENDING PHYSICIAN: PRIMARY CARE PHYS: Juan Carlos Santana JR, DO ADMITTING PHYSICIAN: CONSULTING PHYSICIAN: PROCEDURE DATE: 04/24/21 REPORT STATUS: Signed DICTATING PHYSICIAN: Nancy Grijalva MD REASON FOR EXAM: Epigastric Pain STUDY: CCK HIDA scan with no prior comparison exams. TECHNIQUE: Following the intravenous administration of 4.9 mCi of Tc-99m mebrofenin , serial static images of the anterior abdomen were obtained for 45 minutes before and 30 minutes following a 30 min IV infusion of a total 2.2 mcg bolus of of CCK (Kinevac). The regions of interest were drawn around the gallbladder and the time activity curve with ejection fraction were calculated. FINDINGS: Hepatic parenchyma demonstrated normal uniform uptake. Activity in the intrahepatic ducts was identified at 10 minutes with opacification of the extra-hepatic ducts and gallbladder at 15 minutes. The gallbladder was visualized and excretion of radiotracer into the small bowel was noted pre-CCK infusion. The calculated gallbladder ejection fraction was 82% (normal is 40% or greater). CONCLUSION: Normal CCK HIDA scan. dd: 04/24/21 1114 <Electronically signed by Nancy Grijalva MD in OV> 04/24/21 1116 Vital Signs Vital Reading Result Reference Range Collection Date/Time Body mass index (BMI) [Percentile] Per age and sex 98.4 % Obesity; 95th percentile and above October 16, 2020 12:32pm Body mass index (BMI) [Percentile] Per age and sex 98.3 % Obesity; 95th percentile and above November 15, 2020 1:21pm Advance Directives Advance Directive Response Recorded Date/ Time Does patient have an Advanced Directive? No December 09, 2012 10:08am Do we have a copy on file here at [facility]? No May 23, 2016 8:44am Pt has a Living Will? No December 10:08am Do we have a copy on file here at [facility]? No May 23, 2016 8:44am Pt has a Power of Electrical Transmission Engineer? No 2012 10:08am Do we have a copy on file here at [facility]? No May 23, 2016 8:44am Insurance Providers Guarantor TERA PEARCE Address [address] [place] [id number] Contact Info. Home Phone: Payer Policy Id Coverage Id Subscriber's Name Subscriber Id Effective Date Expiration Date [place] [id number] TERA PEARCE [id number] SELF PAY Self N/A [place] MEDICAID (DO NOT USE) [id number] TERA PEARCE [id number] 2015 Encounters Encounter Location(s) Arrival/Admit Date Discharge/Depart Date Provider(s) Departed Clinical [facility] April 24, 2021 9:03am April 24, 2021 9:04am Juan Carlos Santana JR DO Departed Physician/Prov ider Office Visit [facility] PARK WORKER SUPERVISOR May 01, 2021 2:45pm May 01, 2021 3:00pm Nabeel Quezada MD Plan of Treatment Future Tests Future scheduled test information is unavailable Pending Tests Pending diagnostic test information is unavailable Future Visits Future appointment information is unavailable Referrals to Other Providers Reason for Referral Referral Start Date Provider Provider Contact Information Provider Address Jyothi Arteaga MD Work Phone: [place] [facility] [address] [facility] [address] Jyothi Arteaga MD Work Phone: [place] [facility] [address] [facility] [address] [facility] Orthopa[facility] Work Phone: [facility] Medical Office Building [address] [place] [address] Jyothi Arteaga MD Work Phone: [place] [facility] [address] [facility] [address] Jyothi Arteaga MD Work Phone: [place] [facility] [address] [facility] [address] Jyothi Arteaga MD Work Phone: [place] [facility] [address] [facility] [address] Jyothi Arteaga MD Work Phone: [place] [facility] [address] [facility] [address] Jyothi Arteaga MD Work Phone: [place] [facility] [address] [facility] [address] Antwon Jackson DPM Work Phone: [facility] Orthopaedics [address] [place] [address] [facility] [address] Future Procedures Future procedure information is unavailable Future Medications Future medication information is unavailable Patient Instructions Acute Pain, Adult COVID 19 General Instructions- decrease the spread of coronavirus ([facility]) Sprain (DC) COVID 19 General Instructions- decrease the spread of coronavirus ([facility]) Nausea and Vomiting, Child ( [place]) Gallstones ED Costochondritis (DC) Severe Abdominal Pain, Adult (DC) Upper Respiratory Infection ED
--- OUTSIDE RECORDS SUMMARY | 2023-02-16 11:53 | XMS_ITS | Continuity of Care Document ---
Author Name Unknown Address [address] [place] [address] Phone [facility] Address [address] [place] [address] Phone Care Team Providers Care Fast Food Assistant Restaurant Manager Name Role Phone Jyothi Arteaga Primary Care Provider [phone] Ed Velásquez Attending Provider [phone] Diana Chaidez Attending Provider Allergies, Adverse Reactions, Alerts No known allergies. Medications Medication Status Dose Units Route Directions Qty Days St art Date End Date Instructions Levonorgestr el-Ethinyl Estrad Discontin ued 1 TAB PO DAILY 84 August 17, 2018 12:08pm Septem bakari 2019 12:39p m Levonorgestr el-Ethinyl Estrad Active 1 TAB PO DAILY 84 Septemb er 2019 12:39pm flu vac [id number] 36mos up(PF) Discontin ued 60 MCG IM [...] 2:11pm November 28, 2019 7:14am MAIN LAB, [address] [place] [address] Diagnostic Imaging Reports Report Dictated Date/Time Dictated By Status Radiology Report May 01, 2019 4:21pm Briana Monique MD completed [facility] RADIOLOGY REPORT PATIENT NAME: Nayeli [...] 02, 2019 7:28am Nancy pittman MD completed [facility] RADIOLOGY REPORT PATIENT NAME: NAYELI [...] 2016 8:44am Pt has a Power of Powder Blender? No 2012 10:08am Do we have a copy on file here at [facility]? No May 23, 2016 8:44am Chief Complaint and Reason for Visit Chief Complaint Injury Xray counseling COUNSELING - [phone] - LT KNEE counseling counseling Control Z11.3 counseling HAND INJURY counseling counseling counseling irritated mole on forehead Reason for Visit Knee pain Anxiety Anxiety Anxiety Anxiety Anxiety Anxiety Benign mole Encounters Encounter Location(s) Arrival/Admit Date Discharge/Depart Date Provider(s) Departed Physician/Prov ider Office Visit [facility] [place] May 01, 2019 2:11pm May 01, 2019 2:42pm Ed Velásquez MD Departed Clinical [facility] May 01, 2019 3:53pm May 01, 2019 3:54pm Ed Velásquez MD Departed Physician/Prov ider Office Visit [facility] May 10, 2019 1:54pm May 10, 2019 2:51pm Virgil Tamez Departed Physician/Prov ider Office Visit [facility] May 24, 2019 1:01pm May 24, 2019 1:13pm Virgil Tamez Departed Physician/Prov ider Office Visit [facility] harness maker[facility]Rehab August 16, 2019 9:18am August 16, 2019 12:51pm Chris Bearden MD Departed Physician/Prov ider Office Visit [facility] August 17, 2019 6:59am August 17, 2019 12:58pm Virgil Tamez Departed Physician/Prov ider Office Visit [facility] August 29, 2019 8:48am August 29, 2019 12:49pm Virgil Tamez Departed Physician/Prov ider Office Visit [facility] rn [place] August 31, 2019 8:48am August 31, 2019 9:13am Diana Chaidez MD Departed Referred [facility] POULTRY SERVICE TECHNICIAN August 31, 2019 9:03am August 31, 2019 9:04am Diana Chaidez MD Departed Physician/Prov ider Office Visit [facility] September 11, 2019 7:43am September 11, 2019 1:42pm Virgil Tamez Departed Emergency [facility]Emergency Department 2019 9:08pm 2019 9:51pm null Departed Physician/Prov ider Office Visit [facility] October 04, 2019 7:50am October 04, 2019 10:08pm Virgil Tamez Departed Physician/Prov ider Office Visit [facility] October 23, 2019 2:55pm October 23, 2019 8:38pm Virgil Tamez Departed Physician/Prov ider Office Visit [facility] November 08, 2019 7:50am November 08, 2019 10:13am Virgil Tamez Departed Emergency [facility] rn Urgent [facility] November 26, 2019 12:42pm November 26, 2019 1:22pm null Departed Physician/Prov ider Office Visit [facility] January 12, 2020 2:30pm January [...] Event Date Not Given Reason Dose Number Solar Photovoltaic Designer Lot Number Vaccine Information Statement (VIS) Detail [...] 2015 Influenza IIV4 PF July 27, 2018 [id number] Influenza IIV3 April 10, 2011 Influenza Virus [...] Insurance Providers Guarantor Norris Ramses Address [address] [address] Contact Info. Home Phone: Payer Policy Id Coverage Id Subscriber's Name Subscriber Id Effective Date Expiration Date [place] [id number] NAYELI PEARCE [id number] SELF PAY Self N/A [place] MEDICAID (DO NOT USE) [id number] NAYELI PEARCE [id number] 2015 Plan of Treatment TREATMENT GOAL: 1) [...] Assessment: Pt sounds very happy to this mortgage or loan underwriter. Home Health Attendant has not heard pt being so upbeat [...] reached out on her own to this mortgage or loan underwriter to improve symptoms associated with anxiety. [...] Pt did not follow up with this mortgage or loan underwriter when COVID-19 began. Pt recently reached out on her own to this mortgage or loan underwriter to improve symptoms associated with anxiety. Pt appears to be still somewhat reserved but if pt and this mortgage or loan underwriter meet consistently every two weeks, a [...] Address Jyothi Arteaga MD Work Phone: [facility] Pediatrics [address] [address] Jyothi Arteaga MD Work Phone: [address] [address] D22.9 - Melanocytic nevi, unspecified January 12, 2020 Annalisa Shipman MD [address] [address] Future Procedures Future procedure information is unavailable [...]
--- OUTSIDE RECORDS SUMMARY | 2023-02-16 11:53 | XMS_ITS | Continuity of Care Document ---
Author Name Unknown Address [address] [place] [address] Phone [facility] Address [address] [place] [address] Phone Care Team Providers Care Explosives Mixer Operator Name Role Phone Jyothi Arteaga Primary Care Provider [phone] Ed Velásquez Attending Provider Diana Chaidez Attending Provider [phone] Allergies, Adverse Reactions, Alerts No known allergies. Medications Medication Status Dose Units Route Sig Qty Days Start Date End Date Instructions Levonorgestre l-Ethinyl Estrad Active 1 TAB PO DAILY 84 August 17, 2018 1:08pm flu vaccine [id number] (36 mos up)(PF)60 mcg (15 mcg x4)/0.5 [...] 01, 2019 4:21pm Briana Monique MD completed [facility] RADIOLOGY REPORT PATIENT NAME: [...] have a copy on file here at [facility]? No May 23, 2016 9:44am Pt has a Living Will? No December 11:08am Do we have a copy on file here at [facility]? No May 23, 2016 9:44am Pt has a Power of Environmental Services Tech? No 2012 11:08am Do we have a copy on file here at [facility]? No May 23, 2016 9:44am Chief Complaint and Reason for Visit Chief Complaint Injury Xray counseling COUNSELING EP - [phone] - LT KNEE counseling counseling Control counseling HAND INJURY Reason for Visit Knee pain Anxiety Anxiety Encounters Encounter Location(s) Arrival/Admit Date Discharge/Depart Date Provider(s) Departed Physician/Prov ider Office Visit [facility] May 01, 2019 2:11pm May 01, 2019 2:42pm Ed Velásquez MD Departed Clinical [facility] May 01, 2019 3:53pm May 01, 2019 3:54pm Ed Velásquez MD Departed Physician/Prov ider Office Visit [facility] May 10, 2019 1:54pm May 10, 2019 2:51pm Virgil Tamez Departed Physician/Prov ider Office Visit [facility] May 24, 2019 2:01pm May 24, 2019 2:13pm Virgil Tamez Departed Physician/Prov ider [facility] August 16, 2019 10:18am August 16, 2019 1:51pm Chris Bearden MD Departed Physician/Prov ider Office Visit [facility] August 17, 2019 7:59am August 17, 2019 1:58pm Virgil Tamez Departed Physician/Prov ider Office Visit [facility] August 29, 2019 9:48am August 29, 2019 1:49pm Virgil Tamez Departed Physician/Prov ider [facility] August 31, 2019 9:48am August 31, 2019 10:13am Diana Chaidez MD Departed Referred [facility] ANIMAL BREEDER August 31, 2019 10:03am August 31, 2019 10:04am Diana Chaidez MD Departed Physician/Prov ider Office Visit [facility] September 11, 2019 8:43am September 11, 2019 2:42pm Virgil Tamez Departed Emergency [facility]-Emergency Department 2019 10:08pm 2019 10:51pm null [...] Event Date Not Given Reason Dose Number Dial Lathe Operator Lot Number Vaccine Information Statement (VIS) [...] 2015 Influenza IIV4 PF July 27, 2018 [id number] Influenza IIV3 April 10, 2011 Influenza Virus [...] Insurance Providers Guarantor Norris Ramses Address [address] [address] Contact Info. Home Phone: Payer Policy Id Coverage Id Subscriber's Name Subscriber Id Effective Date Expiration Date [place] [id number] NAYELI PEARCE [id number] SELF PAY Self N/A [place] MED[place] (DO NOT USE) [id number] NAYELI PEARCE [id number] 2015 Plan of Treatment #CC: newly sexually [...] reached out on her own to this singer songwriter to improve symptoms associated with anxiety. Pt [...] Pt did not follow up with this singer songwriter when COVID-19 began. Pt recently reached out on her own to this singer songwriter to improve symptoms associated with anxiety. Pt appears to be still somewhat reserved but if pt and this singer songwriter meet consistently every two weeks, a therapeutic [...] Provider Address Jyothi Arteaga MD Work Phone: [facility] Pediatric[facility] [address] [address] Future Procedures Future procedure information is unavailable Future Medications Future medication information is unavailable Patient Instructions COVID 19 General Instruction s- decrease the spread of coronavirus ([facility]) Social History Smoking Status Status Date of [...]
--- OUTSIDE RECORDS SUMMARY | 2023-02-16 11:53 | XMS_ITS | Continuity of Care Document ---
Author Name Unknown Address [address] [place] [address] Phone Organization [facility] Address [address] [place] [address] Phone Care Team Providers Care Plaster Block Layer Name Role Phone Juan Carlos Santana JR Primary Care Provider Juan Carlos Santana JR Attending Provider [phone] Chief Complaint and Reason for Visit Chief Complaint Epigastric Pain Test Allergies, Adverse Reactions, Alerts No known allergies Social History Smoking Status Status Start Date End Date Date of Observa tion Smokes tobacco daily (finding) February 22, 2021 3:58pm Observation Status Observation Response Date of Response Alcohol Use No February 22, 2 021 3:58pm alcohol intake frequency [facility] 2020 1:02pm Substance/Street Drug Use Yes [facility] 2020 3:58pm substance use type marijuana February 3:58pm Smoking Status Current every day smoker [facility] 2020 3:58pm Additional Data Assigned Sex Female [...] Event Date Not Given Reason Dose Number Realtime Court Reporter Lot Number Vaccine Information Statement (VIS) Detail [...] 2015 Influenza IIV4 PF July 27, 2018 [id number] Influenza IIV4 PF May 01, 2020 [id number] Influenza IIV3 April 10, 2011 Influenza Virus Vaccine (H) February 04, 2006 Influenza Virus Vaccine (H) February 10, 2006 Influenza Virus Vaccine (H) December 29, 2006 Influenza Virus Vaccine (H) January 27, 2008 Influenza Virus Vaccine (H) April 26, 2009 Meningococcal Conjugate MCV4 (Menactra) April 26, 2014 Meningococcal Conjugate MCV4 (Menactra) August 30, 2020 [id number] Measles,Mumps,Rub melody Vaccine June 02, 2004 Measles,Mumps,Rub [...] 24, 2021 11:14am Nancy Grijalva MD completed [facility] NUCLEAR MED REPORT PATIENT NAME: TERA [...] have a copy on file here at [facility]? No May 23, 2016 8:44am Pt has a Living Will? No December 10:08am Do we have a copy on file here at [facility]? No May 23, 2016 8:44am Pt has a Power of Magazine Repairer? No 2012 10:08am Do we have a copy on file here at [facility]? No May 23, 2016 8:44am Insurance Providers Guarantor TERA PEARCE Address [address] [place] [address] Contact Info. Home Phone: Payer Policy Id Coverage Id Subscriber's Name Subscriber Id Effective Date Expiration Date [place] [id number] TERA PEARCE [id number] SELF PAY Self N/A [place] MEDICA[place] (DO NOT USE) [id number] TERA PEARCE [id number] 2015 Encounters Encounter Location(s) Arrival/Admit Date Discharge/Depart Date Provider(s) Departed Clinical [facility] April 24, 2021 9:03am April 24, 2021 9:04am Juan Carlos Santana JR DO Departed Physician/Prov ider Office Visit [facility] IAP DISPLAYS ANALYST May 01, 2021 2:45pm May 01, 2021 3:00pm Nabeel Quezada MD Plan of Treatment Future Tests Future scheduled test information is unavailable Pending Tests Pending diagnostic test information is unavailable Future Visits Future appointment information is unavailable Referrals to Other Providers Reason for Referral Referral Start Date Provider Provider Contact Information Provider Address Jyothi Arteaga MD Work Phone: [facility] [address] [facility] [place] [address] Jyothi Arteaga MD Work Phone: [facility] [address] [facility] [place] [address] [facility] Orthopaedics Work Phone: [facility] Medical Office Building [address] [place] [address] Jyothi Arteaga MD Work Phone: [facility] [address] [facility] [place] [address] Jyothi Arteaga MD Work Phone: [place] [facility] [address] [facility] [place] [address] Jyothi Arteaga MD Work Phone: [facility] [facility] [address] [facility] [place] [address] Jyothi Arteaga MD Work Phone: [facility] [facility] [address] [facility] [place] [address] Jyothi Arteaga MD Work Phone: [facility] [facility] [address] [facility] [place] [address] Antwon Jackson DPM Work Phone: [facility] Orthopaedics [address] [place] [address] [facility] [address] Future Procedures Future procedure information is unavailable Future Medications Future medication information is unavailable Patient Instructions Acute Pain, Adult COVID 19 General Instructions- decrease the spread of coronavirus ([facility]) Sprain (DC) COVID 19 General Instructions- decrease the spread of coronavirus ([facility]) Nausea and Vomiting, Child ( DC) Gallstones ED Costochondritis (DC) Severe Abdominal Pain, Adult (DC) Upper Respiratory Infection ED
--- OUTSIDE RECORDS SUMMARY | 2023-02-16 11:53 | XMS_ITS | Continuity of Care Document ---
Author Name Unknown Address [address] [place] [address] Phone [facility] Address [address] [place] [address] Phone Care Team Providers Care Health Care / Medical Job Titles Name Role Phone Jyothi Arteaga Primary Care Provider Ed Velásquez Attending Provider Diana Chaidez Attending Provider [phone] Allergies, Adverse Reactions, Alerts No known allergies. Medications Medication Status Dose Units Route Directions Qty Days St art Date End Date Instructions Levonorgestr el-Ethinyl Estrad Discontin ued 1 TAB PO DAILY 84 August 17, 2018 12:08pm Septem bakari 2019 12:39p m Levonorgestr el-Ethinyl Estrad Active 1 TAB PO DAILY 84 Septemb er 2019 12:39pm flu vac [id number] 36mos up(PF) Discontin ued 60 MCG IM [...] 2:11pm November 28, 2019 7:14am MAIN LAB, [address] [place] [address] Diagnostic Imaging Reports Report Dictated Date/Time Dictated [...] have a copy on file here at [facility] [place]? No May 23, 2016 8:44am Pt has a Living Will? No December 10:08am Do we have a copy on file here at [facility] [place]? 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 No 2012 10:08am Do we have a copy on file here at [facility] [place]? No May 23, 2016 8:44am Chief Complaint and Reason for Visit Chief Complaint Injury Xray counseling COUNSELING - [phone] - LT KNEE counseling counseling Control Z11.3 counseling HAND INJURY counseling counseling counseling irritated mole on forehead counseling Reason for Visit Knee pain Anxiety Anxiety Anxiety Anxiety Anxiety Anxiety Benign mole Encounters Encounter Location(s) Arrival/Admit Date Discharge/Depart Date Provider(s) Departed Physician/Prov ider Office Visit [facility] [place] May 01, 2019 2:11pm May 01, 2019 2:42pm Ed Velásquez MD Departed Clinical [facility] May 01, 2019 3:53pm May 01, 2019 3:54pm Ed Velásquez MD Departed Physician/Prov ider Office Visit [facility] May 10, 2019 1:54pm May 10, 2019 2:51pm Virgil Tamez Departed Physician/Prov ider Office Visit [facility] May 24, 2019 1:01pm May 24, 2019 1:13pm Virgil Tamez Departed Physician/Prov ider Office Visit [facility] rn long term care&Rehab August 16, 2019 9:18am August 16, 2019 12:51pm Chris Bearden MD Departed Physician/Prov ider Office Visit [facility] August 17, 2019 6:59am August 17, 2019 12:58pm Virgil Tamez Departed Physician/Prov ider Office Visit [facility] August 29, 2019 8:48am August 29, 2019 12:49pm Virgil Tamez Departed Physician/Prov ider Office Visit [facility] rn 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 August 31, 2019 8:48am August 31, 2019 9:13am Diana Chaidez MD Departed Referred [facility] 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 August 31, 2019 9:03am August 31, 2019 9:04am Diana Chaidez MD Departed Physician/Prov ider Office Visit [facility] September 11, 2019 7:43am September 11, 2019 1:42pm Virgil Tamez Departed Emergency [facility] 2019 9:08pm 2019 9:51pm null Departed Physician/Prov ider Office Visit [facility] October 04, 2019 7:50am October 04, 2019 10:08pm Hermansurjit Amayaie Departed Physician/Prov ider Office Visit [facility] October 23, 2019 2:55pm October 23, 2019 8:38pm Virgil Tamez Departed Physician/Prov ider Office Visit [facility] November 08, 2019 7:50am November 08, 2019 10:13am Virgil Tamez Departed Emergency [facility] rn Urgent [facility] November 26, 2019 12:42pm November 26, 2019 1:22pm null Departed Physician/Prov ider Office Visit [facility] January 12, 2020 2:30pm January 12, 2020 3:38pm Jyothi Arteaga MD Departed Physician/Prov ider Office Visit [facility] February 14, 2020 7:43am February 14, 2020 11:49am Herman Joi Recent Diagnosis Onset Date Knee pain November [...] Event Date Not Given Reason Dose Number Mask Inspector Lot Number Vaccine Information Statement (VIS) Detail [...] 2015 Influenza IIV4 PF July 27, 2018 [id number] Influenza IIV3 April 10, 2011 Influenza Virus [...] Insurance Providers Guarantor Norris Ramses Address [address] [place] [address] Contact Info. Home Phone: Payer Policy Id Coverage Id Subscriber's Name Subscriber Id Effective Date Expiration Date [place] [id number] NAYELI PEARCE [id number] SELF PAY Self N/A [place]DO [place] USE) [id number] NAYELI PEARCE [id number] 2015 Plan of Treatment TREATMENT GOAL: 1) [...] Assessment: Pt sounds very happy to this selling underwriter. Sales Representative Uniforms has not heard pt being so upbeat [...] reached out on her own to this selling underwriter to improve symptoms associated with anxiety. [...] Pt did not follow up with this selling underwriter when COVID-19 began. Pt recently reached out on her own to this selling underwriter to improve symptoms associated with anxiety. Pt appears to be still somewhat reserved but if pt and this selling underwriter meet consistently every two weeks, a [...] Provider Address Jyothi Arteaga MD Work Phone: [facility] [place] [facility] [place] [address] Jyothi Arteaga MD Work Phone: [facility] [place] [facility] [address] [address] D22.9 - Melanocytic nevi, unspecified January 12, 2020 Annalisa Shipman MD [address] [facility] [address] Future Procedures Future procedure information is unavailable [...]
--- OUTSIDE RECORDS SUMMARY | 2023-02-16 11:53 | XMS_ITS | Continuity of Care Document ---
Author Name Unknown Address [address] [place] [address] [facility] Address [address] [place] [address] Phone Care Team Providers Care Delimber Operator Name Role Phone DO Juan Carlos Santana JR Primary Care Provider MD Darinel Feliz Emergency Provider DO Juan Carlos Santana JR Attending Provider AKASH Galvez Emergency Provider [phone] AKASH Huntley Attending Provider PCP, of Choice Primary Care Provider AKASH Garza Emergency Provider AKASH Huntley Primary Care Provider [phone] JUANCHO Jackson Attending Provider MD Ramon Kapoor Emergency Provider AKASH Higuera Emergency Provider [phone] MD Mary Neal Emergency Provider Chief Complaint [...] TWICE A DAY October 16, 2020 12:00am [place] 30th, 2021 10:09a m apply a 1.5 [...] Event Date Not Given Reason Dose Number Delivery Consultant Lot Number Vaccine Information Statement (VIS) Detail [...] 2015 Influenza IIV4 PF July 27, 2018 [id number] Influenza IIV4 PF May 01, 2020 [id number] Influenza IIV3 April 10, 2011 Influenza Virus Vaccine (H) February 04, 2006 Influenza Virus Vaccine (H) February 10, 2006 Influenza Virus Vaccine (H) December 29, 2006 Influenza Virus Vaccine (H) January 27, 2008 Influenza Virus Vaccine (H) April 26, 2009 Meningococcal Conjugate MCV4 (Menactra) April 26, 2014 Meningococcal Conjugate MCV4 (Menactra) August 30, 2020 [id number] Measles,Mumps,Rub melody Vaccine June 02, 2004 Measles,Mumps,Rub [...] 2022 11:30am 11.59 1000/mm3 4.8-10.8 MA[facility] [id number] [address] [address] Red Blood Count June 06, 2022 11:30am 5.70 M/mm3 4.20-5.40 MA[facility] [id number] [address] [address] Hemoglobin June 06, 2022 11:30am 16.5 g/dL 12.0-16.0 MA[facility] [id number] [address] [address] Hematocrit June 06, 2022 11:30am 47.3 % 37-47 MAIN [facility] [id number] [address] [address] Mean Corpuscular Volume June 06, 2022 11:30am 83.0 fL 81.0-99.0 MA[facility] [id number] [address] [address] Mean Corpuscular Hemoglobin June 06, 2022 11:30am 28.9 pg 27-31 MAIN [facility] [id number] [address] [address] Mean Corpuscular Hemoglobin Concent June 06, 2022 11:30am 34.9 g/dL 33-37 MAIN [facility] [id number] [address] [address] Red Cell Distribution Width June 06, 2022 11:30am 12.6 % 11.5-14.5 MAIN [facility] [id number] [address] [address] Platelet Count June 06, 2022 11:30am 250 1000/mm3 140-440 MA[facility] [id number] [address] [address] Mean Platelet Volume June 06, 2022 11:30am 9.7 fL 7.4-10.4 MAIN [facility] [id number] [address] [address] Neutrophils (%) (Auto) June 06, 2022 11:30am 83.9 % 40.0-72.0 MAIN [facility] [id number] [address] [address] Lymphocytes (%) (Auto) June 06, 2022 11:30am 11.0 % 17-45 MAIN [facility] [id number] [address] [address] Monocytes (%) (Auto) June 06, 2022 11:30am 3.6 % 3-11 MAIN [facility] [id number] [address] [address] Eosinophils (%) (Auto) June 06, 2022 11:30am 0.4 % 0-3 MAIN LAB [id number] [address] [address] Basophils (%) (Auto) June 06, 2022 11:30am 0.8 % 0-1 MAIN LAB [id number] [place] [address] Immature Granulocyte % (Auto) June 06, 2022 11:30am 0.3 % 0-1 MAIN LAB [id number] [place] [address] Neutrophils # (Auto) June 06, 2022 11:30am 9.72 1000/mm3 1.4-6.5 MAIN [facility] [id number] [address] [address] Lymphocytes # (Auto) June 06, 2022 11:30am 1.28 1000/mm3 1.2-3.4 MAIN [facility] [id number] [address] [address] Monocytes # (Auto) June 06, 2022 11:30am 0.42 1000/mm3 0.0-0.8 MAIN [facility] [id number] [address] [address] Eosinophils # (Auto) June 06, 2022 11:30am 0.05 1000/mm3 0.0-0.7 MAIN LAB [id number] [address] [address] Basophils # (Auto) June 06, 2022 11:30am 0.09 1000/mm3 0.0-0.1 MAIN [facility] [id number] [address] [address] Absolute Immature Granulocyte (auto June 06, 2022 11:30am 0.0 0-1 MAIN LAB [id number] [address] [address] Differential Method June 06, 2022 11:30am Automated MAIN [facility] [id number] [place] [address] Sodium Level June 06, 2022 11:30am 139 mmol/L 137-145 MAIN [facility] [id number] [address] [address] Potassium Level June 06, 2022 11:30am 3.9 mmol/L 3.6-5.0 MAIN [facility] [id number] [address] [address] Chloride Level June 06, 2022 11:30am 104 mmol/L 98-107 MAIN [facility] [id number] [address] [address] Carbon Dioxide Level June 06, 2022 11:30am 23 mmol/L 22-30 MAIN [facility] [id number] [address] [address] Anion Gap June 06, 2022 11:30am 12 7-16 MAIN LAB [id number] [address] [address] Blood Urea Nitrogen June 06, 2022 11:30am 10 mg/dL 7-17 MAIN LAB [id number] [address] [address] Creatinine June 06, 2022 11:30am 0.61 mg/dL 0.52-1.04 MAIN LAB [id number] [address] [address] Glomerular Filtration Rate Calc June 06, 2022 11:30am > 60 mL/min >60.0 MAIN LAB [id number] [address] [address] Glucose Level June 06, 2022 11:30am 97 mg/dL 70-100 MAIN LAB [id number] [address] [address] Calcium Level June 06, 2022 11:30am 9.3 mg/dL 8.4-10.2 MAIN LAB [id number] [address] [address] Calcium Adjusted for Albumin June 06, 2022 11:30am 8.8 mg/dL 8.4-10.2 MAIN LAB [id number] [address] [address] Albumin June 06, 2022 11:30am 4.9 g/dL 3.5-5.0 MAIN LAB [id number] [address] [address] Total Protein June 06, 2022 11:30am 7.7 g/dL 6.3-8.2 MAIN LAB [id number] [address] [address] Alkaline Phosphatase June 06, 2022 11:30am 67 U/L 38-126 MAIN LAB [id number] [address] [address] Alanine Aminotransfe rase (ALT/SGPT) June 06, 2022 11:30am 34 U/L <35 Per Ortho Clinical Diagnostic's notification dated May 11, 2022, note that ascorbic acid concentrations of 100 mg/dL may produce a negative bias greater than 12.5%. MAIN LAB [id number] [address] [address] Aspartate Amino Transf (AST/SGOT) June 06, 2022 11:30am 37 U/L 14-36 MAIN LAB [id number] [address] [address] Total Bilirubin June 06, 2022 11:30am 0.6 mg/dL 0.2-1.3 MAIN LAB [id number] [address] [address] Influenza Type A (RT-PCR) June 28, 2021 9:09pm Positive Negative MAIN [facility] [address] [address] Influenza Type A (RT-PCR) January 25, 2022 12:32am Negative Negative MAIN [facility] [id number] [address] [address] Influenza Type B (RT-PCR) June 28, 2021 9:09pm Negative Negative MAIN [facility] [address] [address] Influenza Type B (RT-PCR) January 25, 2022 12:32am Negative Negative MAIN LAB [id number] [address] [address] Respiratory Syncytial Virus (RT-PCR June 28, 2021 9:09pm Negative Negative MAIN LAB [address] [address] Respiratory Syncytial Virus (RT-PCR January 25, 2022 12:32am Positive Negative MAIN LAB [id number] [address] [address] SARS-CoV-2 RNA (RT-PCR) June 28, 2021 9:09pm Negative Negative Note: This RT-PCR assay is intended for the in vitro qualitative detection of nucleic acid from SARS-CoV-2.This test has not been FDA cleared or approved. This test has been authorized by the FDA under an Emergency Use Authorization (EUA) for use by authorized laboratories. Fact sheets for providers can be found at: fda.gov/media/ 35724/downloadF act sheets for patients can be found at: fda.gov/media/12/downloadN ew reagent in use as of 01/23/2021. MAIN LAB [address] [address] SARS-CoV-2 RNA (RT-PCR) January 25, 2022 12:32am Negative Negative Note: This RT-PCR assay is intended for the in vitro qualitative detection of nucleic acid from SARS-CoV-2.This test has not been FDA cleared or approved. This test has been authorized by the FDA under an Emergency Use Authorization (EUA) for use by authorized laboratories. Fact sheets for providers can be found at: fda.gov/media/ 55620/downloadF act sheets for patients can be found at: Xecced.gov/media/12/downloadN ew reagent in use as of 01/23/2021. MAIN LAB [id number] [address] [address] SARS-CoV-2 RNA (RT-PCR) June 06, 2022 12:37pm Negative Negative Note: This RT-PCR assay is intended for the in vitro qualitative detection of nucleic acid from SARS-CoV-2.This test has not been FDA cleared or approved. This test has been authorized by the FDA under an Emergency Use Authorization (EUA) for use by authorized laboratories. Fact sheets for providers can be found at: fda.gov/media/ 96188/downloadF act sheets for patients can be found at: fda.gov/media/12/downloadN ew reagent in use as of 01/23/2021. MAIN LAB [id number] [address] [address] Chlamydia trachomatis RNA November 17, 2021 7:19pm Negative Negative [facility] [id number] Neisseria gonorrhoeae RNA November 17, 2021 7:19pm Negative Negative [facility]/GC SOURCES: URINESource:uri Brandon first catch urine specimen is acceptable for detection ofGonorrhea and Chlamydia, but might detect up to 10% fewerinfections when compared with vaginal and endocervical swabsamples.Elsa t performed or referred by[address] [facility] [id number] Microbiology Results Procedure Source Result Collection Date/Time Result Date/Time Result Comment Performing Site Group A Streptococcus Screen (YVES) Throat July 10, 2021 8:42am MAIN LAB [place] [address] Diagnostic Imaging Reports Report Dictated Date/Time Dictated By Status Radiology Report November 03, 2021 7:09pm Logan Arnold MD completed [facility] RADIOLOGY REPORT PATIENT NAME: TERA PEARCE [...] 25, 2022 12:02am Etta Cason MD completed [facility] RADIOLOGY REPORT PATIENT NAME: TERA PEARCE [...] 01, 2022 1:16pm Uriel curtis DO completed [facility] RADIOLOGY REPORT PATIENT NAME: TERA PEARCE [...] 06, 2022 12:24pm Flower cueva MD completed [facility] CAT SCAN REPORT PATIENT NAME: TERA [...] 06, 2022 12:27pm Flower cueva MD completed [facility] CAT SCAN REPORT PATIENT NAME: TERA [...] fracture or dislocation. COMMENTS: Consistent with the [employer]'s Incidental Findings Committee white [...] Status Radiology Report June 06, 2022 12:39pm aDisy bond MD completed [facility] CAT SCAN REPORT PATIENT NAME: TERA [...] 3:05pm BMI (Body Mass Index) 41.5 kg/m2 [facility] 2021 3:05pm Body mass index (BMI) [Percentile] [...] 5:42pm Insurance Providers Guarantor TERA PEARCE Address [address] [place] [address] Contact Info. Home Phone: Payer Policy Id Coverage Id Subscriber's Name Subscriber Id Effective Date Expiration Date [facility] [id number] TERA PEARCE [id number] SELF PAY Self N/A [place]ICA[place] (DO NOT USE) [id number] TERA PEARCE [id number] 2015 Encounters Encounter Location(s) Arrival/Admit Date Discharge/Depart Date Provider(s) Departed Emergency [facility] June 28, 2021 8:12pm June 28, 2021 9:35pm null Departed Referred [facility] July 08, 2021 6:15pm July 08, 2021 6:16pm Juan Carlos Santana JR, DO Departed Emergency [facility]gent [facility] November 03, 2021 5:41pm November 03, 2021 7:35pm null Departed Referred [facility] November 17, 2021 7:19pm November 17, 2021 7:20pm AKASH Pacheco Departed Emergency [facility] January 24, 2022 11:11pm January 25, 2022 1:51am null Departed Physician/Prov ider Office Visit [facility] February 11, 2022 2:30pm February 11, 2022 3:50pm Antwon Jackson DPM [facility] February 11, 2022 3:17pm February 11, 2022 3:18pm Antwon Jackson DPM Departed Emergency [facility] April 06, 2022 11:04am April 06, 2022 2:25pm null Departed Emergency [facility] May 01, 2022 1:31pm May 01, 2022 2:33pm null Departed Emergency [facility] June 06, 2022 10:10am June 06, [...] Date Provider Provider Contact Information Provider Address S93.731D - Sprain of unspecified ligament of right ankle, initial encounter February 11, 2022 [facility] AKASH Pacheco Work Phone: [facility] [place] [address] [place] [address] AKASH Pacheco Work Phone: [facility] [place] [address] [place] [address] AKASH Pacheco Work Phone: [facility] [place] [address] [place] [address] Juan Carlos Santana JR, DO Work Phone: [facility] [address] [place] [address] Juan Carlos Gascau , DO Work Phone: [facility] [address] [place] [address] Future Procedures Procedure Name Ordered Date Scheduled [...] or any concerns. Patient contact information: Primary phone:[phone] (Note to patient; Please let our registration staff know if this phone number is not correct so we can keep our systems accurate) *Regarding pending labs, you will only be called for positive/abnormal results. Negative/normal results can be found on the patient portal.
--- NOTE | 2023-02-16 12:26 | ED.GENADUL_ITS ---
Discharge Plan Disposition Patient Disposition: Home Condition: Good Discharge Details Clinical Impression: Abnormal menses, Abdominal pain Primary Care Provider: Trinity Copeland ED Provider: Silvia Olmedo Home Meds and New Rx's Prescriptions: Continued fluoxetine 20 mg capsule 20 mg PO DAILY albuterol sulfate 90 mcg/actuation HFA aerosol inhaler 2 puff inhalation Q6H PRN omeprazole 20 mg capsule,delayed release(DR/EC) 20 mg PO DAILY albuterol sulfate 0.63 mg/3 mL solution for nebulization 0.63 mg inhalation QID PRN albuterol sulfate [ProAir HFA] 90 mcg/actuation HFA aerosol inhaler 2 puff inhalation Q6H PRN fluticasone propion-salmeterol [Wixela Inhub] 100-50 mcg/dose blister with device 1 inh inhalation DAILY lidocaine 4 % adhesive patch,medicated 1 patch topical DAILY PRN Discharge Instructions Instructions: Abdominal Pain (ED) Additional Instructions: Your labs and imaging are reassuring here today. No evidence of problem with left ovary, no cyst. You are not . Your discomfort may be associated with bowel changes or abnormal menses. Pelase encourage hydration. Heating pain for pain. Ibuprofen or Tylenol, take as directed on packaging. Please follow up with [facility] to discuss your wish to conceive and pain. Their number is listed below. If you develop fevers/chills, increased pain or other new/worsening symptoms, please seek care urgently once again. Referrals: Trinity Copeland, KAE [Primary Care Provider] - Jessica De La Rosa MD [ [facility] STAFF PHYSICIAN] - Medical Decision Making Patient is a pleasant 22 year old female, presenting today with c/c of abdominal pain. States that she is trying to conceive, has had 3 miscarriages, all of which have been before 5weeks gestation. She states that she typically has regular menses, was one week late during this cycle, had obstetrics technician menses but stronger cramping. States that while her bleeding stopped, she still has pain, primarily along the left side. She was seen at urgent care initially, sent her here for evaluation. She denies fevers/chills. Has had STI testing, always negative. Witht eh same partner x 8mo. Denies STI exposure. Has not had pain like this in the past. No previous abdominal surgeries. Deneis vaginal discharge. No change in bowel or bladder habtis. On exam, patient appears anxious but nontoxic. Lungs are clear, normal cardiac exam. She has some discomfort with percussion over hte left CVA. Pain is primarily in the LUQ. No pain in the pelvis with palpation. No right sided pain, negative Salas. No epigastric pain, no guarding or peritoneal findings. While she is endorsing changes in her menses, I am primarily concerned more about pancreatitis, gastritis, pyelonephritis vs. other. Will obtgain labs, UA, preform pelvic exam. Pelvic exam performed by myself with PATIENT RELATIONS SPECIALIST staff at bedside. No abnormal discharge. Negative chandelier sign. Pain with bimanual exam on the left adenexa. Will obtain pelvic US. UTERUS: Anteverted. 6.4 x 3.4 x 4.5 cm. Question arcuate uterus. Small pedunculated fibroid at fundus measuring 1 x 0.9 x 2 cm. Endometrium: 7 mm . Homogeneous. Myometrium: Unremarkable. Cervix: Unremarkable. OVARIES: Right: Cyst or mass: 1.5 centimeter follicle. 1.4 centimeter corpus luteum cyst. Left: Cyst or mass: None. DOPPLER: Color: Symmetric and uniform flow to both ovaries. No hyperemia. CUL-DE-SAC: Free fluid: Small amount of free fluid in the cul-de-sac. IMPRESSION: 1. Arcuate uterus. Endometrial stripe within normal limits. 2. Unremarkable bilateral ovaries. Discussed these findings with the patient. At this time, I do not see any emergent abnormality. STI panel is pending. Will contact her with any abnormality. Advised that this could be associated with stress ball fluctuations leading her menses to be late. Return precautions were discussed. As she is trying to conceive, will have her follow-up with WAREHOUSE AND RECEIVING SUPERVISOR. She will call [facility] to schedule follow-up appointment. All of her questions or concerns were addressed and she is in agreement this plan. HPI General Date/Time Provider Initiated Documentation: 02/16/23 12:10 . Limitations to Documentation: no limitations . Information obtained by: patient and RN notes reviewed . History of Present Illness 22 year old F presents to the emergency department with the chief complaint of left sided abdominal pain, described as severe, with intensity rated at 9. Quality is described as sharp, and is localized to the abdomen. Patient reports radiation to back. Patient started experiencing this week(s) and it has been constant. No relieving factors improve symptom(s), No exacerbating factors reported . Patient notes no other symptoms.. Patient did receive the following treatments prior to arrival, NSAID Related Data Home Medications Medication Instructions Recorded Confirmed albuterol sulfate 90 mcg/actuation 2 puff inhalation Q6H PRN 01/12/23 02/16/23 aerosol inhaler fluoxetine 20 mg capsule 20 mg PO DAILY 01/12/23 02/16/23 albuterol sulfate 0.63 mg/3 mL 0.63 mg inhalation QID PRN 02/16/23 solution for nebulization albuterol sulfate 90 mcg/actuation 2 puff inhalation Q6H PRN 02/16/23 aerosol inhaler (ProAir HFA) fluticasone 100 mcg-salmeterol 50 1 inh inhalation DAILY 02/16/23 mcg/dose blistr powdr for inhalation (Wixela Inhub) lidocaine 4 % topical patch 1 patch topical DAILY PRN 02/16/23 omeprazole 20 mg capsule,delayed 20 mg PO DAILY 02/16/23 release Allergies Allergy/AdvReac Type Severity Reaction Status Date / Time latex AdvReac Intermediate Unverified 02/16/23 11:21 General Stated Complaint: WAREHOUSE AND RECEIVING SUPERVISOR ANDREA: 3 Review of Systems Constitutional Constitutional: Reports as per HPI, Denies chills and Denies fever(s) Cardiovascular Cardiovascular: Reports as per HPI, Denies chest pain and Denies dyspnea Respiratory Respiratory: Reports as per HPI, Denies cough and Denies dyspnea Gastrointestinal Gastrointestinal: Reports as per HPI Genitourinary Genitourinary: Reports abnormal menses (1 wk late on last cycle), Reports difficulty conceiving (reports she has had 3 miscarriages), Denies difficulty voiding, Denies genital pruritis, Denies genital lesions, Reports light periods, Denies dyspareunia, Reports dysmenorrhea, Denies dysuria, Reports pelvic pain and Reports flank pain Musculoskeletal Musculoskeletal: Reports as per HPI and Denies back pain Integumentary/Breasts Skin/Breast: Reports as per HPI and Denies rash Neurologic Neurologic: Reports as per HPI PFSH All Active Problems (Updated 02/16/23 @ 16:27 by AKASH Dahl) Abdominal pain (Acute) Abnormal menses (Acute) Diaphragmatic hernia without obstruction or gangrene (Acute) Post concussion syndrome (Acute) Reactive airway disease (Acute) Red [place]-Schlatter's disease (Acute) Obesity (Chronic) Medical History (Updated 02/16/23 @ 16:27 by AKASH Dahl) Myalgia Social History Smoking risk assessment performed?: No Exam Const General: cooperative, healthy appearing, comfortable, no acute distress and well developed Nutritional Appearance: well nourished and overweight Orientation: alert and awake [facility] Head: normal to inspection Mouth: moist mucous membranes Resp Effort & Inspection: normal respiratory effort, able to speak in complete sentences and no respiratory distress Auscultation: clear to auscultation bilaterally, no rales, no rhonchi and no whe ezes Cardio Rate: regular rate Rhythm: regular rhythm Heart Sounds: S1 normal and S2 normal GI Inspection: normal to inspection Palpation: soft, no hepatosplenomegaly, not firm, no guarding, no masses, not rigid and tender in the LUQ; with no rebound tenderness Percussion: normal to percussion Auscultation: normal bowel sounds General: bimanual renal exam normal bilaterally External Female Exam: normal external appearance, normal appearance of the urethra, no erythema, no tenderness externally, no external swelling and No urethral discharge Speculum Exam - Vagina: normal appearance of the vagina, normal vaginal discharge and nontender Speculum Exam - Cervix: normal appearance of the cervix and nontender Bimanual Exam- Vagina & Uterus: normal bimanual exam, normal palpation, uterine size normal, consistency normal, normal palpation, No tender and no cervical motion tenderness Bimanual Exam- Adnexa, other: normal adnexae, no masses and tender on the left Back/Spine/Pelvis Back: CVA tenderness (left sided) Skin General skin exam: no rashes or lesions noted Trauma: no lacerations or abrasions Neuro General: patient alert and patient awake Cognition: normal cognition Speech: speech normal Gait: normal gait Course Vital Signs Vital signs: Vital Signs Pulse 98 H 02/16/23 11:16 Respiratory Rate 16 02/16/23 11:16 Blood Pressure 134/69 02/16/23 11:16 Pulse Oximetry 98 02/16/23 11:16 Pulse 98 H 02/16/23 11:16 Respiratory Rate 16 02/16/23 11:16 Blood Pressure 134/69 02/16/23 11:16 Pulse Oximetry 98 02/16/23 11:16 Oxygen Delivery Method Room Air 02/16/23 11:16 Oxygen Flow Rate 0 02/16/23 11:16
[2023-02-16] MEDS: Normal Saline 1,000 ML 1000 ML IV (13:01)
[2023-02-16 13:03] LABS: Abs Immature Grans 0.03 10^3/uL (0.0-0.06); Absolute Basophil Count 0.14 10^3/uL (0.0-0.2); Absolute Eosinophil Count 0.39 10^3/uL (0.0-0.7); Absolute Lymphocyte Count 3.21 10^3/uL (1.2-3.4); Absolute Neutrophil Count 6.19 10^3/uL (1.2-6.7); Basophils % 1.3; Eosinophils % 3.7; HCT 44.8 % (36.0-46.0); HGB 15.5 g/dL (11.2-15.7); Immature Grans % 0.3; Lymphocytes % 30.1; MCH 28.5 pg (27.0-33.0); MCHC 34.6 % (32.0-36.0); MCV 82 fL (80-95); MPV 9.3 fL (8.0-11.0); Monocytes % 6.6; Platelet Count 243 10^3/uL (130-400); RBC 5.44 10^6/uL (3.93-5.22); RDW 12.2 % (11.7-14.6); RDW-SD 36.8 fL; WBC 10.66 10^3/uL (4.4-10.8)
[2023-02-16 13:12] LABS: Bilirubin Negative (Negative); Blood Negative (Negative); Clarity Clear (Clear); Glucose Negative (Negative); Ketones Negative (Negative); Leukocyte Esterase Negative (Negative); Nitrite Negative (Negative); Urobilinogen 0.2 mg/dL (Up to 0.2)
[2023-02-16 13:16] LABS: Lipase 30 U/L (16-77)
[2023-02-16 13:19] LABS: ALT 26 U/L (14-59); AST 19 U/L (15-37); Alkaline Phosphatase 73 U/L (46-116); Anion Gap 8.4 mmol/L (3-11); BUN 10 mg/dL (7-18); Bilirubin, Total 0.3 mg/dL (0.2-1.0); CO2 26.6 mmol/L (21.0-32.0); CREATININE 0.8 mg/dL (0.55-1.02); Calcium 9.5 mg/dL (8.5-10.1); Chloride 103 mmol/L (98-107); Estimated GFR 108.11 (mL/min/1.73m2); Glucose 94 mg/dL (74-106); HCG Qual (Serum) Negative; Sodium 138 mmol/L (136-145); Total Protein 7.5 g/dL (6.4-8.2)
--- NOTE | 2023-02-16 14:45 | DI.US_ITS ---
Exam(s) US PELVIS TRANSVAGINAL EXAM: US PELVIS TRANSVAGINAL CLINICAL HISTORY: left pelvic exam TECHNIQUE: Transabdominal and transvaginal imaging was performed using standard protocol. COMPARISON: No exams were available for comparison FINDINGS: UTERUS: Anteverted. 6.4 x 3.4 x 4.5 cm. Question arcuate uterus. Small pedunculated fibroid at fundus richard uring 1 x 0.9 x 2 cm. Endometrium: 7 mm . Homogeneous. Myometrium: Unremarkable. Cervix: Unremarkable. OVARIES: Right: Cyst or mass: 1.5 centimeter follicle. 1.4 centimeter corpus luteum cyst. Left: Cyst or mass: None. DOPPLER: Color: Symmetric and uniform flow to both ovaries. No hyperemia. CUL-DE-SAC: Free fluid: Small amount of free fluid in the cul-de-sac. IMPRESSION: 1. Arcuate uterus. Endometrial stripe within normal limits. 2. Unremarkable bilateral ovaries. DATA REPOSITORY:
[2023-02-16 16:28] VITALS: BP 113/61; PULSE 64; RESP 16; O2SAT 99
[2023-02-17 13:07] LABS: Chlamydia Result Negative (Negative); GC Result Negative (Negative)
== END 2023-02-16 16:49 | disposition home or self-care (01) ==
PROVIDERS: Emergency Provider Physician Assistant; PCP Nurse Practitioner Family
DX: R10.12 Left upper quadrant pain; N92.6 Irregular menstruation, unspecified; E66.9 Obesity, unspecified; Z68.34 Body mass index [BMI] 34.0-34.9, adult; Z91.040 Latex allergy status
CPT/HCPCS: 36415; 80053; 81025; 83690; 87491; 87591; 96360; 99284; 76830; 76856; 81003; 84703; 85025; 87480; 87510; 87660

== ENCOUNTER → 2023-04-06 10:12 | Outpatient (CLI) | payer MEDICAID, SELFPAY ==
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
== END ==
PROVIDERS: PCP Nurse Practitioner Family; Visit Provider Nurse Practitioner Family
DX: M54.2 Cervicalgia (principal)
CPT/HCPCS: 72050

== ENCOUNTER 2023-05-12 08:56 | Outpatient (CLI) | payer MEDICAID, SELFPAY | END 2023-05-12 08:57 | disposition home or self-care (01) | LOC: LBO 08:57 | PROVIDERS: PCP Nurse Practitioner Family; Referring Provider Obstetrics & Gynecology; Visit Provider Obstetrics & Gynecology | DX: O26.851 Spotting complicating pregnancy, first trimester (principal); Z3A.01 Less than 8 weeks gestation of pregnancy | CPT/HCPCS: 36415; 84702 ==

== ENCOUNTER 2023-05-26 18:14 | Emergency (ER) | payer MEDICAID, SELFPAY ==
[2023-05-26 18:16] VITALS: BP 145/81; PULSE 77; RESP 18; TEMP 37.1; O2SAT 97
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
[2023-05-26 18:43] LABS: Abs Immature Grans 0.06 10^3/uL (0.0-0.06); Absolute Basophil Count 0.11 10^3/uL (0.0-0.2); Absolute Eosinophil Count 0.28 10^3/uL (0.0-0.7); Absolute Lymphocyte Count 2.81 10^3/uL (1.2-3.4); Absolute Monocyte Count 0.72 10^3/uL (0.1-0.8); Absolute Neutrophil Count 12.28 10^3/uL (1.2-6.7); Basophils % 0.7; Eosinophils % 1.7; HCT 44.6 % (36.0-46.0); HGB 15.6 g/dL (11.2-15.7); Immature Grans % 0.4; Lymphocytes % 17.3; MCH 28.8 pg (27.0-33.0); MCV 82 fL (80-95); MPV 9.2 fL (8.0-11.0); Monocytes % 4.4; Neutrophils % 75.5; Platelet Count 247 10^3/uL (130-400); RBC 5.41 10^6/uL (3.93-5.22); RDW 11.9 % (11.7-14.6); RDW-SD 35.9 fL; WBC 16.26 10^3/uL (4.4-10.8)
[2023-05-26] MEDS: Prochlorperazine 10 MG/2 ML VIAL 5 MG IVP (18:49)
[2023-05-26] MEDS: diphenhydrAMINE 50 MG/ML VIAL 25 MG IVP (18:50)
[2023-05-26] MEDS: Lactated Ringers 1,000 ML 1000 ML IV (18:54)
[2023-05-26 19:05] LABS: ALT 26 U/L (14-59); AST 18 U/L (15-37); Albumin 3.9 g/dL (3.4-5.0); Alkaline Phosphatase 66 U/L (46-116); Anion Gap 13.1 mmol/L (3-11); BUN 9 mg/dL (7-18); Bilirubin, Total 0.6 mg/dL (0.2-1.0); CO2 21.9 mmol/L (21.0-32.0); CREATININE 0.6 mg/dL (0.55-1.02); Calcium 9.3 mg/dL (8.5-10.1); Chloride 103 mmol/L (98-107); Glucose 82 mg/dL (74-106); Lipase 23 U/L (16-77); Magnesium 1.8 mg/dL (1.8-2.4); Potassium 3.5 mmol/L (3.5-5.1); Sodium 138 mmol/L (136-145); Total Protein 7.6 g/dL (6.4-8.2)
[2023-05-26 19:16] LABS: Bilirubin Small (Negative); Blood Negative (Negative); Clarity Clear (Clear); Glucose Negative (Negative); Ketones >=160 mg/dL (Negative); Leukocyte Esterase Negative (Negative); Nitrite Negative (Negative); Specific Gravity >= 1.030 (1.005-1.025); Urobilinogen 0.2 mg/dL (Up to 0.2)
== END 2023-05-26 20:20 | disposition home or self-care (01) ==
PROVIDERS: Emergency Provider Physician Assistant; PCP Nurse Practitioner Family
DX: O21.0 Mild hyperemesis gravidarum (principal); O99.331 Smoking (tobacco) complicating pregnancy, first trimester; F17.290 Nicotine dependence, other tobacco product, uncomplicated; Z3A.08 8 weeks gestation of pregnancy
CPT/HCPCS: 80053; 83690; 96361; 96374; 96375; 99284; 81003; 83605; 83735; 85025; J0780; J1200

== ENCOUNTER 2023-06-23 04:25 | Outpatient (CLI) | payer MEDICAID, SELFPAY ==
[2023-06-23 11:27] LABS: Panorama Kit Sent via Fed Ex
[2023-06-23 11:39] LABS: Abs Immature Grans 0.06 10^3/uL (0.0-0.06); Absolute Basophil Count 0.07 10^3/uL (0.0-0.2); Absolute Eosinophil Count 0.32 10^3/uL (0.0-0.7); Absolute Lymphocyte Count 2.41 10^3/uL (1.2-3.4); Absolute Neutrophil Count 8.34 10^3/uL (1.2-6.7); Basophils % 0.6; Eosinophils % 2.7; HCT 38.7 % (36.0-46.0); HGB 13.6 g/dL (11.2-15.7); Immature Grans % 0.5; Lymphocytes % 20.6; MCH 29.5 pg (27.0-33.0); MCHC 35.1 % (32.0-36.0); MCV 84 fL (80-95); MPV 9.7 fL (8.0-11.0); Monocytes % 4.4; Neutrophils % 71.2; Platelet Count 215 10^3/uL (130-400); RBC 4.61 10^6/uL (3.93-5.22); RDW 12.7 % (11.7-14.6); RDW-SD 38.7 fL; WBC 11.71 10^3/uL (4.4-10.8)
[2023-06-23 11:40] LABS: Absolute Monocyte Count 0.52 10^3/uL (0.1-0.8)
[2023-06-23 11:47] LABS: Glucose,1 Hr (Glucola) 130 mg/dL (80-140)
[2023-06-23 12:10] LABS: TSH (W/Ref FT4) 2.97 uIU/mL (0.36-3.74)
[2023-06-24 10:09] LABS: Hepatitis B Surface Ag Negative (Negative)
[2023-06-24 10:13] LABS: Varicella IgG Antibody Positive (See Note)
[2023-06-24 10:15] LABS: Rubella IgG Ab (UVM) Positive (See Note)
[2023-06-24 10:53] LABS: Hepatitis C Ab w Rflx HCV PCR Negative (Negative)
[2023-06-24 11:15] LABS: HIV-1/2 Ag & Ab Screen Negative (Negative)
[2023-06-25 15:17] LABS: Syphilis IgG w/Reflex Nonreactive (Nonreactive)
[2023-07-06 17:35] LABS: Result Summary NEGATIVE; Specimen WB Whole Blood
== END 2023-06-23 04:26 | disposition home or self-care (01) ==
LOC: LBO 04:25
PROVIDERS: PCP Nurse Practitioner Family; Visit Provider Advanced Practice Midwife
DX: Z34.91 Encounter for supervision of normal pregnancy, unspecified, first trimester (principal)
CPT/HCPCS: 36415; 81220; 81222; 82950; 86787; 86803; 86850; 86900; 86901; 87340; 87389; 84443; 85025; 86762; 86780

== ENCOUNTER 2023-06-23 11:16 | Outpatient (REF) | payer MEDICAID, SELFPAY ==
[2023-06-23 15:22] LABS: *AMPHETAMINES SCREEN URINE Negative (Negative); *BARBITURATES SCREEN URINE Negative (Negative); *BENZODIAZEPINES SCREEN URINE Negative (Negative); Cannabinoids THC Positive (Negative); Cocaine Screen,Urine Negative (Negative); METHADONE URINE SCREEN Negative (Negative); OPIATES URINE SCREEN Negative (Negative)
[2023-06-23 15:24] LABS: Tricyclic Antidepressants Negative (Negative)
[2023-06-24 11:58] LABS: Fentanyl Scr w/Rfx Confirm Negative ng/mL (<1)
[2023-06-30 08:14] LABS: Buprenorphine Negative ng/mL (Cutoff: 5.0); Norbuprenorphine Negative ng/mL (Cutoff: 2.5)
== END 2023-06-23 11:17 | disposition home or self-care (01) ==
LOC: LBN 11:16
PROVIDERS: PCP Nurse Practitioner Family; Visit Provider Advanced Practice Midwife
DX: Z34.91 Encounter for supervision of normal pregnancy, unspecified, first trimester (principal)
CPT/HCPCS: 80307; 80348; 87086